=== PATIENT | female | born 1970 | race Caucasian/White ===

== ENCOUNTER 2018-04-24 08:27 | Emergency (ER) | payer SELFPAY ==
--- NOTE | 2018-04-24 09:28 | RAD REPORT ---
EXAM DESCRIPTION: RAD - Ankle Right 3 View - 04/24/2018 9:03 am CLINICAL HISTORY: PAIN COMPARISON: None FINDINGS: Right ankle and right foot, multiple projections are submitted. Soft tissue swelling is seen about the ankle. No acute fracture or dislocation identified. Prominent calcaneal spurs are seen.
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
[2018-04-24 10:28] VITALS: BP 127/64; TEMP 97.6; O2SAT 99
== END 2018-04-24 10:22 | disposition home or self-care (01) ==
LOC: ER 08:27
DX: S90.31XA Contusion of right foot, initial encounter (principal); W22.8XXA Striking against or struck by other objects, initial encounter; Y93.9 Activity, unspecified; Y92.512 Supermarket, store or market as the place of occurrence of the external cause; Z91.048 Other nonmedicinal substance allergy status; E11.9 Type 2 diabetes mellitus without complications
CPT/HCPCS: 99283

== ENCOUNTER 2018-06-24 09:46 | Emergency (ER) | payer SELFPAY ==
--- NOTE | 2018-06-24 11:12 | EDPHYS ---
Physician Documentation [facility] Name: Silvia Kiran Age: 47 yrs Sex: Female : 1970 Arrival Date: 06/24/2018 Time: 09:48 Bed 23 Private MD: Nestor Gill ED Physician Hector Houston HPI: 06/24 11:08 This 47 yrs old Female presents to ER via Ambulatory with complaints of Ear marta Pain, Facial Swelling. 11:08 The patient presents with pain, that is acute. The complaints affect the right ear and marta left ear. Onset: The symptoms/episode began/occurred 2 day(s) ago. 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 - Social history:: Smoking status: Patient/guardian denies using tobacco. - Ebola Screening: : Patient negative for fever greater than or equal to 101.5 degrees Fahrenheit, and additional compatible Ebola Virus Disease symptoms Patient denies exposure to infectious person Patient denies travel to an Ebola-affected area in the 21 days before illness onset No symptoms or risks identified at this time. - Family history:: not pertinent. ROS: 11:09 Constitutional: Negative for fever, chills, and weight loss, Eyes: Negative for injury, marta pain, redness, and discharge, Neck: Negative for injury, pain, and swelling, Cardiovascular: Negative for chest pain, palpitations, and edema, Abdomen/GI: Negative for abdominal pain, nausea, vomiting, diarrhea, and constipation, Back: Negative for injury and pain, : Negative for injury, bleeding, discharge, and swelling, MS/Extremity: Negative for injury and deformity, Skin: Negative for injury, rash, and discoloration, Neuro: Negative for headache, weakness, numbness, tingling, and seizure, Psych: Negative for depression, anxiety, suicide ideation, homicidal ideation, and hallucinations, Allergy/Immunology: Negative for hives, rash, and allergies, Endocrine: Negative for neck swelling, polydipsia, polyuria, polyphagia, and marked weight changes, Hematologic/Lymphatic: Negative for swollen nodes, abnormal bleeding, and unusual bruising. 11:09 ENT: Positive for ear pain. 11:09 Respiratory: Positive for cough, with no reported sputum. Exam: 11:09 Constitutional: This is a well developed, well nourished patient who is awake, alert, marta and in no acute distress. Head/Face: Normocephalic, atraumatic. Eyes: Pupils equal round and reactive to light, extra-ocular motions intact. Lids and lashes normal. Conjunctiva and sclera are non-icteric and not injected. Cornea within normal limits. Periorbital areas with no swelling, redness, or edema. Neck: Trachea midline, no thyromegaly or masses palpated, and no cervical lymphadenopathy. Supple, full range of motion without nuchal rigidity, or vertebral point tenderness. No Meningismus. Chest/axilla: Normal chest wall appearance and motion. Nontender with no deformity. No lesions are appreciated. Cardiovascular: Regular rate and rhythm with a normal S1 and S2. No gallops, murmurs, or rubs. Normal PMI, no JVD. No pulse deficits. Respiratory: Lungs have equal breath sounds bilaterally, clear to auscultation and percussion. No rales, rhonchi or wheezes noted. No increased work of breathing, no retractions or nasal flaring. Abdomen/GI: Soft, non-tender, with normal bowel sounds. No distension or tympany. No guarding or rebound. No evidence of tenderness throughout. Back: No spinal tenderness. No costovertebral tenderness. Full range of motion. Female : Normal external genitalia. Skin: Warm, dry with normal turgor. Normal color with no rashes, no lesions, and no evidence of cellulitis. MS/ Extremity: Pulses equal, no cyanosis. Neurovascular intact. Full, normal range of motion. Neuro: Awake and alert, GCS 15, oriented to person, place, time, and situation. Cranial nerves II-XII grossly intact. Motor strength 5/5 in all extremities. Sensory grossly intact. Cerebellar exam normal. Normal gait. Psych: Awake, alert, with orientation to person, place and time. Behavior, mood, and affect are within normal limits. 11:09 ENT: Ear canal(s): erythema. Vital Signs: 10:17 BP 143 / 99; Pulse 91; Resp 18 S; Temp 97.2; Pulse Ox 100% on R/A; Weight 84.37 kg; iw Height 4 ft. 10 in. (147.32 cm); Pain 7/10; 10:39 BP 139 / 75; Pulse 77; Resp 18; Pulse Ox 98% on R/A; aj1 11:39 BP 132 / 76; Pulse 79; Resp 18; Pulse Ox 99% on R/A; aj1 10:17 Body Mass Index 38.87 (84.37 kg, 147.32 cm) iw MDM: 10:33 Patient medically screened. [facility] 11:10 Data reviewed: vital signs, nurses notes. [facility] Administered Medications: 12:19 Drug: Augmentin 875 mg Route: PO; [facility] 12:20 Follow up: Response: No adverse reaction aj Disposition: 06/24/18 11:11 Discharged to Home. Impression: Otitis externa in other diseases classified elsewhere, bilateral, Bronchitis, not specified as acute or chronic. - Condition is Stable. - Discharge Instructions: Acute Bronchitis, Adult, Otitis Externa, Upper Respiratory Infection, Adult, Otitis Externa, [id number], Upper Respiratory Infection, Adult, [id number]. - Prescriptions for Augmentin 875- 125 mg Oral Tablet - take 1 tablet by ORAL route every 12 hours for 10 days; 20 tablet. Cortisporin- TC 3.3-3-10-0.5 mg/mL Otic Suspension - instill 4 drop by OTIC route every 6 hours; 1 bottle. Kellee- D 12 Hour 60-120 mg Oral Tablet Sustained Release 12 hr - take 1 tablet by ORAL route every 12 hours As needed; 20 tablet. Medrol (Ephraim) 4 mg Oral Tablets, Dose Pack - take 1 tablet by ORAL route as directed - follow package instructions; 1 packet. - Work release form, Medication Reconciliation Form, Thank You Letter, Antibiotic Education, Prescription Opioid Use form. - Follow up: Nestor Gill MD; When: 2 - 3 days; Reason: Recheck today's complaints, Continuance of care, Re-evaluation by your physician. - Problem is new. - Symptoms have improved. Signatures: Naomi Shipman RN RN aj Hector Houston MD MD cha Williams, Irene, RN RN Corrections: (The following items were deleted from the chart) 12:20 11:11 06/24/2018 11:11 Discharged to Home. Impression: Otitis externa in other diseases aj1 classified elsewhere, bilateral; Bronchitis, not specified as acute or chronic. Condition is Stable. Forms are Work release form, Medication Reconciliation Form, Thank You Letter, Antibiotic Education, Prescription Opioid Use. Follow up: Nestor Gill; When: 2 - 3 days; Reason: Recheck today's complaints, Continuance of care, Re-evaluation by your physician. Problem is new. Symptoms have improved. marta
--- NOTE | 2018-06-24 11:12 | ER ---
Nurse's Notes [facility] Name: Silvia Kiran Age: 47 yrs Sex: Female : 1970 Arrival Date: 06/24/2018 Time: 09:48 Bed 23 Private MD: Nestor Gill Diagnosis: Otitis externa in other diseases classified elsewhere, bilateral;Bronchitis, not specified as acute or chronic Presentation: 06/24 10:15 Presenting complaint: Patient states: headache, left ear pain, started and her iw coworkers told her the left side of her neck looks swollen, subjective fever Sunday, also has productive cough. Transition of care: patient was not received from another setting of care. Onset of symptoms was June 24, 2018. Risk Assessment: Do you want to hurt yourself or someone else? Patient reports no desire to harm self or others. Initial Sepsis Screen: Does the patient meet any 2 criteria? No. Patient's initial sepsis screen is negative. Does the patient have a suspected source of infection? No. Patient's initial sepsis screen is negative. Care prior to arrival: None. 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 - Social history:: Smoking status: Patient/guardian denies using tobacco. - Ebola Screening: : Patient negative for fever greater than or equal to 101.5 degrees Fahrenheit, and additional compatible Ebola Virus Disease symptoms Patient denies exposure to infectious person Patient denies travel to an Ebola-affected area in the 21 days before illness onset No symptoms or risks identified at this time. - Family history:: not pertinent. Screenin:39 Abuse screen: Denies threats or abuse. Denies injuries from another. Nutritional aj1 screening: No deficits noted. Tuberculosis screening: No symptoms or risk factors identified. 12:19 Fall Risk None identified. aj1 Assessment: 10:39 General: Appears in no apparent distress. uncomfortable, Behavior is calm, cooperative, aj1 appropriate for age. Pain: Complains of pain in forehead, right ear and left ear Pain currently is 7 out of 10 on a pain scale. Quality of pain is described as throbbing, Pain began 5 days ago. Neuro: Level of Consciousness is awake, alert, obeys commands. Cardiovascular: Patient's skin is warm and dry. Respiratory: Reports cough that is productive, Airway is patent Respiratory effort is even, unlabored, Respiratory pattern is regular, symmetrical. GI: Reports nausea, States that when she coughs a lot of phlegm up sometimes it makes her vomit. : No signs and/or symptoms were reported regarding the genitourinary system. EENT: Reports bilateral ear pain. Derm: No signs and/or symptoms reported regarding the dermatologic system. Skin is pink, warm \T\ dry. normal. Musculoskeletal: No signs and/or symptoms reported regarding the musculoskeletal system. Circulation, motion, and sensation intact. 11:39 Reassessment: Patient appears in no apparent distress at this time. No changes from aj1 previously documented assessment. Patient and/or family updated on plan of care and expected duration. Pain level reassessed. Patient is alert, oriented x 3, equal unlabored respirations, skin warm/dry/pink. Vital Signs: 10:17 BP 143 / 99; Pulse 91; Resp 18 S; Temp 97.2; Pulse Ox 100% on R/A; Weight 84.37 kg; iw Height 4 ft. 10 in. (147.32 cm); Pain 7/10; 10:39 BP 139 / 75; Pulse 77; Resp 18; Pulse Ox 98% on R/A; aj1 11:39 BP 132 / 76; Pulse 79; Resp 18; Pulse Ox 99% on R/A; aj1 10:17 Body Mass Index 38.87 (84.37 kg, 147.32 cm) iw ED Course: 09:48 Patient arrived in ED. as 09:48 Nestor Gill MD is Private Physician. as 10:16 Triage completed. iw 10:17 Arm band placed on. iw 10:33 Hector Houston MD is Attending Physician. marta 10:39 Naomi Shipman, TERRY is Primary Nurse. aj1 10:39 Patient has correct armband on for positive identification. Bed in low position. Call aj1 light in reach. Side rails up X 1. 10:39 No provider procedures requiring assistance completed. aj1 11:10 Nestor Gill MD is Referral Physician. [facility] 12:19 Patient did not have IV access during this emergency room visit. aj1 Administered Medications: 12:19 Drug: Augmentin 875 mg Route: PO; aj1 12:20 Follow up: Response: No adverse reaction aj1 Outcome: 11:11 Discharge ordered by . marta 12:19 Discharged to home ambulatory. aj1 12:19 Condition: good 12:19 Discharge instructions given to patient, Instructed on discharge instructions, follow up and referral plans. medication usage, Demonstrated understanding of instructions, follow-up care, medications, Prescriptions given X 4. 12:20 Patient left the ED. aj1 Signatures: Naomi Shipman RN RN aj1 Hector Houston MD MD cha Martinez, Amelia as Williams, Irene, RN RN iw
[2018-06-24] MEDS ORDERED: AMOX/K CLAV 875 MG TAB ONE (11:54)
== END 2018-06-24 12:20 | disposition home or self-care (01) ==
LOC: ER 09:46
DX: J40 Bronchitis, not specified as acute or chronic (principal); H62.43 Otitis externa in other diseases classified elsewhere, bilateral; E11.9 Type 2 diabetes mellitus without complications; Z79.84 Long term (current) use of oral hypoglycemic drugs
CPT/HCPCS: 99283

== ENCOUNTER 2018-08-22 19:34 | Emergency (ER) | payer SELFPAY ==
[2018-08-22] MEDS ORDERED: HYDROCODONE/CHLORPHEN 5 ML/OSYR ONE (20:17)
--- NOTE | 2018-08-22 20:24 | RAD REPORT ---
EXAM DESCRIPTION: RAD - Chest Pa And Lat (2 Views) - 08/22/2018 8:16 pm CLINICAL HISTORY: COUGH Chest pain. COMPARISON: CHEST SINGLE VIEW dated 03/08/2013 FINDINGS: The lungs are clear. The heart is normal in size. No displaced fractures. Evidence of prev ious removal of the right rib noted. IMPRESSION: No acute or concerning finding suspected.
--- NOTE | 2018-08-22 21:01 | EDPHYS ---
Physician Documentation [facility] Name: Silvia Kiran Age: 48 yrs Sex: Female : 1970 Arrival Date: 08/22/2018 Time: 19:35 Bed 30 Private MD: ED Physician Hector Houston HPI: 08/22 20:05 This 48 yrs old Female presents to ER via Ambulatory with complaints of pm1 Cough, Breathing Difficulty. 20:05 The patient or guardian reports cough, with productive sputum. Onset: The pm1 symptoms/episode began/occurred 2 week(s) ago. Severity of symptoms: in the emergency department the symptoms are actually worse. Modifying factors: The symptoms are alleviated by nothing, the symptoms are aggravated by nothing. Associated signs and symptoms: Pertinent positives: earache, rhinorrhea, sore throat, Pertinent negatives: chest pain, fever. The patient has not recently seen a physician. 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 - Social history:: Smoking status: Patient/guardian denies using tobacco, Patient/guardian denies using alcohol, street drugs. - Ebola Screening: : No symptoms or risks identified at this time. ROS: 20:05 Constitutional: Negative for fever, chills, and weight loss, Eyes: Negative for injury, pm1 pain, redness, and discharge. 20:05 Neck: Negative for injury, pain, and swelling, Cardiovascular: Negative for chest pain, palpitations, and edema. 20:05 Abdomen/GI: Negative for abdominal pain, nausea, vomiting, diarrhea, and constipation, Back: Negative for injury and pain, : Negative for injury, bleeding, discharge, and swelling, MS/Extremity: Negative for injury and deformity, Skin: Negative for injury, rash, and discoloration, Neuro: Negative for headache, weakness, numbness, tingling, and seizure. 20:05 ENT: Positive for ear pain, rhinorrhea, sore throat. 20:05 Respiratory: Positive for cough, shortness of breath. Exam: 20:05 Constitutional: This is a well developed, well nourished patient who is awake, alert, pm1 and in no acute distress. Head/Face: Normocephalic, atraumatic. Eyes: Pupils equal round and reactive to light, extra-ocular motions intact. Lids and lashes normal. Conjunctiva and sclera are non-icteric and not injected. Cornea within normal limits. Periorbital areas with no swelling, redness, or edema. ENT: Nares patent. No nasal discharge, no septal abnormalities noted. Tympanic membranes are normal and external auditory canals are clear. Oropharynx with no redness, swelling, or masses, exudates, or evidence of obstruction, uvula midline. Mucous membranes moist. Neck: Trachea midline, no thyromegaly or masses palpated, and no cervical lymphadenopathy. Supple, full range of motion without nuchal rigidity, or vertebral point tenderness. No Meningismus. Chest/axilla: Normal chest wall appearance and motion. Nontender with no deformity. No lesions are appreciated. Cardiovascular: Regular rate and rhythm with a normal S1 and S2. No gallops, murmurs, or rubs. Normal PMI, no JVD. No pulse deficits. Respiratory: Lungs have equal breath sounds bilaterally, clear to auscultation and percussion. No rales, rhonchi or wheezes noted. No increased work of breathing, no retractions or nasal flaring. Abdomen/GI: Soft, non-tender, with normal bowel sounds. No distension or tympany. No guarding or rebound. No evidence of tenderness throughout. Back: No spinal tenderness. No costovertebral tenderness. Full range of motion. Skin: Warm, dry with normal turgor. Normal color with no rashes, no lesions, and no evidence of cellulitis. MS/ Extremity: Pulses equal, no cyanosis. Neurovascular intact. Full, normal range of motion. 20:05 Neuro: Orientation: is normal, Motor: is normal, moves all fours. Vital Signs: 19:51 BP 130 / 87; Pulse 93; Resp 18 S; Temp 99.5(O); Pulse Ox 97% on R/A; Weight 84.82 kg bb (R); Height 4 ft. 10 in. (147.32 cm) (R); Pain 7/10; 21:25 BP 108 / 70; Pulse 89; Resp 18; Temp 98(O); Pulse Ox 96% on R/A; Pain 2/10; mg2 19:51 Body Mass Index 39.08 (84.82 kg, 147.32 cm) bb MDM: 19:44 Patient medically screened. marta 20:42 Data reviewed: vital signs. Data interpreted: Pulse oximetry: on room air is 97 %. pm1 Interpretation: normal. Counseling: I had a detailed discussion with the patient and/or guardian regarding: the historical points, exam findings, and any diagnostic results supporting the discharge/admit diagnosis, lab results, radiology results, the need for outpatient follow up, to return to the emergency department if symptoms worsen or persist or if there are any questions or concerns that arise at home. 08/22 20:00 Order name: Flu [facility] 08/22 20:00 Order name: Strep [facility] 08/22 20:04 Order name: Influenza Screen (A ; Complete Time: 20:41 [facility] 08/22 20:04 Order name: Group A Streptococcus Rapid Sc; Complete Time: 20:41 [facility] 08/22 20:20 Order name: Urine Dipstick--Ancillary (enter results) [facility] 08/22 20:20 Order name: Urine --Ancillary (enter results) [facility] 08/22 20:00 Order name: Chest Pa And Lat (2 Views) XRAY; Complete Time: 20:27 pm 08/22 20:00 Order name: Glucose Level; Complete Time: 20:22 pm 08/22 20:01 Order name: Urine Dipstick-Ancillary (obtain specimen); Complete Time: 20:14 pm 08/22 20:40 Order name: Throat Culture [facility] 08/22 20:01 Order name: Urine Test (obtain specimen); Complete Time: 20:14 pm1 Administered Medications: 20:14 Drug: Tussionex Pennkinetic ER 5 ml Route: PO; mg2 20:44 Follow up: Response: No adverse reaction; Marked relief of symptoms mg2 20:58 Drug: SOLU-Medrol 125 mg Route: IM; Site: right gluteus; mg2 21:32 Follow up: Response: No adverse reaction; Marked relief of symptoms mg2 20:58 Drug: Albuterol 5 mg Route: Inhalation; mg2 21:32 Follow up: Response: No adverse reaction; Marked relief of symptoms mg2 Point of Care Testing: Blood Glucose: 20:22 Blood Glucose: 141 mg/dL; mg2 Ranges: Critical Glucose Levels:Adult <50 mg/dl or >400 mg/dl <40 mg/dl or >180 mg/dl Disposition: 08/22/18 21:01 Discharged to Home. Impression: Bronchitis, not specified as acute or chronic. - Condition is Stable. - Discharge Instructions: Acute Bronchitis, Adult, How to Use an Inhaler, Cough, Adult. - Prescriptions for Medrol (Ephraim) 4 mg Oral Tablets, Dose Pack - take 1 tablet by ORAL route as directed - follow package instructions; 1 packet. Albuterol Sulfate 90 mcg/actuation - inhale 1-2 puff by INHALATION route every 4-6 hours; 1 Inhaler. Guaifenesin AC 10- 100 mg/5 mL Oral Liquid - take 10 milliliter by ORAL route every 4 hours As needed; 240 milliliter. - Medication Reconciliation Form, Thank You Letter, Antibiotic Education, Prescription Opioid Use form. - Follow up: Emergency Department; When: As needed; Reason: Worsening of condition. Follow up: Private Physician; When: 2 - 3 days; Reason: Recheck today's complaints, Continuance of care, Re-evaluation by your physician. - Problem is new. - Symptoms have improved. Addendum: 08/26/2018 07:01 Co-signature as Attending Physician, Hector Houston MD I agree with the assessment and c claros plan of care. Signatures: Dispatcher [employer] [facility] Hector Houston MD MD cha Ballard, Brenda, RN RN bb Richard Daniel NP TECHNICAL DESIGNER pm1 Dinesh Amador RN RN mg2 Corrections: (The following items were deleted from the chart) 08/22 20:05 20:04 Chest Pa And Lat (2 Views) ordered. [facility] 21:34 21:01 08/22/2018 21:01 Discharged to Home. Impression: Bronchitis, not specified as mg2 acute or chronic. Condition is Stable. Forms are Medication Reconciliation Form, Thank You Letter, Antibiotic Education, Prescription Opioid Use. Follow up: Emergency Department; When: As needed; Reason: Worsening of condition. Follow up: Private Physician; When: 2 - 3 days; Reason: Recheck today's complaints, Continuance of care, Re-evaluation by your physician. Problem is new. Symptoms have improved. pm1
--- NOTE | 2018-08-22 21:01 | ER ---
Nurse's Notes [facility] Name: Silvia Kiran Age: 48 yrs Sex: Female : 1970 Arrival Date: 08/22/2018 Time: 19:35 Bed 30 Private MD: Diagnosis: Bronchitis, not specified as acute or chronic Presentation: 08/22 19:48 Presenting complaint: Patient states: she has been feeling sick for a couple of weeks bb with a cough, congestion, fever, sore throat, ear pain, shortness of breath, pain in her ribs from coughing. Transition of care: patient was not received from another setting of care. Onset of symptoms was August 08, 2018. Risk Assessment: Do you want to hurt yourself or someone else? Patient reports no desire to harm self or others. Initial Sepsis Screen: Does the patient meet any 2 criteria? No. Patient's initial sepsis screen is negative. Does the patient have a suspected source of infection? No. Patient's initial sepsis screen is negative. Care prior to arrival: None. 19:48 Method Of Arrival: Ambulatory bb 19:48 Acuity: SUNG 3 bb Triage Assessment: 20:18 General: Appears in no apparent distress. comfortable, Behavior is calm, cooperative. mg2 Respiratory: the patient has mild shortness of breath. Respiratory: Airway is patent Respiratory effort is even, unlabored, Respiratory pattern is regular, symmetrical. 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 - Social history:: Smoking status: Patient/guardian denies using tobacco, Patient/guardian denies using alcohol, street drugs. - Ebola Screening: : No symptoms or risks identified at this time. Screenin:15 Abuse screen: Denies threats or abuse. Denies injuries from another. Nutritional mg2 screening: No deficits noted. Tuberculosis screening: No symptoms or risk factors identified. Fall Risk None identified. Assessment: 20:15 General: Appears in no apparent distress. comfortable, Behavior is calm, cooperative. mg2 Pain: Complains of pain in throat Pain does not radiate. Pain currently is 2 out of 10 on a pain scale. Quality of pain is described as aching, Pain began gradually, Is intermittent. Neuro: Level of Consciousness is awake, alert, obeys commands, Oriented to person, place, time, situation. Cardiovascular: Capillary refill < 3 seconds Patient's skin is warm and dry. Rhythm is. Respiratory: Airway is patent Respiratory effort is even, unlabored, Respiratory pattern is regular, symmetrical. Respiratory: Reports cough that is productive. Respiratory: GI: No signs and/or symptoms were reported involving the gastrointestinal system. : No signs and/or symptoms were reported regarding the genitourinary system. EENT: Reports pain in throat. Derm: Skin is intact, is healthy with good turgor, Skin is pink, warm \T\ dry. normal. Musculoskeletal: No signs and/or symptoms reported regarding the musculoskeletal system. 21:04 Reassessment: patient is for discharged once breathing treatment is done. mg2 21:33 Reassessment: patient improved. mg2 Vital Signs: 19:51 BP 130 / 87; Pulse 93; Resp 18 S; Temp 99.5(O); Pulse Ox 97% on R/A; Weight 84.82 kg bb (R); Height 4 ft. 10 in. (147.32 cm) (R); Pain 7/10; 21:25 BP 108 / 70; Pulse 89; Resp 18; Temp 98(O); Pulse Ox 96% on R/A; Pain 2/10; mg2 19:51 Body Mass Index 39.08 (84.82 kg, 147.32 cm) bb ED Course: 19:35 Patient arrived in ED. am2 19:41 Dinesh Amador, TERRY is Primary Nurse. mg2 19:42 Richard Daniel NP is PHCP. pm1 19:42 Hector Houston MD is Attending Physician. pm1 19:50 Triage completed. bb 19:51 Arm band placed on Patient placed in an exam room, on a stretcher, on pulse oximetry. bb 20:15 Chest Pa And Lat (2 Views) XRAY In Process Unspecified. EDMS 20:15 No provider procedures requiring assistance completed. Patient did not have IV access mg2 during this emergency room visit. 20:19 Patient has correct armband on for positive identification. Door closed. mg2 Administered Medications: 20:14 Drug: Tussionex Pennkinetic ER 5 ml Route: PO; mg2 20:44 Follow up: Response: No adverse reaction; Marked relief of symptoms mg2 20:58 Drug: SOLU-Medrol 125 mg Route: IM; Site: right gluteus; mg2 21:32 Follow up: Response: No adverse reaction; Marked relief of symptoms mg2 20:58 Drug: Albuterol 5 mg Route: Inhalation; mg2 21:32 Follow up: Response: No adverse reaction; Marked relief of symptoms mg2 Point of Care Testing: Blood Glucose: 20:22 Blood Glucose: 141 mg/dL; mg2 Ranges: Outcome: 21:01 Discharge ordered by . pm1 21:33 Discharged to home ambulatory, with family. mg2 21:33 Condition: stable 21:33 Discharge instructions given to patient, family, Instructed on discharge instructions, follow up and referral plans. medication usage, Demonstrated understanding of instructions, follow-up care, medications, Prescriptions given X 3. 21:34 Patient left the ED. mg2 Signatures: Dispatcher [employer] EDMS Sherry Verdugo, RN RN Richard Armando NP BREAKER OILER pm1 Ignacia Clay am2 Dinseh Amador RN RN mg2
[2018-08-22] MEDS ORDERED: ALBUTEROL 2.5 MG/3 ML NEB SOL ONE (21:03)
[2018-08-22] MEDS ORDERED: METHYLPREDNISOLONE 125 MG INJ ONE (21:03)
[2018-08-22 21:49] LABS: Urine Blood NEGATIVE (NEG); Urine Glucose NEGATIVE (NEG); Urine Protein NEGATIVE (NEG); Urine Specific Gravity 1.015 (1.005-1.030); Urine pH 6.5 (5.0-7.0)
[2018-08-22 22:00] VITALS: BP 108/70; TEMP 98; O2SAT 96
== END 2018-08-22 21:34 | disposition home or self-care (01) ==
LOC: ER 19:34
DX: J40 Bronchitis, not specified as acute or chronic (principal); E11.9 Type 2 diabetes mellitus without complications
CPT/HCPCS: 71046; 81003; 81025; 82962; 87070; 87081; 87804; 96372; 99284; J2930

== ENCOUNTER 2019-01-04 15:35 | Emergency (ER) | payer SELFPAY ==
[2019-01-04 18:36] LABS: Urine Blood TRACE (NEG); Urine Glucose NEGATIVE (NEG); Urine Protein NEGATIVE (NEG)
[2019-01-04] MEDS ORDERED: NA CHLORIDE 0.9% 1,000 ML ONE (18:44)
[2019-01-04] MEDS ORDERED: ONDANSETRON 4 MG/2 ML VIAL ONE (18:44)
[2019-01-04] MEDS ORDERED: FENTANYL CITR 100 MCG/2 ML ONE (18:44)
[2019-01-04 18:58] LABS: Absolute Lymphocytes (CBC) 2.1 K/uL (0.7-4.9); Absolute Monocytes 0.7 K/uL (0.1-1.3); Absolute Neutrophil 8.2 K/uL (1.8-8.0); Basophils % 0.9 % (0-1.3); Eosinophils % 1.4 % (0-4.4); Hematocrit 40.7 % (36.0-45.0); Lymphocytes % 18.5 % (15.3-44.8); MPV 9.2 fL (7.6-11.3); Monocytes % 5.9 % (3.3-12.3)
--- NOTE | 2019-01-04 19:11 | RAD REPORT ---
EXAM DESCRIPTION: [facility]/04/2019 7:00 pm CLINICAL HISTORY: left leg pain and swelling. COMPARISON: None. FINDINGS: Left common femoral, superficial femoral, popliteal and posterior tibial veins are compre ssible and demonstrate augmentation. Doppler demonstrates good flow. IMPRESSION: No evidence of deep venous thrombosis involving the left lower extremity.
[2019-01-04 19:14] LABS: ALT/SGPT 52 U/L (12-78); AST/SGOT 36 U/L (15-37); Albumin 3.2 g/dL (3.4-5.0); Alkaline Phosphatase 106 U/L (45-117); BUN Blood Urea Nitrogen 19 mg/dL (7-18); Bicarbonate 28 mmol/L (21-32); Bilirubin Direct < 0.1 mg/dL (0-0.2); Bilirubin Total 0.4 mg/dL (0.2-1.0); Glucose Level 123 mg/dL (74-106); Lipase 97 U/L (73-393); Potassium 3.7 mmol/L (3.5-5.1); Protein, Total 7.6 g/dL (6.4-8.2); Sodium Level 137 mmol/L (136-145)
[2019-01-04 19:25] LABS: Urine Bacteria 20-50 /HPF (<20); Urine Culture Reflex Order REFLEXED; Urine Mucus 1+ /HPF (NONE SEEN); Urine RBC <5 /HPF (NONE SEEN)
--- NOTE | 2019-01-04 20:00 | RAD REPORT ---
EXAM DESCRIPTION: CT - Stone Protocol - 01/04/2019 7:42 pm CLINICAL HISTORY: Abdominal pain. Left flank pain COMPARISON: None. TECHNIQUE: Computed axial tomography of the abdomen pelvis was obtained without oral or IV contrast. Lack of IV and oral contrast limits evaluation of solid organs, bowel, and vessels. Coronal reformat naveed images were obtained and reviewed. All CT scans are performed using dose optimization technique as appropriate and may include automated exposure control or mA/KV adjustment according to patient size. FINDINGS: A renal calculus is not seen. An ureteral calculus is not noted. A bladder calculus is not present. Fatty liver Spleen, pancreas and adrenals appear grossly normal Diverticulosis. Minimal stranding adjacent to the sigmoid colon. The appendix appears normal Tiny umbilical hernia IMPRESSION: Negative for a genitourinary calculus Minimal sigmoid diverticulitis
[2019-01-04] MEDS ORDERED: KETOROLAC 30 MG/ML INJ ONE (20:14)
[2019-01-04] MEDS ORDERED: CIPROFLOXACIN HCL 500 MG TAB ONE (20:28)
[2019-01-04] MEDS ORDERED: METRONIDAZOLE 500mg IVPB 500 MG/100 ML BAG IV ONE (20:28)
--- NOTE | 2019-01-04 21:00 | EDPHYS ---
Physician Documentation [facility] Name: Silvia Kiran Age: 48 yrs Sex: Female : 1970 Arrival Date: 01/04/2019 Time: 15:38 Bed 17 Private MD: Rene Morales R ED Physician Kendall Ch HPI: 01/04 18:10 This 48 yrs old Female presents to ER via Ambulatory with complaints of Back cp Pain, Leg Pain. 18:10 The patient presents with pain that is acute, with no known mechanism of injury. The cp symptoms are located in the low back. 18:10 Onset: The symptoms/episode began/occurred 4 day(s) ago. The pain radiates to the left cp leg and left knee. Associated signs and symptoms: Pertinent positives: abdominal pain, Pertinent negatives: chest pain, constipation, dysuria, fever, headache, incontinence, numbness, tingling, urinary retention, weakness. The problem was sustained from unknown cause. Modifying factors: the patient symptoms are aggravated by bending. Severity of symptoms: in the emergency department the symptoms are unchanged, despite home interventions. 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 - Social history:: Smoking status: . - Ebola Screening: : Patient denies travel to an Ebola-affected area in the 21 days before illness onset. ROS: 18:20 Constitutional: Negative for body aches, chills, fever, poor PO intake. cp 18:20 Eyes: Negative for injury, pain, redness, and discharge. cp 18:20 ENT: Negative for drainage from ear(s), ear pain, sore throat, difficulty swallowing, difficulty handling secretions. 18:20 Cardiovascular: Negative for chest pain, edema, palpitations. 18:20 Respiratory: Negative for cough, orthopnea, wheezing. 18:20 Abdomen/GI: Positive for abdominal pain, Negative for vomiting, diarrhea, constipation, anorexia, black/tarry stool, rectal bleeding, bowel incontinence. 18:20 Back: Positive for pain at rest, pain with movement, Negative for injury or acute deformity. 18:20 : Negative for urinary symptoms, difficulty urinating, bladder incontinence, vaginal bleeding, vaginal discharge. 18:20 MS/extremity: Positive for pain, swelling, tenderness, of the left leg. 18:20 Skin: Negative for cellulitis, rash. 18:20 Neuro: Negative for altered mental status, dizziness, headache, numbness, syncope, weakness. 18:20 All other systems are negative. Exam: 18:30 Constitutional: The patient appears in no acute distress, alert, awake, non-toxic, well cp developed, well nourished, uncomfortable. 18:30 Head/Face: Normocephalic, atraumatic. cp 18:30 Eyes: Periorbital structures: appear normal, Conjunctiva: normal, no exudate, no injection, Sclera: no appreciated abnormality, Lids and lashes: appear normal, bilaterally. 18:30 ENT: External ear(s): are unremarkable, Nose: is normal, Mouth: is normal, Posterior pharynx: is normal, airway is patent, no erythema, no exudate. 18:30 Neck: ROM/movement: is normal, is supple, without pain, no range of motions limitations, no nuchal rigidity. 18:30 Chest/axilla: Inspection: normal, Palpation: is normal, no crepitus, no tenderness. 18:30 Cardiovascular: Rate: normal, Rhythm: regular, Edema: is not appreciated, JVD: is not appreciated. 18:30 Respiratory: the patient does not display signs of respiratory distress, Respirations: cp normal, no use of accessory muscles, no retractions, no splinting, no tachypnea, Breath sounds: are clear throughout, no decreased breath sounds, no stridor, no wheezing. 18:30 Abdomen/GI: Inspection: abdomen appears normal, Bowel sounds: active, all quadrants, Palpation: soft, in all quadrants, mild abdominal tenderness, in the anterior aspect of left lateral abdomen and left lower quadrant, rebound tenderness, is not appreciated, involuntary guarding, is not appreciated. 18:30 Back: pain, that is moderate, of the low back area, ROM is painful. 18:30 Musculoskeletal/extremity: DVT Exam: pain, that is moderate, of the left leg, swelling, that is mild, of the left leg, tenderness, positive Homans' sign noted on exam. 18:30 Skin: no rash present. 18:30 Neuro: Orientation: to person, place \T\ time. Mentation: is normal, Motor: moves all fours, strength is normal, Sensation: is normal, Deep tendon reflexes are 2+ (normal) in the right patellar, right Achilles, left patellar and left Achilles. Vital Signs: 15:47 BP 153 / 80; Pulse 95; Resp 19; Temp 97.8(TE); Pulse Ox 95% on R/A; Weight 88.45 kg; tw2 Height 4 ft. 10 in. (147.32 cm); Pain 10/10; 17:00 BP 144 / 74; Pulse 93; Resp 18; Pulse Ox 100% on R/A; em 18:00 BP 132 / 62; Pulse 85; Resp 18; Pulse Ox 99% on R/A; Pain 7/10; em 19:05 BP 131 / 65; Pulse 80; Resp 17; Temp 98; Pulse Ox 99% on R/A; rr5 19:05 Pain 7/10; rr5 20:00 BP 120 / 64; Pulse 75; Resp 17; Pulse Ox 99% ; Pain 10/10; rr5 21:10 BP 124 / 71; Pulse 82; Resp 17; Temp 98.1; Pulse Ox 99% on R/A; Pain 7/10; rr5 15:47 Body Mass Index 40.75 (88.45 kg, 147.32 cm) tw2 MDM: 16:56 Patient medically screened. cp 20:55 Data reviewed: vital signs, nurses notes, lab test result(s), radiologic studies, CT cp scan, ultrasound, and as a result, I will discharge patient. 20:55 Differential diagnosis: Pyelonephritis Ureterolithiasis sciatica, diverticulitis, cp spinal stenosis, cauda equina. Counseling: I had a detailed discussion with the patient and/or guardian regarding: the historical points, exam findings, and any diagnostic results supporting the discharge/admit diagnosis, lab results, radiology results, the need for outpatient follow up, a family practitioner, to return to the emergency department if symptoms worsen or persist or if there are any questions or concerns that arise at home. ED course: VSS. Pain improved with meds. Will discharge to home for continued monitoring. 01/04 18:04 Order name: Basic Metabolic Panel cp 01/04 18:04 Order name: CBC with Diff 01/04 18:04 Order name: Creatinine for Radiology; Complete Time: 19:57 cp / 18:04 Order name: Hepatic Function; Complete Time: 19:57 cp /08 18:04 Order name: Lipase; Complete Time: 19:57 cp 01/04 18:04 Order name: Urine Microscopic Only; Complete Time: 19:57 cp /08 19:57 Interpretation: Normal except: UBACT 20-50; SQEPI 10-20. cp 06/08 18:04 Order name: US Extremity Venous Unilateral Ltd; Complete Time: 19:13 cp 01/04 18:06 Order name: Basic Metabolic Panel; Complete Time: 19:57 EDCA 01/04 18:06 Order name: CBC with Automated Diff; Complete Time: 19:13 EDCA 01/04 18:10 Order name: Urine Dipstick--Ancillary (enter results); Complete Time: 18:56 eb 08 18:56 Interpretation: Normal except: UBLD TRACE. cp /08 18:10 Order name: Urine --Ancillary (enter results); Complete Time: 18:56 eb 08 19:13 Order name: CT Stone Protocol; Complete Time: 20:03 cp /08 19:30 Order name: Urine Culture [facility] 08 16:56 Order name: Urine Dipstick-Ancillary (obtain specimen); Complete Time: 18:23 cp 08 16:56 Order name: Urine Test (obtain specimen); Complete Time: 18:23 cp 08 18:04 Order name: IV Saline Lock; Complete Time: 18:48 cp 01/04 18:04 Order name: Labs collected and sent; Complete Time: 18:48 cp Administered Medications: 18:46 Drug: Zofran 4 mg Route: IVP; Site: right antecubital; ss 20:00 Follow up: Response: No adverse reaction rr5 18:46 Drug: fentaNYL (PF) 25 mcg Route: IVP; Site: right antecubital; ss 20:00 Follow up: Response: No adverse reaction rr5 18:47 Drug: NS 0.9% 1000 ml Route: IV; Rate: 1 bolus; Site: right antecubital; ss 20:05 Drug: TORadol 30 mg Route: IVP; Site: right antecubital; rr5 21:05 Follow up: Response: No adverse reaction rr5 20:23 Drug: metroNIDAZOLE 500 mg Volume: 100 ml; Route: IVPB; Infused Over: 30 mins; Site: la1 right antecubital; 21:20 Follow up: Response: No adverse reaction; IV Status: Completed infusion; IV Intake: rr5 100ml 20:23 Drug: Cipro 500 mg Route: PO; la1 21:30 Follow up: Response: No adverse reaction rr5 Disposition: 01/04/19 21:00 Discharged to Home. Impression: Sciatica, left side, Diverticulitis of large intestine without perforation or abscess without bleeding - sigmoid. - Condition is Stable. - Discharge Instructions: Diverticulitis, Sciatica, Back Exercises. - Prescriptions for Tylenol- Codeine #3 300-30 mg Oral Tablet - take 2 tablets by ORAL route every 6 hours As needed; 20 tablet. Cipro 500 mg Oral Tablet - take 1 tablet by ORAL route every 12 hours for 10 days; 20 tablet. Cyclobenzaprine 10 mg Oral Tablet - take 1 tablet by ORAL route every 8 hours As needed; 20 tablet. Metronidazole 500 mg Oral Tablet - take 1 tablet by ORAL route every 8 hours; 30 tablet. - Medication Reconciliation Form, Thank You Letter, Antibiotic Education, Prescription Opioid Use form. - Follow up: Rene Morales MD; When: 2 - 3 days; Reason: Recheck today's complaints. - Problem is new. - Symptoms have improved. Addendum: 01/07/2019 19:02 Co-signature as Attending Physician, Kendall Ch MD. r n Signatures: Dispatcher [employer] EDMS Kendall Ch MD MD rn Smirch, Shelby, RN RN ss Thierry Reeder RN RN la1 Hector Smith PA PA cp Wise, Tara, RN RN tw2 Mil Plascencia RN RN rr5 Corrections: (The following items were deleted from the chart) 01/04 21:32 21:00 01/04/2019 21:00 Discharged to Home. Impression: Sciatica, left side; rr5 Diverticulitis of large intestine without perforation or abscess without bleeding - sigmoid. Condition is Stable. Forms are Medication Reconciliation Form, Thank You Letter, Antibiotic Education, Prescription Opioid Use. Follow up: Rene Morales; When: 2 - 3 days; Reason: Recheck today's complaints. Problem is new. Symptoms have improved. cp
--- NOTE | 2019-01-04 21:00 | ER ---
Nurse's Notes [facility] Name: Silvia Kiran Age: 48 yrs Sex: Female : 1970 Arrival Date: 01/04/2019 Time: 15:38 Bed 17 Private MD: Rene Morales R Diagnosis: Sciatica, left side;Diverticulitis of large intestine without perforation or abscess without bleeding-sigmoid Presentation: 01/04 15:45 Presenting complaint: Patient states: its been going on about 4 days, everyone thinks i tw2 have pinched a nerve, from my LEFT knee down is my main pain, my back pain comes and goes and i have a lump on the left side of my stomach and i have had some stomach pain and i am feeling shortness of breath. Transition of care: patient was not received from another setting of care. Onset of symptoms was January 04, 2019. Risk Assessment: Do you want to hurt yourself or someone else? Patient reports no desire to harm self or others. Initial Sepsis Screen: Does the patient meet any 2 criteria? No. Patient's initial sepsis screen is negative. Does the patient have a suspected source of infection? No. Patient's initial sepsis screen is negative. Care prior to arrival: None. 15:45 Method Of Arrival: Ambulatory tw2 15:45 Acuity: SUNG 3 tw2 Triage Assessment: 15:47 General: Appears in no apparent distress. obese, Behavior is calm, cooperative, tw2 appropriate for age. Pain: Complains of pain in left knee. Musculoskeletal: Range of motion: intact in all extremities. 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 - Social history:: Smoking status: . - Ebola Screening: : Patient denies travel to an Ebola-affected area in the 21 days before illness onset. Screenin:15 Abuse screen: Denies threats or abuse. Nutritional screening: No deficits noted. em Tuberculosis screening: No symptoms or risk factors identified. Fall Risk None identified. Assessment: 17:00 General: Appears in no apparent distress. comfortable, Behavior is calm, cooperative, em Denies fever. Pain: Complains of pain in back Pain radiates to left leg Pain currently is 8 out of 10 on a pain scale. Pain began x 4 days. Neuro: Level of Consciousness is awake, alert, obeys commands, Oriented to person, place, time, situation. Cardiovascular: Capillary refill < 3 seconds Patient's skin is warm and dry. Respiratory: Airway is patent Respiratory effort is even, unlabored, Respiratory pattern is regular, symmetrical. GI: Abdomen is flat, Abd is soft X 4 quads Abdomen is tender to palpation in left upper quadrant Reports nausea. : Denies burning with urination, discharge. Derm: Skin is intact, is healthy with good turgor, Skin is pink, warm \T\ dry. Musculoskeletal: Range of motion: intact in all extremities. 17:05 General: The previous assessment is accurate, call light remains within reach. . ss 18:50 Reassessment: Patient appears in no apparent distress at this time. Patient and/or em family updated on plan of care and expected duration. Pain level reassessed. Patient is alert, oriented x 3, equal unlabored respirations, skin warm/dry/pink. 19:05 General: Appears in no apparent distress. comfortable, Behavior is calm, cooperative, rr5 appropriate for age. Pain: Complains of pain in abdomen and back Pain radiates to left leg Pain currently is 7 out of 10 on a pain scale. Quality of pain is described as aching, Pain began gradually, Is intermittent. Neuro: Level of Consciousness is awake, alert, obeys commands, Oriented to person, place, time, situation, Appropriate for age. Cardiovascular: Capillary refill < 3 seconds Patient's skin is warm and dry. Respiratory: Airway is patent Respiratory effort is even, unlabored, Respiratory pattern is regular, symmetrical. GI: Abdomen is round Reports diarrhea, nausea, vomiting. : No signs and/or symptoms were reported regarding the genitourinary system. EENT: No signs and/or symptoms were reported regarding the EENT system. Derm: Skin is intact, Skin is pink, warm \T\ dry. Musculoskeletal: Capillary refill < 3 seconds, Range of motion: intact in all extremities, Reports pain in back and left leg. 19:45 Reassessment: Patient appears in no apparent distress at this time. Patient is alert, rr5 oriented x 3, equal unlabored respirations, skin warm/dry/pink. back from CT scan. assisted on bed. 20:05 Reassessment: Patient appears in no apparent distress at this time. complaining of back rr5 and leg pain. ED provider aware with order made and carried out. 21:00 Reassessment: Patient appears in no apparent distress at this time. Patient and/or rr5 family updated on plan of care and expected duration. Pain level reassessed. no complaints made. for discharge awaiting for the IV infusion to consume. 21:30 Reassessment: Patient appears in no apparent distress at this time. Patient and/or rr5 family updated on plan of care and expected duration. Pain level reassessed. Patient is alert, oriented x 3, equal unlabored respirations, skin warm/dry/pink. discharge instruction given and explained without complaints made. Patient states feeling better. Patient states symptoms have improved. Vital Signs: 15:47 BP 153 / 80; Pulse 95; Resp 19; Temp 97.8(TE); Pulse Ox 95% on R/A; Weight 88.45 kg; tw2 Height 4 ft. 10 in. (147.32 cm); Pain 10/10; 17:00 BP 144 / 74; Pulse 93; Resp 18; Pulse Ox 100% on R/A; em 18:00 BP 132 / 62; Pulse 85; Resp 18; Pulse Ox 99% on R/A; Pain 7/10; em 19:05 BP 131 / 65; Pulse 80; Resp 17; Temp 98; Pulse Ox 99% on R/A; rr5 19:05 Pain 7/10; rr5 20:00 BP 120 / 64; Pulse 75; Resp 17; Pulse Ox 99% ; Pain 10/10; rr5 21:10 BP 124 / 71; Pulse 82; Resp 17; Temp 98.1; Pulse Ox 99% on R/A; Pain 7/10; rr5 15:47 Body Mass Index 40.75 (88.45 kg, 147.32 cm) tw2 ED Course: 15:38 Patient arrived in ED. rg4 15:38 Rene Morales MD is Private Physician. rg4 15:46 Triage completed. tw2 15:47 Arm band placed on. tw2 16:22 Colt Eubanks LVN is Primary Nurse. em 16:45 Hector Smith PA is PHCP. cp 16:45 Kendall Ch MD is Attending Physician. cp 17:15 Patient has correct armband on for positive identification. Allergy band placed. Call em light in reach. Adult w/ patient. Pulse ox on. NIBP on. 18:46 Inserted saline lock: 22 gauge in right antecubital area, using aseptic technique. ss Blood collected. 18:59 US Extremity Venous Unilateral Ltd In Process Unspecified. EDMS 19:44 CT Stone Protocol In Process Unspecified. EDMS 20:58 Rene Morales MD is Referral Physician. cp 21:30 No provider procedures requiring assistance completed. IV discontinued, intact, rr5 bleeding controlled, No redness/swelling at site. Pressure dressing applied. Administered Medications: 18:46 Drug: Zofran 4 mg Route: IVP; Site: right antecubital; ss 20:00 Follow up: Response: No adverse reaction rr5 18:46 Drug: fentaNYL (PF) 25 mcg Route: IVP; Site: right antecubital; ss 20:00 Follow up: Response: No adverse reaction rr5 18:47 Drug: NS 0.9% 1000 ml Route: IV; Rate: 1 bolus; Site: right antecubital; ss 20:05 Drug: TORadol 30 mg Route: IVP; Site: right antecubital; rr5 21:05 Follow up: Response: No adverse reaction rr5 20:23 Drug: metroNIDAZOLE 500 mg Volume: 100 ml; Route: IVPB; Infused Over: 30 mins; Site: la1 right antecubital; 21:20 Follow up: Response: No adverse reaction; IV Status: Completed infusion; IV Intake: rr5 100ml 20:23 Drug: Cipro 500 mg Route: PO; la1 21:30 Follow up: Response: No adverse reaction rr5 Intake: 21:20 IV: 100ml; Total: 100ml. rr5 Outcome: 21:00 Discharge ordered by . cp 21:30 Discharged to home ambulatory. rr5 21:30 Condition: stable 21:30 Discharge instructions given to patient, Instructed on discharge instructions, follow up and referral plans. medication usage, Demonstrated understanding of instructions, follow-up care, medications, Prescriptions given X 4. 21:32 Patient left the ED. rr5 Signatures: Dispatcher [employer] EDMS Eubanks, Colt, [employer] SALES ENGINEER [employer] SALES ENGINEER Nohelia Lr RN RN ss Thierry Reeder RN RN la1 Hector Smith PA PA cp Wise, Tara, RN RN tw2 Leighann Garza rg4 Mil Plascencia RN RN rr5 Corrections: (The following items were deleted from the chart) 20:33 19:05 General: Appears in no apparent distress. comfortable, Behavior is calm, rr5 cooperative, appropriate for age, la1 20:33 19:05 Pain: Complains of pain in abdomen and back Pain radiates to left leg Pain rr5 currently is 7 out of 10 on a pain scale. Quality of pain is described as aching, Pain began gradually, Is intermittent, la1 20:33 19:05 Neuro: Level of Consciousness is awake, alert, obeys commands, Oriented to rr5 person, place, time, situation, Appropriate for age la1 20:33 19:05 Cardiovascular: Capillary refill < 3 seconds Patient's skin is warm and dry. la1 rr5 20:33 19:05 Respiratory: Airway is patent Respiratory effort is even, unlabored, Respiratory rr5 pattern is regular, symmetrical, la1 20:33 19:05 GI: Abdomen is round Reports diarrhea, nausea, vomiting, la1 rr5 20:33 19:05 : No signs and/or symptoms were reported regarding the genitourinary system. la1rr5 20:33 19:05 EENT: No signs and/or symptoms were reported regarding the EENT system. la1 rr5 20:33 19:05 Derm: Skin is intact, Skin is pink, warm \T\ dry. la1 rr5 20:33 19:05 Musculoskeletal: Capillary refill < 3 seconds, Range of motion: intact in all rr5 extremities, Reports pain in back and left leg la1
[2019-01-04 23:19] VITALS: O2SAT 99
[2019-01-04 23:20] VITALS: TEMP 98
[2019-01-04 23:22] VITALS: BP 120/64
== END 2019-01-04 21:32 | disposition home or self-care (01) ==
LOC: ER 15:35
DX: M54.32 Sciatica, left side (principal); K57.32 Diverticulitis of large intestine without perforation or abscess without bleeding; E11.9 Type 2 diabetes mellitus without complications; Z91.09 Other allergy status, other than to drugs and biological substances
CPT/HCPCS: 36415; 74176; 76377; 80048; 80076; 81003; 81015; 81025; 83690; 85025; 87086; 87088; 93971; 96365; 96375; 99284; J2405; J3010; J7030

== ENCOUNTER 2019-03-19 15:40 | Emergency (ER) | payer SELFPAY ==
[2019-03-19] MEDS ORDERED: Ringers Lactate 1,000 ML IV ONE (16:06)
[2019-03-19] MEDS ORDERED: IPRATROPIUM BROM 0.5MG/2.5ML ONE (16:11)
[2019-03-19] MEDS ORDERED: ALBUTEROL 2.5 MG/3 ML NEB SOL ONE (16:11)
[2019-03-19] MEDS ORDERED: HYDROCODONE/CHLORPHEN 5 ML/OSYR ONE (16:12)
--- NOTE | 2019-03-19 16:30 | RAD REPORT ---
EXAM DESCRIPTION: Zunilda Preston (2 Views)03/19/2019 4:17 pm CLINICAL HISTORY: Cough COMPARISON: July 2018 FINDINGS: The lungs appear clear of acute infiltrate. The heart is normal size IMPRESSION: No acute abnormalities displayed
--- NOTE | 2019-03-19 16:59 | ER ---
Nurse's Notes [facility] Name: Silvia Kiran Age: 48 yrs Sex: Female : 1970 Arrival Date: 03/19/2019 Time: 15:42 Bed 7 Private MD: Rene Morales R Diagnosis: Acute bronchitis, unspecified Presentation: 03/19 15:45 Presenting complaint: Patient states: I have been having a really painful persistent la1 cough for the past few days. Transition of care: patient was not received from another setting of care. Onset of symptoms was March 19, 2019. Risk Assessment: Do you want to hurt yourself or someone else? Patient reports no desire to harm self or others. Initial Sepsis Screen: Does the patient meet any 2 criteria? No. Patient's initial sepsis screen is negative. Does the patient have a suspected source of infection? No. Patient's initial sepsis screen is negative. Care prior to arrival: None. 15:45 Method Of Arrival: Ambulatory la1 15:45 Acuity: SUNG 3 la1 Historical: - Allergies: 15:43 Iodine; la1 15:43 iv dye iodine; la1 - PMHx: 15:43 Diabetes - NIDDM; la1 - Immunization history:: Adult Immunizations up to date. - Social history:: Smoking status: unknown. - Ebola Screening: : No symptoms or risks identified at this time. Screenin:56 Abuse screen: Denies threats or abuse. Denies injuries from another. Nutritional ph screening: No deficits noted. Tuberculosis screening: No symptoms or risk factors identified. Fall Risk None identified. Vital Signs: 15:44 Pulse 98; Resp 20; Temp 98.4; Pulse Ox 95% on R/A; Weight 86.18 kg; Height 4 ft. 10 in. la1 (147.32 cm); 15:45 BP 147 / 78; la1 15:44 Body Mass Index 39.71 (86.18 kg, 147.32 cm) la1 ED Course: 15:42 Patient arrived in ED. mr 15:43 Rene Morales MD is Private Physician. mr 15:43 Arm band placed on left wrist. la1 15:44 Hector Smith PA is PHCP. cp 15:44 Kendall Ch MD is Attending Physician. cp 15:45 Triage completed. la1 15:50 Shara Kee, RN is Primary Nurse. ph 15:57 Patient has correct armband on for positive identification. Bed in low position. Call ph light in reach. Side rails up X 1. Pulse ox on. NIBP on. Door closed. Noise minimized. Warm blanket given. Head of bed elevated. 16:23 XRAY Chest Pa And Lat (2 Views) In Process Unspecified. EDMS 16:23 Strep swab sent to lab. sg 16:57 Rene Morales MD is Referral Physician. cp Administered Medications: 16:19 Drug: Tussionex Pennkinetic ER 5 ml Route: PO; sg 16:19 Drug: DuoNeb (3:1) (2.5 mg - 0.5 mg) 3 ml Route: Nebulizer; Outcome: 16:59 Discharge ordered by . cp 17:26 Patient left the ED. mb4 Signatures: Dispatcher [employer] EDMS Moise Mcfarland RN RN Ning Garcias mr Lilli, Thierry RN RN la1 Shara Kee, RN RN Hector Aguero PA PA Sydni Galicia mb4
--- NOTE | 2019-03-19 17:00 | EDPHYS ---
Physician Documentation [facility] Name: Silvia Kiran Age: 48 yrs Sex: Female : 1970 Arrival Date: 03/19/2019 Time: 15:42 Bed 7 Private MD: Rene Morales R ED Physician Kendall Ch HPI: 03/19 16:05 This 48 yrs old Female presents to ER via Ambulatory with complaints of cp Cough, Wheezing. 16:05 The patient or guardian reports cough, with productive sputum, that is yellow. Onset: cp The symptoms/episode began/occurred 4 day(s) ago. Severity of symptoms: in the emergency department the symptoms are unchanged, despite home interventions. Associated signs and symptoms: Pertinent positives: fever, sore throat, wheezing, Pertinent negatives: chest pain, diarrhea, vomiting. Historical: - Allergies: 15:43 Iodine; la1 15:43 iv dye iodine; la1 - PMHx: 15:43 Diabetes - NIDDM; la1 - Immunization history:: Adult Immunizations up to date. - Social history:: Smoking status: unknown. - Ebola Screening: : No symptoms or risks identified at this time. ROS: 16:15 Constitutional: Negative for body aches, chills, fever, poor PO intake. cp 16:15 Eyes: Negative for injury, pain, redness, and discharge. cp 16:15 ENT: Positive for sore throat, Negative for drainage from ear(s), ear pain, difficulty swallowing, difficulty handling secretions. 16:15 Cardiovascular: Negative for chest pain, edema. 16:15 Respiratory: Positive for cough, with yellow sputum, wheezing, Negative for shortness of breath. 16:15 Abdomen/GI: Negative for abdominal pain, vomiting, diarrhea, constipation. 16:15 Back: Negative for radiated pain. 16:15 Skin: Negative for rash. 16:15 Neuro: Negative for altered mental status, headache, weakness. 16:15 All other systems are negative. Exam: 16:20 Constitutional: The patient appears in no acute distress, alert, awake, cp non-diaphoretic, non-toxic, well developed, well nourished. 16:20 Head/Face: Normocephalic, atraumatic. cp 16:20 Eyes: Periorbital structures: appear normal, Conjunctiva: normal, no exudate, no injection, Lids and lashes: appear normal, bilaterally. 16:20 ENT: External ear(s): are unremarkable, Ear canal(s): are normal, clear, TM's: bulging, is not appreciated, bilaterally, dullness, bilaterally, erythema, is not appreciated, bilaterally, Nose: is normal, Mouth: Lips: moist, Oral mucosa: moist, Posterior pharynx: Airway: no evidence of obstruction, patent, Tonsils: no enlargement, no exudate, swelling, is not appreciated, erythema, that is mild, exudate, is not appreciated. 16:20 Neck: ROM/movement: is normal, is supple, without pain, no range of motions limitations, no nuchal rigidity, Lymph nodes: no appreciated lymphadenopathy. 16:20 Chest/axilla: Inspection: normal, Palpation: is normal, no crepitus, no tenderness. 16:20 Cardiovascular: Rate: normal, Rhythm: regular, Edema: is not appreciated, JVD: is not appreciated. 16:20 Respiratory: the patient does not display signs of respiratory distress, Respirations: normal, no use of accessory muscles, no retractions, no splinting, no tachypnea, labored breathing, is not present, Breath sounds: bronchial sounds, that are mild, are heard diffusely, stridor, is not appreciated, + upper airway congestion. wheezing: is not appreciated. 16:20 Abdomen/GI: Exam negative for discomfort, distension, guarding, Inspection: abdomen appears normal. 16:20 Back: pain, is absent, ROM is normal. 16:20 Skin: no rash present. Vital Signs: 15:44 Pulse 98; Resp 20; Temp 98.4; Pulse Ox 95% on R/A; Weight 86.18 kg; Height 4 ft. 10 in. la1 (147.32 cm); 15:45 BP 147 / 78; la1 15:44 Body Mass Index 39.71 (86.18 kg, 147.32 cm) la1 MDM: 15:56 Patient medically screened. cp 16:00 Differential Diagnosis: Bronchitis Influenza Sinusitis Otitis Media Viral Syndrome cp Pneumonia. 16:58 Data reviewed: vital signs, nurses notes, lab test result(s), radiologic studies, plain cp films. 16:58 Test interpretation: by ED physician or midlevel provider: plain radiologic studies. cp Counseling: I had a detailed discussion with the patient and/or guardian regarding: the historical points, exam findings, and any diagnostic results supporting the discharge/admit diagnosis, radiology results, to return to the emergency department if symptoms worsen or persist or if there are any questions or concerns that arise at home. Response to treatment: the patient's symptoms have markedly improved after treatment, and as a result, I will discharge patient. 03/19 16:06 Order name: Strep 03/19 17:14 Order name: Throat Culture EDMA 03/19 16:02 Order name: XRAY Chest Pa And Lat (2 Views); Complete Time: 16:43 cp 03/19 16:43 Interpretation: Report reviewed. cp Administered Medications: 16:19 Drug: Tussionex Pennkinetic ER 5 ml Route: PO; sg 16:19 Drug: DuoNeb (3:1) (2.5 mg - 0.5 mg) 3 ml Route: Nebulizer; sg Disposition: 03/19/19 16:59 Discharged to Home. Impression: Acute bronchitis, unspecified. - Condition is Stable. - Discharge Instructions: Acute Bronchitis, Adult. - Prescriptions for Albuterol Sulfate 2.5 mg /3 mL (0.083 %) Inhalation Solution for Nebulization - inhale 1 unit by NEBULIZATION route every 8 hours As needed; 1 box. Albuterol Sulfate 90 mcg/actuation - inhale 1-2 puff by INHALATION route every 4-6 hours; 1 Inhaler. Guaifenesin AC 10- 100 mg/5 mL Oral Liquid - take 10 milliliters by ORAL route every 4 hours As needed; 180 milliliter. Medrol (Ephraim) 4 mg Oral Tablets, Dose Pack - take 1 tablet by ORAL route as directed - follow package instructions; 1 packet. - Medication Reconciliation Form, Thank You Letter, Antibiotic Education, Prescription Opioid Use form. - Follow up: Rene Morales MD; When: 2 - 3 days; Reason: Worsening of condition. - Problem is new. - Symptoms have improved. Signatures: Dispatcher [employer] EDMS Moise Mcfarland RN RN sg Thierry Reeder RN RN la1 Hector Smith PA PA Sydni Galicia4 Corrections: (The following items were deleted from the chart) 17:26 16:59 03/19/2019 16:59 Discharged to Home. Impression: Acute bronchitis, unspecified. mb4 Condition is Stable. Forms are Medication Reconciliation Form, Thank You Letter, Antibiotic Education, Prescription Opioid Use. Follow up: Rene Morales; When: 2 - 3 days; Reason: Worsening of condition. Problem is new. Symptoms have improved. cp
[2019-03-19 17:37] VITALS: TEMP 98.4; O2SAT 95
[2019-03-19 17:38] VITALS: BP 147/78
== END 2019-03-19 17:26 | disposition home or self-care (01) ==
LOC: ER 15:40
DX: J20.9 Acute bronchitis, unspecified (principal); Z91.09 Other allergy status, other than to drugs and biological substances
CPT/HCPCS: 71046; 87070; 87081; 94640; 99284

== ENCOUNTER 2019-06-03 18:35 | Emergency (ER) | payer SELFPAY ==
--- NOTE | 2019-06-03 19:30 | ER ---
Nurse's Notes [facility] Name: Silvia Kiran Age: 48 yrs Sex: Female : 1970 Arrival Date: 06/03/2019 Time: 18:37 Bed 18 Private MD: Rene Morales R Diagnosis: Fracture of navicular [scaphoid] bone of wrist;Fall on same level from slipping, tripping and stumbling with subsequent striking against unspecified object Presentation: 06/03 18:38 Presenting complaint: Slipped while bending down and reaching into car, hit arm on door hb frame last night. Today c/o left elbow, wrist, and hand pain 9/10. Transition of care: patient was not received from another setting of care. Onset of symptoms was June 02, 2019. Risk Assessment: Do you want to hurt yourself or someone else? Patient reports no desire to harm self or others. Initial Sepsis Screen: Does the patient meet any 2 criteria? No. Patient's initial sepsis screen is negative. Does the patient have a suspected source of infection? No. Patient's initial sepsis screen is negative. Care prior to arrival: Medication(s) given: T3 at 0600 toay. 18:38 Method Of Arrival: Ambulatory hb 18:38 Acuity: SUNG 4 hb Triage Assessment: 19:18 Injury Description: Fall. 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 - Social history:: Smoking status: Patient/guardian denies using tobacco. - Ebola Screening: : No symptoms or risks identified at this time. Screenin:17 Abuse screen: Denies threats or abuse. Denies injuries from another. Nutritional screening: No deficits noted. Tuberculosis screening: No symptoms or risk factors identified. Fall Risk Fall in past 12 months (25 points). Assessment: 19:16 General: Appears in no apparent distress. Behavior is calm, cooperative, appropriate wh for age. Pain: Complains of pain in Left Wrist Pain radiates to Left Elbow Pain currently is 9 out of 10 on a pain scale. Quality of pain is described as sharp, Pain began 1 day ago. Neuro: Level of Consciousness is awake, alert, obeys commands, Oriented to person, place, time, situation, Appropriate for age. Cardiovascular: Capillary refill < 3 seconds. Respiratory: Airway is patent Respiratory effort is even, unlabored, Respiratory pattern is regular, symmetrical. GI: Abdomen is flat, non-distended. : No signs and/or symptoms were reported regarding the genitourinary system. EENT: No signs and/or symptoms were reported regarding the EENT system. Derm: Skin is intact, is healthy with good turgor, Skin is pink, warm \T\ dry. normal. Musculoskeletal: Circulation, motion, and sensation intact. Vital Signs: 18:42 BP 161 / 77; Pulse 89; Resp 18; Temp 98.2; Pulse Ox 100% on R/A; Weight 92.08 kg; hb Height 4 ft. 10 in. (147.32 cm); Pain 9/10; 19:18 BP 136 / 66; Pulse 87; Resp 18; Pulse Ox 100% on R/A; wh 18:42 Body Mass Index 42.43 (92.08 kg, 147.32 cm) hb ED Course: 18:37 Patient arrived in ED. mr 18:38 Rene Morales MD is Private Physician. mr 18:40 Triage completed. hb 18:42 Arm band placed on. hb 18:59 Ethel Cifuentes F[facility]-C is [facility]. snw 18:59 Jose Welsh MD is Attending Physician. snw 19:04 Jessica Ponce is Primary Nurse. wh 19:17 Forearm Left XRAY In Process Unspecified. EDMS 19:17 Hand Left 3 View XRAY In Process Unspecified. EDMS 19:18 Patient has correct armband on for positive identification. Bed in low position. Call light in reach. Side rails up X 1. Pulse ox on. NIBP on. 19:27 Rene Morales MD is Referral Physician. snw 19:47 Orthoglass splint: Thumb spica splint applied on left forearm. Sling applied to left mt arm. 19:50 No provider procedures requiring assistance completed. Patient did not have IV access during this emergency room visit. Administered Medications: 19:41 Drug: Phenergan 25 mg Route: PO; 19:51 Follow up: Response: No adverse reaction; Nausea is decreased 19:43 Drug: [place] (7.5 mg-325 mg) 1 tabs Route: PO; 19:51 Follow up: Response: No adverse reaction; Pain is decreased; RASS: Alert and Calm (0) 19:45 Drug: TORadol 30 mg Route: IM; Site: right gluteus; 19:51 Follow up: Response: No adverse reaction Outcome: 19:29 Discharge ordered by . sndarlene 19:50 Discharged to home ambulatory. 19:50 Condition: stable 19:50 Discharge instructions given to patient, Instructed on discharge instructions, follow up and referral plans. no drinking with medication, no driving heavy equipment, medication usage, POC Cast and Splint Care and Scaphoid Fracture Demonstrated understanding of instructions, follow-up care, medications, splint care, POC Prescriptions given X 2. 19:52 Patient left the ED. Signatures: Dispatcher [employer] EDMS Ethel Cifuentes, BLASTING GANG MINER-C BLASTING GANG MINER-Csnw Ning Garcias Heather, RN RN hb Thompson, Moriah mt [place], Winsy
--- NOTE | 2019-06-03 19:30 | EDPHYS ---
Physician Documentation [facility] Name: Silvia Kiran Age: 48 yrs Sex: Female : 1970 Arrival Date: 06/03/2019 Time: 18:37 Bed 18 Private MD: Rene Morales R ED Physician Jose Welsh HPI: 06/03 19:38 This 48 yrs old Female presents to ER via Ambulatory with complaints of Hand snw Injury, Arm Injury. 19:38 The patient or guardian reports decreased range of motion, pain. The complaints affect snw the left hand, wrist, and forearm. Context: The problem was sustained outdoors, resulted from a fall. Onset: The symptoms/episode began/occurred suddenly, yesterday. Associated signs and symptoms: Pertinent positives:. Severity of symptoms: At their worst the symptoms were moderate, severe. The patient has not experienced similar symptoms in the past. The patient has not recently seen a physician. pt slipped and fell yesterday while reaching into car, struck forearm/hand on running board, pain since that time at thumb/wrist and up medial left forearm. 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 - Social history:: Smoking status: Patient/guardian denies using tobacco. - Ebola Screening: : No symptoms or risks identified at this time. ROS: 19:37 Constitutional: Negative for fever, chills, and weight loss, Eyes: Negative for injury, snw pain, redness, and discharge, ENT: Negative for injury, pain, and discharge, Neck: Negative for injury, pain, and swelling, Cardiovascular: Negative for chest pain, palpitations, and edema, Respiratory: Negative for shortness of breath, cough, wheezing, and pleuritic chest pain, Abdomen/GI: Negative for abdominal pain, nausea, vomiting, diarrhea, and constipation, Back: Negative for injury and pain, : Negative for injury, bleeding, discharge, and swelling, Skin: Negative for injury, rash, and discoloration, Neuro: Negative for headache, weakness, numbness, tingling, and seizure, Psych: Negative for depression, anxiety, suicide ideation, homicidal ideation, and hallucinations. 19:37 MS/extremity: Positive for injury or acute deformity, contusion, decreased range of motion, pain, swelling, tenderness, of the palmar aspect of left forearm and left wrist. Exam: 19:36 Constitutional: This is a well developed, well nourished patient who is awake, alert, snw and in no acute distress. Head/Face: Normocephalic, atraumatic. Eyes: Pupils equal round and reactive to light, extra-ocular motions intact. Lids and lashes normal. Conjunctiva and sclera are non-icteric and not injected. Cornea within normal limits. Periorbital areas with no swelling, redness, or edema. ENT: Nares patent. No nasal discharge, no septal abnormalities noted. Tympanic membranes are normal and external auditory canals are clear. Oropharynx with no redness, swelling, or masses, exudates, or evidence of obstruction, uvula midline. Mucous membranes moist. Neck: Trachea midline, no thyromegaly or masses palpated, and no cervical lymphadenopathy. Supple, full range of motion without nuchal rigidity, or vertebral point tenderness. No Meningismus. Chest/axilla: Normal chest wall appearance and motion. Nontender with no deformity. No lesions are appreciated. Cardiovascular: Regular rate and rhythm with a normal S1 and S2. No gallops, murmurs, or rubs. Normal PMI, no JVD. No pulse deficits. Respiratory: Lungs have equal breath sounds bilaterally, clear to auscultation and percussion. No rales, rhonchi or wheezes noted. No increased work of breathing, no retractions or nasal flaring. Abdomen/GI: Soft, non-tender, with normal bowel sounds. No distension or tympany. No guarding or rebound. No evidence of tenderness throughout. Back: No spinal tenderness. No costovertebral tenderness. Full range of motion. Skin: Warm, dry with normal turgor. Normal color with no rashes, no lesions, and no evidence of cellulitis. Neuro: Awake and alert, GCS 15, oriented to person, place, time, and situation. Cranial nerves II-XII grossly intact. Motor strength 5/5 in all extremities. Sensory grossly intact. Cerebellar exam normal. Normal gait. Psych: Awake, alert, with orientation to person, place and time. Behavior, mood, and affect are within normal limits. 19:36 Musculoskeletal/extremity: Extremities: grossly normal except: noted in the left wrist and palmar aspect of left forearm: decreased ROM, swelling, tenderness, ROM: limited active range of motion due to pain, in the left arm, Circulation is intact in all extremities. Sensation intact. Vital Signs: 18:42 BP 161 / 77; Pulse 89; Resp 18; Temp 98.2; Pulse Ox 100% on R/A; Weight 92.08 kg; hb Height 4 ft. 10 in. (147.32 cm); Pain 9/10; 19:18 BP 136 / 66; Pulse 87; Resp 18; Pulse Ox 100% on R/A; wh 18:42 Body Mass Index 42.43 (92.08 kg, 147.32 cm) hb MDM: 19:18 Patient medically screened. snw 19:33 Data reviewed: vital signs, nurses notes. Data interpreted: Pulse oximetry: on room air snw is 100 %. Interpretation: normal. Counseling: I had a detailed discussion with the patient and/or guardian regarding: the historical points, exam findings, and any diagnostic results supporting the discharge/admit diagnosis, the presence of at least one elevated blood pressure reading (>120/80) during this emergency department visit, radiology results, the need for outpatient follow up, to return to the emergency department if symptoms worsen or persist or if there are any questions or concerns that arise at home. Response to treatment: There is no appreciated change of the patient's symptoms at this time. Special discussion: I have referred the patient to see his PCP for further evaluation of high blood pressure. Based on the history and exam findings, there is no indication for further emergent testing or inpatient evaluation. I discussed with the patient/guardian the need to see the hand specialist for further evaluation of the symptoms. I discussed with the patient/guardian the need to see the primary care provider for further evaluation of the symptoms. 06/03 18:45 Order name: Forearm Left XRAY 06/03 18:45 Order name: Hand Left 3 View XRAY 06/03 19:25 Order name: Thumb Spica Splint; Complete Time: 19:45 snw 06/03 19:25 Order name: Sling; Complete Time: 19:45 snw Administered Medications: 19:41 Drug: Phenergan 25 mg Route: PO; 19:51 Follow up: Response: No adverse reaction; Nausea is decreased 19:43 Drug: [place] (7.5 mg-325 mg) 1 tabs Route: PO; 19:51 Follow up: Response: No adverse reaction; Pain is decreased; RASS: Alert and Calm (0) 19:45 Drug: TORadol 30 mg Route: IM; Site: right gluteus; 19:51 Follow up: Response: No adverse reaction Disposition: 21:52 Co-signature as Attending Physician, Jose Welsh MD I agree with the assessment and wa plan of care. Disposition: 06/03/19 19:29 Discharged to Home. Impression: Fracture of navicular [scaphoid] bone of wrist, Fall on same level from slipping, tripping and stumbling with subsequent striking against unspecified object. - Condition is Stable. - Discharge Instructions: Cast or Splint Care, Adult, Scaphoid Fracture, RICE for Routine Care of Injuries, Fall Prevention in the Home, [id number]. - Prescriptions for Mobic 7.5 mg Oral Tablet - take 1 tablet by ORAL route once daily take with food; 20 tablet. Tylenol- Codeine #3 300-30 mg Oral Tablet - take 2 tablets by ORAL route every 6 hours As needed; 16 tablet. - Work release form, Medication Reconciliation Form, Thank You Letter, Antibiotic Education, Prescription Opioid Use form. - Follow up: Emergency Department; When: As needed; Reason: Worsening of condition. Follow up: Rene Morales MD; When: 1 week; Reason: Recheck today's complaints, Continuance of care, Re-evaluation by your physician. Signatures: Dispatcher [employer] EDEthel Pringle FNP-C NIGHT SUPERVISOR-Csnw Ami Osborne, RN RN Jessica Dockery Jose Welsh MD MD wa Corrections: (The following items were deleted from the chart) 19:52 19:29 06/03/2019 19:29 Discharged to Home. Impression: Fracture of navicular [scaphoid] wh bone of wrist; Fall on same level from slipping, tripping and stumbling with subsequent striking against unspecified object. Condition is Stable. Forms are Medication Reconciliation Form, Thank You Letter, Antibiotic Education, Prescription Opioid Use. Follow up: Emergency Department; When: As needed; Reason: Worsening of condition. Follow up: Rene Morales; When: 1 week; Reason: Recheck today's complaints, Continuance of care, Re-evaluation by your physician. snw
[2019-06-03] MEDS ORDERED: HYDROCODONE/APAP 7.5/325 MG TAB ONE (19:38)
[2019-06-03] MEDS ORDERED: PROMETHAZINE 25 MG TABLET ONE (19:38)
[2019-06-03] MEDS ORDERED: KETOROLAC 30 MG/ML INJ ONE (19:38)
--- NOTE | 2019-06-03 19:55 | RAD REPORT ---
EXAM DESCRIPTION: RAD -Hand Left 3 View - 06/03/2019 7:16 pm CLINICAL HISTORY: Left hand pain status post injury FINDINGS: No fracture or dislocation is seen.
--- NOTE | 2019-06-03 19:57 | RAD REPORT ---
EXAM DESCRIPTION: RAD - Forearm Left - 06/03/2019 7:16 pm CLINICAL HISTORY: Left forearm pain status post injury FINDINGS: No fracture is seen
[2019-06-03 23:02] VITALS: TEMP 98.2; O2SAT 100
[2019-06-03 23:03] VITALS: BP 136/66
--- OUTSIDE RECORDS SUMMARY | 2019-06-09 00:11 | XMS REPORT ---
:1970 [facility] Address [address] [place] [address] [address] [place] [address] Care Team Providers Name Role Phone Unavailable Unavailable Unavailable Problems This patient has no known problems. Allergies, Adverse Reactions, Alerts This patient has no known allergies or adverse reactions. Medications This patient has no known medications.
== END 2019-06-03 19:52 | disposition home or self-care (01) ==
LOC: ER 18:35
PROC: 2W3DX1Z Immobilization of Left Lower Arm using Splint (ICD-10-PCS; principal; 2019-06-03)
DX: S62.002A Unspecified fracture of navicular [scaphoid] bone of left wrist, initial encounter for closed fracture (principal); W01.198A Fall on same level from slipping, tripping and stumbling with subsequent striking against other object, initial encounter; Y93.89 Activity, other specified; Y92.89 Other specified places as the place of occurrence of the external cause; E11.9 Type 2 diabetes mellitus without complications; Z91.048 Other nonmedicinal substance allergy status
CPT/HCPCS: 96372; 99284; Q0169

== ENCOUNTER 2019-07-31 23:03 | Emergency (ER) | payer SELFPAY ==
--- OUTSIDE RECORDS SUMMARY | 2019-07-31 23:05 | XMS REPORT ---
:1970 [facility] Address [address] [place] [address] [address]. [address] [place] [address] Care Team Providers Name Role Phone Unavailable Unavailable Unavailable Problems This patient has no known problems. Allergies, Adverse Reactions, Alerts This patient has no known allergies or adverse reactions. Medications This patient has no known medications.
--- NOTE | 2019-07-31 23:54 | ER ---
Nurse's Notes [facility] Name: Silvia Kiran Age: 48 yrs Sex: Female : 1970 Arrival Date: 07/31/2019 Time: 23:05 Bed 15 Private MD: Diagnosis: Lipomatosis, not elsewhere classified Presentation: 07/31 23:15 Presenting complaint: Patient states: I feel something under my right breast like a rr5 mass or tumor now it's hurting. I notice it 2 months ago. I had a previous removal of cyst between my lung and heart they said it was benign. 23:15 Transition of care: patient was not received from another setting of care. Onset of rr5 symptoms was April 2019. Risk Assessment: Do you want to hurt yourself or someone else? Patient reports no desire to harm self or others. Initial Sepsis Screen: Does the patient meet any 2 criteria? No. Patient's initial sepsis screen is negative. Does the patient have a suspected source of infection? Yes: Other: swollen lymph nodes. Care prior to arrival: None. 23:15 Method Of Arrival: Ambulatory rr5 23:15 Acuity: SUNG 3 rr5 23:15 Note patient stated her left neck lymph node and left inguinal area swollen. loss rr5 weight 25lbs for the past 3 months. Triage Assessment: 23:15 General: Appears in no apparent distress. Behavior is calm, cooperative, appropriate rr5 for age. 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 - Social history:: Smoking status: Patient/guardian denies using tobacco, Patient/guardian denies using alcohol, street drugs. - Ebola Screening: : Patient negative for fever greater than or equal to 101.5 degrees Fahrenheit, and additional compatible Ebola Virus Disease symptoms Patient denies exposure to infectious person Patient denies travel to an Ebola-affected area in the 21 days before illness onset. - Family history:: not pertinent. Screenin:15 Abuse screen: Denies threats or abuse. Denies injuries from another. Nutritional rr5 screening: No deficits noted. Tuberculosis screening: No symptoms or risk factors identified. Fall Risk None identified. Total Rodriguez Fall Scale indicates No Risk (0-24 pts). Assessment: 23:15 General: Appears in no apparent distress. comfortable, Behavior is calm, cooperative, rr5 appropriate for age. 23:15 Pain: Complains of pain in right lateral posterior chest Pain does not radiate. Pain rr5 currently is 8 out of 10 on a pain scale. Quality of pain is described as aching, Pain began gradually, Is intermittent. Neuro: Level of Consciousness is awake, alert, obeys commands, Oriented to person, place, time, situation, Appropriate for age. Cardiovascular: Reports Capillary refill < 3 seconds Patient's skin is warm and dry. Respiratory: Airway is patent Respiratory effort is even, unlabored, Respiratory pattern is regular, symmetrical. GI: No signs and/or symptoms were reported involving the gastrointestinal system. : No signs and/or symptoms were reported regarding the genitourinary system. EENT: No signs and/or symptoms were reported regarding the EENT system. Derm: Skin is intact, is healthy with good turgor, Skin temperature is warm Reports swollen left neck area and left inguinal area. Musculoskeletal: Capillary refill < 3 seconds, Reports mass or tumor under my right breast. 08/01 00:00 Reassessment: Patient appears in no apparent distress at this time. Patient is alert, rr5 oriented x 3, equal unlabored respirations, skin warm/dry/pink. CBG 193mg/dl ED provider informed with order for discharge. instructions given and explained without complaints made. Vital Signs: 07/31 23:15 BP 150 / 98; Pulse 92; Resp 19; Temp 98.9; Pulse Ox 99% ; Weight 72.57 kg; Height 4 ft. rr5 10 in. (147.32 cm); 08/01 00:00 BP 146 / 82; Pulse 85; Resp 16; Pulse Ox 99% on R/A; rr5 07/31 23:15 Body Mass Index 33.44 (72.57 kg, 147.32 cm) rr5 ED Course: 07/31 23:05 Patient arrived in ED. cl3 23:07 Mil Plascencia, RN is Primary Nurse. rr5 23:15 Arm band placed on right wrist. rr5 23:15 Patient has correct armband on for positive identification. Placed in gown. Bed in low rr5 position. Call light in reach. 23:23 Triage completed. rr5 23:30 breast exam done by ED provider assisted by [facility] tech. rr5 23:30 Patient did not have IV access during this emergency room visit. rr5 23:33 Hector Houston MD is Attending Physician. marta 23:52 Ralf Briseno MD is Referral Physician. marta Administered Medications: 08/01 00:01 Drug: Motrin 600 mg Route: PO; rr5 00:02 Follow up: Response: Medication administered at discharge. rr5 00:02 Drug: [place] 10 mg-325 mg 1 tabs {Note: rass 0.} Route: PO; rr5 00:02 Follow up: Response: Medication administered at discharge. rr5 Outcome: 07/31 23:53 Discharge ordered by . marta 08/01 00:05 Discharged to home ambulatory. rr5 Condition: stable Discharge instructions given to patient, Instructed on discharge instructions, follow up and referral plans. medication usage, Demonstrated understanding of instructions, follow-up care, medications, Prescriptions given X 2. 00:06 Patient left the ED. rr5 Signatures: Hector Houston MD MD cha Roque, Raymond, RN RN rr5 Bala Jessica cl3
--- NOTE | 2019-07-31 23:55 | EDPHYS ---
Physician Documentation [facility] Name: Silvia Kiran Age: 48 yrs Sex: Female : 1970 Arrival Date: 07/31/2019 Time: 23:05 Bed 15 Private MD: NURY Physician Hector Houston HPI: 07/31 23:48 This 48 yrs old Female presents to ER via Ambulatory with complaints of Cyst. marta 23:48 lipoma right lower chest wall. Onset: The symptoms/episode began/occurred 2 day(s) ago. marta Severity of symptoms: At their worst the symptoms were mild in the emergency department the symptoms are unchanged. The patient has not experienced similar symptoms in the past. 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 - Social history:: Smoking status: Patient/guardian denies using tobacco, Patient/guardian denies using alcohol, street drugs. - Ebola Screening: : Patient negative for fever greater than or equal to 101.5 degrees Fahrenheit, and additional compatible Ebola Virus Disease symptoms Patient denies exposure to infectious person Patient denies travel to an Ebola-affected area in the 21 days before illness onset. - Family history:: not pertinent. ROS: 23:48 Constitutional: Negative for fever, chills, and weight loss, Eyes: Negative for injury, marta pain, redness, and discharge, ENT: Negative for injury, pain, and discharge, Neck: Negative for injury, pain, and swelling, Cardiovascular: Negative for chest pain, palpitations, and edema, Respiratory: Negative for shortness of breath, cough, wheezing, and pleuritic chest pain, Abdomen/GI: Negative for abdominal pain, nausea, vomiting, diarrhea, and constipation, Back: Negative for injury and pain, : Negative for injury, bleeding, discharge, and swelling, MS/Extremity: Negative for injury and deformity, Neuro: Negative for headache, weakness, numbness, tingling, and seizure, Psych: Negative for depression, anxiety, suicide ideation, homicidal ideation, and hallucinations, Allergy/Immunology: Negative for hives, rash, and allergies, Endocrine: Negative for neck swelling, polydipsia, polyuria, polyphagia, and marked weight changes, Hematologic/Lymphatic: Negative for swollen nodes, abnormal bleeding, and unusual bruising. 23:48 Skin: Positive for swelling, of the chest and abdomen. Exam: 23:48 Constitutional: This is a well developed, well nourished patient who is awake, alert, marta and in no acute distress. Head/Face: Normocephalic, atraumatic. Eyes: Pupils equal round and reactive to light, extra-ocular motions intact. Lids and lashes normal. Conjunctiva and sclera are non-icteric and not injected. Cornea within normal limits. Periorbital areas with no swelling, redness, or edema. ENT: Nares patent. No nasal discharge, no septal abnormalities noted. Tympanic membranes are normal and external auditory canals are clear. Oropharynx with no redness, swelling, or masses, exudates, or evidence of obstruction, uvula midline. Mucous membranes moist. Neck: Trachea midline, no thyromegaly or masses palpated, and no cervical lymphadenopathy. Supple, full range of motion without nuchal rigidity, or vertebral point tenderness. No Meningismus. Chest/axilla: Normal chest wall appearance and motion. Nontender with no deformity. No lesions are appreciated. Cardiovascular: Regular rate and rhythm with a normal S1 and S2. No gallops, murmurs, or rubs. Normal PMI, no JVD. No pulse deficits. Abdomen/GI: Soft, non-tender, with normal bowel sounds. No distension or tympany. No guarding or rebound. No evidence of tenderness throughout. Back: No spinal tenderness. No costovertebral tenderness. Full range of motion. Skin: Warm, dry with normal turgor. Normal color with no rashes, no lesions, and no evidence of cellulitis. MS/ Extremity: Pulses equal, no cyanosis. Neurovascular intact. Full, normal range of motion. Neuro: Awake and alert, GCS 15, oriented to person, place, time, and situation. Cranial nerves II-XII grossly intact. Motor strength 5/5 in all extremities. Sensory grossly intact. Cerebellar exam normal. Normal gait. Psych: Awake, alert, with orientation to person, place and time. Behavior, mood, and affect are within normal limits. 23:48 Respiratory: Respirations: normal, Breath sounds: are clear throughout. 23:48 Musculoskeletal/extremity: DVT Exam: No signs of deep vein thrombosis. no pain, no swelling, no tenderness, negative Homans' sign noted on exam, no appreciated bluish discoloration, no erythema, no increased warmth. Vital Signs: 23:15 BP 150 / 98; Pulse 92; Resp 19; Temp 98.9; Pulse Ox 99% ; Weight 72.57 kg; Height 4 ft. rr5 10 in. (147.32 cm); 08/01 00:00 BP 146 / 82; Pulse 85; Resp 16; Pulse Ox 99% on R/A; rr5 07/31 23:15 Body Mass Index 33.44 (72.57 kg, 147.32 cm) rr5 MDM: 07/31 23:33 Patient medically screened. [facility] 23:51 Data reviewed: vital signs, nurses notes. [facility] 07/31 23:54 Order name: Blood Glucose Level; Complete Time: 00:01 [facility] Administered Medications: 08/01 00:01 Drug: Motrin 600 mg Route: PO; rr5 00:02 Follow up: Response: Medication administered at discharge. rr5 00:02 Drug: [place] 10 mg-325 mg 1 tabs {Note: rass 0.} Route: PO; rr5 00:02 Follow up: Response: Medication administered at discharge. rr5 Disposition: 07/31/19 23:53 Discharged to Home. Impression: Lipomatosis, not elsewhere classified. - Condition is Stable. - Discharge Instructions: Lipoma. - Prescriptions for Ibuprofen 600 mg Oral Tablet - take 1 tablet by ORAL route every 6 hours As needed take with food; 20 tablet. Tylenol- Codeine #3 300-30 mg Oral Tablet - take 2 tablets by ORAL route every 6 hours As needed; 26 tablet. - Medication Reconciliation Form, Thank You Letter, Antibiotic Education, Prescription Opioid Use form. - Follow up: Private Physician; When: 2 - 3 days; Reason: Recheck today's complaints, Continuance of care, Re-evaluation by your physician. Follow up: Ralf Briseno MD; When: 2 - 3 days; Reason: Recheck today's complaints, Re-evaluation by your physician. - Problem is new. - Symptoms have improved. Signatures: Hector Houston MD MD cha Roque, Raymond, RN RN rr5 Corrections: (The following items were deleted from the chart) 00:06 07/31 23:53 07/31/2019 23:53 Discharged to Home. Impression: Lipomatosis, not elsewhere rr5 classified. Condition is Stable. Forms are Medication Reconciliation Form, Thank You Letter, Antibiotic Education, Prescription Opioid Use. Follow up: Private Physician; When: 2 - 3 days; Reason: Recheck today's complaints, Continuance of care, Re-evaluation by your physician. Follow up: Ralf Briseno; When: 2 - 3 days; Reason: Recheck today's complaints, Re-evaluation by your physician. Problem is new. Symptoms have improved. marta
[2019-07-31] MEDS ORDERED: HYDROCODONE/APAP 10/325 TAB ONE (23:56)
[2019-07-31] MEDS ORDERED: IBUPROFEN 200 MG TAB PO ONE (23:57)
[2019-07-31] MEDS ORDERED: IBUPROFEN 400 MG TAB ONE (23:57)
[2019-08-01 00:42] VITALS: BP 150/98; TEMP 98.9; O2SAT 99
== END 2019-08-01 00:06 | disposition home or self-care (01) ==
LOC: ER 23:03
DX: E88.2 Lipomatosis, not elsewhere classified (principal); I10 Essential (primary) hypertension; E11.9 Type 2 diabetes mellitus without complications; F32.9 Major depressive disorder, single episode, unspecified; Z91.041 Radiographic dye allergy status; Z91.048 Other nonmedicinal substance allergy status
CPT/HCPCS: 82947; 99283

== ENCOUNTER 2019-08-07 19:56 | Emergency (ER) | payer SELFPAY ==
--- OUTSIDE RECORDS SUMMARY | 2019-08-07 19:58 | XMS REPORT ---
:1970 [facility] Address [address] [place] [address] [address]. [address] [place] [address] Care Team Providers Name Role Phone Unavailable Unavailable Unavailable Problems This patient has no known problems. Allergies, Adverse Reactions, Alerts This patient has no known allergies or adverse reactions. Medications This patient has no known medications.
[2019-08-07] MEDS ORDERED: IBUPROFEN 100 MG/5 ML UCUP ONE (20:33)
[2019-08-07] MEDS ORDERED: ONDANSETRON 4 MG/2 ML VIAL ONE (21:17)
[2019-08-07] MEDS ORDERED: NA CHLORIDE 0.9% 1,000 ML ONE (21:17)
[2019-08-07] MEDS ORDERED: MORPHINE 2 MG/ML SYR ONE (21:17)
[2019-08-07] MEDS ORDERED: KETOROLAC 30 MG/ML INJ ONE (21:17)
--- NOTE | 2019-08-07 22:11 | EDPHYS ---
Physician Documentation [facility] Name: Silvia Kiran Age: 48 yrs Sex: Female : 1970 Arrival Date: 08/07/2019 Time: 19:57 Bed 25 Private MD: ED Physician Hector Houston HPI: 08/07 20:41 This 48 yrs old Female presents to ER via Wheelchair with complaints of Fall marta Injury, Knee Injury, Hand Pain. 20:41 Details of fall: The patient fell from an upright position, while walking. Onset: The marta symptoms/episode began/occurred just prior to arrival. Associated injuries: The patient sustained right knee, decreased range of motion, hematoma, painful injury, swelling, left hand, decreased range of motion, painful injury, swelling. Severity of symptoms: At their worst the symptoms were mild, in the emergency department the symptoms have improved. The patient has not experienced similar symptoms in the past. 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 - Social history:: Smoking status: Patient/guardian denies using tobacco. - Ebola Screening: : Patient negative for fever greater than or equal to 101.5 degrees Fahrenheit, and additional compatible Ebola Virus Disease symptoms Patient denies exposure to infectious person. - Family history:: not pertinent. ROS: 20:41 Constitutional: Negative for fever, chills, and weight loss, Eyes: Negative for injury, marta pain, redness, and discharge, ENT: Negative for injury, pain, and discharge, Neck: Negative for injury, pain, and swelling, Cardiovascular: Negative for chest pain, palpitations, and edema, Respiratory: Negative for shortness of breath, cough, wheezing, and pleuritic chest pain, Abdomen/GI: Negative for abdominal pain, nausea, vomiting, diarrhea, and constipation, Back: Negative for injury and pain, : Negative for injury, bleeding, discharge, and swelling, Skin: Negative for injury, rash, and discoloration, Neuro: Negative for headache, weakness, numbness, tingling, and seizure, Psych: Negative for depression, anxiety, suicide ideation, homicidal ideation, and hallucinations, Allergy/Immunology: Negative for hives, rash, and allergies, Endocrine: Negative for neck swelling, polydipsia, polyuria, polyphagia, and marked weight changes, Hematologic/Lymphatic: Negative for swollen nodes, abnormal bleeding, and unusual bruising. 20:41 MS/extremity: Positive for decreased range of motion, pain, swelling, tenderness, of the right knee. Exam: 20:41 Constitutional: This is a well developed, well nourished patient who is awake, alert, marta and in no acute distress. Head/Face: Normocephalic, atraumatic. Eyes: Pupils equal round and reactive to light, extra-ocular motions intact. Lids and lashes normal. Conjunctiva and sclera are non-icteric and not injected. Cornea within normal limits. Periorbital areas with no swelling, redness, or edema. ENT: Nares patent. No nasal discharge, no septal abnormalities noted. Tympanic membranes are normal and external auditory canals are clear. Oropharynx with no redness, swelling, or masses, exudates, or evidence of obstruction, uvula midline. Mucous membranes moist. Neck: Trachea midline, no thyromegaly or masses palpated, and no cervical lymphadenopathy. Supple, full range of motion without nuchal rigidity, or vertebral point tenderness. No Meningismus. Chest/axilla: Normal chest wall appearance and motion. Nontender with no deformity. No lesions are appreciated. Cardiovascular: Regular rate and rhythm with a normal S1 and S2. No gallops, murmurs, or rubs. Normal PMI, no JVD. No pulse deficits. Respiratory: Lungs have equal breath sounds bilaterally, clear to auscultation and percussion. No rales, rhonchi or wheezes noted. No increased work of breathing, no retractions or nasal flaring. Abdomen/GI: Soft, non-tender, with normal bowel sounds. No distension or tympany. No guarding or rebound. No evidence of tenderness throughout. Back: No spinal tenderness. No costovertebral tenderness. Full range of motion. Skin: Warm, dry with normal turgor. Normal color with no rashes, no lesions, and no evidence of cellulitis. Neuro: Awake and alert, GCS 15, oriented to person, place, time, and situation. Cranial nerves II-XII grossly intact. Motor strength 5/5 in all extremities. Sensory grossly intact. Cerebellar exam normal. Normal gait. 20:41 Musculoskeletal/extremity: ROM: limited active range of motion due to pain, limited passive range of motion due to pain, in the left hand and right leg, Circulation is intact in all extremities. Sensation intact. Compartment Syndrome exam of affected extremity: is normal. Weight bearing: is unable to bear weight, DVT Exam: negative Homans' sign noted on exam, no appreciated bluish discoloration, no erythema, no increased warmth, pain, swelling, tenderness. Vital Signs: 20:18 BP 121 / 62; Pulse 87; Resp 18; Temp 97.6; Pulse Ox 100% ; Weight 72.57 kg; Height 4 wh ft. 10 in. (147.32 cm); Pain 9/10; 23:03 BP 173 / 89; Pulse 85; Resp 18; Pulse Ox 100% ; ea 20:18 Body Mass Index 33.44 (72.57 kg, 147.32 cm) wh MDM: 20:08 Patient medically screened. [facility] 20:44 Data reviewed: vital signs, nurses notes, lab test result(s), radiologic studies, plain marta films. 08/07 20:41 Order name: Hand Left 3 View XRAY [facility] 08/07 20:41 Order name: Femur Right XRAY [facility] 08/07 20:41 Order name: Tib Fib Right XRAY [facility] 08/07 20:51 Order name: Pelvis XRAY [facility] 08/07 20:41 Order name: Ice pack; Complete Time: 04:33 [facility] 08/07 21:13 Order name: Knee Immobilizer; Complete Time: 04:34 [facility] 08/07 21:13 Order name: Crutches; Complete Time: 04:34 [facility] 08/07 21:25 Order name: Chest Single View XRAY [facility] Administered Medications: 21:55 Drug: TORadol 30 mg Route: IVP; Site: right forearm; ea 23:00 Follow up: Response: No adverse reaction; Pain is decreased ea 21:55 Drug: Zofran 4 mg Route: IVP; Site: right forearm; ea 23:00 Follow up: Response: No adverse reaction ea 21:58 Drug: morphine 4 mg Route: IVP; Site: right forearm; ea 23:00 Follow up: Response: No adverse reaction; RASS: Alert and Calm (0) ea 21:59 Drug: NS 0.9% 1000 ml Route: IV; Rate: 1 bolus; Site: right forearm; ea 23:00 Follow up: Response: No adverse reaction; IV Status: Completed infusion; IV Intake: ea 1000ml Disposition: 08/07/19 21:55 Discharged to Home. Impression: Fall (on)(from) incline, Contusion of right knee, Abrasion, right knee, Contusion of left hand, Type 2 diabetes mellitus, Contusion of right lower leg. - Condition is Stable. - Discharge Instructions: Hand Contusion, Type 2 Diabetes Mellitus, Diagnosis, Adult, Knee Immobilizer, Hand Contusion, [id number], Knee Immobilizer, [id number], Type 2 Diabetes Mellitus, Diagnosis, Adult, [id number]. - Prescriptions for Ibuprofen 600 mg Oral Tablet - take 1 tablet by ORAL route every 8 hours As needed take with food; 21 tablet. Tylenol- Codeine #3 300-30 mg Oral Tablet - take 2 tablets by ORAL route every 6 hours As needed; 24 tablet. - Medication Reconciliation Form, Thank You Letter, Antibiotic Education, Prescription Opioid Use, Work release form, Family Work Release form. - Follow up: Private Physician; When: 2 - 3 days; Reason: Recheck today's complaints, Continuance of care, Re-evaluation by your physician. Follow up: Moise Mcintyre; When: 2 - 3 days; Reason: Recheck today's complaints, Re-evaluation by your physician. - Problem is new. - Symptoms have improved. Signatures: Dispatcher [employer] EDMS Hector Houston MD MD cha Antunez, Elena, Jessica Pham RN, ea Corrections: (The following items were deleted from the chart) 21:21 20:38 Wrist Left 3 View+RAD.RAD.BRZ ordered. EDMS EDMS 21:22 20:38 Knee Right 3 View+RAD.RAD.BRZ ordered. EDID EDMS 23:17 21:55 08/07/2019 21:55 Discharged to Home. Impression: Fall (on)(from) incline; ea Contusion of right knee; Abrasion, right knee; Contusion of left hand; Type 2 diabetes mellitus; Contusion of right lower leg. Condition is Stable. Discharge Instructions: Hand Contusion, Type 2 Diabetes Mellitus, Diagnosis, Adult, Knee Immobilizer, Hand Contusion, Stxm-up-Hiel, Knee Immobilizer, [id number], Type 2 Diabetes Mellitus, Diagnosis, Adult, Xdso-so-[id number]. Prescriptions for Ibuprofen 600 mg Oral Tablet - take 1 tablet by ORAL route every 8 hours As needed take with food; 21 tablet, Tylenol-Codeine #3 300-30 mg Oral Tablet - take 2 tablets by ORAL route every 6 hours As needed; 24 tablet. and Forms are Medication Reconciliation Form, Thank You Letter, Antibiotic Education, Prescription Opioid Use. Follow up: Private Physician; When: 2 - 3 days; Reason: Recheck today's complaints, Continuance of care, Re-evaluation by your physician. Follow up: Moise Mcintyre; When: 2 - 3 days; Reason: Recheck today's complaints, Re-evaluation by your physician. Problem is new. Symptoms have improved. marta
--- NOTE | 2019-08-07 22:11 | ER ---
Nurse's Notes [facility] Name: Silvia Kiran Age: 48 yrs Sex: Female : 1970 Arrival Date: 08/07/2019 Time: 19:57 Bed 25 Private MD: Diagnosis: Fall (on)(from) incline;Contusion of right knee;Abrasion, right knee;Contusion of left hand;Type 2 diabetes mellitus;Contusion of right lower leg Presentation: 08/07 20:15 Presenting complaint: Patient states: Walking on an uneven pathway caused her to fell wh and hit her right knee and left arm which was previously broken. Pt denies LOC and is not on any blood thinners. Transition of care: patient was not received from another setting of care. Onset of symptoms was August 07, 2019. Risk Assessment: Do you want to hurt yourself or someone else? Patient reports no desire to harm self or others. Initial Sepsis Screen: Does the patient meet any 2 criteria? No. Patient's initial sepsis screen is negative. Does the patient have a suspected source of infection? No. Patient's initial sepsis screen is negative. Care prior to arrival: None. 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 - Social history:: Smoking status: Patient/guardian denies using tobacco. - Ebola Screening: : Patient negative for fever greater than or equal to 101.5 degrees Fahrenheit, and additional compatible Ebola Virus Disease symptoms Patient denies exposure to infectious person. - Family history:: not pertinent. Screenin:16 Abuse screen: Denies threats or abuse. Denies injuries from another. Nutritional screening: No deficits noted. Tuberculosis screening: No symptoms or risk factors identified. Fall Risk Fall in past 12 months (25 points). Assessment: 20:19 General: Appears in no apparent distress. Behavior is calm, cooperative, appropriate for age. Pain: Complains of pain in left arm and right knee Pain does not radiate. Pain currently is 9 out of 10 on a pain scale. Quality of pain is described as aching, Pain began 1 hour ago. Neuro: Level of Consciousness is awake, alert, obeys commands, Oriented to person, place, time, situation, Appropriate for age. Cardiovascular: Capillary refill < 3 seconds. Respiratory: Airway is patent Respiratory effort is even, unlabored, Respiratory pattern is regular, symmetrical. GI: Abdomen is flat, non-distended. : No signs and/or symptoms were reported regarding the genitourinary system. EENT: No signs and/or symptoms were reported regarding the EENT system. Derm: Skin is intact, is healthy with good turgor, Skin is pink, warm \T\ dry. normal. Musculoskeletal: Circulation, motion, and sensation intact. 21:55 Reassessment: Patient and/or family updated on plan of care and expected duration. Pain ea level reassessed. Patient is alert, oriented x 3, equal unlabored respirations, skin warm/dry/pink. Returned from x ray. 22:50 Reassessment: Patient and/or family updated on plan of care and expected duration. Pain ea level reassessed. Patient is alert, oriented x 3, equal unlabored respirations, skin warm/dry/pink. Discharge instruction given to patient, verbalized the understanding of instruction. Pt left via wheelchair per family, pt tolerating well. Vital Signs: 20:18 BP 121 / 62; Pulse 87; Resp 18; Temp 97.6; Pulse Ox 100% ; Weight 72.57 kg; Height 4 wh ft. 10 in. (147.32 cm); Pain 9/10; 23:03 BP 173 / 89; Pulse 85; Resp 18; Pulse Ox 100% ; ea 20:18 Body Mass Index 33.44 (72.57 kg, 147.32 cm) ED Course: 19:57 Patient arrived in ED. cf2 20:08 Hector Houston MD is Attending Physician. marta 20:16 Triage completed. 20:19 Arm band placed on right wrist. 20:19 Patient has correct armband on for positive identification. Bed in low position. Call wh light in reach. Side rails up X 1. Pulse ox on. NIBP on. 20:26 Mackenzie Gonzales, RN is Primary Nurse. ea 21:50 Inserted saline lock: 24 gauge in right forearm, using aseptic technique. ea 21:53 Hand Left 3 View XRAY In Process Unspecified. EDMS 21:53 Femur Right XRAY In Process Unspecified. EDMS 21:53 Tib Fib Right XRAY In Process Unspecified. EDMS 21:53 Pelvis XRAY In Process Unspecified. EDMS 21:53 Chest Single View XRAY In Process Unspecified. EDMS 21:54 Moise Mcintyre MD is Referral Physician. [facility] 23:10 No provider procedures requiring assistance completed. IV discontinued, intact, ea bleeding controlled, No redness/swelling at site. Pressure dressing applied. Administered Medications: 21:55 Drug: TORadol 30 mg Route: IVP; Site: right forearm; ea 23:00 Follow up: Response: No adverse reaction; Pain is decreased ea 21:55 Drug: Zofran 4 mg Route: IVP; Site: right forearm; ea 23:00 Follow up: Response: No adverse reaction ea 21:58 Drug: morphine 4 mg Route: IVP; Site: right forearm; ea 23:00 Follow up: Response: No adverse reaction; RASS: Alert and Calm (0) ea 21:59 Drug: NS 0.9% 1000 ml Route: IV; Rate: 1 bolus; Site: right forearm; ea 23:00 Follow up: Response: No adverse reaction; IV Status: Completed infusion; IV Intake: ea 1000ml Intake: 23:00 IV: 1000ml; Total: 1000ml. ea Outcome: 21:55 Discharge ordered by . marta 23:10 Discharged to home via wheelchair, with family. ea 23:10 Condition: stable 23:10 Discharge instructions given to patient, Instructed on discharge instructions, follow up and referral plans. medication usage, Demonstrated understanding of instructions, follow-up care, medications, Prescriptions given X 1. 23:17 Patient left the ED. ea Signatures: Dispatcher [employer] Hector Machuca MD MD cha Antunez, Elena, RN RN Jessica Carter Celesta cf2 Corrections: (The following items were deleted from the chart) 20:16 20:16 Fall Risk None identified. [facility] 22:05 21:55 Reassessment: Patient and/or family updated on plan of care and expected ea duration. Pain level reassessed. Patient is alert, oriented x 3, equal unlabored respirations, skin warm/dry/pink. Returned from CT ea
[2019-08-07 23:37] VITALS: TEMP 97.6; O2SAT 100
[2019-08-07 23:38] VITALS: BP 173/89
--- NOTE | 2019-08-08 08:33 | RAD REPORT ---
EXAM DESCRIPTION: RAD - Femur Right - 08/07/2019 9:53 pm CLINICAL HISTORY: Trip and fall, right femur and leg pain COMPARISON: None. FINDINGS: No fracture, dislocation or periosteal reaction noted. No acute or suspicious bony finding . No air or foreign body in the soft tissues. IMPRESSION: Negative right femur examination.
--- NOTE | 2019-08-08 08:34 | RAD REPORT ---
EXAM DESCRIPTION: RAD - Tib Fib Right - 08/07/2019 9:53 pm CLINICAL HISTORY: Trip and fall, right lower leg pain COMPARISON: None. FINDINGS: No fracture is identified. There is no dislocation or periosteal reaction noted. No acute or suspicious bony finding. No foreign body or other soft tissue abnormality. IMPRESSION: Negative right tibia & fibula examination.
--- NOTE | 2019-08-08 08:35 | RAD REPORT ---
EXAM DESCRIPTION: RAD - Pelvis - 08/07/2019 9:53 pm CLINICAL HISTORY: Trip and fall, pelvic pain COMPARISON: None. TECHNIQUE: AP imaging of the pelvis was obtained. FINDINGS: No fracture of the bony pelvis. No fracture, dislocation or other acute hip joint finding. No significant SI joint acute finding. Patient has lower lumbar degenerative change not fully assess ed on this study. No soft tissue abnormality. IMPRESSION: Negative pelvis for acute or significant findings.
--- NOTE | 2019-08-08 08:36 | RAD REPORT ---
EXAM DESCRIPTION: RAD - Chest Single View - 08/07/2019 9:54 pm CLINICAL HISTORY: Trip and fall, chest pain COMPARISON: February 2019 TECHNIQUE: AP portable chest image was obtained 2129 hours . FINDINGS: No acute lung parenchymal process. Heart and vasculature are normal. No measurable pleural effusion and no pneumothorax. No acute bone findings seen. 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 No history is available. This was present on the prior examination. No acute aortic fin dings suspected. IMPRESSION: No acute cardiopulmonary process. No identifiable change from February 2019.
--- NOTE | 2019-08-08 08:38 | RAD REPORT ---
EXAM DESCRIPTION: RAD - Hand Left 3 View - 08/07/2019 9:53 pm CLINICAL HISTORY: Trip and fall, left hand pain COMPARISON: May 2019 FINDINGS: No fracture, dislocation or periosteal reaction noted. Mild degenerative joint changes are evident at the first MCP joint and the trapezial first metacarpal articulation. No foreign body or o ther soft tissue abnormality. IMPRESSION: Negative left hand examination for acute finding.
== END 2019-08-07 23:17 | disposition home or self-care (01) ==
LOC: ER 19:56
DX: S80.211A Abrasion, right knee, initial encounter (principal); S80.01XA Contusion of right knee, initial encounter; S60.222A Contusion of left hand, initial encounter; S80.11XA Contusion of right lower leg, initial encounter; E11.9 Type 2 diabetes mellitus without complications; W10.2XXA Fall (on)(from) incline, initial encounter; Y93.01 Activity, walking, marching and hiking; Y92.9 Unspecified place or not applicable; Z91.041 Radiographic dye allergy status; Z91.048 Other nonmedicinal substance allergy status; I10 Essential (primary) hypertension; F32.9 Major depressive disorder, single episode, unspecified
CPT/HCPCS: 71045; 72170; 96361; 96374; 96375; 99284; J2270; J2405; J7030

== ENCOUNTER 2020-11-05 14:29 | Observation (INO) | payer SELFPAY ==
--- OUTSIDE RECORDS SUMMARY | 2020-11-05 14:33 | XMS REPORT | Continuity of Care Document ---
:[address] [facility] t Address [address] [place] [address] Care Team Providers Name Role Phone Felicia OSMAN Attending Clinician Unavailable Kathleen GHOSH, Rachel Attending Clinician Neida Frias, H Attending Clinician Megan GHOSH, H Attending Clinician Payers Payer Name Policy Type Policy Number Effective Date Expiration Date S mahesh [facility] [id number] 2020 [facility] SELF-PAYSELF- 00:00:00 PAY SCREENEDxxxxx - [id number] [place] [address] Problems Condition Condition Condition Status Onset Resolution Last Treating Co mments Source Name Details Category Date Date Treatment Clinician Date Diabetes Diabetes Disease Active Harri s mellitus mellitus 08-02 Health 00:00: 00 COVID-19 COVID-19 Disease Active Harri s 08-01 Health 00:00: 00 Pneumonia Pneumonia Disease Active Quinten ris due to due to 07-31 Health COVID19 COVID-19 00:00: virus virus 00 Dyspnea Dyspnea Disease Active [place]wnan 07-30 [facility] 00:00: 00 Chest pain Chest pain Disease Active [facility] Hyperglyce Hyperglyce Disease Active [facility] Cough Cough Disease Active [facility] Sore Sore Disease Active [place] throat throat [facility] Suspected Suspected Disease Active Quinten ris COVID COVID [facility] virus virus infection infection Allergies, Adverse Reactions, Alerts Allergy Allergy Status Severity Reaction(s) Onset Inactive Treating Comm ents Source Name Type Date Date Clinician Iodinate Propensi Active 2019-07 [place]an d ty to 2-10 Health Contrast adverse 00:00: Media reaction 00 s to drug Family History Family Member Diagnosis Comments Start Date Stop Date Source Natural father Diabetes [facility] Paternal grandfather Lung cancer [facility] Paternal grandmother Cancer [facility] Natural sister Diabetes [facility] Social History Social Habit Start Date Stop Date Quantity Comments Source History of tobacco Current smoker Zazueta rris Health use History [facility] Alcohol Std Drinks History [facility] Alcohol Binge Sex Assigned At [facility] Alcohol intake 2020-07-31 2020-07-31 Current drinker Adrienne melendez [facility] 00:00:00 00:00:00 of alcohol (finding) History [facility] 2020-07-31 2020-07-31 2 [facility] Alcohol Frequency 00:00:00 00:00:00 Smoking Status Start Date Stop Date Source Former smoker 2020-07-31 00:00:00 2020-07-31 00:00:00 [facility] Medications Ordered Filled Start Stop Current Ordering Indication Dosage Frequency Signature Comments Components Source Medication Medication Date Date Medication? Clinician (SIG) Name Name metFORMIN 2020- 850mg Take 850 Zazueta rris (GLUCOPHAGE 1-04 01-04 mg by [employer] ) 850 mg 13:38: 00:00 mouth 2 tablet 09 :00 times daily (with meals). glipiZIDE Yes Type 2 5mg Q.5D Take 1 Tony is (GLUCOTROL) 1-04 diabetes tablet by [facility] 5 mg tablet 00:00: mellitus mouth 2 00 without times complicatio daily n, without (before long-term meals). current use of insulin metFORMIN Yes Type 2 1000mg Take 1 Zazueta rris (GLUCOPHAGE 1-04 diabetes tablet by [employer] ) 1,000 mg 00:00: mellitus mouth 2 tablet 00 without times complicatio daily n, without (with long-term meals). current use of insulin blood Yes Type 2 Use as [facility] glucose 1-04 diabetes directed.. He alth meter 00:00: mellitus (PRECISION 00 without XTRA complicatio GLUCOMETER) n, without long-term current use of insulin blood Yes Type 2 Use 2 [facility] glucose 1-04 diabetes times [facility] (PRECISION 00:00: mellitus weekly XTRA TEST 00 without (once per STRIPS) complicatio day on test strips n, without Mon,Thurs) long-term to test current use blood of insulin sugar. lancets 28 Yes Type 2 Use 2 Toyn is gauge 08-02 diabetes [facility] 00:00: mellitus weekly as 00 without directed. complicatio n, without long-term current use of insulin amoxicillin No 1{tbl} Q.5D Take 1 H arris -clavulanat 08-02 tablet by alth e 00:00: 23:59 mouth 2 (AUGMENTIN) 00 :00 times 875-125 mg daily for per tablet 11 doses. albuterol 2019-07 Yes SOB 2.5mg Inhale 3 Quinten ris (PROVENTIL) 2-10 (shortness mL by [facility] 2.5 mg /3 00:00: of breath) mouth mL (0.083 00 every 6 %) hours as nebulizer needed for solution Wheezing. amoxicillin 2019-07 SOB 500mg Take 1 Zazueta rris (AMOXIL) 2-10 -17 (shortness capsule by [facility] 500 mg 00:00: 23:59 of breath) mouth 3 capsule 00 :00 times daily for 7 days. azithromyci 2019-07 SOB 500mg QD Take 1 Zazueta rris n 2-10 - (shortness tablet by [facility] (ZITHROMAX) 00:00: 23:59 of breath) mouth 500 mg 00 :00 daily for tablet 3 days. Vital Signs Vital Name Observation Time Observation Value Comments Source Systolic blood pressure 2020-08-02 15:45:00 135 mm[Hg] [facility] Diastolic blood pressure 2020-08-02 15:45:00 98 mm[Hg] [facility] Heart rate 2020-08-02 15:45:00 77 /min [facility] itz Body temperature 2020-08-02 15:45:00 36.56 Naima [facility] Respiratory rate 2020-08-02 15:45:00 18 /min [facility] Oxygen saturation in 2020-08-02 15:45:00 91 /min [facility] Arterial blood by Pulse oximetry Body height 2020-07-30 23:43:00 149.9 cm [facility] Body weight 2020-07-30 23:43:00 92.035 kg [facility] BMI 2020-07-30 23:43:00 40.98 kg/m2 [facility] Procedures Procedure Date / Time Performed Performing Clinician [facility] e GLUCOSE POC 2020-08-02 12:05:00 [facility] GLUCOSE POC 2020-08-02 08:16:00 Ketna Osman [facility] CONSULT CLINICAL CASE 2020-08-02 08:01:05 [facility] MANAGEMENT (RN/SW) CONSULT CLINICAL CASE 2020-08-02 07:55:52 [facility] MANAGEMENT (RN/SW) CBC/DIFF 2020-08-02 06:07:00 Neida, Steph Silva [facility]th MAGNESIUM 2020-08-02 06:07:00 Neida, Steph hoskins COMPREHENSIVE METABOLIC 2020-08-02 06:07:00 Neida, Steph [facility]a [facility] PANEL CBC 2020-08-02 06:07:00 Neida, Steph [facility] GLUCOSE POC 2020-08-01 20:35:00 Ketan Os[facility] GLUCOSE POC 2020-08-01 17:30:00 Ketan Os[facility] GLUCOSE POC 2020-08-01 12:29:00 Ketan Osman [facility] GLUCOSE POC 2020-08-01 08:47:00 Ket[facility] CBC/DIFF 2020-08-01 03:58:00 Neida, Steph Silva [facility] MAGNESIUM 2020-08-01 03:58:00 Neida, Steph hoskins COMPREHENSIVE METABOLIC 2020-08-01 03:58:00 Neida, Steph Maura [facility] PANEL CBC 2020-08-01 03:58:00 Neida, Steph Silva [facility] GLUCOSE POC 2020-07-31 20:34:00 Ketan [facility] URINALYSIS 2020-07-31 17:59:00 Missy Dahl [facility] URINALYSIS 2020-07-31 17:59:00 Missy Dahl [facility] GLUCOSE POC 2020-07-31 17:22:00 Ketan Osman [facility] GLUCOSE POC 2020-07-31 12:18:00 Ketan Osman [facility] COMMODE AT BEDSIDE 2020-07-31 10:44:24 Ketan Osman [facility] GLUCOSE POC 2020-07-31 10:30:00 Ketan Osman [facility] GLUCOSE POC 2020-07-31 08:33:00 Ketan Osman [facility] BASIC METABOLIC PANEL 2020-07-31 04:30:00 Missy Dahl [facility] LACTIC ACID 2020-07-31 04:30:00 Missy Dahl [facility] GLUCOSE POC 2020-07-31 04:24:00 Ketan Osman [facility] GLUCOSE POC 2020-07-30 23:41:00 Ketan Osman [facility] TROPONIN I POC 2020-07-30 22:22:00 Ketan Osman [facility] D-DIMER 2020-07-30 21:27:00 Missy Dahl [facility] HEMOGLOBIN A1C 2020-07-30 21:27:00 Missy Dahl [facility] SARS-COV-2, FLU A/B, RSV 2020-07-30 21:24:00 [facility] SARS-COV-2, FLU A/B, & RSV 2020-07-30 21:24:00 [facility] TROPONIN I POC 2020-07-30 19:40:00 Dark, Wayne Ayala [facility] EKG PROC 12 LEAD EKG; 2020-07-30 19:25:22 Dark, Wayne Mendez [facility] TRACING ONLY XRAY CHEST 2 VIEWS 2020-07-30 16:54:37 Dark, Wayne [facility] TROPONIN I POC 2020-07-30 16:27:00 Dark, Wayne mendez CBC/DIFF 2020-07-30 16:23:00 Dark, Wayne Ayala COMPREHENSIVE METABOLIC 2020-07-30 16:23:00 [facility] PANEL CBC 2020-07-30 16:23:00 Wayne [facility] BETA-HYDROXYBUTYRATE 2020-07-30 16:23:00 Missy Dahl [facility] ECHG EKG PROC 12 LEAD EKG; 2020-07-30 15:21:09 Santos Chavez [facility] TRACING ONLY GLUCOSE POC 2020-07-08 14:11:00 Guzman Chayoen [facility] ECHG EKG PROC 12 LEAD EKG; 2020-07-08 13:02:37 [facility] TRACING ONLY TROPONIN I POC 2020-07-08 12:47:00 Guzman Daniellili [facility] GLUCOSE POC 2020-07-08 12:39:00 Guzman [facility] VBG POC 2020-07-08 11:04:00 Guzman [facility] LACTIC ACID 2020-07-08 10:59:00 Guzman [facility] OSMOLALITY,SERUM 2020-07-08 10:59:00 Guzman [facility] lt BETA-HYDROXYBUTYRATE 2020-07-08 10:59:[address] [facility] URINALYSIS 2020-07-08 10:59:00 Guzman uyen [facility] URINALYSIS 2020-07-08 10:59:00 Guzman Chayoen [facility] MAGNESIUM 2020-07-08 10:43:00 [facility] th PHOSPHORUS 2020-07-08 10:43:00 Guzman, uyen [facility] th LIPASE 2020-07-08 10:43:00 [facility] B-TYPE NATRIURETIC PEPTIDE 2020-07-08 10:43:[address] [facility] (BNP) XRAY CHEST 2 VIEWS 2020-07-08 10:40:15 Sourav Guadarrama POCT URINE DIPSTICK - 2020-07-08 09:53:00 Elisa Bocanegra [facility] CREATININE POC 2020-07-08 09:40:00 Unknown, Provider Devin [facility] TROPONIN I POC 2020-07-08 09:38:00 Unknown, Provider Devin [facility] CBC/DIFF 2020-07-08 09:34:00 Raghavendra [facility] BASIC METABOLIC PANEL 2020-07-08 09:34:00 Raghavendra Sunshine [facility] HIV AG/AB COMBO ROUTINE 2020-07-08 09:34:00 Raghavendra Sunshine [facility] SCREENING CBC 2020-07-08 09:34:00 Raghavendra [facility] ECHG EKG PROC 12 LEAD EKG; 2020-07-08 09:16:41 Elisa Bocanegra [facility] TRACING ONLY Plan of Care Planned Activity Planned Date Details Comments Source Future Scheduled Test 2021-07-30 00:00:00 Hemoglobin A1c [facility] measurement (procedure) [code = 70727854] Future Scheduled Test 2021-04-29 00:00:00 IMM Influenza Seasonal [facility] Apr to September (>/= 19 yrs) [code = IMM Influenza Seasonal Apr to September (>/= 19 yrs)] Future Scheduled Test 2020 00:00:00 Screening for [facility] malignant neoplasm of colon (procedure) [code = 660387881] Future Scheduled Test 2010 00:00:00 Breast Cancer Scrn [facility] (Yearly) [code = Breast Cancer Scrn (Yearly)] Future Scheduled Test 2000 00:00:00 Screening for [facility] malignant neoplasm of cervix (procedure) [code = 995268222] Future Scheduled Test 2000 00:00:00 Screening for [facility] malignant neoplasm of cervix (procedure) [code = 205251037] Future Scheduled Test 1988 00:00:00 DM Foot Exam (Yearly) [facility] [code = DM Foot Exam (Yearly)] Future Scheduled Test 1988 00:00:00 Urine screening for [facility] protein (procedure) [code = 086176734] Future Scheduled Test 1988 00:00:00 DM Retinal Exam [facility] (Yearly) [code = DM Retinal Exam (Yearly)] Future Scheduled Test 1986 00:00:00 COVID-19 Vaccine (1) [facility] [code = COVID-19 Vaccine (1)] Encounters Start End Encounter Admission Attending Care Care Encounter Source Date/Time Date/Time Type Type Clinicians Facility Department ID 2020-07-30 2020-08-02 Inpatient [facility], [facility] [id number] [place] 15:20:00 16:57:00 [facility] 2020-07-30 2020-07-30 Emergency [facility] [id number] [place] 16:49:10 16:54:47 Health Results Test Description Test Time Test Comments Results Result Comments Source POCT GLUCOSE POC docked device 2020-08-02 17:33:00 Test Item Value Reference Range Interpretation Comme nts Glucose POC (test code = 97648192) 310 mg/dL 74-106 H Lab Interpretation (test code = 78973-9) Abnormal [id number] 07:59:00 Test Item Value Reference Range Interpretation Comments Magnesium (test code = 41236036) 1.8 mg/dL 1.9-2.7 L Lab Interpretation (test code = Abnormal 99211-5) [facility] [id number] 07:59:00 Test Item Value Reference Range Interpretation Comments Sodium (test code = 135 mmol/L 136-145 L 2951-2) Potassium (test code = 4.0 mmol/L 3.5-5.1 2823-3) Chloride (test code = 99 mmol/L 98-107 2075-0) CO2 (test code = 26 mmol/L 21-31 82397009) Glucose (test code = 300 mg/dL 70-110 H 43432323) Calcium (test code = 8.8 mg/dL 8.6-10.3 48931042) Urea Nitrogen (test 21.0 mg/dL 7-25 code = 65253514) Creatinine (test code = 0.6 mg/dL 0.6-1.2 19574769) Alkaline Phosphatase 84 U/L 34-104 (test code = 59282623) ALT (test code = 41 U/L 7-52 90910076) AST (test code = 24 U/L 13-39 08398028) Total Protein (test 6.2 g/dL 6-8.3 code = 2885-2) GFR, Estimated (test >90 See_Comment [Autom ated message] code = 16452320) The system which generated this result transmit naveed reference range : >=90 mL/min/1.7 3 m2. The reference r jori was not used to interpret this result as normal/abnormal . Albumin (test code = 3.3 g/dL 3.7-5.3 L 46027-1) Anion Gap (test code = 10 mmol/L 12-12 18855181) Lab Interpretation Abnormal (test code = 17746-3) [facility]/[id number] 07:19:00 Test Item Value Reference Range Interpretation Comments WBC (test code = 6690-2) 4.7 K/uL 4.5-11 RBC (test code = 789-8) 4.80 See_Comment [Au tomated message] The system [employer] generated this result transmit naveed reference range : 4.20 - 5.40 M/u L. The reference r jori was not used to interpret this result as normal/abnormal . Hemoglobin (test code = 15.3 g/dL 16 718-7) Hematocrit (test code = 44.7 % 37-47 4544-3) MCV (test code = 787-2) 93.1 fL 82-92 H MCH (test code = 785-6) 31.9 pg 27-32 MCHC (test code = 786-4) 34.2 g/dL 32-36 RDW (test code = 43.9 fL 36.4-46.3 40780-2) Platelet (test code = 236 K/uL 150-400 777-3) Mean Platelet Volume 11.9 fL 9.4-12.4 (test code = 14555-7) Percent NRBC (test code 0.0 % = 58753184) Neutrophil (test code = 54.5 % 34-70 770-8) Lymphs (test code = 35.7 % 20-50 736-9) Monocytes (test code = 9.2 % 5-12 5905-5) Eos (test code = 713-8) 0.0 % 0.7-5 L Basos (test code = 0.4 % 0.1-1.2 706-2) Immature Granulocytes 0.2 % 0-0.5 (test code = 58107909) Neutrophils (Absolute) 2.53 K/uL 1.56-6.13 (test code = 65755777) Lymphs (Absolute) (test 1.66 K/uL 1.18-3.74 code = 47268401) Monocytes(Absolute) 0.43 K/uL 0.24-0.36 H (test code = 82426627) Eos (Absolute) (test 0.00 K/uL 0.04-0.36 L code = 93640013) Baso (Absolute) (test 0.02 K/uL 0.01-0.08 code = 88265458) Immature Grans (Abs) 0.01 K/uL 0-0.03 (test code = 15381659) Absolute NRBC (test code 0.00 K/uL = 62181585) Lab Interpretation (test Abnormal code = 37517-8) [facility] [id number] 19:28:00 Test Item Value Reference Range Interpretation Comments Color (test code = Straw Colorless, Straw, 14515714) Yellow Clarity (test code = Clear Clear 58186633) Spec Rossiter, Ur (test 1.017 1.001-1.035 code = 49882046) pH, Ur (test code = 7.0 5.0-8.0 21180807) Protein, Ur (test code Negative Negative mg/dL = 86477646) Glucose, Ur (test code 3+ Negative mg/dL A = 92669815) Ketone, Ur (test code = 1+ Negative mg/dL A 90052664) Bilirubin, Ur (test Negative Negative mg/dL code = 47939114) Nitrite, Ur (test code Negative Negative = 77249717) Leukocyte (test code = Negative Negative mg/dL 16590386) Blood, Ur (test code = Negative Negative mg/dL 43161621) Urobilinogen, Ur (test <1.0 See_Comment [Aut omated message] code = 64488387) The system which generated this result transmit naveed reference range : <1.0 EU/dL. The reference range was not used to interpret this result as normal/abnormal . Lab Interpretation Abnormal (test code = 69270-5) [facility] Hill[facility] [id number] 09:27:00 Test Item Value Reference Range Interpretation Comments Hemoglobin A1c (test code = 4548-4) 13.1 % 4.3-6.1 H Estimated Average Glucose (test 329 mg/dL 70-110 H code = 89531891) Lab Interpretation (test code = Abnormal 36336-4) [facility] Hill[facility] [id number] 06:04:00 Test Item Value Reference Range Interpretation Comments Lactic Acid (test code = 90231809) 0.8 mmol/L 0.5-2.2 Lab Interpretation (test code = Normal 20372-9) [facility] Hill[facility] Metabolic [id number] 05:22:00 Test Item Value Reference Range Interpretation Comments Sodium (test code = 135 mmol/L 136-145 L 2951-2) Potassium (test code = 3.9 mmol/L 3.5-5.1 2823-3) Chloride (test code = 99 mmol/L 98-107 2075-0) CO2 (test code = 26 mmol/L 21-31 03046808) Urea Nitrogen (test 9.0 mg/dL 7-25 code = 13538713) Creatinine (test code = 0.5 mg/dL 0.6-1.2 L 68594422) Glucose (test code = 252 mg/dL 70-110 H 72980468) Calcium (test code = 8.1 mg/dL 8.6-10.3 L 46644028) GFR, Estimated (test >90 See_Comment [Autom ated message] code = 98936139) The system which generated this result transmit naveed reference range : >=90 mL/min/1.7 3 m2. The reference r jori was not used to interpret this result as normal/abnormal . Anion Gap (test code = 10 mmol/L 5-16 19663171) Lab Interpretation Abnormal (test code = 76489-8) [facility]onavirus (CoVID-19), Influenza A/B viral [id number] 23:09:00 Test Item Value Reference Range Interpretation Comments COVID-19 (SARS-COV-2) Detected Not Detected A (test code = 97854-8) Influenza A (test code Not Detected Not Detected = 45559-2) Influenza B (test code Not Detected Not Detected = 36853-9) JESUS (test code = JESUS) INTERPRETATION: The obi SARS-CoV-2 & Influenza A/B assay uses real-time reverse transcriptase polymerase chain reaction (RT-PCR) technology to rapidly detect and differentiate between SARS-CoV-2, influenza A, and influenza B viruses from nasopharyngeal and nasal swab specimens. Positive results for any one of the three viruses are indicative of active infection. Influenza A negative and Influenza B negative results should be considered presumptive in samples that have a positive SARS-CoV-2 result. Negative results for SARS-CoV-2 virus do not preclude SARS-CoV-2 infection and should not be used as the sole basis for patient management decisions. Clinical correlation with patient history and other diagnostic information is recommended. For invalid results, a second sample should be submitted for repeat testing. COMMENT: In accordance with the FDA's guidance document "Policy for Diagnostic Tests for Coronavirus Disease-2019 during the Public Health Emergency", this test was developed, and its performance characteristics were verified by the [facility] molecular diagnostics laboratory and is authorized for clinical diagnostic use. This laboratory is certified under the Clinical Laboratory Improvement Amendments (CLIA) as qualified to perform high complexity clinical laboratory testing. Lab Interpretation Abnormal (test code = 36345-4) [facility] HillHxmwgwL-[id number] 22:41:00 Test Item Value Reference Range Interpretation Comments D-Dimer (test code = 0.35 See_Comment Values of quantitative 23506277) D-Dimer less th an 0.40 ug/mL FEU have been reported to be associated with a low probability of deep vein thrombosis/pulm onary embolism. This test alone should no t be used to rule ou t DVT/PE. [Automa naveed message] The sy stem which generated this result transmit naveed reference range : 0.27 - 0.48 ug/mL FE U. The reference range was not used to int erpret this result as normal/abnormal . Lab Interpretation (test Normal code = 10405-8) [facility] HillAgliijLblk-[id number] 22:40:00 Test Item Value Reference Range Interpretation Comments Beta Hydroxy Butyrate (test code 0.97 mmol/L 0.02-0.27 H = 08097715) Lab Interpretation (test code = Abnormal 76548-0) [facility] HillPOCT TROPONIN I POC docked [id number] 22:34:00 Test Item Value Reference Range Interpretation Comments Troponin POC (test code 0.01 ng/mL 0-0.08 Phys ician Notified = 70434454) Lab Interpretation (test Normal code = 60816-4) [facility] CHEST 2 [id number] 19:40:07IMPRESSION:Nonspecific bibasilar opacities may represent atelectasis or infectionin the appropriate s etting. If the report is "FINALIZED" it indicates that the attending/staffradiologist has reviewed the images and agrees with the resident'sinterpretation. Dictated By: Aashish De Los Santos MD, 15:38 PM I have reviewed the study and agree with the findings in this report. Signed By: Sara Dean MD, 07/30/2020 7:40 PM Interface, Rad/Mammog In - 07/30/2020 7:45 PM CST EXAMINATION: XRAY CHEST 2 VIEWS INDICATION: sob COMPARISON: Chest x-ray 07/08/2020 FINDINGS:TUBES AND LINES: None.LUNGS AND PLEURA: Bibasilar opacities. No pleural effusion orpneumothorax.HEART AND MEDIASTINUM: Normal for technique.BONES AND SOFT TISSUES: Absent right posterior sixth rib, possiblypostsurgical.UPPER ABDOMEN: No acute findings.IMPRESSIONIMPRESSION:Nonspecific bibasilar opacities may represent atelectasis or infectionin the appropriate setting.If the report is "FINALIZED" it indicates that the attending/staffradiologist has reviewed the images and agrees with the resident'sinterpretation. Dictated By: Aashish De Los Santos MD, 07/30/2020 5:38 PMI have reviewed the study and agree with the findings in this report.Signed By: Sara Dean MD, 07/30/2020 7:40 [place] [address] LE[address] [id number] 19:25:2212 LEAD EKG FOR [facility] Test Date: 3821-36-39Zzy Name: JOCELIN PIZANO Department: 5520Patient ID: [id number] Room: Gender: F Student Worker: : 1970 Requested By: WAYNE Lyons Number: [id number] Reading MD: Sarai Ortiz MD MeasurementsIntervals [place] Rate: 76 P: 47PR: 152 QRS: 31QRSD: 84 T: 113QT: 409 QTc: 462 Interpretive StatementsSINUS RHYTHMPOSSIBLELEFT ATRIAL ENLARGEMENTNONSPECIFIC T-WAVE ABNORMALITYElectronically Signed On 1-1-2021 22:38:54 JOCKEY ROOM CUSTODIAN by Sarai Ortiz [place] [address] LEAD [id number] 15:21:0912 LEAD EKG FOR [facility] Test Date: 6822-50-33Ogx Name: JOCELIN PIZANO Department: 5520Patient ID: [id number] Room: Gender: F Student Worker: [id number]: 1970 Requested By: SANTOS Lemus Number: [id number] Reading MD: Sarai Ortiz MD MeasurementsIntervals [place] Rate: 96 P: 16PR: 132 QRS: 133QRSD: 109 T: 49QT: 349 QTc:442 Interpretive StatementsSINUS RHYTHMPOSSIBLE RIGHT VENTRICULAR HYPERTROPHY [SOME/ALL OF: PROMINENT R IN V1, LATE TRANSITION, RAD, DEMETRIA, SSS]NONSPECIFIC T-WAVE ABNORMALITYElectronically Signed On 07-30-2020 22:38:43 JOCKEY ROOM CUSTODIAN by ALEJANDRO [facility] HealthOsmolality, [id number] 13:18:00 Test Item Value Reference Range Interpretation Comments Osmolality, Serum (test 302 See_Comment H [Au tomated message] code = 02166581) The system which generated this result transmitted ref erence range: 266 - 30 0 mOsm/kg. The reference range was not used to int erpret this result as normal/abnormal . Lab Interpretation (test Abnormal code = 60206-4) [place] [address] LEAD [id number] 13:02:3712 LEAD EKG FOR [facility] Test Date: 9005-01-09Hit Name: JOCELIN PIZANO Department: 5520Patient ID: [id number] Room: Gender: F Student Worker: [id number]: 1970 Requested By: SOURAV Mckeon Number: [id number] Reading MD: Sarai Ortiz MD MeasurementsIntervals [place] Rate: 78 P: 12PR: 155 QRS: -7QRSD: 93 T: 146QT: 409 QTc: 468 Interpretive StatementsSINUS RHYTHMST DEV IATION AND MODERATE T-WAVE ABNORMALITY, CONSIDER ANTEROLATERAL ISCHEMIAElectronically Signed On 07-08-2020 13:45:59 JOCKEY ROOM CUSTODIAN by Sarai Ortiz [facility] (BNP)2020-07-08 11:54:00 Test Item Value Reference Range Interpretation Comments B Natriuretic Peptide 47 pg/mL See_Comment [Auto mated message] (BNP) (test code = The syste m which 76663095) generated this result transmitted ref erence range: <=100. T he reference range was not used to int erpret this result as normal/abnormal . Lab Interpretation (test Normal code = 93739-6) [id number] 11:48:00 Test Item Value Reference Range Interpretation Comments Lipase (test code = 71433935) 33 U/L 11-82 Lab Interpretation (test code = Normal 92432-7) [facility] [id number] 11:48:00 Test Item Value Reference Range Interpretation Comments Phosphorus (test code = 2777-1) 3.5 mg/dL 2.5-5 Lab Interpretation (test code = Normal 95737-9) formerly [facility] VBG POC docked [id number] 11:07:00 Test Item Value Reference Range Interpretation Comments pH, Enzo POC (test code 7.41 7.33-7.43 = 59376803) pCO2,Enzo POC (test code 45.0 See_Comment [Au tomated = 45399657) message] The sy stem which generated this result transmitted reference range : 38 - 50 mmHg. The reference range was not used to interpret this result as normal/abnormal . PO2, Venous POC (BKR) 36 See_Comment L [Auto mated (test code = 42890924) messa ge] The system which generated this result transmitted reference range : 50 - 75 mm Hg. The reference range was not used to interpret this result as normal/abnormal . Ionized Calcium POC 1.16 mmol/L 1.15-1.29 (test code = 18999995) HCO3, Enzo POC (test 29 mmol/L 22-26 H code = 46389708) TCO2 POC (test code = 30 mmol/L 21-32 65471315) Base Excess Enzo POC 3 mmol/L (test code = 27055512) Sample Type (test code IVEN Physi kuldeep Notified = 76850685) % Sat, Enzo POC (test 70 % code = 54465045) Lab Interpretation Abnormal (test code = 00319-6) [facility]: unless the patient is HIV [id number] 10:45:00 Test Item Value Reference Range Interpretation Comments HIV Ag/Ab Combo (test code = Negative Negative 15560-1) Lab Interpretation (test code = Normal 51656-6) formerly [facility] UPT for females 09:53:00 Test Item Value Reference Range Interpretation Comments Control (test code = 7172) Present (test code = 7173) Negative Lab Interpretation (test code = Normal 45920-7) formerly [facility] CREATININE POC docked [id number] 09:43:00 Test Item Value Reference Range Interpretation Comments Creatinine POC (test 0.8 mg/dL 0.6-1.3 Physici an Notified code = 66377696) GFR, Estimated (test 87 See_Comment L [Autom ated message] code = 33037049) The system which generated this result transmit naveed reference range : >=90 mL/min/1.7 3 m2. The reference r jori was not used to interpret this result as normal/abnormal . Lab Interpretation (test Abnormal code = 28710-6) [place] [address] LEAD [id number] 09:16:4112 LEAD EKG FOR [facility] Test Date: 8616-35-66Mto Name: JOCELIN PIZANO Department: 5520Patient ID: [id number] Room: Gender: F Student Worker: [id number]: 1970 Requested By: ELISA BOCANEGRA Order Number: [id number] Reading MD: Jake Stack M.D. MeasurementsIntervals [place] Rate: 92 P: 59PR: 136 QRS: 32QRSD: 92 T: 161QT: 377 QTc: 468 Interpretive StatementsSINUS R HYTHMMODERATE T-WAVE ABNORMALITY, CONSIDER LATERAL ISCHEMIAElectronically Signed On 07-08-2020 9:31:17 JOCKEY ROOM CUSTODIAN by Jake Stack M.D.[facility]
[2020-11-05] MEDS ORDERED: KETOROLAC 30 MG/ML INJ ONE (15:03)
[2020-11-05] MEDS ORDERED: ONDANSETRON 4 MG/2 ML VIAL ONE (15:03)
[2020-11-05 15:06] LABS: Absolute Lymphocytes (CBC) 4.2 K/uL (0.7-4.9); Basophils % 0.7 % (0-1.3); Lymphocytes % 40.4 % (15.3-44.8); MPV 9.6 fL (7.6-11.3); RBC Red Blood Cell Count 4.44 M/uL (3.86-4.86)
[2020-11-05 15:13] LABS: Protime INR 0.97
[2020-11-05 15:23] LABS: ALT/SGPT 42 U/L (12-78); AST/SGOT 25 U/L (15-37); Albumin 3.3 g/dL (3.4-5.0); Alkaline Phosphatase 92 U/L (45-117); BUN Blood Urea Nitrogen 15 mg/dL (7-18); Bicarbonate 27 mmol/L (21-32); Bilirubin Direct 0.1 mg/dL (0-0.2); Bilirubin Total 0.6 mg/dL (0.2-1.0); Glucose Level 258 mg/dL (74-106); NT PRO-BNP 55 pg/mL (<125); Potassium 3.8 mmol/L (3.5-5.1); Protein, Total 7.3 g/dL (6.4-8.2); Sodium Level 135 mmol/L (136-145); Troponin (Emerg Dept Use Only) < 0.02 ng/mL (0.0-0.045)
--- NOTE | 2020-11-05 15:36 | RAD REPORT ---
EXAM DESCRIPTION: RAD - Chest Single View - 11/05/2020 3:02 pm CLINICAL HISTORY: CHEST PAIN Chest pain. COMPARISON: Chest Single View dated 08/07/2019; Chest Pa And Lat (2 Views) dated 03/19/2019; Chest Pa A nd Lat (2 Views) dated 08/22/2018; CHEST SINGLE VIEW dated 03/08/2013 FINDINGS: Portable technique limits examination quality. The lungs are grossly clear. The heart is normal in size. No displaced fractures. IMPRESSION: No acute intrathoracic process suspected.
[2020-11-05] MEDS ORDERED: ALBUTEROL 2.5 MG/3 ML NEB SOL ONE (16:35)
[2020-11-05] MEDS ORDERED: METHYLPREDNISOLONE 125 MG INJ ONE (16:35)
[2020-11-05] MEDS ORDERED: IPRATROPIUM BROM 0.5MG/2.5ML ONE (16:35)
[2020-11-05] MEDS ORDERED: MORPHINE 4 MG/ML SYR IV PRN (16:42)
[2020-11-05] MEDS ORDERED: ACETAMINOPHEN 500 MG TAB PO PRN (16:42)
--- NOTE | 2020-11-05 16:46 | ER ---
Nurse's Notes [facility] Name: Silvia Kiran Age: 50 yrs Sex: Female : 1970 Arrival Date: 11/05/2020 Time: 14:31 Bed 4 Private MD: Diagnosis: Chest pain, unspecified;Hypoxemia Presentation: 11/05 14:34 Chief complaint: EMS states: Left sided chest pain that radiates to left arm and SOB x hb 1 hr. Nitro SL x 3, ASA 324 mg and NS 250ml adminstered THREAD SEPARATOR. SpO2 dropped to mid 80s during transport, improved to 96% on 2LNC. 20g RAC. [employer] officer escorting patient. Coronavirus screen: At this time, the client does not indicate any symptoms associated with coronavirus-19. Ebola Screen: No symptoms or risks identified at this time. Initial Sepsis Screen: Does the patient meet any 2 criteria? No. Patient's initial sepsis screen is negative. Does the patient have a suspected source of infection? No. Patient's initial sepsis screen is negative. Risk Assessment: Do you want to hurt yourself or someone else? Patient reports no desire to harm self or others. Onset of symptoms was November 05, 2020. 14:34 Method Of Arrival: EMS: [facility] hb 14:34 Acuity: SUNG 3 hb 14:38 Care prior to arrival: Medication(s) given: ASA, 81 mg, x 4, Nitroglycerin, x 2, IV ss initiated. 20 GA, in the right forearm. Triage Assessment: 14:37 General: Appears uncomfortable, Behavior is cooperative, crying. Pain: Pain currently hb is 9 out of 10 on a pain scale. EENT: No signs and/or symptoms were reported regarding the EENT system. Neuro: Level of Consciousness is awake, alert, obeys commands, Oriented to person, place, time, situation. Cardiovascular: Patient's skin is warm and dry. Rhythm is regular. Respiratory: Reports shortness of breath Airway is patent Respiratory effort is even, unlabored, Respiratory pattern is regular, symmetrical. GI: No signs and/or symptoms were reported involving the gastrointestinal system. : No signs and/or symptoms were reported regarding the genitourinary system. Derm: Skin is pink, warm \\T\\ dry. Musculoskeletal: No signs and/or symptoms reported regarding the musculoskeletal system. Historical: - Allergies: 14:37 Iodine; hb 14:37 iv dye iodine; hb - Home Meds: 14:37 lisinopril Oral [Active]; metformin 500 mg Oral tab 1 tab 2 times per day [Active]; hb Trazodone Oral [Active]; Wellbutrin Oral [Active]; - PMHx: 14:37 Depression; Diabetes - NIDDM; Hypertension; hb - PSHx: 14:37 Hysterectomy; Tumor removal; hb - Immunization history:: Adult Immunizations up to date. - Social history:: Smoking status: Patient reports the use of cigarette tobacco products, denies chronic smoking, but will smoke occasionally. Screenin:38 Abuse screen: Denies threats or abuse. Denies injuries from another. Nutritional hb screening: No deficits noted. Tuberculosis screening: No symptoms or risk factors identified. Fall Risk None identified. Assessment: 14:39 General: see triage assessment. hb 15:30 Reassessment: Patient appears in no apparent distress at this time. Patient and/or hb family updated on plan of care and expected duration. Pain level reassessed. Patient is alert, oriented x 3, equal unlabored respirations, skin warm/dry/pink. 16:30 Reassessment: Patient appears in no apparent distress at this time. Patient and/or hb family updated on plan of care and expected duration. Pain level reassessed. Patient is alert, oriented x 3, equal unlabored respirations, skin warm/dry/pink. 17:13 Reassessment: OK to give food/drink per PA Page. Snack provided as requested, dinner hb tray ordered. Admission ordered, awaiting hospitalist at this time. [facility] officer remains at bedside. 18:17 Reassessment: Patient appears in no apparent distress at this time. Patient and/or hb family updated on plan of care and expected duration. Pain level reassessed. Patient is alert, oriented x 3, equal unlabored respirations, skin warm/dry/pink. Vital Signs: 14:34 BP 120 / 80; Pulse 89; Resp 20; Temp 97.9; Pulse Ox 97% on R/A; Weight 86.18 kg; Height hb 4 ft. 10 in. (147.32 cm); Pain 9/10; 15:08 Pulse Ox 73% on R/A; sv 16:33 BP 126 / 66; Pulse 80; Resp 17; Pulse Ox 100% on Nebulizer Mask; Pain 6/10; hb 16:52 Pulse Ox 90% on R/A; hb 17:00 BP 123 / 72; Pulse 78; Resp 16; Pulse Ox 97% on 2 lpm NC; hb 18:00 BP 112 / 62; Pulse 96; Resp 18; Pulse Ox 98% on 2 lpm NC; hb 19:22 BP 105 / 61; Pulse 88; Resp 16; Pulse Ox 97% on 2 lpm NC; mg2 14:34 Body Mass Index 39.71 (86.18 kg, 147.32 cm) hb 15:08 Pt placed on O2 \\T\\ 3L per NC. O2 sat up to 95% sv ED Course: 14:31 Patient arrived in ED. ss 14:31 Hector Smith PA is PHCP. cp 14:32 Hector Houston MD is Attending Physician. cp 14:34 Ami Osborne, TERRY is Primary Nurse. hb 14:36 Triage completed. hb 14:37 Arm band placed on. hb 14:38 Patient has correct armband on for positive identification. Bed in low position. Call hb light in reach. Side rails up X 1. 14:53 Warm blanket given. lunchroom monitor on. Pulse ox on. NIBP on. 5 14:53 EKG done, by ED staff, reviewed by Hector Houston MD. 5 14:59 Inserted saline lock: 22 gauge in right forearm, using aseptic technique. Blood hb collected. 15:02 XRAY Chest (1 view) In Process Unspecified. EDMS 16:45 Sourav Rose MD is Hospitalizing Provider. cp 18:31 No provider procedures requiring assistance completed. Patient admitted, IV remains in hb place. 18:35 COVID-19 : Document "Date of Symptom Onset" if Symptomatic. Sent. sv 18:35 Basic Metabolic Panel Sent. sv 18:35 CBC with Diff Sent. sv 18:35 LFT's Sent. sv Administered Medications: 14:55 Drug: Zofran (Ondansetron) 4 mg Route: IVP; Site: right antecubital; hb 15:35 Follow up: Response: No adverse reaction hb 14:58 Drug: TORadol - Ketorolac 15 mg Route: IVP; Site: right antecubital; hb 15:35 Follow up: Response: No adverse reaction hb 16:21 Drug: Albuterol - atroVENT (ipratropium) (3:1) (2.5 mg - 0.5 mg) 3 ml Route: Nebulizer; hb 17:16 Follow up: Response: No adverse reaction hb 16:22 Drug: SOLU-Medrol 125 mg Route: IVP; Site: right forearm; hb 17:17 Follow up: Response: No adverse reaction hb 16:45 Drug: Lovenox (enoxaparin) 1 mg/kg Route: Sub-Q; Site: abdomen; hb 17:30 Follow up: Response: No adverse reaction hb Outcome: 16:46 Decision to Hospitalize by Provider. cp 18:31 Admitted to Tele room 410. hb 18:31 Condition: stable 18:31 Instructed on the need for admit, Demonstrated understanding of instructions. 04 09:55 Patient left the ED. sv Signatures: Dispatcher [employer] EDElli Sanchez RN RN sv Nohelia Tate RN RN ss Hector Smith PA PA cp Ami Osborne RN RN Cristal Sunshine [facility] Dinesh Amador RN RN mg2 Corrections: (The following items were deleted from the chart) 11/05 17:16 14:34 Chief complaint: EMS states: Left sided chest pain that radiates to left arm and hb SOB x 1 hr. Nitro SL x 3, ASA 324 mg and NS 250ml adminstered THREAD SEPARATOR. SpO2 dropped to mid 80s during transport, improved to 96% on 2LNC. 20g RAC. hb
--- NOTE | 2020-11-05 16:46 | EDPHYS ---
Physician Documentation [facility] Name: Silvia Kiran Age: 50 yrs Sex: Female : 1970 Arrival Date: 11/05/2020 Time: 14:31 Bed 4 Private MD: ED Physician Hector Houston HPI: 11/05 14:45 This 50 yrs old Female presents to ER via EMS with complaints of Chest Pain cp and Shortness Of Breath. 14:45 The patient or guardian reports chest pain that is located primarily in the anterior cp chest wall, left. Onset: today. The pain radiates to the left arm. Associated signs and symptoms: Pertinent positives: shortness of breath. Historical: - Allergies: 14:37 Iodine; hb 14:37 iv dye iodine; hb - Home Meds: 14:37 lisinopril Oral [Active]; metformin 500 mg Oral tab 1 tab 2 times per day [Active]; hb Trazodone Oral [Active]; Wellbutrin Oral [Active]; - PMHx: 14:37 Depression; Diabetes - NIDDM; Hypertension; hb - PSHx: 14:37 Hysterectomy; Tumor removal; hb - Immunization history:: Adult Immunizations up to date. - Social history:: Smoking status: Patient reports the use of cigarette tobacco products, denies chronic smoking, but will smoke occasionally. ROS: 14:50 Constitutional: Negative for body aches, chills, fever, poor PO intake. cp 14:50 Eyes: Negative for injury, pain, redness, and discharge. cp 14:50 ENT: Negative for ear pain, sore throat, difficulty swallowing, difficulty handling secretions. 14:50 Cardiovascular: Positive for chest pain, of the left side of chest, Negative for edema, palpitations. 14:50 Respiratory: Positive for shortness of breath, at rest. Negative for cough, wheezing. 14:50 Abdomen/GI: Negative for abdominal pain, nausea, vomiting, and diarrhea. 14:50 Skin: Negative for cellulitis, rash. 14:50 Neuro: Negative for altered mental status, dizziness, headache, syncope, weakness. 14:50 All other systems are negative. Exam: 14:55 ECG was reviewed by the Attending Physician. cp 14:57 Constitutional: The patient appears in no acute distress, alert, awake, cp non-diaphoretic, non-toxic, well developed, well nourished, uncomfortable. 14:57 Head/Face: Normocephalic, atraumatic. cp 14:57 Eyes: Periorbital structures: appear normal, Conjunctiva: normal, no exudate, no injection, Sclera: no appreciated abnormality, Lids and lashes: appear normal, bilaterally. 14:57 ENT: External ear(s): are unremarkable, Nose: is normal, Mouth: Lips: moist, Oral mucosa: moist, Posterior pharynx: Airway: no evidence of obstruction, patent. 14:57 Neck: ROM/movement: is normal, is supple, without pain, no range of motions limitations, no nuchal rigidity. 14:57 Chest/axilla: Inspection: normal, Palpation: crepitus, is not appreciated, tenderness, that is moderate, of the anterior aspect of left upper chest. 14:57 Cardiovascular: Rate: normal, Rhythm: regular, Pulses: Pulses are 2+ in right radial artery and left radial artery. Edema: is not appreciated, JVD: is not appreciated. 14:57 Respiratory: the patient does not display signs of respiratory distress, Respirations: labored breathing, that is mild, intercostal retractions, are absent, shallow respirations, that is mild, Breath sounds: bronchial sounds, that are mild, are heard diffusely. 14:57 Abdomen/GI: Inspection: abdomen appears normal, Palpation: abdomen is soft and non-tender, in all quadrants. 14:57 Back: pain, is absent, ROM is normal. 14:57 Neuro: Orientation: to person, place \\T\\ time. Mentation: is normal, Motor: moves all fours, strength is normal. Vital Signs: 14:34 BP 120 / 80; Pulse 89; Resp 20; Temp 97.9; Pulse Ox 97% on R/A; Weight 86.18 kg; Height hb 4 ft. 10 in. (147.32 cm); Pain 9/10; 15:08 Pulse Ox 73% on R/A; sv 16:33 BP 126 / 66; Pulse 80; Resp 17; Pulse Ox 100% on Nebulizer Mask; Pain 6/10; hb 16:52 Pulse Ox 90% on R/A; hb 17:00 BP 123 / 72; Pulse 78; Resp 16; Pulse Ox 97% on 2 lpm NC; hb 18:00 BP 112 / 62; Pulse 96; Resp 18; Pulse Ox 98% on 2 lpm NC; hb 19:22 BP 105 / 61; Pulse 88; Resp 16; Pulse Ox 97% on 2 lpm NC; mg2 14:34 Body Mass Index 39.71 (86.18 kg, 147.32 cm) hb 15:08 Pt placed on O2 \\T\\ 3L per NC. O2 sat up to 95% sv MDM: 14:35 Patient medically screened. cp 16:30 Data reviewed: vital signs, nurses notes, lab test result(s), EKG, radiologic studies, cp plain films. 16:30 The patient was not given aspirin in the Emergency Department. Administered by EMS. cp Test interpretation: by ED physician or midlevel provider: ECG, plain radiologic studies. Counseling: I had a detailed discussion with the patient and/or guardian regarding: the historical points, exam findings, and any diagnostic results supporting the discharge/admit diagnosis, lab results, radiology results. Response to treatment: the patient's symptoms have mildly improved after treatment. Physician consultation: Sourav Rose MD was called at 16:30, was contacted at 16:30, regarding admission, to the telemetry unit. patient's condition. 11/05 14:37 Order name: Basic Metabolic Panel cp 11/05 14:37 Order name: CBC with Diff cp 11/05 14:37 Order name: LFT's cp 11/05 14:37 Order name: Magnesium; Complete Time: 15:29 cp 11/05 14:37 Order name: NT PRO-BNP; Complete Time: 15:29 cp 11/05 14:37 Order name: PT-INR; Complete Time: 15:16 cp 11/05 14:37 Order name: Troponin (emerg Dept Use Only); Complete Time: 15:29 cp 11/05 14:37 Order name: UDS; Complete Time: 19:10 cp 11/05 14:38 Order name: Basic Metabolic Panel; Complete Time: 15:29 EDMS 11/05 15:29 Interpretation: Normal except: NA 135; GLUC 258; GFR 71. cp 11/05 14:38 Order name: CBC with Automated Diff; Complete Time: 15:16 EDMS 11/05 15:17 Interpretation: Within normal limits. cp 11/05 14:38 Order name: Liver (Hepatic) Function; Complete Time: 15:29 EDMS 11/05 15:40 Interpretation: Normal except: ALB 3.3; GLOB 4.0; A/G 0.8. 11/05 14:39 Order name: COVID-19 : Document "Date of Symptom Onset" if Symptomatic. 11/05 15:56 Order name: D-Dimer; Complete Time: 16:25 11/05 16:25 Interpretation: Abnormal: D-DIMER 579. 11/05 16:02 Order name: SARS-COV-2 RT PCR; Complete Time: 16:25 [facility] 11/05 16:25 Interpretation: Results reviewed. 11/05 16:54 Order name: Basic Metabolic Panel [facility] 11/05 16:54 Order name: Basic Metabolic Panel [facility] 11/05 16:54 Order name: CBC with Automated Diff [facility] 11/05 16:54 Order name: CBC with Automated Diff [facility] 11/05 16:54 Order name: Lipid Profile [facility] 11/05 16:54 Order name: Lipid Profile [facility] 11/05 16:54 Order name: Troponin I [facility] 11/05 16:54 Order name: Troponin I [facility] 11/05 18:41 Order name: Urine Dipstick-Ancillary; Complete Time: 19:10 [facility] 11/05 18:43 Order name: Urine --Ancillary (enter results) 11/05 19:11 Order name: ABG 11/05 19:37 Order name: ABG Arterial Blood Gas [facility] 11/05 19:53 Order name: Urine --Ancillary [facility] 11/06 03:20 Order name: Troponin (Emerg Dept Use Only) [facility] 11/06 04:27 Order name: Lipid Profile [facility] 11/05 14:37 Order name: XRAY Chest (1 view); Complete Time: 15:40 11/05 15:40 Interpretation: Report review. 11/05 14:37 Order name: EKG; Complete Time: 14:38 11/05 14:37 Order name: Cardiac monitoring; Complete Time: 14:42 11/05 14:37 Order name: EKG - Nurse/Tech; Complete Time: 14:53 11/05 14:37 Order name: IV Saline Lock; Complete Time: 14:42 11/05 14:37 Order name: Labs collected and sent; Complete Time: 14:59 11/05 14:37 Order name: O2 Per Protocol; Complete Time: 14:59 cp 11/05 14:37 Order name: O2 Sat Monitoring; Complete Time: 14:42 cp 11/05 14:37 Order name: Urine Dipstick-Ancillary (obtain specimen); Complete Time: 18:45 cp 11/05 16:54 Order name: CONS Physician Consult EDMS 11/05 16:54 Order name: Echo with Doppler EDMS 11/05 16:54 Order name: EKG Electrocardiogram EDMS 11/05 16:54 Order name: EKG Electrocardiogram EDMS 11/05 17:11 Order name: Diet Regular; Complete Time: 17:11 eb 11/06 09:06 Order name: Glucose, Ancillary Testing EDMS EC:55 Rate is 73 beats/min. QRS [place] is Normal. ID interval is normal. QRS interval is cp normal. QT interval is prolonged. T waves are Inverted in leads aVR, V2. Interpreted by me. Reviewed by me. Administered Medications: 14:55 Drug: Zofran (Ondansetron) 4 mg Route: IVP; Site: right antecubital; hb 15:35 Follow up: Response: No adverse reaction hb 14:58 Drug: TORadol - Ketorolac 15 mg Route: IVP; Site: right antecubital; hb 15:35 Follow up: Response: No adverse reaction hb 16:21 Drug: Albuterol - atroVENT (ipratropium) (3:1) (2.5 mg - 0.5 mg) 3 ml Route: Nebulizer; hb 17:16 Follow up: Response: No adverse reaction hb 16:22 Drug: SOLU-Medrol 125 mg Route: IVP; Site: right forearm; hb 17:17 Follow up: Response: No adverse reaction hb 16:45 Drug: Lovenox (enoxaparin) 1 mg/kg Route: Sub-Q; Site: abdomen; hb 17:30 Follow up: Response: No adverse reaction hb Disposition: 11/05/20 16:46 Hospitalization ordered by Sourav Rose for Inpatient Admission. Preliminary diagnosis are Chest pain, unspecified, Hypoxemia. - Bed requested for [facility] ER HOLD. - Status is Inpatient Admission. sv - Condition is Stable. - Problem is new. - Symptoms have improved. Addendum: 11/10/2020 06:38 Co-signature as Attending Physician, Hector Houston MD I agree with the assessment and c claros plan of care. Signatures: Dispatcher [employer] EDNV Elli Johnson RN RN sv Woody, Diana, RN RN dw Anderson, Corey, MD MD cha Page, Corey, PA PA cp Ami Osborne, TERRY STEWART Corrections: (The following items were deleted from the chart) 11/05 14:46 14:45 This 50 yrs old Female presents to ER via EMS with complaints of cp Shortness Of Breath. cp 15:16 14:39 CORONAVIRUS ordered. EDMS EDMS 17:47 16:46 Hospitalization Ordered by Sourav Rose MD for Inpatient Admission. Preliminary dw diagnosis is Chest pain, unspecified; Hypoxemia. Bed requested for Telemetry/MedSurg (Inpatient). Status is Inpatient Admission. Condition is Stable. Problem is new. Symptoms have improved. cp 19:10 17:47 11/05/2020 16:46 Hospitalization Ordered by Sourav Rose MD for Inpatient dw Admission. Preliminary diagnosis is Chest pain, unspecified; Hypoxemia. Bed requested for Telemetry/MedSurg (Inpatient). Status is Inpatient Admission. Condition is Stable. Problem is new. Symptoms have improved. dw 19:45 19:10 11/05/2020 16:46 Hospitalization Ordered by Sourav Rose MD for Inpatient dw Admission. Preliminary diagnosis is Chest pain, unspecified; Hypoxemia. Bed requested for Telemetry/MedSurg (observation). Status is Inpatient Admission. Condition is Stable. Problem is new. Symptoms have improved. dw 11/06 09:55 11/05 19:45 11/05/2020 16:46 Hospitalization Ordered by Sourav Rose MD for Inpatient sv Admission. Preliminary diagnosis is Chest pain, unspecified; Hypoxemia. Bed requested for [facility] ER HOLD. Status is Inpatient Admission. Condition is Stable. Problem is new. Symptoms have improved. dw
[2020-11-05] MEDS ORDERED: ENOXAPARIN 100 MG/ML SYR SQ ONE (16:59)
[2020-11-05] MEDS ORDERED: METOPROLOL TAR 50 MG TAB PO SCH (18:00)
[2020-11-05 18:40] LABS: Urine Blood Negative (Negative); Urine Glucose 2+ (Negative); Urine Protein Trace (Negative); Urine Specific Gravity >=1.030 (1.005-1.030)
[2020-11-05 19:03] LABS: Barbiturates NEGATIVE (NEGATIVE); Benzodiazepines NEGATIVE (NEGATIVE); Cocaine NEGATIVE (NEGATIVE); METHAMPHETAM POSITIVE (NEGATIVE); Methadone NEGATIVE (NEGATIVE); Opiates NEGATIVE (NEGATIVE); Phencyclidine NEGATIVE (NEGATIVE); THC Cannibis NEGATIVE (NEGATIVE)
[2020-11-05 19:29] LABS: Arterial Blood Carboxyhemoglob 1.3 % (0-1.5); Blood Gas Oxyhemoglobin 89.5 % (94-97); Blood O2 Saturation 91.7 % (92-98.5)
[2020-11-05 19:57] VITALS: O2SAT 97; BMI 39.6
[2020-11-05] MEDS ORDERED: METOPROLOL TAR 25 MG TAB ONE (20:34)
[2020-11-05] MEDS ORDERED: ENOXAPARIN 100 MG/ML SYR SQ SCH (21:00)
[2020-11-06 04:15] LABS: Absolute Lymphocytes (CBC) 1.9 K/uL (0.7-4.9); Basophils % 0.6 % (0-1.3); Lymphocytes % 17.3 % (15.3-44.8); MPV 9.7 fL (7.6-11.3); RBC Red Blood Cell Count 4.55 M/uL (3.86-4.86)
[2020-11-06 04:27] LABS: Potassium 4.6 mmol/L (3.5-5.1)
[2020-11-06 07:56] VITALS: TEMP 98.2
[2020-11-06 08:55] VITALS: BP 115/72
[2020-11-06] MEDS ORDERED: ASPIRIN EC 81 MG TAB PO SCH (09:00)
[2020-11-06] MEDS ORDERED: ENOXAPARIN 100 MG/ML SYR SQ SCH (09:00)
--- NOTE | 2020-11-06 10:17 | EKG ---
Test Date: 2020-11-05 Test Time: 14:49:28 Geothermal Operations Manager: MAYDA MEASUREMENT RESULTS: Intervals: Rate: 73 MN: 142 QRSD: 80 QT: 426 QTc: 469 [place]: P: 23 MN: 142 QRS: 19 T: 55 INTERPRETIVE STATEMENTS: Normal sinus rhythm Nonspecific T wave abnormality Prolonged QT Abnormal ECG Compared to ECG 03/08/2013 00:10:05 T-wave abnormality now present Prolonged QT interval now present Electronically Signed On 11-06-20 10:15:27 CDT by Jerry Prather
--- NOTE | 2020-11-08 07:19 | EKG ---
Test Date: 2020-11-06 Test Time: 09:18:53 Hospitality Manager: JAMARI MEASUREMENT RESULTS: Intervals: Rate: 72 LA: 150 QRSD: 88 QT: 420 QTc: 459 [place]: P: 27 LA: 150 QRS: 39 T: 61 INTERPRETIVE STATEMENTS: Normal sinus rhythm Normal ECG Compared to ECG 11/05/2020 14:49:28 T-wave abnormality no longer present Prolonged QT interval no longer present Electronically Signed On 11-08-20 07:14:41 CDT by Jerry Prather
--- NOTE | 2020-11-10 09:59 | P.HP ---
Certification for Inpatient Patient admitted to: Observation With expected LOS: <2 Midnights Patient will require the following post-hospital care: None Practitioner: I am a practitioner with admitting privileges, knowledge of patient current condition, hospital course, and medical plan of care. Services: Services provided to patient in accordance with Admission requirements found in Title 42 Section 412.3 of the Code of Federal Regulations Patient History Date of Service: 11/05/20 Reason for admission: Shortness of breath / chest pain History of Present Illness: Patient is a 50-year-old female who came into the hospital with chest discomfort. Patient had actually been pulled over by the police. After being pulled over she had felony warrant and was arrested. She started having some chest pain. She was recently in the hospital about a month ago with COVID-19 Pneumonia. She also stated that she was given medication for blood thinner. She thinks she had a blood clot in her lungs. She does not want to iodine because she is allergic to it. At this time, she will be admitted and we will start her on Eliquis. We will also ruled her out for acute coronary syndrome. Allergies iodine Allergy (Intermediate, Verified 02/15/12 01:45) swelling, hives No Known Allergies Allergy (Uncoded 08/23/17 20:20) Unknown Home Medications: Apixaban [Eliquis] 5 mg PO BID #60 tablet 11/06/20 Atorvastatin Calcium [Lipitor] 40 mg PO BEDTIME #30 tab 11/06/20 Metoprolol Tartrate [Lopressor] 25 mg PO BID #60 tab 11/06/20 - Past Medical/Surgical History Diabetic: Yes -: COVID-19 Pneumonia -: Pulmonary embolism Past Surgical History: Patient denies surgical history - Family History Father Family History: Reviewed- Non-Contributory - Social History Smoking Status: Unknown if ever smoked Place of Residence: Home Review of Systems 10-point ROS is otherwise unremarkable Physical Examination - Vital Signs Temperature: 98.2 F Blood Pressure: 115/72 Pulse: 67 Respirations: 16 Pulse Ox (%): 98 - Physical Exam General: Alert, In no apparent distress, Oriented x3 HEENT: Atraumatic, PERRLA, Mucous membr. moist/pink, EOMI, Sclerae nonicteric Neck: Supple, 2+ carotid pulse no bruit, No LAD, Without JVD or thyroid abnormality Respiratory: Clear to auscultation bilaterally, Normal air movement Cardiovascular: Regular rate/rhythm, Normal S1 S2, No murmurs Gastrointestinal: Normal bowel sounds, Soft and benign, Non-distended, No tenderness Musculoskeletal: No clubbing, No swelling, No tenderness Integumentary: No rashes Neurological: Normal gait, Normal speech, Normal strength at 5/5 x4 extr, Normal tone, Normal affect Lymphatics: No axilla or inguinal lymphadenopathy Assessment & Plan - Problems (Diagnosis) (1) Pneumonia due to COVID-19 virus Status: Acute (2) Pulmonary embolism Status: Acute - Plan Plan: - Serial troponins and EKG - Appreciate Cardiology consultation - Echocardiogram and stress test if cardiology is agreeable - Anti-platelet therapy, anti coagulation, beta-bill, statin, and O2 as needed - IV morphine for pain - Nitro p.r.n. - Resume Eliquis Discharge Plan: Home Plan to discharge in: 24 Hours - Advance Directives Does patient have a Living Will: No Does patient have a Durable POA for Healthcare: No - Code Status/Comfort Care Code Status Assessed: Yes Code Status: Full Code Critical Care: No Time Spent Managing PTS Care (In Minutes): 45
--- NOTE | 2020-11-10 10:02 | P.DS ---
Discharge Date: 11/06/20 Disposition: DISCHARGE TO USP/INTERMEDIATE Discharge Condition: GOOD Reason for Admission: Shortness of breath / chest pain - Problems (1) Pneumonia due to COVID-19 virus Status: Acute (2) Pulmonary embolism Status: Acute Brief History of Present Illness: Patient is a 50-year-old female who came into the hospital with chest discomfort. Patient had actually been pulled over by the police. After being pulled over she had felony warrant and was arrested. She started having some chest pain. She was recently in the hospital about a month ago with COVID-19 Pneumonia. She also stated that she was given medication for blood thinner. She thinks she had a blood clot in her lungs. She does not want to iodine because she is allergic to it. At this time, she will be admitted and we will start her on Eliquis. We will also ruled her out for acute coronary syndrome. Hospital Course: Patient ruled out for acute coronary syndrome. She has been told she has a pulmonary embolism a month ago when she was diagnosed with COVID-19 . She will continue the Eliquis for additional 4 months. She states she had been taking them for 2 months but stopped this last month. Hopefully, she will be compliant and finish her course. Vital Signs/Physical Exam: Temp Pulse Resp BP Pulse Ox 98.2 F 67 16 115/72 98 11/10/20 09:59 11/10/20 09:59 11/10/20 09:59 11/10/20 09:59 11/10/20 09:59 General: Alert, In no apparent distress, Oriented x3 Laboratory Data at Discharge: WBC 10.90 K/uL (4.3-10.9) 11/06/20 04:00 Hgb 14.4 g/dL (12.0-15.0) 11/06/20 04:00 Hct 43.0 % (36.0-45.0) 11/06/20 04:00 Plt Count 286 K/uL (152-406) 11/06/20 04:00 PT 11.2 SECONDS (9.5-12.5) 11/05/20 14:55 INR 0.97 11/05/20 14:55 Sodium 134 mmol/L (136-145) L 11/06/20 04:00 Potassium 4.6 mmol/L (3.5-5.1) 11/06/20 04:00 BUN 18 mg/dL (7-18) 11/06/20 04:00 Creatinine 0.76 mg/dL (0.55-1.3) 11/06/20 04:00 Glucose 313 mg/dL (74-106) H 11/06/20 04:00 Magnesium 2.0 mg/dL (1.8-2.4) 11/05/20 14:55 Total Bilirubin 0.6 mg/dL (0.2-1.0) 11/05/20 14:55 AST 25 U/L (15-37) 11/05/20 14:55 ALT 42 U/L (12-78) 11/05/20 14:55 Alkaline Phosphatase 92 U/L (45-117) 11/05/20 14:55 Troponin I < 0.02 ng/mL (0.0-0.045) 11/05/20 20:50 Triglycerides Cancelled 11/06/20 05:00 Cholesterol Cancelled 11/06/20 05:00 HDL Cholesterol Cancelled 11/06/20 05:00 Cholesterol/HDL Ratio Cancelled 11/06/20 05:00 Home Medications: Apixaban [Eliquis] 5 mg PO BID #60 tablet 11/06/20 Atorvastatin Calcium [Lipitor] 40 mg PO BEDTIME #30 tab 11/06/20 Metoprolol Tartrate [Lopressor] 25 mg PO BID #60 tab 11/06/20 New Medications: Apixaban [Eliquis] 5 mg PO BID #60 tablet Atorvastatin Calcium [Lipitor] 40 mg PO BEDTIME #30 tab Metoprolol Tartrate [Lopressor] 25 mg PO BID #60 tab Physician Discharge Instructions: OK TO DC IV AND DC HOME FOLLOW-UP WITH PRIMARY CARE PROVIDER IN 1-2 WEEKS FOLLOW-UP WITH CARDIOLOGY IN 1-2 WEEKS FOLLOW-UP WITH PULMONARY IN 1-2 WEEKS TO DISCUSS THE NEED TO CONTINUE ANTICOAGULATION (PATIENT STATES THAT SHE WAS ON ELIQUIS FOR PE) RETURN TO THE ER IF symptoms worsens CALL or TEXT DR. MIN AT [phone] IF ANY QUESTIONS REGARDING HOSPITAL STAY. PLEASE CALL THE FLOOR AT [phone] IF ANY MEDICATION OR NURSING QUESTIONS. Diet: AHA Activity: Fall precautions Followup: Jerry Prather MD [ACTIVE - CAN ADMIT] - NONE,NONE [Primary Care Provider] - Time spent managing pt's care (in minutes): 35
== END 2020-11-06 09:55 ==
LOC: ER 14:29 → ERHOLD 16:43
PROVIDERS: ADMIT Hospitalist; ATTEND Hospitalist
DX: R07.9 Chest pain, unspecified (principal); R09.02 Hypoxemia; Z20.822 Contact with and (suspected) exposure to COVID-19; F17.210 Nicotine dependence, cigarettes, uncomplicated; F32.9 Major depressive disorder, single episode, unspecified; E11.9 Type 2 diabetes mellitus without complications; Z79.84 Long term (current) use of oral hypoglycemic drugs; I10 Essential (primary) hypertension; R06.02 Shortness of breath
CPT/HCPCS: 36415; 71045; 80048; 80061; 80076; 80307; 81003; 81025; 82805; 82947; 83735; 83880; 84484; 85025; 85379; 85610; 93005; 96372; 99285; G0378; J1650; J2405; J2930; U0003

== ENCOUNTER 2021-06-26 02:07 | Emergency (ER) | payer SELFPAY ==
--- OUTSIDE RECORDS SUMMARY | 2021-06-26 02:10 | XMS REPORT | Continuity of Care Document ---
:1970 Author Organization [facility] t Address [facility] [place] [address] Care Team Providers Name Role Phone Felicia RAWLS Attending Clinician Unavailable CATARINO ZAYAS Attending Clinician Unavailable CATARINO ZAYAS Admitting Clinician Unavailable Payers Payer Name Policy Type Policy Number Effective Date Expiration Date S ource Problems This patient has no known problems. Allergies, Adverse Reactions, Alerts Allergy Allergy Status Severity Reaction(s) Onset Inactive Treating Comm ents Source Name Type Date Date Clinician IODINE DRUG Active Swelling [facility] 11-18 ity of 00:00: [address] Medications This patient has no known medications. Procedures This patient has no known procedures. Encounters Start End Encounter Admission Attending Care Care Encounter Source Date/Time Date/Time Type Type Clinicians Facility Department ID 2020-07-30 2020-08-02 Inpatient [facility] [id number] [place] 15:20:00 16:57:00 [facility] 2020-07-30 2020-07-30 Emergency [facility] [id number] [place] 16:49:10 16:54:47 [facility] 2019-05-30 2019-05-30 Emergency [facility] E[facility] [id number] [facility] 09:14:59 11:46:00 [facility] Results This patient has no known results.
[2021-06-26] MEDS ORDERED: KETOROLAC 30 MG/ML INJ ONE (03:23)
--- NOTE | 2021-06-26 04:19 | ER ---
Nurse's Notes [facility] Name: Silvia Kiran Age: 50 yrs Sex: Female : 1970 Arrival Date: 06/26/2021 Time: 02:11 Bed 13 Private MD: Diagnosis: Pain in right shoulder-Strain Presentation: 06/26 03:05 Chief complaint: Patient states: right shoulder pain x 1 day after lifting heavy df1 furniture. Coronavirus screen: Vaccine status: Patient reports being unvaccinated. Client denies travel out of the [place] in the last 14 days. At this time, the client does not indicate any symptoms associated with coronavirus-19. Ebola Screen: Patient negative for fever greater than or equal to 101.5 degrees Fahrenheit, and additional compatible Ebola Virus Disease symptoms Patient denies exposure to infectious person. Patient denies travel to an Ebola-affected area in the 21 days before illness onset. Initial Sepsis Screen: Does the patient meet any 2 criteria? No. Patient's initial sepsis screen is negative. Does the patient have a suspected source of infection? No. Patient's initial sepsis screen is negative. Risk Assessment: Do you want to hurt yourself or someone else? Patient reports no desire to harm self or others. Onset of symptoms was June 25, 2021. 03:05 Method Of Arrival: Ambulatory df1 03:05 Acuity: SUNG 4 df1 Triage Assessment: 03:07 General: Appears in no apparent distress. Behavior is calm, cooperative. Pain: df1 Complains of pain in right clavicle and anterior aspect of right upper chest Pain radiates to right arm. Musculoskeletal: No deficits noted. Injury Description: pain to right shoulder. 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 - Social history:: Smoking status: Patient/guardian denies using tobacco. Screenin:10 Abuse screen: Denies threats or abuse. Nutritional screening: No deficits noted. df1 Tuberculosis screening: No symptoms or risk factors identified. Fall Risk None identified. Assessment: 03:44 General: Appears in no apparent distress. Behavior is calm, cooperative. Pain: df1 Complains of pain in right scapular area Pain radiates to posterior aspect of right shoulder and right tricep Pain currently is 5 out of 10 on a pain scale. Neuro: No deficits noted. Cardiovascular: No deficits noted. Respiratory: No deficits noted. GI: No deficits noted. : No deficits noted. EENT: No deficits noted. Derm: No deficits noted. Musculoskeletal: Range of motion: limited in right shoulder. Vital Signs: 03:05 BP 139 / 76; Pulse 82; Resp 18; Temp 98.4; Pulse Ox 98% on R/A; Weight 79.38 kg; Height df1 4 ft. 10 in. (147.32 cm); Pain 10/10; 03:05 Body Mass Index 36.57 (79.38 kg, 147.32 cm) df1 ED Course: 02:11 Patient arrived in ED. bp1 02:46 Karen Suarez is Primary Nurse. df1 02:48 Luís Zelaya MD is Attending Physician. mh7 03:07 Triage completed. df1 03:10 Patient has correct armband on for positive identification. Placed in gown. Bed in low df1 position. Call light in reach. Side rails up X 1. Adult w/ patient. Pulse ox on. NIBP on. 03:10 No provider procedures requiring assistance completed. Patient did not have IV access df1 during this emergency room visit. 03:11 Arm band placed on right wrist. df1 03:21 Shoulder Right (2 View) XRAY Sent. df1 03:36 Shoulder Right (2 View) XRAY In Process Unspecified. EDMS 04:17 Baljeet Sanon MD is Referral Physician. mh7 04:33 Sling applied to right arm. df1 Administered Medications: 03:39 Drug: Ketorolac 60 mg Route: IM; Site: left deltoid; df1 04:32 Follow up: Response: Pain is decreased df1 Outcome: 04:18 Discharge ordered by . maritza 04:32 Discharged to home ambulatory. df1 04:32 Condition: good 04:32 Discharge instructions given to patient, Instructed on discharge instructions, follow up and referral plans. medication usage, Demonstrated understanding of instructions, follow-up care, medications, Prescriptions given X 1. 04:33 Patient left the ED. df1 Signatures: Dispatcher [employer] EDMS April Lim Maurice, MD MD mh7 Furlich, Dawn df1
--- NOTE | 2021-06-26 04:19 | EDPHYS ---
Physician Documentation [facility] Name: Silvia Kiran Age: 50 yrs Sex: Female : 1970 Arrival Date: 06/26/2021 Time: 02:11 Bed 13 Private MD: ED Physician Luís Zelaya HPI: 06/26 03:22 This 50 yrs old Female presents to ER via Ambulatory with complaints of Shoulder mh7 Injury, Shoulder Pain. 03:22 The patient or guardian complains of pain, that is acute. right shoulder. Context: The mh7 problem was sustained at home, resulted from lifting or carrying, a heavy object, The patient experiences decreased range of motion, when rotates arm, The patient reports no obvious deformity. Onset: The symptoms/episode began/occurred yesterday. Modifying factors: the symptoms are alleviated by nothing. The symptoms are aggravated by lifting weight, movement, rotation of arm. Associated signs and symptoms: Pertinent negatives: abdominal pain, chest pain, diaphoresis, dyspnea, neck pain, shortness of breath, tingling. Severity of symptoms: At their worst the symptoms were moderate, last night, in the emergency department the symptoms are unchanged. Treatment prior to arrival includes: prescription medications, hydrocodone. 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 - Social history:: Smoking status: Patient/guardian denies using tobacco. ROS: 03:22 Constitutional: Negative for fever, chills, and weight loss, Eyes: Negative for injury, mh7 pain, redness, and discharge, ENT: Negative for injury, pain, and discharge, Neck: Negative for injury, pain, and swelling, Cardiovascular: Negative for chest pain, palpitations, and edema, Respiratory: Negative for shortness of breath, cough, wheezing, and pleuritic chest pain, Abdomen/GI: Negative for abdominal pain, nausea, vomiting, diarrhea, and constipation, Back: Negative for injury and pain, : Negative for injury, bleeding, discharge, and swelling, Skin: Negative for injury, rash, and discoloration, Neuro: Negative for headache, weakness, numbness, tingling, and seizure, Psych: Negative for depression, anxiety, suicide ideation, homicidal ideation, and hallucinations, Allergy/Immunology: Negative for hives, rash, and allergies, Endocrine: Negative for neck swelling, polydipsia, polyuria, polyphagia, and marked weight changes, Hematologic/Lymphatic: Negative for swollen nodes, abnormal bleeding, and unusual bruising. Exam: 03:22 Constitutional: This is a well developed, well nourished patient who is awake, alert, mh7 and in no acute distress. Head/Face: Normocephalic, atraumatic. Eyes: Pupils equal round and reactive to light, extra-ocular motions intact. Lids and lashes normal. Conjunctiva and sclera are non-icteric and not injected. Cornea within normal limits. Periorbital areas with no swelling, redness, or edema. Neck: Trachea midline, no thyromegaly or masses palpated, and no cervical lymphadenopathy. Supple, full range of motion without nuchal rigidity, or vertebral point tenderness. No Meningismus. Chest/axilla: Normal chest wall appearance and motion. Nontender with no deformity. No lesions are appreciated. Cardiovascular: Regular rate and rhythm with a normal S1 and S2. No gallops, murmurs, or rubs. Normal PMI, no JVD. No pulse deficits. Respiratory: Lungs have equal breath sounds bilaterally, clear to auscultation and percussion. No rales, rhonchi or wheezes noted. No increased work of breathing, no retractions or nasal flaring. Abdomen/GI: Soft, non-tender, with normal bowel sounds. No distension or tympany. No guarding or rebound. No evidence of tenderness throughout. Back: No spinal tenderness. No costovertebral tenderness. Full range of motion. Skin: Warm, dry with normal turgor. Normal color with no rashes, no lesions, and no evidence of cellulitis. 03:22 Neuro: Awake and alert, GCS 15, oriented to person, place, time, and situation. Cranial nerves II-XII grossly intact. Motor strength 5/5 in all extremities. Sensory grossly intact. Cerebellar exam normal. Normal gait. Psych: Awake, alert, with orientation to person, place and time. Behavior, mood, and affect are within normal limits. 03:22 Musculoskeletal/extremity: Extremities: noted in the right shoulder: pain, tenderness, ROM: limited active range of motion due to pain, in the right shoulder, limited passive range of motion due to pain, in the right shoulder, Circulation is intact in all extremities. Sensation intact. Compartment Syndrome exam of affected extremity: is normal. no numbness, no tingling, no sensation deficit, no palor, no weak pulses, Joints: the right shoulder displays painful range of motion, tenderness, Weight bearing: able to fully bear weight, without difficulty, Tendon exam: specific tendon testing normal through active and passive range of motion Vital Signs: 03:05 BP 139 / 76; Pulse 82; Resp 18; Temp 98.4; Pulse Ox 98% on R/A; Weight 79.38 kg; Height df1 4 ft. 10 in. (147.32 cm); Pain 10/10; 03:05 Body Mass Index 36.57 (79.38 kg, 147.32 cm) df1 MDM: 04:16 Differential diagnosis: Anterior dislocation without fracture, Posterior dislocation mh7 without fracture, DJD, tendonitis, sprain, strain. Data reviewed: vital signs, nurses notes, old medical records, radiologic studies, plain films. Data interpreted: Pulse oximetry: on room air is 98 %. Interpretation: normal. Counseling: I had a detailed discussion with the patient and/or guardian regarding: the historical points, exam findings, and any diagnostic results supporting the discharge/admit diagnosis, the presence of at least one elevated blood pressure reading (>120/80) during this emergency department visit, radiology results, the need for outpatient follow up, a orthopedic surgeon, to return to the emergency department if symptoms worsen or persist or if there are any questions or concerns that arise at home. Response to treatment: the patient's symptoms have markedly improved after treatment. 04:18 Patient medically screened. [facility] 06/26 03:03 Order name: Shoulder Right (2 View) XRAY [facility] 06/26 04:20 Order name: Sling; Complete Time: 04:32 [facility] Administered Medications: 03:39 Drug: Ketorolac 60 mg Route: IM; Site: left deltoid; df1 04:32 Follow up: Response: Pain is decreased df1 Disposition Summary: 06/26/21 04:18 Discharge Ordered Location: Home [facility] Problem: new [facility] Symptoms: have improved [facility] Condition: Stable [facility] Diagnosis - Pain in right shoulder - Strain [facility] Followup: [facility] - With: Private Physician - When: 1 - 2 days - Reason: If symptoms return, Worsening of condition, Recheck today's complaints, Continuance of care, Re-evaluation by your physician Followup: [facility] - With: Baljeet Sanon MD - When: 5 - 6 days - Reason: Worsening of condition, Recheck today's complaints Discharge Instructions: - Discharge Summary Sheet [facility] - Musculoskeletal Pain [facility] - Shoulder Pain, [id number] [facility] Forms: - Medication Reconciliation Form [facility] - Thank You Letter [facility] - Antibiotic Education [facility] - Prescription Opioid Use [facility] Prescriptions: - ketorolac 10 mg Oral tablet - take 1 tablet by ORAL route every 8 hours As needed not to exceed 40 mg in [facility] 24hrs; 12 tablet; Refills: 0, Product Selection Permitted Signatures: Dispatcher [employer] Luís Soares MD MD [facility] Karen Suarez df1
[2021-06-26 04:46] VITALS: BP 139/76; TEMP 98.4; O2SAT 98
--- NOTE | 2021-06-26 13:53 | RAD REPORT ---
EXAM DESCRIPTION: RAD - Shoulder Right 2 View - 06/26/2021 3:36 am CLINICAL HISTORY: PAIN COMPARISON: No comparisons FINDINGS: Rela-ew-knwdegan AC joint degenerative change. Small calcifications distal supraspinatus t endon likely represents mild calcific tendinitis. A right mid thoracic rib appears largely absent.
== END 2021-06-26 04:33 | disposition home or self-care (01) ==
LOC: ER 02:07
DX: S46.911A Strain of unspecified muscle, fascia and tendon at shoulder and upper arm level, right arm, initial encounter (principal); X50.0XXA Overexertion from strenuous movement or load, initial encounter; X50.9XXA Other and unspecified overexertion or strenuous movements or postures, initial encounter; Y93.89 Activity, other specified; Y92.9 Unspecified place or not applicable; Z91.09 Other allergy status, other than to drugs and biological substances; E11.9 Type 2 diabetes mellitus without complications; I10 Essential (primary) hypertension
CPT/HCPCS: 96372; 99284

== ENCOUNTER 2021-07-20 10:55 | Emergency (ER) | payer SELFPAY ==
--- OUTSIDE RECORDS SUMMARY | 2021-07-20 10:58 | XMS REPORT | Continuity of Care Document ---
:1970 Author Organization [facility] t Address [address] [place] [address] Care Team Providers Name Role Phone Felicia [...] Swelling [facility] 11-18 ity of 00:00: [address] Medications This patient has no known medications. Procedures This patient has no known procedures. Encounters Start End Encounter Admission Attending Care Care Encounter Source Date/Time Date/Time Type Type Clinicians Facility Department ID 2020-07-30 2020-08-02 Inpatient CHRISTOPHER RAWLS [facility] [id number] [place] 15:20:00 16:57:00 [facility] 2020-07-30 2020-07-30 Emergency [facility] [id number] [place] 16:49:10 16:54:47 [facility] 2019-05-30 2019-05-30 Emergency [facility] [id number] [facility] 09:14:59 11:46:00 , MARCOS [facility] of [facility] Results This patient has no known results.
[2021-07-20 12:16] LABS: Absolute Lymphocytes (CBC) 2.3 K/uL (0.7-4.9); Basophils % 0.9 % (0-1.3); Hematocrit 43.4 % (36.0-45.0); Lymphocytes % 29.4 % (15.3-44.8); MPV 10.4 fL (7.6-11.3); RBC Red Blood Cell Count 4.58 M/uL (3.86-4.86)
[2021-07-20 12:28] LABS: Potassium 3.8 mmol/L (3.5-5.1)
[2021-07-20] MEDS ORDERED: INSULIN -REGULAR HUMAN 50 UNIT/0.5 ML ML ONE (12:48)
[2021-07-20] MEDS ORDERED: NA CHLORIDE 0.9% 500 ML ONE (12:48)
--- NOTE | 2021-07-20 12:59 | RAD REPORT ---
EXAM DESCRIPTION: CT - Thorax Wo Con - 07/20/2021 12:52 pm CLINICAL HISTORY: CHEST PAIN COMPARISON: Abdomen Wo Contrast dated 07/20/2021 FINDINGS: Chest Wall: No suspicious thyroid nodules or pathologic lymphadenopathy. Lungs: No acute abnormality. Pleura: No significant effusions or pneumothorax. Mediastinum/marielle: No pathologic lymphadenopathy. Pulmonary arteries/Aorta: Limited evaluation without contrast. No aortic aneurysm. Heart: No significant pericardial effusion. Normal heart size. Upper abdomen: See dedicated CT of the abdomen report. Bones: No acute abnormality. All CT scans are performed using dose optimization technique as appropriate and may include automated exposure control or mA/KV adjustment according to patient size. IMPRESSION: No acute findings within the chest. Reference CT abdomen for additional findings.
--- NOTE | 2021-07-20 13:02 | RAD REPORT ---
EXAM DESCRIPTION: CTAbdomen Wo Contrast - 07/20/2021 12:52 pm CLINICAL HISTORY: pain COMPARISON: Thorax Wo Con dated 07/20/2021 TECHNIQUE: CT of the abdomen and pelvis was performed. All CT scans are performed using dose optimization technique as appropriate and may include automated exposure control or mA/KV adjustment according to patient size. FINDINGS: Liver: Hepatic steatosis. Biliary: No biliary ductal dilatation. Stomach: No significant focal abnormality. Duodenum: No significant focal abnormality. Pancreas: No significant abnormality. Spleen: No significant abnormality. Adrenal: No suspicious lesions. Kidney/ureter: No hydronephrosis. No renal calculi. Retroperitoneum: No retroperitoneal adenopathy. Vascular: No aneurysm. Bowel: No significant focal abnormality. Peritoneum: No ascites or free air. Bones: No acute fracture. Mild degenerative disc disease in the lower spine. Other: n/a IMPRESSION: No acute intra-abdominal finding.
[2021-07-20] MEDS ORDERED: CYCLOBENZAPRINE 10 MG TAB ONE (14:07)
[2021-07-20] MEDS ORDERED: KETOROLAC 30 MG/ML INJ ONE (14:08)
--- NOTE | 2021-07-20 14:11 | EDPHYS ---
Physician Documentation [facility] Name: Silvia Kiran Age: 50 yrs Sex: Female : 1970 Arrival Date: 07/20/2021 Time: 10:57 Bed 14 Private MD: ED Physician Jet Pérez HPI: 07/21 07:15 This 50 yrs old Female presents to ER via Ambulatory with complaints of Breast Problem, kdr Abdominal Pain, High Blood Sugar. 07:18 The patient or guardian reports chest pain that is located primarily in the anterior kdr chest wall, right. Onset: gradually. The pain radiates to Right breast and chest wall. Associated signs and symptoms: Pertinent positives: Pertinent negatives: abdominal pain, cough, diaphoresis, dizziness, headache, lower extremity pain, lower extremity swelling, lightheadedness, nausea, near syncope, palpitations, recent travel, shortness of breath, syncope, vomiting. The chest pain is described as sharp. Duration: The patient or guardian reports multiple episodes, that are intermittent, that wax and wane, with no pattern. Modifying factors: The symptoms are alleviated by nothing. the symptoms are aggravated by nothing. Severity of pain: At its worst the pain was mild moderate just prior to arrival, in the emergency department the pain is unchanged. The patient has not experienced similar symptoms in the past. The patient presents to the ED complaining of right lateral chest wall pain that radiates into her breast. There are no precipitating or aggravating factors. She states that the pain comes and goes without provocation. This has been going on for approximately 2 months. Last few days has gotten particularly worse. She has also had difficulty controlling her blood sugar over the last few weeks. At home it has been running over 500. She denies any other associated signs or symptoms.. 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 - Social history:: Smoking status: Patient/guardian denies using tobacco. ROS: 07/21 07:18 Constitutional: Negative for fever, chills, and weight loss, Eyes: Negative for injury, kdr pain, redness, and discharge, Neck: Negative for injury, pain, and swelling, Cardiovascular: Negative for chest pain, palpitations, and edema, Respiratory: Negative for shortness of breath, cough, wheezing, and pleuritic chest pain, Abdomen/GI: Negative for abdominal pain, nausea, vomiting, diarrhea, and constipation, Back: Negative for injury and pain, MS/Extremity: Negative for injury and deformity, Skin: Negative for injury, rash, and discoloration, Neuro: Negative for headache, weakness, numbness, tingling, and seizure activity. Psych: Negative for depression, anxiety, suicide ideation, homicidal ideation, and hallucinations, Allergy/Immunology: Negative for hives, rash, and allergies, Endocrine: Negative for neck swelling, polydipsia, polyuria, polyphagia, and marked weight changes, Hematologic/Lymphatic: Negative for swollen nodes, abnormal bleeding, and unusual bruising. Exam: 07:18 Constitutional: This is a well developed, well nourished patient who is awake, alert, kdr and in no acute distress. Head/Face: Normocephalic, atraumatic. Eyes: Pupils equal round and reactive to light, extra-ocular motions intact. Lids and lashes normal. Conjunctiva and sclera are non-icteric and not injected. Cornea within normal limits. Periorbital areas with no swelling, redness, or edema. Neck: Trachea midline, no thyromegaly or masses palpated, and no cervical lymphadenopathy. Supple, full range of motion without nuchal rigidity, or vertebral point tenderness. No Meningismus. Chest/axilla: Normal chest wall appearance and motion. Nontender with no deformity. No lesions are appreciated. Cardiovascular: Regular rate and rhythm with a normal S1 and S2. No gallops, murmurs, or rubs. Normal PMI, no JVD. No pulse deficits. Respiratory: Lungs have equal breath sounds bilaterally, clear to auscultation and percussion. No rales, rhonchi or wheezes noted. No increased work of breathing, no retractions or nasal flaring. Abdomen/GI: Soft, non-tender, with normal bowel sounds. No distension or tympany. No guarding or rebound. No evidence of tenderness throughout. Back: No spinal tenderness. No costovertebral tenderness. Full range of motion. Skin: Warm, dry with normal turgor. Normal color with no rashes, no lesions, and no evidence of cellulitis. MS/ Extremity: Pulses equal, no cyanosis. Neurovascular intact. Full, normal range of motion. Neuro: Awake and alert, GCS 15, oriented to person, place, time, and situation. Cranial nerves II-XII grossly intact. Motor strength 5/5 in all extremities. Sensory grossly intact. Cerebellar exam normal. Normal gait. Psych: Awake, alert, with orientation to person, place and time. Behavior, mood, and affect are within normal limits. Vital Signs: 07/20 11:09 BP 144 / 86; Pulse 90; Resp 16; Temp 97.6; Pulse Ox 100% on R/A; Weight 79.38 kg; iw Height 4 ft. 10 in. (147.32 cm); Pain 10/10; 12:13 BP 130 / 82; Pulse 89; Resp 17; Pulse Ox 100% on R/A; tw2 13:51 BP 122 / 62; Pulse 82; Resp 17; Pulse Ox 100% on R/A; tw2 11:09 Body Mass Index 36.57 (79.38 kg, 147.32 cm) iw MDM: 14:10 Patient medically screened. kdr 07/21 07:18 Data reviewed: vital signs, nurses notes, lab test result(s), radiologic studies. kdr Counseling: I had a detailed discussion with the patient and/or guardian regarding: the historical points, exam findings, and any diagnostic results supporting the discharge/admit diagnosis, lab results, radiology results, the need for outpatient follow up. Response to treatment: the patient's symptoms have mildly improved after treatment. ED course: Patient was stable in the emergency department. She responded well to the interventions given. She was happy with the care provided and the plan for discharge and follow-up. Given her electrolytes, she was not in DKA. The scan revealed no actual pathology. I discussed all laboratory and radiology findings with the patient.. 07/20 11:57 Order name: CBC with Diff kdr 07/20 11:57 Order name: Chem 7 kdr 07/20 11:58 Order name: CBC with Automated Diff; Complete Time: 12:36 EDMS 07/20 11:58 Order name: Basic Metabolic Panel; Complete Time: 12:36 EDMS 07/20 14:01 Order name: Glucose, Ancillary Testing EDMS 07/20 12:42 Order name: Thorax Wo Con; Complete Time: 13:55 EDMS 07/20 12:42 Order name: Abdomen Wo Contrast; Complete Time: 13:55 EDMS 07/20 13:42 Order name: Glucose Level; Complete Time: 13:49 tw2 07/20 13:56 Order name: FSBS; Complete Time: 14:06 kdr Administered Medications: 07/20 12:55 Drug: Insulin Regular Human 10 units {Co-Signature: tw2 (Tyra Durand RN).} Route: IVP; jh5 Site: left antecubital; 13:49 Follow up: Response: No adverse reaction; Blood sugar is lowered tw2 12:55 Drug: NS 0.9% 500 ml Route: IV; Rate: bolus; Site: left antecubital; tw2 13:42 Follow up: Response: No adverse reaction; IV Status: Completed infusion; IV Intake: tw2 500ml 14:11 Drug: Ketorolac 15 mg Route: IVP; Site: left antecubital; ld1 14:11 Drug: Flexeril (cyclobenzaprine) 10 mg Route: PO; ld1 Point of Care Testing: Blood Glucose: 13:49 Blood Glucose: 253 mg/dL; tw2 Ranges: Critical Glucose Levels:Adult <50 mg/dl or >400 mg/dl <40 mg/dl or >180 mg/dl Disposition Summary: 07/20/21 14:10 Discharge Ordered Location: Home kdr Problem: an ongoing problem kdr Symptoms: have improved kdr Condition: Stable kdr Diagnosis - Right lateral thorax pain kdr Followup: kdr - With: Private Physician - When: 2 - 3 days - Reason: If symptoms return, Further diagnostic work-up, Recheck today's complaints, Continuance of care, Re-evaluation by your physician Discharge Instructions: - Chest Wall Pain, [id number] kdr - Discharge Summary Sheet tw2 Forms: - Work release form tw2 - Family Work Release tw2 - Medication Reconciliation Form kdr - Thank You Letter kdr Prescriptions: - Ibuprofen 600 mg Oral Tablet - take 1 tablet by ORAL route every 6 hours As needed take with food; 16 tablet; kdr Refills: 0, Product Selection Permitted - Cyclobenzaprine 10 mg Oral Tablet - take 1 tablet by ORAL route every 8 hours As needed; 15 tablet; Refills: 0, kdr Product Selection Permitted - Medrol (Ephraim) 4 mg Oral Tablets, Dose Pack - take 1 tablet by ORAL route as directed - follow package instructions; 1 kdr packet; Refills: 0, Product Selection Permitted - Glipizide 5 mg Oral Tablet - take 1 tablet by ORAL route every 12 hours before a meal; 30 tablet; Refills: kdr 0, Product Selection Permitted Signatures: Dispatcher [employer] EDMS Jet Pérez MD MD kdr Laura Morel RN RN iw Tyra Durand RN RN tw2 Micaela Ang RN RN ld1 Keena Ryder RN RN jh5 Tyra Durand RN tw2 Corrections: (The following items were deleted from the chart) 12:42 11:58 Chest Abdomen W/ Con+CT.RAD.BRZ ordered. EDMS EDMS
--- NOTE | 2021-07-20 14:11 | ER ---
Nurse's Notes [facility] Name: Silvia Kiran Age: 50 yrs Sex: Female : 1970 Arrival Date: 07/20/2021 Time: 10:57 Bed 14 Private MD: Diagnosis: Right lateral thorax pain Presentation: 07/20 11:09 Chief complaint: Patient states: pain under right breast , moved up into the breast iw over past couple days, has had a lump on side of ribs/breast area for past month , also her blood sugars have been running high, over 500. Coronavirus screen: At this time, the client does not indicate any symptoms associated with coronavirus-19. Ebola Screen: Patient negative for fever greater than or equal to 101.5 degrees Fahrenheit, and additional compatible Ebola Virus Disease symptoms Patient denies exposure to infectious person. Patient denies travel to an Ebola-affected area in the 21 days before illness onset. No symptoms or risks identified at this time. Initial Sepsis Screen: Does the patient meet any 2 criteria? No. Patient's initial sepsis screen is negative. Does the patient have a suspected source of infection? No. Patient's initial sepsis screen is negative. Risk Assessment: Do you want to hurt yourself or someone else? Patient reports no desire to harm self or others. Onset of symptoms was July 18, 2021. 11:09 Method Of Arrival: Ambulatory iw 11:09 Acuity: SUNG 3 iw Triage Assessment: 14:16 General: Appears in no apparent distress. comfortable, Behavior is calm, cooperative, ld1 appropriate for age. Pain: Denies pain. GI: Abdomen is round non-distended. 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 - Social history:: Smoking status: Patient/guardian denies using tobacco. Screenin:19 Abuse screen: Denies threats or abuse. Nutritional screening: No deficits noted. tw2 Tuberculosis screening: No symptoms or risk factors identified. Fall Risk None identified. Assessment: 12:14 Reassessment: Patient appears in no apparent distress at this time. No changes from tw2 previously documented assessment. Patient and/or family updated on plan of care and expected duration. Pain level reassessed. Patient is alert, oriented x 3, equal unlabored respirations, skin warm/dry/pink. 14:16 GI: Bowel sounds present X 4 quads. Abd is soft Abdomen is tender to palpation X 4 ld1 quads. Vital Signs: 11:09 BP 144 / 86; Pulse 90; Resp 16; Temp 97.6; Pulse Ox 100% on R/A; Weight 79.38 kg; iw Height 4 ft. 10 in. (147.32 cm); Pain 10/10; 12:13 BP 130 / 82; Pulse 89; Resp 17; Pulse Ox 100% on R/A; tw2 13:51 BP 122 / 62; Pulse 82; Resp 17; Pulse Ox 100% on R/A; tw2 11:09 Body Mass Index 36.57 (79.38 kg, 147.32 cm) iw ED Course: 10:57 Patient arrived in ED. mr 11:10 Jet Pérez MD is Attending Physician. kdr 11:13 Triage completed. iw 11:15 Arm band placed on. iw 11:19 Tyra Duarnd, RN is Primary Nurse. tw2 11:19 Placed in gown. Bed in low position. Pulse ox on. NIBP on. tw2 11:40 served as ict help desk technician during examination of breast. tw2 11:44 Inserted saline lock: 20 gauge in left antecubital area, using aseptic technique. Blood tw2 collected. 12:52 Thorax Wo Con In Process Unspecified. EDMS 12:52 Abdomen Wo Contrast In Process Unspecified. EDMS 14:17 IV discontinued, intact, bleeding controlled, No redness/swelling at site. ld1 Administered Medications: 12:55 Drug: Insulin Regular Human 10 units {Co-Signature: tw2 (Tyra Durand RN).} Route: IVP; jh5 Site: left antecubital; 13:49 Follow up: Response: No adverse reaction; Blood sugar is lowered tw2 12:55 Drug: NS 0.9% 500 ml Route: IV; Rate: bolus; Site: left antecubital; tw2 13:42 Follow up: Response: No adverse reaction; IV Status: Completed infusion; IV Intake: tw2 500ml 14:11 Drug: Ketorolac 15 mg Route: IVP; Site: left antecubital; ld1 14:11 Drug: Flexeril (cyclobenzaprine) 10 mg Route: PO; ld1 Point of Care Testing: Blood Glucose: 13:49 Blood Glucose: 253 mg/dL; tw2 Ranges: Intake: 13:42 IV: 500ml; Total: 500ml. tw2 Outcome: 14:10 Discharge ordered by . kdr 14:17 Discharged to home ambulatory, with family. ld1 14:17 Condition: stable 14:17 Discharge instructions given to patient, family, Instructed on discharge instructions, follow up and referral plans. medication usage, Demonstrated understanding of instructions, follow-up care, medications, Prescriptions given X 4. 14:17 Patient left the ED. ld1 Signatures: Dispatcher [employer] EDMS Jet Pérez MD MD kdr Rivera, Ning mr Laura Morel, RN TERRY iw Tyra Durand RN RN tw2 Micaela Ang RN RN ld1 Keena Ryder RN RN jh5 Tyra Durand RN tw2
[2021-07-20 14:39] VITALS: TEMP 97.6; O2SAT 100
[2021-07-20 14:41] VITALS: BP 122/62
== END 2021-07-20 14:17 | disposition home or self-care (01) ==
LOC: ER 10:55
DX: R07.89 Other chest pain (principal); I10 Essential (primary) hypertension; E11.9 Type 2 diabetes mellitus without complications; Z91.041 Radiographic dye allergy status
CPT/HCPCS: 36415; 71250; 74150; 80048; 82947; 85025; 96361; 96374; 96375; 99284; J7040

== ENCOUNTER 2021-09-17 04:03 | Emergency (ER) | payer SELFPAY ==
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
[2021-09-17 04:49] LABS: Absolute Lymphocytes (CBC) 2.6 K/uL (0.7-4.9); Hematocrit 46.2 % (36.0-45.0); Lymphocytes % 32.6 % (15.3-44.8); MPV 9.9 fL (7.6-11.3); RBC Red Blood Cell Count 4.97 M/uL (3.86-4.86)
[2021-09-17] MEDS ORDERED: ONDANSETRON 4 MG/2 ML VIAL ONE (05:03)
[2021-09-17] MEDS ORDERED: MORPHINE 4 MG/ML SYR ONE (05:03)
[2021-09-17 05:23] LABS: ALT/SGPT 46 U/L (12-78); Alkaline Phosphatase 123 U/L (45-117); BUN Blood Urea Nitrogen 26 mg/dL (7-18); Bicarbonate 30 mmol/L (21-32); Glucose Level 363 mg/dL (74-106); Sodium Level 134 mmol/L (136-145)
[2021-09-17 05:24] LABS: Albumin 3.1 g/dL (3.4-5.0); Bilirubin Direct < 0.1 mg/dL (0-0.2); Bilirubin Total 0.4 mg/dL (0.2-1.0); Lipase 110 U/L (73-393); Protein, Total 7.3 g/dL (6.4-8.2)
[2021-09-17 05:25] LABS: AST/SGOT 27 U/L (15-37)
--- NOTE | 2021-09-17 07:54 | RAD REPORT ---
EXAM DESCRIPTION: US - Abdomen Exam Limited - 09/17/2021 5:33 am CLINICAL HISTORY: ABD PAIN Preliminary findings provided the time of the study. COMPARISON: Abdomen Pelvis Wo Contrast dated 09/17/2021 FINDINGS: Gallbladder is tightly contracted. Provided history indicates the patient was not fasting at the time of the study and had recently eaten. Gallbladder wall thickness is accentuated within the gallbladder is contracted. True gallbladder wall thickening or edema is not suspected. No pericholec ystic fluid identified. No gallstones could be identified. There was an echogenic 5 mm focus fixed to the gallbladder wall. There was no posterior acoustic shadowing in imaging characteristics favor inc idental gallbladder polyp etiology. Common bile duct is well within normal limits in size with no com mon duct stone identified. Partially imaged liver shows fatty infiltration pattern. The pancreas is only partially imaged on thi s gallbladder study. No pancreatic abnormality was seen on the contemporaneous CT study. IMPRESSION: Small polyp seen in a contracted gallbladder. Gallbladder contraction is believed to be secondary to nonfasting state. The exam is limited; however, acute gallbladder or biliary tree finding is not suspected. Repeat imag ing after adequate fasting could be performed if the patient has continued symptoms concerning for ch olecystitis.
--- NOTE | 2021-09-17 07:56 | RAD REPORT ---
EXAM DESCRIPTION: US - Extremity Nonvascular Limited - 09/17/2021 6:01 am CLINICAL HISTORY: PAIN, patient indicates 3 areas of focal pain in the axilla Preliminary findings provided at time of the study. COMPARISON: No comparisons FINDINGS: Sonographic evaluation of the right axilla was performed with focused attention on the trixie nful areas localized by the patient. Normal axillary fatty tissues are visualized on this examination. No vascular abnormality seen. No ab normal lymph node, mass or other suspicious finding. No edema of the scanner deeper fatty tissues harmony ntifiable. IMPRESSION: Negative right axillary ultrasound study.
[2021-09-17] MEDS ORDERED: NA CHLORIDE 0.9% 1,000 ML ONE (08:18)
[2021-09-17] MEDS ORDERED: CYCLOBENZAPRINE 10 MG TAB ONE (08:18)
[2021-09-17] MEDS ORDERED: LIDOCAINE 4% PATCH ONE (08:18)
--- NOTE | 2021-09-17 08:36 | RAD REPORT ---
EXAM DESCRIPTION: RAD - Hand Left 3 View - 09/17/2021 7:49 am CLINICAL HISTORY: PAIN, blunt force trauma to the hand, patient indicates pain primarily 3rd- 5th di gits COMPARISON: Left hand 08/07/2019 FINDINGS: No fracture, dislocation or periosteal reaction noted. No air or foreign body in the soft tissues. No acute bone or joint finding identifiable. IMPRESSION: Negative left hand examination.
--- NOTE | 2021-09-17 08:59 | EDPHYS ---
Physician Documentation [facility] Name: Silvia Kiran Age: 51 yrs Sex: Female : 1970 Arrival Date: 09/17/2021 Time: 04:07 Bed 5 Private MD: ED Physician Jet Pérez HPI: 09/17 05:18 This 51 yrs old Female presents to ER via Ambulatory with complaints of Flank Pain, kdr Abdominal Swelling, SHOOTING PAIN. 05:18 Patient presents with multiple complaints including right lateral thorax pain and kdr axillary pain, right upper quadrant pain, low back pain radiating down her right leg, and left hand pain. She states that the thorax pain and back pain may be related to helping her son move recently. The left hand is due to shutting her hand in a door.. Onset: The symptoms/episode began/occurred Most of her discomfort has been occurring for about a week and a half. Severity of symptoms: At their worst the symptoms were mild moderate just prior to arrival, in the emergency department the symptoms are unchanged. The patient has not recently seen a physician. . 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 - Social history:: Smoking status: Patient denies any tobacco usage or history of. ROS: 05:33 Constitutional: Negative for fever, chills, and weight loss, Eyes: Negative for injury, kdr pain, redness, and discharge, Neck: Negative for injury, pain, and swelling, Respiratory: Negative for shortness of breath, cough, wheezing, and pleuritic chest pain, Back: Negative for injury and pain, : Negative for injury, bleeding, discharge, and swelling, MS/Extremity: Negative for injury and deformity, Skin: Negative for injury, rash, and discoloration, Neuro: Negative for headache, weakness, numbness, tingling, and seizure activity. Psych: Negative for depression, anxiety, suicide ideation, homicidal ideation, and hallucinations, Allergy/Immunology: Negative for hives, rash, and allergies, Endocrine: Negative for neck swelling, polydipsia, polyuria, polyphagia, and marked weight changes, Hematologic/Lymphatic: Negative for swollen nodes, abnormal bleeding, and unusual bruising. 05:33 Cardiovascular: Positive for chest pain, Right lateral chest wall in axillary region, Negative for edema, orthopnea, palpitations. Exam: 05:33 Constitutional: This is a well developed, well nourished patient who is awake, alert, kdr and in no acute distress. Head/Face: Normocephalic, atraumatic. Eyes: Pupils equal round and reactive to light, extra-ocular motions intact. Lids and lashes normal. Conjunctiva and sclera are non-icteric and not injected. Cornea within normal limits. Periorbital areas with no swelling, redness, or edema. Neck: Trachea midline, no thyromegaly or masses palpated, and no cervical lymphadenopathy. Supple, full range of motion without nuchal rigidity, or vertebral point tenderness. No Meningismus. Cardiovascular: Regular rate and rhythm with a normal S1 and S2. No gallops, murmurs, or rubs. Normal PMI, no JVD. No pulse deficits. Respiratory: Lungs have equal breath sounds bilaterally, clear to auscultation and percussion. No rales, rhonchi or wheezes noted. No increased work of breathing, no retractions or nasal flaring. Back: No spinal tenderness. No costovertebral tenderness. Full range of motion. Skin: Warm, dry with normal turgor. Normal color with no rashes, no lesions, and no evidence of cellulitis. MS/ Extremity: Pulses equal, no cyanosis. Neurovascular intact. Full, normal range of motion. Neuro: Awake and alert, GCS 15, oriented to person, place, time, and situation. Cranial nerves II-XII grossly intact. Motor strength 5/5 in all extremities. Sensory grossly intact. Cerebellar exam normal. Normal gait. Psych: Awake, alert, with orientation to person, place and time. Behavior, mood, and affect are within normal limits. 05:33 Chest/axilla: Inspection: normal, Palpation: tenderness, that is mild, of the right lateral posterior chest. 05:33 Abdomen/GI: Inspection: obese Bowel sounds: Vital Signs: 04:28 BP 157 / 87; Pulse 85; Resp 15; Temp 97.8(TE); Pulse Ox 98% on R/A; Weight 77.11 kg ll3 (R); Height 4 ft. 10 in. (147.32 cm) (R); Pain 9/10; 06:06 BP 151 / 98; Pulse 82; Resp 16; Pulse Ox 98% on R/A; st1 07:00 BP 125 / 68 RA; Pulse 82; Resp 16 S; Pulse Ox 97% on R/A; jg9 08:15 BP 158 / 78; Pulse 116; Resp 20 S; Pulse Ox 99% on R/A; jg9 09:23 BP 123 / 72; Pulse 74; Pulse Ox 96% on R/A; ke1 04:28 Body Mass Index 35.53 (77.11 kg, 147.32 cm) ll3 Nadya Coma Score: 04:41 Eye Response: spontaneous(4). Verbal Response: oriented(5). Motor Response: obeys st1 commands(6). Total: 15. MDM: 07:57 Patient medically screened. pm1 08:14 ED course: Patient reports poorly controlled DM, glucose usually in the 300s. pm1 08:34 Data reviewed: vital signs. Data interpreted: Pulse oximetry: on room air is 99 %. pm1 Interpretation: normal. 08:54 Counseling: I had a detailed discussion with the patient and/or guardian regarding: the pm1 historical points, exam findings, and any diagnostic results supporting the discharge/admit diagnosis, lab results, radiology results, the need for outpatient follow up, to return to the emergency department if symptoms worsen or persist or if there are any questions or concerns that arise at home. 09:16 ED course: Patient reports improved pain with medication given in the ER. Recommended pm1 follow up with life skills coordinator or PCP for further evaluation and imaging of her breasts since she was concerned over history of breast cysts. Offered breast examination in the ER, patient deferred to outpatient examination . 09/17 04:29 Order name: Basic Metabolic Panel kdr 09/17 04:29 Order name: CBC with Diff; Complete Time: 05:32 kdr 09/17 04:29 Order name: Hepatic Function; Complete Time: 05:32 kdr 09/17 04:29 Order name: Lipase; Complete Time: 05:32 kdr 09/17 04:30 Order name: Basic Metabolic Panel; Complete Time: 05:32 EDMS 09/17 04:45 Order name: CT Abd/Pelvis - Without Cont (PO Contrast Only) kdr 09/17 04:45 Order name: US Abdomen Limited; Complete Time: 07:57 kdr 09/17 04:45 Order name: CT Lumbar Spine Wo Con kdr 09/17 05:31 Order name: US Extrmty Nonvasular Limited; Complete Time: 07:57 kdr 09/17 06:44 Order name: Hand Left 3 View XRAY; Complete Time: 08:39 kdr 09/17 04:29 Order name: IV Saline Lock; Complete Time: 04:41 kdr 09/17 04:29 Order name: Labs collected and sent; Complete Time: 04:41 kdr Administered Medications: 06:06 Drug: morphine 4 mg Route: IVP; Site: left antecubital; st1 07:16 Follow up: Response: Pain is decreased; RASS: Alert and Calm (0) jg9 06:06 Drug: Zofran (Ondansetron) 4 mg Route: IVP; Site: left antecubital; st1 07:16 Follow up: Response: Nausea unchanged jg9 08:15 Drug: Flexeril (cyclobenzaprine) 10 mg Route: PO; jg9 08:52 Follow up: Response: No adverse reaction; Pain is decreased jg9 08:17 Drug: NS 0.9% 1000 ml Route: IV; Rate: 1000 ml; Site: left antecubital; jg9 09:25 Follow up: IV Status: Completed infusion ke1 08:19 Drug: Lidoderm Patch 5 % (700 mg/patch) 1 patches {Note: r rib/RUQ region just under jg9 the right breast.} Route: Topical; Site: affected area; 08:53 Follow up: Response: No adverse reaction; Pain is decreased jg9 Disposition Summary: 09/17/21 08:58 Discharge Ordered Location: Home pm1 Problem: new pm1 Symptoms: have improved pm1 Condition: Stable pm1 Diagnosis - Contusion of left hand pm1 - Low back pain pm1 - Strain of muscle and tendon of unspecified wall of thorax pm1 - Abdominal pain, unspecified pm1 Followup: pm1 - With: Emergency Department - When: As needed - Reason: Worsening of condition Followup: pm1 - With: Private Physician - When: 2 - 3 days - Reason: Recheck today's complaints, Continuance of care, Re-evaluation by your physician Discharge Instructions: - Discharge Summary Sheet pm1 - Abdominal Pain, Adult pm1 - Hand Contusion pm1 - Acute Back Pain, Adult pm1 - Muscle Strain pm1 Forms: - Medication Reconciliation Form pm1 - Thank You Letter pm1 - Antibiotic Education pm1 - Prescription Opioid Use pm1 Prescriptions: - Lidoderm 5 % Topical adhesive patch,medicated - apply 1 patch by TRANSDERMAL route once daily As needed 12 hours on and 12 pm1 hours off in a 24 hour period; 10 patch; Refills: 0, Product Selection Permitted - Cyclobenzaprine 10 mg Oral Tablet - take 1 tablet by ORAL route every 8 hours As needed; 30 tablet; Refills: 0, pm1 Product Selection Permitted Addendum: 09/18/2021 19:09 Co-signature as Attending Physician, Jet Pérez MD I agree with the assessment and k dr plan of care. Signatures: Dispatcher [employer] EDAK Jet Pérez MD MD kdr Richard Daniel, MANAGER HEALTH MANAGER HEALTH pm1 Arslan Osborn RN RN ll3 Rosi Jefferson RN RN jg9 Erica Downs RN RN st1 Marivel Kline RN ke1
--- NOTE | 2021-09-17 08:59 | ER ---
Nurse's Notes [facility] Name: Silvia Kiran Age: 51 yrs Sex: Female : 1970 Arrival Date: 09/17/2021 Time: 04:07 Bed 5 Private MD: Diagnosis: Contusion of left hand;Low back pain;Strain of muscle and tendon of unspecified wall of thorax;Abdominal pain, unspecified Presentation: 09/17 04:28 Chief complaint: Patient states: States was helping son move last week and slammed left ll3 hand in drawer, c/o of knots in right side with pain running down right leg since last week, states "after sitting for a while I cant hardly stand on it". Coronavirus screen: Vaccine status: Patient reports being unvaccinated. At this time, the client does not indicate any symptoms associated with coronavirus-19. Ebola Screen: No symptoms or risks identified at this time. Initial Sepsis Screen: Does the patient meet any 2 criteria? No. Patient's initial sepsis screen is negative. Does the patient have a suspected source of infection? No. Patient's initial sepsis screen is negative. Risk Assessment: Do you want to hurt yourself or someone else? Patient reports no desire to harm self or others. Onset of symptoms is unknown. 04:28 Method Of Arrival: Ambulatory ll3 04:28 Acuity: SUNG 3 ll3 Triage Assessment: 04:32 General: Appears uncomfortable, Behavior is calm, cooperative. Pain: Complains of pain ll3 in anterior aspect of right lateral abdomen and right leg, left hand Pain does not radiate. Pain currently is 9 out of 10 on a pain scale. Pain began Last week Is continuous. Neuro: Level of Consciousness is awake, alert, obeys commands, Oriented to person, place, time, situation. Cardiovascular: Patient's skin is warm and dry. Respiratory: Respiratory effort is even, unlabored, Respiratory pattern is regular, symmetrical. GI: Abdomen is round non-distended. Derm: Skin is pink, warm \\T\\ dry. Upon palpation small knots noted to right side of rib cage. 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 - Social history:: Smoking status: Patient denies any tobacco usage or history of. Screenin:43 Abuse screen: Denies threats or abuse. Nutritional screening: No deficits noted. st1 Tuberculosis screening: No symptoms or risk factors identified. Fall Risk None identified. No fall in past 12 months (0 pts). No secondary diagnosis (0 pts). IV access (20 points). Ambulatory Aid- None/Bed Rest/Nurse Assist (0 pts). Gait- Normal/Bed Rest/Wheelchair (0 pts) Mental Status- Oriented to own ability (0 pts). Total Rodriguez Fall Scale indicates No Risk (0-24 pts). Assessment: 04:41 General: Appears in no apparent distress. uncomfortable, obese, well groomed, Behavior st1 is calm, cooperative. Cardiovascular: No deficits noted. GI: Reports diarrhea. Musculoskeletal: No deficits noted. 04:44 GI: Abd is soft X 4 quads Abdomen is tender to palpation in right lower quadrant and st1 left lower quadrant. 04:44 Neuro: No deficits noted. st1 07:13 General: Appears uncomfortable, Behavior is calm. Pain: Complains of pain in jg9 abdomen-right sided aabd pain. GI: Reports nausea, Patient reports some improvement in symptoms. Vital Signs: 04:28 BP 157 / 87; Pulse 85; Resp 15; Temp 97.8(TE); Pulse Ox 98% on R/A; Weight 77.11 kg ll3 (R); Height 4 ft. 10 in. (147.32 cm) (R); Pain 9/10; 06:06 BP 151 / 98; Pulse 82; Resp 16; Pulse Ox 98% on R/A; st1 07:00 BP 125 / 68 RA; Pulse 82; Resp 16 S; Pulse Ox 97% on R/A; jg9 08:15 BP 158 / 78; Pulse 116; Resp 20 S; Pulse Ox 99% on R/A; jg9 09:23 BP 123 / 72; Pulse 74; Pulse Ox 96% on R/A; ke1 04:28 Body Mass Index 35.53 (77.11 kg, 147.32 cm) ll3 Vitals: 04:41 Cardiac Rhythm Assessment Regular Sinus rhythm. st1 Ragan Coma Score: 04:41 Eye Response: spontaneous(4). Verbal Response: oriented(5). Motor Response: obeys st1 commands(6). Total: 15. ED Course: 04:07 Patient arrived in ED. ja2 04:25 Jet Pérez MD is Attending Physician. kdr 04:32 Triage completed. ll3 04:32 Arm band placed on. ll3 04:41 Erica Downs, RN is Primary Nurse. st1 04:41 Basic Metabolic Panel Sent. st1 04:41 Hepatic Function Sent. st1 04:41 Lipase Sent. st1 04:41 CBC with Diff Sent. st1 04:41 Basic Metabolic Panel Sent. st1 04:43 Patient has correct armband on for positive identification. Bed in low position. Call st1 light in reach. Side rails up X 1. Pulse ox on. NIBP on. Warm blanket given. 04:43 Inserted saline lock: 20 gauge in right antecubital area, using aseptic technique. st1 04:44 No apparent distress. Resting quietly. st1 05:27 CT Abd/Pelvis - Without Cont (PO Contrast Only) In Process Unspecified. EDMS 05:28 CT Lumbar Spine Wo Con In Process Unspecified. EDMS 05:33 US Abdomen Limited In Process Unspecified. EDMS 06:01 US Extrmty Nonvasular Limited In Process Unspecified. EDMS 07:12 No apparent distress. Resting quietly. jg9 07:17 Richard Daniel NP is PHCP. pm1 07:40 Primary Nurse role handed off by Erica Downs, RN jg9 07:40 Rosi Jefferson, TERRY is Primary Nurse. jg9 07:49 Hand Left 3 View XRAY In Process Unspecified. EDMS 09:21 No provider procedures requiring assistance completed. IV discontinued. ke1 Administered Medications: 06:06 Drug: morphine 4 mg Route: IVP; Site: left antecubital; st1 07:16 Follow up: Response: Pain is decreased; RASS: Alert and Calm (0) jg9 06:06 Drug: Zofran (Ondansetron) 4 mg Route: IVP; Site: left antecubital; st1 07:16 Follow up: Response: Nausea unchanged jg9 08:15 Drug: Flexeril (cyclobenzaprine) 10 mg Route: PO; jg9 08:52 Follow up: Response: No adverse reaction; Pain is decreased jg9 08:17 Drug: NS 0.9% 1000 ml Route: IV; Rate: 1000 ml; Site: left antecubital; jg9 09:25 Follow up: IV Status: Completed infusion ke1 08:19 Drug: Lidoderm Patch 5 % (700 mg/patch) 1 patches {Note: r rib/RUQ region just under jg9 the right breast.} Route: Topical; Site: affected area; 08:53 Follow up: Response: No adverse reaction; Pain is decreased jg9 Outcome: 08:58 Discharge ordered by MD. pm1 09:22 Discharged to home ambulatory. ke1 09:22 Condition: good 09:22 Discharge instructions given to patient. 09:25 Patient left the ED. ke1 Signatures: Dispatcher [employer] EDMS Jet Pérez MD MD kdr Marinas, Patrick, NP SUPERVISOR [employer] pm1 Keena Mcleod Lynsea, RN RN ll3 Rosi Jefferson RN RN jg9 Erica Downs RN RN st1 Marivel Kline RN RN ke1 Corrections: (The following items were deleted from the chart) 04:32 04:28 Chief complaint: st1 ll3
[2021-09-17 09:35] VITALS: TEMP 97.8
[2021-09-17 09:42] VITALS: BP 123/72; O2SAT 96
--- NOTE | 2021-09-17 17:19 | RAD REPORT ---
EXAM DESCRIPTION: CT - Spine Lumbar Wo Con - 09/17/2021 6:44 am CLINICAL HISTORY: Lower back pain;Numbness/tingling COMPARISON: None. TECHNIQUE: CT LUMBAR SPINE WITHOUT IV CONTRAST on 09/17/2021 4:45 AM JIGSAWYER This exam was performed according to our departmental dose-optimization program, which includes autom ated exposure control, adjustment of the mA and/or kV according to patient size and/or use of iterati ve reconstruction technique. FINDINGS: There is no acute fracture. Vertebral body heights are preserved. Alignment is anatomic. T here is mild to moderate lower lumbar facet arthritis. Ventral osteophytes are present at L4 and L5 a nd S1. There is moderate narrowing of the L4-5 and L5-S1 discs. Soft tissues are unremarkable. IMPRESSION: No acute fracture or subluxation. Electronically signed by: Hector Carnes MD 09/17/2021 6:35 AM JIGSAWYER Due to temporary technical issues with the PACS/Fluency reporting system, reports are being signed by the in house radiologists without review as a courtesy to insure prompt reporting. The interpreting radiologist is fully responsible for the content of the report.
--- NOTE | 2021-09-19 11:40 | RAD REPORT ---
EXAM DESCRIPTION: CT - Abdomen Pelvis Wo Contrast - 09/17/2021 6:44 am CLINICAL HISTORY: Abdominal pain COMPARISON: 01/04/2019. TECHNIQUE: CT ABDOMEN PELVIS WITHOUT IV CONTRAST on 09/17/2021 4:45 AM SHOE CLERK This exam was performed according to our departmental dose-optimization program, which includes autom ated exposure control, adjustment of the mA and/or kV according to patient size and/or use of iterati ve reconstruction technique. FINDINGS: Lower lungs are clear. Abdomen: Liver is diffusely fatty in attenuation. There is no biliary dilatation. Gallbladder is deco mpressed. The pancreas and spleen are normal in appearance. The adrenal glands and kidneys are unrema rkable. Abdominal aorta is normal in course and caliber without aneurysm. There is no free air. There is no r etroperitoneal adenopathy. Pelvis: There is moderate left colonic diverticulosis. Urinary bladder is unremarkable. There is no f ree fluid. Uterus is absent. Appendix is normal. Skeleton: There are no acute osseous findings. No suspicious bony lesions. IMPRESSION: No acute process. Electronically signed by: Hector Carnes MD 09/17/2021 6:25 AM SHOE CLERK Due to temporary technical issues with the PACS/Fluency reporting system, reports are being signed by the in house radiologists without review as a courtesy to insure prompt reporting. The interpreting radiologist is fully responsible for the content of the report.
== END 2021-09-17 09:25 | disposition home or self-care (01) ==
LOC: ER 04:03
DX: S29.019A Strain of muscle and tendon of unspecified wall of thorax, initial encounter (principal); S60.222A Contusion of left hand, initial encounter; M54.50 Low back pain, unspecified; E11.9 Type 2 diabetes mellitus without complications; F32.A Depression, unspecified; I10 Essential (primary) hypertension; Z91.041 Radiographic dye allergy status
CPT/HCPCS: 36415; 72131; 74176; 76705; 76882; 80048; 80076; 83690; 85025; 96361; 96374; 96375; 99284; J2405; J7030

== ENCOUNTER 2022-01-14 11:59 | Emergency (ER) | payer SELFPAY ==
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
--- NOTE | 2022-01-14 13:27 | RAD REPORT ---
EXAM DESCRIPTION: RAD - Hip Right 2 View - 01/14/2022 1:13 pm CLINICAL HISTORY: PAIN COMPARISON: No comparisons FINDINGS: Mild to moderate arthritic changes right hip. No fracture, dislocation or AVN pattern.
--- NOTE | 2022-01-14 13:27 | RAD REPORT ---
EXAM DESCRIPTION: RAD - Knee Right 3 View - 01/14/2022 1:13 pm CLINICAL HISTORY: PAIN COMPARISON: No comparisons FINDINGS: No fracture, dislocation or joint effusion.
[2022-01-14] MEDS ORDERED: HYDROCODONE/APAP 7.5/325 MG TAB ONE (13:41)
--- NOTE | 2022-01-14 13:42 | EDPHYS ---
Physician Documentation [facility] Name: Silvia Kiran Age: 51 yrs Sex: Female : 1970 Arrival Date: 01/14/2022 Time: 12:01 Bed 11 Private MD: ED Physician Sourav Metzger HPI: 01/14 14:42 This 51 yrs old Female presents to ER via Ambulatory with complaints of Knee Pain - kb swelling, Fall Injury. 14:42 Details of fall: The patient fell from an upright position, while walking. Onset: The kb symptoms/episode began/occurred 3 day(s) ago. Associated injuries: The patient sustained right hip, painful injury, right knee, painful injury, swelling. Severity of symptoms: At their worst the symptoms were moderate, in the emergency department the symptoms are unchanged. The patient has experienced a previous episode. The patient has not recently seen a physician. Pt reports she fell a couple of weeks ago onto right knee, then fell onto it again 3 days ago. c/o pain and swelling to right knee. Also reports pain to right hip. Historical: - Allergies: 12:09 iv dye iodine; aa5 - PMHx: 12:09 Depression; Diabetes - NIDDM; Hypertension; repiratory problems; aa5 - PSHx: 12:09 Total abdominal hysterectomy; tumors removed; aa5 - Immunization history:: Adult Immunizations unknown. - Social history:: Smoking status: Patient denies any tobacco usage or history of. ROS: 14:40 Constitutional: Negative for fever, chills, and weight loss. kb 14:40 MS/extremity: Positive for pain, of the right hip and right knee. 14:40 All other systems are negative. Exam: 14:40 Constitutional: This is a well developed, well nourished patient who is awake, alert, kb and in no acute distress. Head/Face: Normocephalic, atraumatic. ENT: Moist Mucous membranes Cardiovascular: Regular rate and rhythm with a normal S1 and S2. No gallops, murmurs, or rubs. No pulse deficits. Respiratory: Respirations even and unlabored. No increased work of breathing. Talking in full sentences Neuro: Awake and alert, GCS 15, oriented to person, place, time, and situation. Moves all extremities. Normal gait. Psych: Awake, alert, with orientation to person, place and time. Behavior, mood, and affect are within normal limits. 14:40 Musculoskeletal/extremity: Extremities: grossly normal except: noted in the right knee: abrasion, pain, swelling, tenderness, ROM: intact in all extremities, Circulation is intact in all extremities. Sensation intact. Weight bearing: can bear weight with assistance only. 14:40 Skin: injury, abrasion(s), of the right knee. Vital Signs: 12:09 BP 144 / 82; Pulse 96; Resp 18 S; Temp 98.0(TE); Pulse Ox 98% on R/A; Weight 83.91 kg aa5 (R); Height 4 ft. 10 in. (147.32 cm) (R); 12:09 Body Mass Index 38.66 (83.91 kg, 147.32 cm) aa5 MDM: 12:09 Patient medically screened. kb 13:32 Data reviewed: vital signs, nurses notes. Data interpreted: Pulse oximetry: on room air kb is 98 %. Interpretation: normal. Counseling: I had a detailed discussion with the patient and/or guardian regarding: the historical points, exam findings, and any diagnostic results supporting the discharge/admit diagnosis, radiology results, the need for outpatient follow up, a orthopedic surgeon, to return to the emergency department if symptoms worsen or persist or if there are any questions or concerns that arise at home. 01/14 12:09 Order name: Knee Right 3 View XRAY; Complete Time: 13:30 kb 01/14 12:16 Order name: Hip Right 2 View XRAY; Complete Time: 13:30 aa5 Administered Medications: 13:37 Drug: [place] (HYDROcodone-acetaminophen) (7.5 mg-325 mg) 1 tabs Route: PO; aa5 14:03 Follow up: Response: No adverse reaction; Pain is decreased ss Disposition Summary: 01/14/22 13:42 Discharge Ordered Location: Home kb Condition: Stable kb Diagnosis - Pain in right knee kb Followup: kb - With: Emergency Department - When: As needed - Reason: Worsening of condition Followup: kb - With: Private Physician - When: 2 - 3 days - Reason: Recheck today's complaints, Continuance of care, Re-evaluation by your physician Discharge Instructions: - Discharge Summary Sheet kb - Acute Knee Pain, Adult, [id number] kb Forms: - Medication Reconciliation Form kb - Thank You Letter kb - Antibiotic Education kb - Prescription Opioid Use kb Prescriptions: - Diclofenac Sodium 75 mg Oral tablet,delayed release (DR/EC) - take 1 tablet by ORAL route 2 times per day As needed; 30 tablet; Refills: 0, kb Product Selection Permitted Signatures: Dispatcher [employer] Aisha Billings, MEIC Rajwinder Malhotra RN RN aa5 Nohelia Tate RN ss
--- NOTE | 2022-01-14 13:42 | ER ---
Nurse's Notes [facility] Name: Silvia Kiran Age: 51 yrs Sex: Female : 1970 Arrival Date: 01/14/2022 Time: 12:01 Bed 11 Private MD: Diagnosis: Pain in right knee Presentation: 01/14 12:09 Chief complaint: Patient states: "I fell twice and hurt my right knee". Scabs noted to aa5 right knee. Coronavirus screen: At this time, the client does not indicate any symptoms associated with coronavirus-19. Ebola Screen: No symptoms or risks identified at this time. Initial Sepsis Screen: Does the patient meet any 2 criteria? No. Patient's initial sepsis screen is negative. Does the patient have a suspected source of infection? No. Patient's initial sepsis screen is negative. Risk Assessment: Do you want to hurt yourself or someone else? Patient reports no desire to harm self or others. Onset of symptoms was December 2021. 12:09 Method Of Arrival: Ambulatory aa5 12:09 Acuity: USNG 4 aa5 Historical: - Allergies: 12:09 iv dye iodine; aa5 - PMHx: 12:09 Depression; Diabetes - NIDDM; Hypertension; repiratory problems; aa5 - PSHx: 12:09 Total abdominal hysterectomy; tumors removed; aa5 - Immunization history:: Adult Immunizations unknown. - Social history:: Smoking status: Patient denies any tobacco usage or history of. Screenin:16 Abuse screen: Denies threats or abuse. Denies injuries from another. Nutritional ss screening: No deficits noted. Tuberculosis screening: Never had TB. Fall Risk None identified. Assessment: 12:16 General: Appears in no apparent distress. Behavior is calm, cooperative. Pain: ss Complains of pain in right knee, R hip Quality of pain is described as aching, tender. Neuro: Level of Consciousness is awake, alert. Respiratory: Airway is patent Respiratory effort is even, unlabored, Respiratory pattern is regular, symmetrical. Derm: Skin is intact, is healthy with good turgor, Skin is pink, warm \\T\\ dry. normal. Musculoskeletal: Circulation, motion, and sensation intact. Range of motion: intact in all extremities. Vital Signs: 12:09 BP 144 / 82; Pulse 96; Resp 18 S; Temp 98.0(TE); Pulse Ox 98% on R/A; Weight 83.91 kg aa5 (R); Height 4 ft. 10 in. (147.32 cm) (R); 12:09 Body Mass Index 38.66 (83.91 kg, 147.32 cm) aa5 ED Course: 12:01 Patient arrived in ED. as 12:05 Aisha Lomax FNP-C [facility]. kb 12:05 Sourav Metzger MD is Attending Physician. kb 12:09 Arm band placed on. aa5 12:11 Triage completed. aa5 12:16 Nohelia Tate, TERRY is Primary Nurse. ss 12:16 Patient has correct armband on for positive identification. Bed in low position. ss 13:11 X-ray completed. Portable x-ray completed in exam room. Patient tolerated procedure mh1 well. 13:15 Knee Right 3 View XRAY In Process Unspecified. EDMS 13:15 Hip Right 2 View XRAY In Process Unspecified. EDMS 14:02 No provider procedures requiring assistance completed. Patient did not have IV access ss during this emergency room visit. Administered Medications: 13:37 Drug: [place] (HYDROcodone-acetaminophen) (7.5 mg-325 mg) 1 tabs Route: PO; aa5 14:03 Follow up: Response: No adverse reaction; Pain is decreased ss Medication: 12:16 VIS not applicable for this client. ss Outcome: 13:42 Discharge ordered by . kb 14:02 Discharged to home ambulatory, with family. ss 14:02 Condition: good 14:02 Discharge instructions given to patient, family, Instructed on discharge instructions, follow up and referral plans. medication usage, Demonstrated understanding of instructions, follow-up care, medications, Prescriptions given X 1. 14:02 Patient left the ED. ss Signatures: Dispatcher [employer] EDMD Aisha Lomax FNP-C FNP-Cnadace Parks 1 Patti Sunshine Audri, RN RN aa5 Nohelia Tate, TERRY RN ss
[2022-01-14 14:08] VITALS: BP 144/82; TEMP 98; O2SAT 98
== END 2022-01-14 14:02 | disposition home or self-care (01) ==
LOC: ER 11:59
DX: M25.561 Pain in right knee (principal); W18.30XA Fall on same level, unspecified, initial encounter; Y93.9 Activity, unspecified; Y92.9 Unspecified place or not applicable; Z91.09 Other allergy status, other than to drugs and biological substances; E11.9 Type 2 diabetes mellitus without complications; I10 Essential (primary) hypertension; F32.A Depression, unspecified
CPT/HCPCS: 99283

== ENCOUNTER 2022-02-04 22:43 | Emergency (ER) | payer SELFPAY ==
[2022-02-04 23:24] LABS: Absolute Lymphocytes (CBC) 1.3 K/uL (0.7-4.9); Hematocrit 45.7 % (36.0-45.0); MCV 92.5 fL (80-100); MPV 9.4 fL (7.6-11.3); RBC Red Blood Cell Count 4.94 M/uL (3.86-4.86)
[2022-02-04 23:58] LABS: C-Reactive Protein 54.5 mg/L (<3.00); Potassium 4.3 mmol/L (3.5-5.1); Troponin High Sensitivity 24.1 pg/mL (<58.9)
[2022-02-05 00:13] LABS: Ferritin 235.4 ng/mL (8-388)
[2022-02-05] MEDS ORDERED: ONDANSETRON 4 MG/2 ML VIAL ONE (00:36)
[2022-02-05] MEDS ORDERED: MORPHINE 4 MG/ML SYR ONE (00:36)
[2022-02-05] MEDS ORDERED: NA CHLORIDE 0.9% 1,000 ML ONE (00:36)
--- NOTE | 2022-02-05 00:38 | ER ---
Nurse's Notes [facility] Name: Silvia Kiran Age: 51 yrs Sex: Female : 1970 Arrival Date: 02/04/2022 Time: 22:44 Bed 6 Private MD: Diagnosis: Hyperglycemia, unspecified;Coronavirus infection, unspecified Presentation: 02/04 22:47 Chief complaint: Patient states: "I took a covid test at home and I am positive. It tw5 hurts to breath.". Coronavirus screen: Vaccine status: Patient reports being unvaccinated. Ebola Screen: Patient negative for fever greater than or equal to 101.5 degrees Fahrenheit, and additional compatible Ebola Virus Disease symptoms Patient denies exposure to infectious person. Patient denies travel to an Ebola-affected area in the 21 days before illness onset. Initial Sepsis Screen: Does the patient meet any 2 criteria? HR > 90 bpm. Does the patient have a suspected source of infection? No. Patient's initial sepsis screen is negative. Risk Assessment: Do you want to hurt yourself or someone else? Patient reports no desire to harm self or others. Onset of symptoms was February 03, 2022. 22:47 Method Of Arrival: Wheelchair tw5 22:47 Acuity: SUNG 3 tw5 Triage Assessment: 22:48 General: Appears uncomfortable, Behavior is cooperative, appropriate for age. Pain: tw5 Complains of pain in chest Pain currently is 10 out of 10 on a pain scale. Respiratory: Reports shortness of breath at rest cough that is Onset: The symptoms/episode began/occurred yesterday, the patient has mild shortness of breath. 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 - Social history:: Smoking status: Patient denies any tobacco usage or history of. Screenin/10 01:04 Abuse screen: Denies threats or abuse. Nutritional screening: No deficits noted. kl Tuberculosis screening: No symptoms or risk factors identified. Fall Risk None identified. Assessment: 02/04 23:30 General: Appears in no apparent distress. Behavior is calm, cooperative. Pain: kl Complains of pain in low back area and chest Pain currently is 8 out of 10 on a pain scale. Neuro: No deficits noted. Cardiovascular: No deficits noted. Rhythm is sinus rhythm. Respiratory: Airway is patent Respiratory effort is even, unlabored, Breath sounds are clear. Vital Signs: 22:47 BP 139 / 103; Pulse 107; Resp 20; Temp 99; Pulse Ox 100% ; Weight 90.72 kg; Height 4 tw5 ft. 10 in. (147.32 cm); Pain 10/10; 02/05 01:23 BP 151 / 77; Pulse 91; Resp 16; Temp 98; Pulse Ox 100% on R/A; Pain 0/10; kl 02/04 22:47 Body Mass Index 41.80 (90.72 kg, 147.32 cm) tw5 ED Course: 02/04 22:44 Patient arrived in ED. bp1 22:46 Antonio Jeffery, TERRY is Primary Nurse. as6 22:48 Triage completed. tw5 22:48 Arm band placed on Patient placed in an exam room. tw5 22:56 Aisha Lomax FNP-C is [facility]. kb 22:56 Hector Houston MD is Attending Physician. kb 23:14 Inserted saline lock: 18 gauge in right antecubital area, using aseptic technique. as6 Blood collected. 23:21 Initial lab(s) drawn, by ED staff, sent to lab. EKG done, by ED staff, reviewed by [facility] Aisha BRICE. 23:22 Patient has correct armband on for positive identification. Placed in gown. Bed in low mh5 position. Call light in reach. Side rails up X 1. Adult w/ patient. Warm blanket given. secured entrance monitor on. Pulse ox on. NIBP on. 23:47 CXR XRAY In Process Unspecified. EDMS 02/05 01:24 No provider procedures requiring assistance completed. IV discontinued, intact, kl bleeding controlled, No redness/swelling at site. Pressure dressing applied. Administered Medications: 00:33 Drug: morphine 4 mg Route: IVP; Infused Over: 4 mins; Site: left antecubital; as6 00:33 Drug: Zofran (Ondansetron) 4 mg Route: IVP; Site: left antecubital; as6 00:33 Drug: NS 0.9% 1000 ml Route: IV; Rate: 1000 ml; Site: left antecubital; as6 Medication: 01:25 VIS not applicable for this client. kl Outcome: 00:38 Discharge ordered by . enrique 01:24 Discharged to home via wheelchair. kl 01:24 Condition: improved 01:24 Discharge instructions given to patient, Instructed on discharge instructions, follow up and referral plans. medication usage, Demonstrated understanding of instructions, follow-up care, medications, Prescriptions given X 3. 01:25 Patient left the ED. kl Signatures: Dispatcher [employer] EDNM Aisha Lomax, ASSEMBLY LOADER-C ASSEMBLY LOADER-Sirena Trinh, RN Cristal Caballero [facility] April Lim Tiffany 5 Antonio Jeffery, TERRY RN as6
--- NOTE | 2022-02-05 00:39 | EDPHYS ---
Physician Documentation [facility] Name: Silvia Kiran Age: 51 yrs Sex: Female : 1970 Arrival Date: 02/04/2022 Time: 22:44 Bed 6 Private MD: ED Physician Hector Houston HPI: 02/05 00:20 This 51 yrs old Female presents to ER via Wheelchair with complaints of Breathing kb Difficulty. 00:20 The patient has shortness of breath at rest. Onset: The symptoms/episode began/occurred kb yesterday. Duration: The symptoms are continuous. The patient's shortness of breath is aggravated by light activity. Associated signs and symptoms: The patient has no apparent associated signs or symptoms. Severity of symptoms: At their worst the symptoms were moderate in the emergency department the symptoms are unchanged. The patient has not experienced similar symptoms in the past. The patient has not recently seen a physician. Pt reports low back pain, shortness of breath, pain upon breathing, malaise that started yesterday. Took a home covid test today and was positive. . 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 - Social history:: Smoking status: Patient denies any tobacco usage or history of. ROS: 02/05 00:21 Cardiovascular: Negative for chest pain, palpitations, and edema. kb Constitutional: Positive for body aches, malaise. Respiratory: Positive for cough, shortness of breath. Back: Positive for pain at rest, pain with movement, of the low back area. All other systems are negative. Exam: 00:19 Constitutional: This is a well developed, well nourished patient who is awake, alert, kb and in no acute distress. Head/Face: Normocephalic, atraumatic. ENT: Moist Mucous membranes Cardiovascular: Regular rate and rhythm with a normal S1 and S2. No gallops, murmurs, or rubs. No pulse deficits. Respiratory: Respirations even and unlabored. No increased work of breathing. Talking in full sentences Abdomen/GI: Soft, non-tender. No distention Skin: Warm, dry with normal turgor. Normal color. MS/ Extremity: Pulses equal, no cyanosis. Neurovascular intact. Full, normal range of motion. Neuro: Awake and alert, GCS 15, oriented to person, place, time, and situation. Moves all extremities. Normal gait. Psych: Awake, alert, with orientation to person, place and time. Behavior, mood, and affect are within normal limits. Vital Signs: 02/04 22:47 BP 139 / 103; Pulse 107; Resp 20; Temp 99; Pulse Ox 100% ; Weight 90.72 kg; Height 4 tw5 ft. 10 in. (147.32 cm); Pain 10/10; 02/05 01:23 BP 151 / 77; Pulse 91; Resp 16; Temp 98; Pulse Ox 100% on R/A; Pain 0/10; kl 02/04 22:47 Body Mass Index 41.80 (90.72 kg, 147.32 cm) tw5 MDM: 02/04 22:57 Patient medically screened. kb 02/05 00:19 Data reviewed: vital signs, nurses notes. Data interpreted: Pulse oximetry: on room air kb is 100 %. Interpretation: normal. Counseling: I had a detailed discussion with the patient and/or guardian regarding: the historical points, exam findings, and any diagnostic results supporting the discharge/admit diagnosis, lab results, radiology results, the need for outpatient follow up, a family practitioner, to return to the emergency department if symptoms worsen or persist or if there are any questions or concerns that arise at home. 02/04 22:58 Order name: BMP; Complete Time: 00:19 kb 02/04 22:58 Order name: C-Reactive Protein; Complete Time: 00:19 kb 02/04 22:58 Order name: CBC with Diff; Complete Time: 23:28 kb 02/04 22:58 Order name: D-Dimer; Complete Time: 23:28 kb 02/04 22:58 Order name: Ferritin; Complete Time: 00:19 kb 02/04 22:58 Order name: Troponin HS; Complete Time: 00:19 kb 02/04 22:58 Order name: CXR XRAY kb 02/04 22:58 Order name: EKG; Complete Time: 22:59 kb 02/04 23:09 Order name: Glucose, Ancillary Testing; Complete Time: 23:18 EDMS 02/04 23:39 Order name: COVID-19 SARS RT PCR (Document "Date of Onset" if Symptomatic) kb 02/04 22:58 Order name: Cardiac monitoring; Complete Time: 23:18 kb 02/04 22:58 Order name: Droplet/Contact Precautions; Complete Time: 23:02 kb 02/04 22:58 Order name: EKG - Nurse/Tech; Complete Time: 23:18 kb 02/04 22:58 Order name: IV Start; Complete Time: 23:14 kb 02/04 22:58 Order name: Labs collected and sent; Complete Time: 23:14 kb 02/04 22:58 Order name: O2 Per Protocol; Complete Time: 23:02 kb 02/04 22:58 Order name: O2 Sat Monitoring; Complete Time: 23:03 kb Administered Medications: 00:33 Drug: morphine 4 mg Route: IVP; Infused Over: 4 mins; Site: left antecubital; as6 00:33 Drug: Zofran (Ondansetron) 4 mg Route: IVP; Site: left antecubital; as6 00:33 Drug: NS 0.9% 1000 ml Route: IV; Rate: 1000 ml; Site: left antecubital; as6 Disposition Summary: 02/05/22 00:38 Discharge Ordered Location: Home kb Condition: Stable kb Diagnosis - Hyperglycemia, unspecified kb - Coronavirus infection, unspecified kb Followup: kb - With: Emergency Department - When: As needed - Reason: Worsening of condition Followup: kb - With: Private Physician - When: 2 - 3 days - Reason: Recheck today's complaints, Continuance of care, Re-evaluation by your physician Discharge Instructions: - Discharge Summary Sheet kb - Viral Respiratory Infection, [id number] kb - COVID-19 kb Forms: - Medication Reconciliation Form kb - Thank You Letter kb - Antibiotic Education kb - Prescription Opioid Use kb Prescriptions: - Prednisone 20 mg Oral Tablet - take 1 tablet by ORAL route once daily for 5 days; 5 tablet; Refills: 0, kb Product Selection Permitted - Glipizide 5 mg Oral Tablet - take 1 tablet by ORAL route 2 times per day before a meal; 60 tablet; Refills: kb 0, Product Selection Permitted - Zithromax 500 mg Oral Tablet - take 1 tablet by ORAL route once daily for 5 days; 5 tablet; Refills: 0, kb Product Selection Permitted Signatures: Dispatcher [employer] Aisha Billings, SOILS TECHNICIAN-C ADALBERTO-Ckb Sirena Mckenna, RN RN Thierry Shafer SOILS TECHNICIAN-C SOILS TECHNICIAN-Cla1 Liat Lal tw5 Antonio Jeffery RN RN as6
[2022-02-05] MEDS ORDERED: INSULIN -REGULAR HUMAN 50 UNIT/0.5 ML ML ONE (00:50)
[2022-02-05 01:40] VITALS: O2SAT 100
[2022-02-05 01:51] VITALS: BP 151/77; TEMP 98
--- NOTE | 2022-02-06 12:14 | RAD REPORT ---
EXAM DESCRIPTION: Chest Radiography COMPARISON: None. CLINICAL HISTORY: [facility] DYSPNEA FINDINGS: A single AP view of the chest demonstrates a normal cardiomediastinal silhouette. No pneumothorax or pleural effusion. No consolidation or pulmonary edema. Osseous structures are intact. IMPRESSION: No acute chest process. Electronically signed by: Dustin Crawford MD 02/05/2022 12:05 AM CDT Due to temporary technical issues with the PACS/Fluency reporting system, reports are being signed by the in house radiologists without review as a courtesy to insure prompt reporting. The interpreting radiologist is fully responsible for the content of the report.
--- NOTE | 2022-02-06 13:49 | EKG ---
Test Date: 2022-02-04 Test Time: 23:17:35 Rn Admissions: MAYDA MEASUREMENT RESULTS: Intervals: Rate: 99 TX: 144 QRSD: 80 QT: 366 QTc: 469 [place]: P: 28 TX: 144 QRS: 34 T: 89 INTERPRETIVE STATEMENTS: Normal sinus rhythm Anterior infarct, age undetermined Abnormal ECG Compared to ECG 11/06/2020 09:18:53 Myocardial infarct finding now present Electronically Signed On 02-06-22 13:46:41 CDT by Manuelito Zhong
== END 2022-02-05 01:25 | disposition home or self-care (01) ==
LOC: ER 22:43
DX: U07.1 COVID-19 (principal); E11.65 Type 2 diabetes mellitus with hyperglycemia; I10 Essential (primary) hypertension; Z91.041 Radiographic dye allergy status
CPT/HCPCS: 36415; 71045; 80048; 82728; 82947; 84484; 85025; 85379; 86140; 93005; 96374; 96375; 99284; J1815; J2405; J7030; U0003

== ENCOUNTER 2022-12-03 21:32 | Emergency (ER) | payer OTHER, SELFPAY ==
--- OUTSIDE RECORDS SUMMARY | 2022-12-03 21:37 | XMS REPORT | Continuity of Care Document ---
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 Mohsen Leo [facility] TESTING) Medical [place] CT ABDOMEN PELVIS WO 2021-10-26 06:47:00 Mohsen Leo [facility] CONTRAST Medical Branch XR CHEST 2 VW 2021-10-26 06:41:00 Mohsen Leo o f [place] [facility] CONSENT/REFUSAL FOR 2021-10-26 06:08:00 Doctor Unassigned, No Un [facility] DIAGNOSIS AND TREATMENT Name Medical Branch Plan of Care Planned Activity Planned Date Details Comments Source Future Scheduled Test 2023-04-29 IMM Influenza Seasonal [facility] 00:00:00 (>/= 19 yrs) [code = IMM Influenza Seasonal (>/= 19 yrs)] Future Scheduled Test 2021-07-30 Hemoglobin A1c [facility] 00:00:00 measurement (procedure) [code = 06991561] Future Scheduled Test 2021-07-30 Hemoglobin A1c [facility] 00:00:00 measurement (procedure) [code = 34609100] Future Scheduled Test 2021-04-29 IMM Influenza Seasonal [facility] 00:00:00 Apr to September (>/= 19 yrs) [code = IMM Influenza Seasonal Apr to September (>/= 19 yrs)] Future Scheduled Test 2020 Screening for malignant [facility] 00:00:00 neoplasm of colon (procedure) [code = 922260851] Future Scheduled Test 2020 Screening for malignant [facility] 00:00:00 neoplasm of colon (procedure) [code = 507363571] Future Scheduled Test 2010 Breast Cancer Scrn [facility] 00:00:00 (Yearly) [code = Breast Cancer Scrn (Yearly)] Future Scheduled Test 2010 Breast Cancer Scrn [facility] 00:00:00 (Yearly) [code = Breast Cancer Scrn (Yearly)] Future Scheduled Test 2000 Screening for malignant [facility] 00:00:00 neoplasm of cervix (procedure) [code = 057786276] Future Scheduled Test 2000 Screening for malignant [facility] 00:00:00 neoplasm of cervix (procedure) [code = 565181570] Future Scheduled Test 2000 Screening for malignant [facility] 00:00:00 neoplasm of cervix (procedure) [code = 074810610] Future Scheduled Test 2000 Screening for malignant [facility] 00:00:00 neoplasm of cervix (procedure) [code = 911306855] Future Scheduled Test 1988 Diabetic foot [facility] 00:00:00 examination (regime/therapy) [code = 528593485] Future Scheduled Test 1988 Urine screening for [facility] 00:00:00 protein (procedure) [code = 726072678] Future Scheduled Test 1988 DM Retinal Exam [facility] 00:00:00 (Yearly) [code = DM Retinal Exam (Yearly)] Future Scheduled Test 1988 DM Foot Exam (Yearly) [facility] 00:00:00 [code = DM Foot Exam (Yearly)] Future Scheduled Test 1988 Urine screening for [facility] 00:00:00 protein (procedure) [code = 394014673] Future Scheduled Test 1988 DM Retinal Exam [facility] 00:00:00 (Yearly) [code = DM Retinal Exam (Yearly)] Future Scheduled Test 1976 Imm Pneumococcal 0-64 [facility] 00:00:00 (1 - PCV) [code = Imm Pneumococcal 0-64 (1 - PCV)] Future Scheduled Test 1976 Imm Pneumococcal 0-64 [facility] 00:00:00 (1 of 2 - PPSV23) [code = Imm Pneumococcal 0-64 (1 of 2 - PPSV23)] Future Scheduled Test 1975 COVID-19 Vaccine (1) [facility] 00:00:00 [code = COVID-19 Vaccine (1)] Future Scheduled Test 1971-02-17 COVID-19 Vaccine (#1) [facility] 00:00:00 [code = COVID-19 Vaccine (#1)] Encounters Start End Encounter Admission Attending Care Care Encounter Source Date/Time Date/Time Type Type Clinicians Facility Department ID 2022-09-20 2022-09-20 Orders Doctor GUSTAVO [id number] [id number] [facility] 00:00:00 00:00:00 Only Unassigned, MART 350.1.13.10 ity of [facility] 4.2.7.2.686 [place] [phone] Medi hung 009 Branch 2022-07-25 2022-07-25 Orders Doctor GUSTAVO Swan2.840.114 [id number] [facility] 00:00:00 00:00:00 Only Unassigned, MART 350.1.13.10 ity of [facility] 4.2.7.2.686 [place] [phone] Medi hung 009 Branch 2022-07-04 2022-07-05 Emergency X SIA [facility] ERT [id number] Univers 23:33:00 04:01:00 CHARLIE ity of [place] [facility] 2022-07-04 2022-07-05 Emergency Dellis, TRAUMA [id number] Univers 23:33:00 04:01:00 Charlie [place] 350.1.13.10 [id number] [address] 2022-05-29 2022-05-29 Outpatient DUNG SHARP, [facility] [id number] [facility] 08:00:00 08:00:00 FLORENCE 73 [facility] 2022-04-22 2022-04-22 Emergency X LEVI HERNANDEZ [facility] ERT [id number] Univers 03:29:00 06:52:00 ity of [place] [facility] 2022-04-22 2022-04-22 Emergency Levi Hernandez TRAU[place] [id number] Univers 03:29:00 06:52:00 W CENTER 350.1.13.10 [place] [id number] [facility] 014 [place] 2022-02-02 2022-02-02 Orders Doctor GUSTAVO [id number] [id number] Univers 00:00:00 00:00:00 Only Unassigned, MART 350.1.13.10 ity of [facility] 4.2.7.2.686 [place] [id number] [facility] 009 [place] 2021-12-15 2021-12-15 Orders Doctor GUSTAVO [id number] [id number] Univers 00:00:00 00:00:00 Only Unassigned, MART 350.1.13.10 ity of [facility] 4.2.7.2.686 [place] [id number] [address] 2021-12-06 2021-12-07 Emergency X SUSAN, [facility] ERT [id number] Univers 23:37:00 02:48:[address] [facility] 2021-12-06 2021-12-07 Emergency Balbuena, TRAU[place] [id number] Univers 23:37:00 02:48:00 Armen Whitney CENTER 350.1.13.10 [place] [id number] [address] 2021-10-26 2021-10-26 Emergency Ahmet, TRAU[place] 1.2.019.930 [id number] Univers 01:15:00 04:12:00 Mohsen Klein [place] 350.1.13.10 [place] [id number] [address] 2021-10-26 2021-10-26 Emergency X AHMET, [facility] ERT [id number] Univers 01:15:00 04:12:00 MOHSEN [facility] 2021-09-14 2021-09-14 Emergency [facility] [id number] [place] 23:04:00 23:27:00 [facility] 2021-09-14 2021-09-14 Emergency [facility] [id number] [place] 00:00:00 00:00:00 [facility] 2020-07-30 2020-08-02 In[facility] [id number] [place] 15:20:00 16:57:00 PIEDAD [facility] 2020-07-30 2020-07-30 Emergency [facility] [id number] [place] 16:49:10 16:54:47 [facility] 2019-05-30 2019-05-30 Emergency X AUFDERHEIDE [facility] ERT [id number] Univers 09:14:59 11:46:00 , MARCOS [facility] Results Test Description Test Time Test Comments Results Result Comments Source TROPONIN I 2022-07-05 09:10:00 Test Item Value Reference Range Interpretation Comme nts TROPONIN I (test code = 0.002 ng/mL See_Comment [Au tomated message] The 3690623990) system which ge nerated this result tra [...] biotin. Lab Interpretation Normal (test code = 92828-4) [facility] [id number] 09:10:00 Test Item Value Reference Range Interpretation Comments NT-proBNP (test code 25 pg/mL See_Comment [Autom ated = 2737728481) message] The system which generated this result transmitted reference range : <=125. The reference range was not used to interpret this result as normal/abnormal . JESUS (test code = JESUS) Biotin has been reported to cause a negative bias, interpret results relative to patient's use of biotin. Lab Interpretation Normal (test code = 35171-7) [facility] ([id number])2022-07-05 07:25:13 Test Item Value Reference Range Interpretation Comments NA (test code = 133 mmol/L 135-145 L 0630174308) K (test code = 4.5 mmol/L 3.5-5.0 6707618566) CL (test code = 98 mmol/L 98-108 6804086691) CO2 TOTAL (test code = 28 mmol/L 23-31 7715200346) AGAP (test code = 2-16 6205344200) BUN (test code = 18 mg/dL 7-23 9471511813) GLUCOSE (test code = 350 mg/dL 70-110 H 4696295419) CREATININE (test code = 0.71 mg/dL 0.50-1.04 6100375804) TOTAL BILI (test code = 0.7 mg/dL 0.1-1.7 1765350310) CALCIUM (test code = 9.4 mg/dL 8.6-10.6 5647117604) T PROTEIN (test code = 7.0 g/dL 6.3-8.2 2112679518) ALBUMIN (test code = 4.1 g/dL 3.5-5.0 5583397185) ALK PHOS (test code = 114 U/L 34-122 0058481238) ALTv (test code = 60 U/L 5-35 H 1742-6) AST(SGOT) (test code = 42 U/L 13-40 H 9630865474) eGFR (test code = mL/min/1.73m2 7773417257) JESUS (test code = JESUS) Association of [...] tests). Lab Interpretation Abnormal (test code = 28572-5) [facility] [id number] 07:25:13 Test Item Value Reference Range Interpretation Comments LIPASE (test code = 1210623921) 104 U/L 0-220 Lab Interpretation (test code = Normal 66520-7) [facility] with [id number] 07:13:32 Test Item Value Reference Range Interpretation Comments WBC (test code = See_Comment [Automated 4090-2) message] The sy stem which generated this [...] as normal/abnormal . HGB (test code = 16.2 g/dL 11.6-15.0 H 718-7) HCT (test code = 45.9 % 35.7-45.2 H 4544-3) MCV (test code = 89.6 fL 80.6-95.5 787-2) MCH (test code = 31.6 pg 25.9-32.8 785-6) MCHC (test code = 35.3 g/dL 31.6-35.1 H 786-4) RDW-SD (test code = 40.9 fL 39.0-49.9 84682-1) RDW-CV (test code = 12.5 % 12.0-15.5 788-0) PLT (test code = See_Comment [Automated 777-3) message] The sy stem which generated this result transmitted reference range : 166 - 358 10*3/ ?L. The reference r jori was not used to interpret this result as normal/abnormal . MPV (test code = 11.3 fL 9.5-12.9 44005-2) NRBC/100 WBC (test See_Comment [Automat ed code = 2207243124) message] The system which generated this result transmitted reference range : 0.0 - 10.0 /100 WBCs. The refer ence range was not u sed to interpret th is result as normal/abnormal . NRBC x10^3 (test code See_Comment [Auto mated = 2046806860) message] The s ystem which generated this result transmitted reference range : 10*3/?L. The reference range was not used to interpret this result as normal/abnormal . GRAN MAT (NEUT) % 59.4 % (test code = 770-8) IMM GRAN % (test code 0.30 % = 1592234103) LYMPH % (test code = 29.6 % 736-9) MONO % (test code = 8.4 % 5905-5) EOS % (test code = 1.3 % 713-8) BASO % (test code = 1.0 % 706-2) GRAN MAT x10^3(ANC) 5.38 10*3/uL 1.88-7.09 (test code = 3935536483) IMM GRAN x10^3 (test 0.03 10*3/uL 0.00-0.06 code = 8825125962) LYMPH x10^3 (test code 2.68 10*3/uL 1.32-3.29 = 731-0) MONO x10^3 (test code 0.76 10*3/uL 0.33-0.92 = 742-7) EOS x10^3 (test code = 0.12 10*3/uL 0.03-0.39 711-2) BASO x10^3 (test code 0.09 10*3/uL 0.01-0.07 H = 704-7) Lab Interpretation Abnormal (test code = 48732-0) [facility] (AUTOMATED)2022-04-22 09:06:42 Test Item Value Reference Range Interpretation Comments POCT GLU (test code = 4012473248) 286 mg/dL 70-110 H Lab Interpretation (test code = Abnormal 13451-9) [facility] [id number] 07:57:54 Test Item Value Reference Interpretation Comments Range TROPONIN I (test 0.000 ng/mL See_Comment [Automated code = 0083921708) message] The system which generated this result transmitted reference range : <=0.034. The reference range was not used to interpret this result as normal/abnormal . JESUS (test code = Reference (Normal) JESUS) Range (defined by the 99th percentile reference [...] biotin. Lab Interpretation Normal (test code = 14278-4) [facility] [id number] 07:57:54 Test Item Value Reference Range Interpretation Comments NT-proBNP (test code 77 pg/mL See_Comment [Autom ated = 2857339027) message] The system which generated this result transmitted reference range : <=125. The reference range was not used to interpret this result as normal/abnormal . JESUS (test code = JESUS) Biotin has been reported to cause a negative bias, interpret results relative to patient's use of biotin. Lab Interpretation Normal (test code = 72643-7) [facility] METABOLIC PANEL ([id number])2021-10-26 07:44:14 Test Item Value Reference Range Interpretation Comments NA (test code = 131 mmol/L 135-145 L 3063031501) K (test code = 4.3 mmol/L 3.5-5.0 4409129183) CL (test code = 99 mmol/L 98-108 4280479990) CO2 TOTAL (test code = 29 mmol/L 23-31 9031615855) AGAP (test code = 2-16 3464111811) BUN (test code = 20 mg/dL 7-23 3725614219) GLUCOSE (test code = 216 mg/dL 70-110 H 9337377477) CREATININE (test code = 0.70 mg/dL 0.50-1.04 0582066150) TOTAL BILI (test code = 0.5 mg/dL 0.1-1.8 3394775559) CALCIUM (test code = 9.1 mg/dL 8.6-10.6 8303232650) T PROTEIN (test code = 7.1 g/dL 6.3-8.2 4295787440) ALBUMIN (test code = 3.8 g/dL 3.5-5.0 0545490189) ALK PHOS (test code = 107 U/L 34-122 9966989690) ALTv (test code = 32 U/L 5-35 1742-6) AST(SGOT) (test code = 27 U/L 13-40 9601511356) eGFR (test code = mL/min/1.73m2 6549708785) JESUS (test code = JESUS) Association of [...] Stage three ? + --+ --+ ------+| ?1529 ?| ?Stage four ? | ? Stage [...] tests). Lab Interpretation Abnormal (test code = 78698-1) [facility]2022-03-30 07:44:14 Test Item Value Reference Range Interpretation Comments PHOSPHORUS (test code = 9935894124) 4.3 mg/dL 2.5-5.0 Lab Interpretation (test code = Normal 41935-4) [facility]2022-03-30 07:44:14 Test Item Value Reference Range Interpretation Comments MAGNESIUM (test code = 8612992522) 1.8 mg/dL 1.7-2.4 Lab Interpretation (test code = Normal 58122-8) [facility] WITH [id number] 07:14:47 Test Item Value Reference Range Interpretation Comments WBC (test code = See_Comment [Automated 6490-2) message] The sy stem which generated this [...] RDW-SD (test code = 44.4 fL 39.0-49.9 44181-0) RDW-CV (test code = 13.1 % 12.0-15.5 788-0) PLT (test code = See_Comment [Automated 777-3) message] The sy stem which generated this result transmitted reference range : 166 - 358 10*3/ ?L. The reference r jori was not used to interpret this result as normal/abnormal . MPV (test code = 11.0 fL 9.5-12.9 70711-5) NRBC/100 WBC (test See_Comment [Automat ed code = 1719546357) message] The system which generated this result transmitted reference range : 0.0 - 10.0 /100 WBCs. The refer ence range was not u sed to interpret th is result as normal/abnormal . NRBC x10^3 (test code <0.01 See_Comment [Auto mated = 3474583039) message] The s ystem which generated this result transmitted reference range : 10*3/?L. The reference range was not used to interpret this result as normal/abnormal . GRAN MAT (NEUT) % 63.3 % (test code = 770-8) IMM GRAN % (test code 0.70 % = 7193366773) LYMPH % (test code = 25.8 % 736-9) MONO % (test code = 7.5 % 5905-5) EOS % (test code = 1.8 % 713-8) BASO % (test code = 0.9 % 706-2) GRAN MAT x10^3(ANC) 6.58 10*3/uL 1.88-7.09 (test code = 4438657264) IMM GRAN x10^3 (test 0.07 10*3/uL 0.00-0.06 H code = 1723809093) LYMPH x10^3 (test code 2.68 10*3/uL 1.32-3.29 = 731-0) MONO x10^3 (test code 0.78 10*3/uL 0.33-0.92 = 742-7) EOS x10^3 (test code = 0.19 10*3/uL 0.03-0.39 711-2) BASO x10^3 (test code 0.09 10*3/uL 0.01-0.07 H = 704-7) Lab Interpretation Abnormal (test code = 82619-3) [facility]"
[2022-12-03 23:09] LABS: SARS-CoV-2 Antigen Rapid Res Negative (Negative)
[2022-12-03 23:26] LABS: Specific Gravity > 1.030 (1.005-1.030); Urine Bacteria <20 /HPF (<20); Urine Bilirubin NEGATIVE (Negative); Urine Blood Negative (Negative); Urine Clarity Clear (Clear); Urine Color Light-Yellow (Yellow); Urine Glucose 4+ (Over) (Negative); Urine Mucus Slight /HPF (None Seen); Urine Protein NEGATIVE (Negative); Urine RBC <5 /HPF (None Seen); Urine Urobilinogen Normal (Normal); Urine pH 5.5 (5.0-7.0)
[2022-12-03] MEDS ORDERED: NA CHLORIDE 0.9% 1,000 ML ONE (23:45)
[2022-12-03 23:56] LABS: Lymphocytes % 31.1 % (15.3-44.8); MCV 92.3 fL (80-100); MPV 8.9 fL (7.6-11.3); RBC Red Blood Cell Count 4.65 M/uL (3.86-4.86)
[2022-12-04 00:17] LABS: Albumin 3.1 g/dL (3.4-5.0); Bilirubin Total 0.3 mg/dL (0.2-1.0); Potassium 3.5 mEq/L (3.5-5.1); Protein, Total 7.6 g/dL (6.4-8.2)
[2022-12-04] MEDS ORDERED: HYDROCODONE/CHLORPHEN 5 ML/OSYR ONE (00:27)
--- NOTE | 2022-12-04 01:18 | ER ---
Nurse's Notes [facility] Name: Silvia Kiran Age: 52 yrs Sex: Female : 1970 Arrival Date: 12/03/2022 Time: 21:32 Bed 4 Private MD: Diagnosis: Unspecified asthma with (acute) exacerbation Presentation: 12/03 21:44 Chief complaint: Patient states: I started having symptoms about a week ago. I have had kd3 a cough and i feel dehydrated and i have had a fever at home of about 100.7. I have been taking Tylenol and ibuprofen. Coronavirus screen: Vaccine status: Patient reports being unvaccinated. Ebola Screen: No symptoms or risks identified at this time. Initial Sepsis Screen: Does the patient meet any 2 criteria? No. Patient's initial sepsis screen is negative. Does the patient have a suspected source of infection? No. Patient's initial sepsis screen is negative. Risk Assessment: Do you want to hurt yourself or someone else? Patient reports no desire to harm self or others. Onset of symptoms was December 03, 2022. 21:44 Method Of Arrival: Ambulatory kd3 21:44 Acuity: SUNG 4 kd3 Triage Assessment: 21:43 General: Appears uncomfortable, Behavior is calm, cooperative. Pain: Complains of pain kd3 in left low back. Neuro: Level of Consciousness is awake, alert, obeys commands, Oriented to person, place, time, situation. 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 - Social history:: Smoking status: Patient/guardian denies using tobacco, the patient reports quitting approximately 6 years ago. Screenin/08 00:40 [facility] ED Fall Risk Assessment (Adult) History of falling in the last 3 months, vc1 including since admission No falls in past 3 months (0 pts) Confusion or Disorientation No (0 pts) Intoxicated or Sedated Yes (3 pts) Impaired Gait No (0 pts) Mobility Assist Device Used No (0 pt) Altered Elimination No (0 pt) Score/Fall Risk Level 0 - 2 = Low Risk Oriented to surroundings, Maintained a safe environment, Educated pt \T\ family on fall prevention, incl call for assistance when getting out of bed. Abuse screen: Denies threats or abuse. Nutritional screening: No deficits noted. Tuberculosis screening: No symptoms or risk factors identified. Assessment: 02:07 Reassessment: Patient and/or family updated on plan of care and expected duration. Pain vc1 level reassessed. Patient is alert, oriented x 3, equal unlabored respirations, skin warm/dry/pink. Patient states feeling better. Patient states symptoms have improved. 02:09 Reassessment: Patient appears in no apparent distress at this time. Patient denies pain kl at this time. Patient states feeling better. Patient states symptoms have improved. Vital Signs: 12/03 21:40 Pulse 91; Resp 19; Temp 98.1(O); Pulse Ox 98% on R/A; Weight 86.18 kg; Height 4 ft. 10 kd3 in. ; 21:43 BP 138 / 66; kd3 23:30 BP 147 / 83; Pulse 80; Pulse Ox 99% ; vc1 05 00:30 BP 145 / 58; Pulse 79; Pulse Ox 99% ; vc1 01:30 BP 154 / 82; Pulse 70; Resp 18; Pulse Ox 99% ; vc1 02:09 BP 148 / 78; Pulse 82; Resp 18; Temp 97.2; Pulse Ox 100% ; kl 12/03 21:40 Body Mass Index 39.71 (86.18 kg, 147.32 cm) kd3 ED Course: 12/03 21:37 Patient arrived in ED. ja2 21:45 Triage completed. kd3 21:45 Arm band placed on right wrist. kd3 21:50 Ethel Mcfarlane FNP-C is PHCP. snw 21:50 Zander Jenkins MD is Attending Physician. snw 22:00 Patient has correct armband on for positive identification. Bed in low position. Call vc1 light in reach. Pulse ox on. NIBP on. 22:49 Strep Sent. kd3 22:49 Flu Sent. kd3 22:49 SARS RAPID Sent. kd3 23:07 Urine W/Microscopic (UAM) Sent. kd3 23:07 SARS RAPID Sent. kd3 23:07 Flu Sent. kd3 23:07 Strep Sent. kd3 23:42 CBC with Diff Sent. kl 23:42 CMP Sent. kl 23:42 Inserted saline lock: 20 gauge in right forearm, using aseptic technique. Blood kl collected. 23:52 Chest Single View XRAY In Process Unspecified. EDPA 12/04 00:40 Gladys De Anda, RN is Primary Nurse. vc1 02:10 No provider procedures requiring assistance completed. IV discontinued, intact, kl bleeding controlled, No redness/swelling at site. Pressure dressing applied. Administered Medications: 12/03 23:42 Drug: NS 0.9% IV 1000 ml Route: IV; Rate: 1 bolus; Site: right forearm; kl 12/04 00:40 Follow up: IV Status: Completed infusion; IV Intake: 1000ml vc1 01:00 Follow up: IV Status: Completed infusion; IV Intake: 1000ml kl 00:23 Drug: Tussionex Pennkinetic ER PO Suspension 5 ml Route: PO; kl 02:02 Follow up: Response: No adverse reaction; Marked relief of symptoms kl 01:20 Drug: NS 0.9% IV 1000 ml Route: IV; Rate: 1 bolus; Site: right antecubital; vc1 02:09 Follow up: IV Status: Completed infusion; IV Intake: 800ml kl Medication: 02:07 VIS not applicable for this client. vc1 Intake: 00:40 IV: 1000ml; Total: 1000ml. vc1 01:00 IV: 1000ml; Total: 2000ml. kl 02:09 IV: 800ml; Total: 2800ml. kl Outcome: 01:18 Discharge ordered by . snw 02:10 Discharged to home ambulatory. kl 02:10 Condition: improved 02:10 Discharge instructions given to patient, Instructed on discharge instructions, follow up and referral plans. medication usage, Demonstrated understanding of instructions, follow-up care, medications, Prescriptions given X 4. 02:10 Patient left the ED. kl Signatures: Dispatcher [employer] EDPA Sirena Mckenna RN RN kl Waters, Shelly, FURNITURE UPHOLSTERY MECHANIC-C FURNITURE UPHOLSTERY MECHANIC-Csnw Keena Mcleod Kyli, TERRY STEWART kd3 Gladys De Anda, TERRY STEWART vc1
--- NOTE | 2022-12-04 01:19 | EDPHYS ---
Physician Documentation [facility] Name: Silvia Kiran Age: 52 yrs Sex: Female : 1970 Arrival Date: 12/03/2022 Time: 21:32 Bed 4 Private MD: ED Physician Zander Jenkins HPI: 12/03 23:59 This 52 yrs old Female presents to ER via Ambulatory with complaints of Cough, Fever, snw Low Back Pain. 23:59 The patient or guardian reports cough, that is constant. Onset: The symptoms/episode snw began/occurred acutely, 1 week(s) ago, and became persistent. Severity of symptoms: At their worst the symptoms were moderate. Associated signs and symptoms: Pertinent positives: earache, fever, cough. It is unknown whether or not the patient has had similar symptoms in the past. It is unknown whether or not the patient has recently seen a physician. 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 - Social history:: Smoking status: Patient/guardian denies using tobacco, the patient reports quitting approximately 6 years ago. ROS: 23:18 Eyes: Negative for injury, pain, redness, and discharge. snw 23:18 Neck: Negative for injury, pain, and swelling, Cardiovascular: Negative for chest pain, palpitations, and edema. 23:18 Abdomen/GI: Negative for abdominal pain, nausea, vomiting, diarrhea, and constipation, Back: Negative for injury and pain, : Negative for injury, bleeding, discharge, and swelling, MS/Extremity: Negative for injury and deformity, Skin: Negative for injury, rash, and discoloration, Neuro: Negative for headache, weakness, numbness, tingling, and seizure, Psych: Negative for depression, anxiety, suicide ideation, homicidal ideation, and hallucinations. 23:18 Constitutional: Positive for body aches, malaise. 23:18 ENT: Positive for sinus congestion. 23:18 Respiratory: Positive for cough, shortness of breath. Exam: 23:17 Constitutional: This is a well developed, well nourished patient who is awake, alert, snw and in no acute distress. Head/Face: Normocephalic, atraumatic. Eyes: Pupils equal round and reactive to light, extra-ocular motions intact. Lids and lashes normal. Conjunctiva and sclera are non-icteric and not injected. Cornea within normal limits. Periorbital areas with no swelling, redness, or edema. ENT: Nares patent. No nasal discharge, no septal abnormalities noted. Tympanic membranes are normal and external auditory canals are clear. Oropharynx with no redness, swelling, or masses, exudates, or evidence of obstruction, uvula midline. Mucous membranes moist. Neck: Trachea midline, no thyromegaly or masses palpated, and no cervical lymphadenopathy. Supple, full range of motion without nuchal rigidity, or vertebral point tenderness. No Meningismus. Chest/axilla: Normal chest wall appearance and motion. Nontender with no deformity. No lesions are appreciated. Cardiovascular: Regular rate and rhythm with a normal S1 and S2. No gallops, murmurs, or rubs. Normal PMI, no JVD. No pulse deficits. 23:17 Abdomen/GI: Soft, non-tender, with normal bowel sounds. No distension or tympany. No guarding or rebound. No evidence of tenderness throughout. Back: No spinal tenderness. No costovertebral tenderness. Full range of motion. Skin: Warm, dry with normal turgor. Normal color with no rashes, no lesions, and no evidence of cellulitis. MS/ Extremity: Pulses equal, no cyanosis. Neurovascular intact. Full, normal range of motion. Neuro: Awake and alert, GCS 15, oriented to person, place, time, and situation. Cranial nerves II-XII grossly intact. Motor strength 5/5 in all extremities. Sensory grossly intact. Cerebellar exam normal. Normal gait. Psych: Awake, alert, with orientation to person, place and time. Behavior, mood, and affect are within normal limits. 23:17 Respiratory: the patient does not display signs of respiratory distress, Respirations: normal, Breath sounds: bronchial sounds, are scattered. Vital Signs: 21:40 Pulse 91; Resp 19; Temp 98.1(O); Pulse Ox 98% on R/A; Weight 86.18 kg; Height 4 ft. 10 kd3 in. ; 21:43 BP 138 / 66; kd3 23:30 BP 147 / 83; Pulse 80; Pulse Ox 99% ; vc1 12/04 00:30 BP 145 / 58; Pulse 79; Pulse Ox 99% ; vc1 01:30 BP 154 / 82; Pulse 70; Resp 18; Pulse Ox 99% ; vc1 02:09 BP 148 / 78; Pulse 82; Resp 18; Temp 97.2; Pulse Ox 100% ; kl 12/03 21:40 Body Mass Index 39.71 (86.18 kg, 147.32 cm) kd3 MDM: 12/03 22:10 Patient medically screened. snw 22:18 ED course: went to call pt to chair for evaluation post triage, pt left lobby post snw triage 2nd to wait time. 22:26 ED course: Pt returned to ED lobby. snw 12/04 01:19 Differential Diagnosis: Bronchitis Influenza Upper Respiratory Infection Sinusitis snw Pharyngitis Pneumonia Other asthma exacerbation. Data reviewed: vital signs, nurses notes, lab test result(s), radiologic studies. I considered the following discharge prescriptions or medication management in the emergency department Medications were administered in the Emergency Department. See MAR. Counseling: I had a detailed discussion with the patient and/or guardian regarding: the historical points, exam findings, and any diagnostic results supporting the discharge/admit diagnosis, the presence of at least one elevated blood pressure reading (>120/80) during this emergency department visit, lab results, radiology results, the need for outpatient follow up, for definitive care, to return to the emergency department if symptoms worsen or persist or if there are any questions or concerns that arise at home. Response to treatment: the patient's symptoms have markedly improved after treatment. Special discussion: Based on the history and exam findings, there is no indication for further emergent testing or inpatient evaluation. I discussed with the patient/guardian the need to see the primary care provider for further evaluation of the symptoms. 12/03 22:10 Order name: Urine W/Microscopic (UAM); Complete Time: 23:30 snw 12/03 22:10 Order name: SARS RAPID; Complete Time: 23:09 snw 12/03 22:10 Order name: Flu; Complete Time: 23:56 snw 12/03 22:10 Order name: Strep snw 12/03 23:12 Order name: Throat Culture EDMS 12/03 23:30 Order name: CBC with Diff; Complete Time: 00:03 snw 12/03 23:30 Order name: CMP; Complete Time: 00:25 snw 12/03 23:31 Order name: Chest Single View XRAY snw Administered Medications: 12/03 23:42 Drug: NS 0.9% IV 1000 ml Route: IV; Rate: 1 bolus; Site: right forearm; kl 12/04 00:40 Follow up: IV Status: Completed infusion; IV Intake: 1000ml vc1 01:00 Follow up: IV Status: Completed infusion; IV Intake: 1000ml kl 00:23 Drug: Tussionex Pennkinetic ER PO Suspension 5 ml Route: PO; kl 02:02 Follow up: Response: No adverse reaction; Marked relief of symptoms kl 01:20 Drug: NS 0.9% IV 1000 ml Route: IV; Rate: 1 bolus; Site: right antecubital; vc1 02:09 Follow up: IV Status: Completed infusion; IV Intake: 800ml kl Disposition Summary: 12/04/22 01:18 Discharge Ordered Location: Home snw Condition: Stable snw Diagnosis - Unspecified asthma with (acute) exacerbation snw Followup: snw - With: Emergency Department - When: As needed - Reason: Worsening of condition Followup: snw - With: Private Physician - When: 2 - 3 days - Reason: Recheck today's complaints, Continuance of care, Re-evaluation by your physician Discharge Instructions: - Discharge Summary Sheet snw - Dehydration, Adult snw - Upper Respiratory Infection, Adult snw - Asthma Attack snw - Rehydration, Adult snw Forms: - Medication Reconciliation Form snw - Thank You Letter snw - Antibiotic Education snw - Prescription Opioid Use snw Prescriptions: - albuterol sulfate 90 mcg/actuation Inhalation HFA Aerosol Inhaler - inhale 2 inhalation by INHALATION route every 4 hours; 1 unit; Refills: 0, snw Product Selection Permitted - acetaminophen-codeine 300-60 mg Oral tablet - take 1 tablet by ORAL route every 12 hours as needed for pain; 14 tablet; snw Refills: 0, Product Selection Permitted - Augmentin 875-125 mg Oral Tablet - take 1 tablet by ORAL route every 12 hours for 10 days; 20 tablet; Refills: 0, snw Product Selection Permitted - Zyrtec 10 mg Oral Tablet - take 1 tablet by ORAL route once daily As needed; 20 tablet; Refills: 0, snw Product Selection Permitted - Pepcid 20 mg Oral Tablet - take 1 tablet by ORAL route once daily; 20 tablet; Refills: 0, Product snw Selection Permitted Addendum: 12/05/2022 07:48 Co-signature as Attending Physician, Zander Jenkins MD I agree with the assessment s p4 and plan of care. I reviewed the patient's care provided by the Advanced Practice Provider and agree with the diagnosis and treatment plan. Signatures: Dispatcher [employer] EDMS Sirena Mckenna RN RN Ethel Monterroso, PLATE GLASS POLISHER-C PLATE GLASS POLISHER-Csnw Lay Hays RN RN kd3 Gladys De Anda RN RN vc1 Zander Jenkins MD MD sp4
[2022-12-04] MEDS ORDERED: NA CHLORIDE 0.9% 1,000 ML ONE (01:20)
[2022-12-04 02:50] VITALS: BP 148/78; TEMP 97.2; O2SAT 100
--- NOTE | 2022-12-04 11:19 | RAD REPORT ---
EXAM DESCRIPTION: XR Chest, 1 View CLINICAL HISTORY: The patient is 52 years old and is Female; Cough;Fever TECHNIQUE: Frontal view of the chest. COMPARISON: No relevant prior studies available. FINDINGS: Lungs: Mildly prominent interstitial markings which may indicate mild interstitial edema . No consolidation. Pleural space: Unremarkable. No pneumothorax. Heart: Unremarkable. Mediastinum: Unremarkable. Bones/joints: Unremarkable. IMPRESSION: Mildly prominent interstitial markings which may indicate mild interstitial edema. No co nsolidation. Electronically signed by: Masoud Marquez MD 12/04/2022 12:04 AM CDT Due to temporary technical issues with the PACS/Fluency reporting system, reports are being signed by the in house radiologist without review as a courtesy to ensure prompt reporting. The interpreting r adiologist is fully responsible for the content of the report.
== END 2022-12-04 02:10 | disposition home or self-care (01) ==
LOC: ER 21:32
DX: J45.901 Unspecified asthma with (acute) exacerbation (principal); Z20.822 Contact with and (suspected) exposure to COVID-19; Z88.8 Allergy status to other drugs, medicaments and biological substances
CPT/HCPCS: 96361; 87070; 85025; 81001; 36415; 87081; 80053; 87804 ×2; 71045; 96360; 99284; 87811; J7030 ×2

== ENCOUNTER 2023-01-16 18:58 | Emergency (ER) | payer OTHER ==
--- OUTSIDE RECORDS SUMMARY | 2023-01-16 19:03 | XMS REPORT | Continuity of Care Document ---
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 [facility] Pulse oximetry Branch Systolic blood 2021-12-07 04:35:00 147 mm[Hg] [facility] Diastolic blood 2021-12-07 04:35:00 90 mm[Hg] [facility] Heart rate 2021-12-07 04:35:00 95 /min [facility] Body temperature 2021-12-07 04:35:00 36.5 Naima [facility] Respiratory rate 2021-12-07 04:35:00 18 /min [facility] Body weight 2021-12-07 04:35:00 81.647 kg [facility] BMI 2021-12-07 04:35:00 37.62 kg/m2 [facility] Oxygen saturation in 2021-12-07 04:35:00 96 /min [facility] Arterial blood by [facility] Pulse oximetry Branch Systolic blood 2021-10-26 08:30:00 160 mm[Hg] [facility] pressure [facility] Diastolic blood 2021-10-26 08:30:00 88 mm[Hg] Unive rsity of pressure [facility] Heart rate 2021-10-26 08:30:00 88 /min [facility] Respiratory rate 2021-10-26 08:30:00 16 /min [facility] Oxygen saturation in 2021-10-26 08:30:00 99 /min [facility] Arterial blood by [facility] Pulse oximetry Branch Body temperature 2021-10-26 06:11:00 36.67 Naima [facility] Body weight 2021-10-26 06:11:00 90.719 kg [facility] BMI 2021-10-26 06:11:00 41.80 kg/m2 [facility] Procedures Procedure Date / Time Performing Clinician Source Performed AUTHORIZATION FOR 2022-09-20 06:01:00 Doctor Unassigned, No [facility] Name [facility] Branch AUTHORIZATION FOR 2022-07-25 06:01:00 Doctor Unassigned, No [facility] PHI Name Medical Branch EKG-12 LEAD 2022-07-05 09:34:00 Charlie Stovall [facility] XR CHEST 2 VW 2022-07-05 08:22:52 Charlie Stovall [facility] CT ABDOMEN PELVIS WO 2022-07-05 07:17:25 [facility] LIPASE 2022-07-05 06:26:00 Charlie Stovall [facility] TROPONIN I 2022-07-05 06:26:00 Charlie Stovall [facility] COMP. METABOLIC PANEL 2022-07-05 06:26:00 Charlie Stovall U [facility] ([id number]) [facility] CBC WITH DIFF 2022-07-05 06:26:00 Charlie Stovall [facility] URINALYSIS 2022-07-05 06:26:00 Charlie Stovall [facility] N-TERMINAL PRO-BNP 2022-07-05 06:26:00 Charlie Stovall [facility] CONSENT/REFUSAL FOR 2022-07-05 05:31:12 Doctor Unassigned, No [facility] [place] [facility] XR KNEE 3 VW RIGHT 2022-04-22 10:59:00 Levi Hernandez [facility] POCT GLUCOSE (AUTOMATED) 2022-04-22 09:05:00 Levi Hernandez [facility] CONSENT/REFUSAL FOR 2022-04-22 08:27:22 [facility]igned, [facility] Medical Branch AUTHORIZATION FOR 2022-02-02 05:01:00 Doctor Unassigned, No [facility] RELEASE OF PHI [facility] Medical Branch AUTHORIZATION FOR 2021-12-15 05:01:00 Doctor Unassigned, No [facility] RELEASE OF PHI [facility] Medical [place] XR HIPS 2 VW RIGHT 2021-12-07 07:15:00 Armen Balbuena [facility] XR KNEE <3 VW RIGHT 2021-12-07 07:15:00 Armen Balbuena [facility] XR ANKLE 3+ VW RIGHT 2021-12-07 06:11:[address] [facility] XR FOOT 3+ VW RIGHT 2021-12-07 06:11:00 Armen Balbuena [facility] XR TIBIA FIBULA 2 VW 2021-12-07 06:11:00 Armen Balbuena [facility] CONSENT/REFUSAL FOR 2021-12-07 04:34:35 Doctor Unassigned, No [facility] [place] [facility] URINALYSIS 2021-10-26 08:36:00 Mohsen Leo [facility] PHOSPHORUS 2021-10-26 06:52:00 Ahmet [facility] MAGNESIUM 2021-10-26 06:52:00 Ahmet [facility] TROPONIN I 2021-10-26 06:52:00 Mohsen Leo [facility] COMP. METABOLIC PANEL 2021-10-26 06:52:00 Mohsen Leo [facility] ([id number]) Medical Branch CBC WITH DIFF 2021-10-26 06:52:00 Mohsen Leo [facility] N-TERMINAL PRO-BNP 2021-10-26 06:52:00 Mohsen Leo [facility] COVID-19 (ID NOW RAPID 2021-10-26 06:52:00 Mohsen Leo [facility] TESTING) Medical Branch CT ABDOMEN PELVIS WO 2021-10-26 06:47:00 Mohsen Leo [facility] CONTRAST [facility] Branch XR CHEST 2 VW 2021-10-26 06:41:00 Mohsen Leo [facility] CONSENT/REFUSAL FOR 2021-10-26 06:08:00 Doctor Unassigned, No Un [facility] DIAGNOSIS AND TREATMENT Name Medical Branch Plan of Care Planned Activity Planned Date Details Comments Source Future Scheduled Test 2023-04-29 IMM Influenza Seasonal [facility] 00:00:00 (>/= 19 yrs) [code = IMM Influenza Seasonal (>/= 19 yrs)] Future Scheduled Test 2023-04-29 IMM Influenza Seasonal [facility] 00:00:00 (>/= 19 yrs) [code = IMM Influenza Seasonal (>/= 19 yrs)] Future Scheduled Test 2021-07-30 Hemoglobin A1c [facility] 00:00:00 measurement (procedure) [code = 94779857] Future Scheduled Test 2021-07-30 Hemoglobin A1c [facility] 00:00:00 measurement (procedure) [code = 87098514] Future Scheduled Test 2021-07-30 Hemoglobin A1c [facility] 00:00:00 measurement (procedure) [code = 40600790] Future Scheduled Test 2021-04-29 IMM Influenza Seasonal [facility] 00:00:00 Apr to September (>/= 19 yrs) [code = IMM Influenza Seasonal Apr to September (>/= 19 yrs)] Future Scheduled Test 2020 Screening for malignant [facility] 00:00:00 neoplasm of colon (procedure) [code = 185777761] Future Scheduled Test 2020 Screening for malignant [facility] 00:00:00 neoplasm of colon (procedure) [code = 233126276] Future Scheduled Test 2020 Screening for malignant [facility] 00:00:00 neoplasm of colon (procedure) [code = 908296019] Future Scheduled Test 2010 Breast Cancer Scrn [...] 00:00:00 neoplasm of cervix (procedure) [code = 002948785] Future Scheduled Test 2000 Screening for malignant [facility] 00:00:00 neoplasm of cervix (procedure) [code = 949875482] Future Scheduled Test 2000 Screening for malignant [facility] 00:00:00 neoplasm of cervix (procedure) [code = 331289305] Future Scheduled Test 2000 Screening for malignant [facility] 00:00:00 neoplasm of cervix (procedure) [code = 192808165] Future Scheduled Test 2000 Screening for malignant [facility] 00:00:00 neoplasm of cervix (procedure) [code = 766960521] Future Scheduled Test 2000 Screening for malignant [facility] 00:00:00 neoplasm of cervix (procedure) [code = 233902306] Future Scheduled Test 1988 DM Retinal Exam [facility] 00:00:00 (Yearly) [code = DM Retinal Exam (Yearly)] Future Scheduled Test [facility] examination (regime/therapy) [code = 936693253] Future Scheduled Test 1988 Urine screening for [facility] 00:00:00 protein (procedure) [code = 512859083] Future Scheduled Test 1988 DM Retinal Exam [facility] 00:00:00 (Yearly) [code = DM Retinal Exam (Yearly)] Future Scheduled Test 1988 Di[facility] foot [facility] 00:00:00 examination (regime/therapy) [code = 563330291] Future Scheduled Test 1988 Urine screening for [facility] 00:00:00 protein (procedure) [code = 342860061] Future Scheduled Test 1988 DM Retinal Exam [facility] 00:00:00 (Yearly) [code = DM Retinal Exam (Yearly)] Future Scheduled Test 1988 DM Foot Exam (Yearly) [facility] 00:00:00 [code = DM Foot Exam (Yearly)] Future Scheduled Test 1988 Urine screening for [facility] 00:00:00 protein (procedure) [code = 589334676] Future Scheduled Test 1976 Imm Pneumococcal 0-64 [facility] 00:00:00 (1 of 2 - PPSV23) [code = Imm Pneumococcal 0-64 (1 of 2 - PPSV23)] Future Scheduled Test 1976 Imm Pneumococcal 0-64 [facility] 00:00:00 (1 - PCV) [code = Imm Pneumococcal 0-64 (1 - PCV)] Future Scheduled Test 1976 Imm Pneumococcal 0-64 [facility] 00:00:00 (1 - PCV) [code = Imm Pneumococcal 0-64 (1 - PCV)] Future Scheduled Test 1975 COVID-19 Vaccine (1) [facility] 00:00:00 [code = COVID-19 Vaccine (1)] Future Scheduled Test 1971-02-17 COVID-19 Vaccine (#1) [facility] 00:00:00 [code = COVID-19 Vaccine (#1)] Future Scheduled Test 1971-02-17 COVID-19 Vaccine (#1) [facility] 00:00:00 [code = COVID-19 Vaccine (#1)] Encounters Start End Encounter Admission Attending Care Care Encounter Source Date/Time Date/Time Type Type Clinicians Facility Department ID 2023-03-01 2023-03-01 Outpatient JOANIE HARRIS [id number] Joanie 11:00:00 11:00:00 JAI herbert 2023-01-26 2023-01-26 Outpatient JOANIE BELTRÁN [id number] Joanie 07:30:00 07:30:00 LAURITA herbert 2023-01-23 2023-01-23 Outpatient JOANIE KOCH [id number] Joanie 13:45:00 13:45:00 LULU Seybol d 2023-01-12 2023-01-12 Outpatient PRETARA JOANIE TAVARES [id number] Joanie 00:00:00 00:00:00 LULU Seybol d 2023-01-11 2023-01-11 Outpatient PRETARA JOANIE TAVARES [id number] Joanie 00:00:00 00:00:00 LULU Seybol d 2023-01-04 2023-01-04 Outpatient JOANIE TAVARES [id number] Joanie 13:25:00 13:25:00 Seybol d 2023-01-04 2023-01-04 Outpatient CANDELARIA JOANIE TAVARES [id number] Joanie 13:00:00 13:00:00 MANNY Seybol d 2023-01-04 2023-01-04 Outpatient JOANIE GAONA [id number] Joanie 00:00:00 00:00:00 MANNY Seybol d 2022-12-28 2022-12-28 Outpatient JOANIE CEJA [id number] Joanie 08:00:00 08:00:00 TIFFANIE Seybol d 2022-12-26 2022-12-26 Outpatient JOANIE BELTRÁN [id number] Joanie 00:00:00 00:00:00 AHMED Seybol d 2022-12-22 2022-12-22 Outpatient JOANIE BRIAN [id number] Joanie 13:30:00 13:30:00 TENZIN Seybol d 2022-12-22 2022-12-22 Outpatient JOANIE BRIAN [id number] Joanie 00:00:00 00:00:00 TENZIN Seybol d 2022-12-22 2022-12-22 Outpatient JOANIE OCONNOR [id number] Joanie 00:00:00 00:00:00 AMBER Seybol d 2022-12-22 2022-12-22 Outpatient JOANIE BRIAN [id number] Joanie 00:00:00 00:00:00 TENZIN Seybol d 2022-12-20 2022-12-20 Outpatient JOANIE KOCH [id number] Joanie 00:00:00 00:00:00 LULU Seybol d 2022-09-20 2022-09-20 Orders Doctor CHEN [id number] Univers 00:00:00 00:00:00 Only Unassigned, MART 350.1.13.10 ity of [facility] 4.2.7.2.686 [place] [id number] [address] 2022-07-25 2022-07-25 Orders Doctor GUSTAVO 1.2.840.114 [id number] Univers 00:00:00 00:00:00 Only Unassigned, MART 350.1.13.10 ity of [facility] 4.2.7.2.686 [place] as [id number] [address] 2022-07-04 2022-07-05 Emergency X SIA [facility] ERT [id number] Univers 23:33:00 04:01:00 CHARLIE ity of [facility] 2022-07-04 2022-07-05 Emergency Randells, TRAUMA [id number] Univers 23:33:00 04:01:00 [facility] 350.1.13.10 [place] [id number] [address] 2022-05-29 2022-05-29 Outpatient DUNG SHARP [facility] [id number] [facility] 08:00:00 08:00:00 FLORENCE 73 Misty an keon [facility] 2022-04-22 2022-04-22 Emergency X LEVI EHRNANDEZ [facility] ERT [id number] Univers 03:29:00 06:52:00 ity of [facility] 2022-04-22 2022-04-22 Emergency Levi Hernandez [place] 1.2.840.114 [id number] Univers 03:29:00 06:52:00 CENTER 350.1.13.10 [id number] [address] 2022-02-02 2022-02-02 Orders Doctor HCEN 1.2.840.114 [id number] Univers 00:00:00 00:00:00 Only Unassigned, MART 350.1.13.10 ity of [facility] 4.2.7.2.686 [place] [id number] [address] 2021-12-15 2021-12-15 Orders Doctor GUSTAVO 1.2.840.114 [id number] Univers 00:00:00 00:00:00 Only Unassigned, MART 350.1.13.10 ity of [facility] 4.2.7.2.686 [place] [id number] [address] 2021-12-06 2021-12-07 Emergency [facility] [id number] Univers 23:37:00 02:48:00 ARMEN solisy [facility] 2021-12-06 2021-12-07 Emergency Balbuena, TRAUMA 1.2.364.652 [id number] Univers 23:37:00 02:48:[address] Armen [address] 350.1.13.10 [place] [id number] [address] 2021-10-26 2021-10-26 Emergency Ahmet, TRAUMA [id number] Univers 01:15:00 04:12:00 Mohsen [facility] 350.1.13.10 [place] [id number] [address] 2021-10-26 2021-10-26 Emergency X AHMET [facility] ERT [id number] Univers 01:15:00 04:12:00 [facility] 2021-09-14 2021-09-14 Emergency [facility] [id number] Devin 23:04:00 23:27:00 [facility] 2021-09-14 2021-09-14 Emergency [facility] [id number] [place] 00:00:00 00:00:00 [facility] 2020-07-30 2020-08-02 [id number] Devin 15:20:00 16:57:00 PIEDAD [facility] 2020-07-30 2020-07-30 Emergency [facility] [id number] Devin 16:49:10 16:54:47 [facility] 2019-05-30 2019-05-30 Emergency X AUFDERHEIDE [facility] ERT [id number] Univers 09:14:59 11:46:00 , MARCOS shankar [facility] Results Test Description Test Time Test Comments Results Result Comments Source TROPONIN I 2022-07-05 09:10:00 Test Item Value Reference Range Interpretation Comme nts TROPONIN I (test code = 0.002 ng/mL See_Comment [Au tomated message] The 8283686909) system which ge nerated this result tra [...] biotin. Lab Interpretation Normal (test code = 08203-4) [id number] 09:10:00 Test Item Value Reference Range Interpretation Comments NT-proBNP (test code 25 pg/mL See_Comment [Autom ated = 4936423977) message] The system which generated this result transmitted reference range : <=125. The reference range was not used to interpret this result as normal/abnormal . JESUS (test code = JESUS) Biotin has been reported to cause a negative bias, interpret results relative to patient's use of biotin. Lab Interpretation Normal (test code = 78114-7) [facility] ([id number])2022-07-05 07:25:13 Test Item Value Reference Range Interpretation Comments NA (test code = 133 mmol/L 135-145 L 8829509280) K (test code = 4.5 mmol/L 3.5-5.0 3136908853) CL (test code = 98 mmol/L 98-108 3151044226) CO2 TOTAL (test code = 28 mmol/L 23-31 1407890715) AGAP (test code = 2-16 7532750915) BUN (test code = 18 mg/dL 7-23 1329696078) GLUCOSE (test code = 350 mg/dL 70-110 H 8470279984) CREATININE (test code = 0.71 mg/dL 0.50-1.04 1035492792) TOTAL BILI (test code = 0.7 mg/dL 0.1-1.4 1302476600) CALCIUM (test code = 9.4 mg/dL 8.6-10.6 5307618303) T PROTEIN (test code = 7.0 g/dL 6.3-8.2 0359994010) ALBUMIN (test code = 4.1 g/dL 3.5-5.0 2478028709) ALK PHOS (test code = 114 U/L 34-122 5868451137) ALTv (test code = 60 U/L 5-35 H 1742-6) AST(SGOT) (test code = 42 U/L 13-40 H 6174828324) eGFR (test code = mL/min/1.73m2 8914378088) JESUS (test code = JESUS) Association of [...] tests). Lab Interpretation Abnormal (test code = 71690-5) [facility] [id number] 07:25:13 Test Item Value Reference Range Interpretation Comments LIPASE (test code = 8820722986) 104 U/L 0-220 Lab Interpretation (test code = Normal 38380-7) [facility] [id number] 07:13:32 Test Item Value Reference Range Interpretation Comments WBC (test code = See_Comment [Automated 7990-2) message] The sy stem which generated this result transmitted reference range : 4.30 - 11.10 10*3/?L. The reference range was not used to interpret this result as normal/abnormal . RBC (test code = See_Comment [Automated 399-8) message] The sy stem which generated this [...] RDW-SD (test code = 40.9 fL 39.0-49.9 83621-9) RDW-CV (test code = 12.5 % 12.0-15.5 788-0) PLT (test code = See_Comment [Automated 777-3) message] The sy stem which generated this result transmitted reference range : 166 - 358 10*3/ ?L. The reference r jori was not used to interpret this result as normal/abnormal . MPV (test code = 11.3 fL 9.5-12.9 05700-6) NRBC/100 WBC (test See_Comment [Automat ed code = 4820485323) message] The system which generated this result transmitted reference range : 0.0 - 10.0 /100 WBCs. The refer ence range was not u sed to interpret th is result as normal/abnormal . NRBC x10^3 (test code See_Comment [Auto mated = 2161769715) message] The s ystem which generated this result transmitted reference range : 10*3/?L. The reference range was not used to interpret this result as normal/abnormal . GRAN MAT (NEUT) % 59.4 % (test code = 770-8) IMM GRAN % (test code 0.30 % = 7621864307) LYMPH % (test code = 29.6 % 736-9) MONO % (test code = 8.4 % 5905-5) EOS % (test code = 1.3 % 713-8) BASO % (test code = 1.0 % 706-2) GRAN MAT x10^3(ANC) 5.38 10*3/uL 1.88-7.09 (test code = 5232723617) IMM GRAN x10^3 (test 0.03 10*3/uL 0.00-0.06 code = 1348313191) LYMPH x10^3 (test code 2.68 10*3/uL 1.32-3.29 = 731-0) MONO x10^3 (test code 0.76 10*3/uL 0.33-0.92 = 742-7) EOS x10^3 (test code = 0.12 10*3/uL 0.03-0.39 711-2) BASO x10^3 (test code 0.09 10*3/uL 0.01-0.07 H = 704-7) Lab Interpretation Abnormal (test code = 30635-4) [facility]2022-04-22 09:06:42 Test Item Value Reference Range Interpretation Comments POCT GLU (test code = 6293467218) 286 mg/dL 70-110 H Lab Interpretation (test code = Abnormal 23206-9) [facility] [id number] 07:57:54 Test Item Value Reference Interpretation Comments Range TROPONIN I (test 0.000 ng/mL See_Comment [Automated code = 6582534021) message] The system which generated this result [...] biotin. Lab Interpretation Normal (test code = 58470-9) [facility] [id number] 07:57:54 Test Item Value Reference Range Interpretation Comments NT-proBNP (test code 77 pg/mL See_Comment [Autom ated = 7999247111) message] The system which generated this result transmitted reference range : <=125. The reference range was not used to interpret this result as normal/abnormal . JESUS (test code = JESUS) Biotin has been reported to cause a negative bias, interpret results relative to patient's use of biotin. Lab Interpretation Normal (test code = 46214-0) [facility]OLIC PANEL ([id number])2021-10-26 07:44:14 Test Item Value Reference Range Interpretation Comments NA (test code = 131 mmol/L 135-145 L 5403776280) K (test code = 4.3 mmol/L 3.5-5.0 4928237960) CL (test code = 99 mmol/L 98-108 6661365763) CO2 TOTAL (test code = 29 mmol/L 23-31 1411132882) AGAP (test code = 2-16 3050860080) BUN (test code = 20 mg/dL 7-23 9393573882) GLUCOSE (test code = 216 mg/dL 70-110 H 9505426214) CREATININE (test code = 0.70 mg/dL 0.50-1.04 6730881582) TOTAL BILI (test code = 0.5 mg/dL 0.1-1.6 6569479593) CALCIUM (test code = 9.1 mg/dL 8.6-10.6 8719615750) T PROTEIN (test code = 7.1 g/dL 6.3-8.2 1443169822) ALBUMIN (test code = 3.8 g/dL 3.5-5.0 4508528968) ALK PHOS (test code = 107 U/L 34-122 3684880098) ALTv (test code = 32 U/L 5-35 1742-6) AST(SGOT) (test code = 27 U/L 13-40 9442976986) eGFR (test code = mL/min/1.73m2 5820802075) JESUS (test code = JESUS) Association of [...] tests). Lab Interpretation Abnormal (test code = 18777-7) [facility]-30 07:44:14 Test Item Value Reference Range Interpretation Comments PHOSPHORUS (test code = 5536152862) 4.3 mg/dL 2.5-5.0 Lab Interpretation (test code = Normal 86945-7) [facility] 07:44:14 Test Item Value Reference Range Interpretation Comments MAGNESIUM (test code = 1566871533) 1.8 mg/dL 1.7-2.4 Lab Interpretation (test code = Normal 42608-7) [facility] [id number] 07:14:47 Test Item Value Reference Range Interpretation Comments WBC (test code = See_Comment [Automated 6690-2) message] The sy stem which generated this [...] RDW-SD (test code = 44.4 fL 39.0-49.9 36929-2) RDW-CV (test code = 13.1 % 12.0-15.5 788-0) PLT (test code = See_Comment [Automated 777-3) message] The sy stem which generated this result transmitted reference range : 166 - 358 10*3/ ?L. The reference r jori was not used to interpret this result as normal/abnormal . MPV (test code = 11.0 fL 9.5-12.9 96367-7) NRBC/100 WBC (test See_Comment [Automat ed code = 2383752237) message] The system which generated this result transmitted reference range : 0.0 - 10.0 /100 WBCs. The refer ence range was not u sed to interpret th is result as normal/abnormal . NRBC x10^3 (test code <0.01 See_Comment [Auto mated = 3108032772) message] The s ystem which generated this result transmitted reference range : 10*3/?L. The reference range was not used to interpret this result as normal/abnormal . GRAN MAT (NEUT) % 63.3 % (test code = 770-8) IMM GRAN % (test code 0.70 % = 4313938169) LYMPH % (test code = 25.8 % 736-9) MONO % (test code = 7.5 % 5905-5) EOS % (test code = 1.8 % 713-8) BASO % (test code = 0.9 % 706-2) GRAN MAT x10^3(ANC) 6.58 10*3/uL 1.88-7.09 (test code = 3834014810) IMM GRAN x10^3 (test 0.07 10*3/uL 0.00-0.06 H code = 3037918395) LYMPH x10^3 (test code 2.68 10*3/uL 1.32-3.29 = 731-0) MONO x10^3 (test code 0.78 10*3/uL 0.33-0.92 = 742-7) EOS x10^3 (test code = 0.19 10*3/uL 0.03-0.39 711-2) BASO x10^3 (test code 0.09 10*3/uL 0.01-0.07 H = 704-7) Lab Interpretation Abnormal (test code = 37341-6) [facility]"
--- NOTE | 2023-01-16 19:53 | RAD REPORT ---
EXAM DESCRIPTION: RAD - Foot Right 3 View - 01/16/2023 7:41 pm CLINICAL HISTORY: Right foot pain status post injury FINDINGS: No fracture or dislocation is seen Moderate plantar calcaneal spur
--- NOTE | 2023-01-16 20:09 | ER ---
Nurse's Notes [facility] Name: Silvia Kiran Age: 52 yrs Sex: Female : 1970 Arrival Date: 01/16/2023 Time: 18:58 Bed 10 Private MD: Diagnosis: Contusion of right foot Presentation: 01/16 19:06 Chief complaint: Patient states: "About 30 minutes ago, a glass jar of peanut butter mb9 and jelly fell on my right foot. It's really swollen and I couldn't walk on it". Coronavirus screen: Vaccine status: Patient reports being unvaccinated. Ebola Screen: No symptoms or risks identified at this time. Initial Sepsis Screen: Does the patient meet any 2 criteria? No. Patient's initial sepsis screen is negative. Does the patient have a suspected source of infection? No. Patient's initial sepsis screen is negative. Risk Assessment: Do you want to hurt yourself or someone else? Patient reports no desire to harm self or others. Onset of symptoms was January 16, 2023. 19:06 Method Of Arrival: Wheelchair mb9 19:06 Acuity: SUNG 4 mb9 Triage Assessment: 19:08 General: Appears in no apparent distress. Behavior is calm, cooperative. Pain: mb9 Complains of pain in right foot. Neuro: Montesinos Agitation-Sedation Scale (RASS): 0 - Alert and Calm Level of Consciousness is awake, alert, obeys commands, Oriented to person, place, time, situation, Appropriate for age. Respiratory: Airway is patent Respiratory effort is even, unlabored, Respiratory pattern is regular, symmetrical. Derm: Skin is pink, warm \\T\\ dry. Musculoskeletal: Range of motion: intact in all extremities, Swelling present in right foot. Historical: - Allergies: 19:07 iv dye iodine; mb9 - Home Meds: 19:07 metformin 500 mg Oral tab 1 tab 2 times per day [Active]; lisinopril Oral 10 mL mb9 [Active]; - PMHx: 19:07 Depression; Diabetes - NIDDM; repiratory problems; Hypertension; mb9 - PSHx: 19:07 Total abdominal hysterectomy; tumors removed; mb9 - Immunization history:: Adult Immunizations up to date. - Social history:: Smoking status: Patient denies any tobacco usage or history of. Screenin:17 [facility] ED Fall Risk Assessment (Adult) History of falling in the last 3 months, mb9 including since admission No falls in past 3 months (0 pts) Confusion or Disorientation No (0 pts) Intoxicated or Sedated No (0 pts) Impaired Gait Yes (1 pt) Mobility Assist Device Used Yes (1 pt) Altered Elimination No (0 pt) Score/Fall Risk Level 0 - 2 = Low Risk Oriented to surroundings, Maintained a safe environment, Educated pt \\T\\ family on fall prevention, incl call for assistance when getting out of bed. Abuse screen: Denies threats or abuse. Nutritional screening: No deficits noted. Tuberculosis screening: No symptoms or risk factors identified. Assessment: 19:09 Reassessment: see triage assessment. mb9 Vital Signs: 19:06 BP 156 / 67; Pulse 90; Resp 18; Temp 98.1; Pulse Ox 97% on R/A; Weight 102.06 kg; mb9 Height 5 ft. 0 in. ; 20:00 BP 146 / 80; Pulse 86; Resp 17; Pulse Ox 98% ; jj7 20:22 BP 134 / 70; Pulse 85; Resp 18; Pulse Ox 96% ; jj7 19:06 Body Mass Index 43.94 (102.06 kg, 152.4 cm) mb9 ED Course: 19:00 Patient arrived in ED. rg4 19:06 Aisha Lomax FNP-C is PHCP. kb 19:06 Hector Houston MD is Attending Physician. kb 19:07 Triage completed. mb9 19:07 Arm band placed on. mb9 19:17 No provider procedures requiring assistance completed. mb9 19:21 Dawit Shipman, TERRY is Primary Nurse. jj7 19:43 Foot Right 3 View XRAY In Process Unspecified. EDMS 20:22 Patient has correct armband on for positive identification. Bed in low position. Call jj7 light in reach. Adult w/ patient. 20:22 Patient did not have IV access during this emergency room visit. jj7 Administered Medications: 20:22 Not Given (Duplicate Order): Hydrocodone-Acetaminophen PO (7.5 mg-325 mg) 1 tabs PO oncejj7 20:22 Drug: Layton PO 10 mg-325 mg 1 tabs Route: PO; jj7 20:27 Follow up: Response: No adverse reaction jj7 Medication: 19:17 VIS not applicable for this client. mb9 Outcome: 20:08 Discharge ordered by MD. nunez 20:22 Discharged to home via wheelchair, with significant other. jj7 20:22 Condition: good 20:22 Discharge instructions given to patient, Instructed on discharge instructions, medication usage, Demonstrated understanding of instructions, medications, Prescriptions given X 1. 20:26 Patient left the ED. jj7 Signatures: Dispatcher [employer] EDAK Aisha Lomax, MEDIA SERVICES COORDINATOR-C MEDIA SERVICES COORDINATOR-Leighann Dubon rg4 Dawit Shipman, RN RN jj7 Ning Heard RN RN mb9
--- NOTE | 2023-01-16 20:09 | EDPHYS ---
Physician Documentation [facility] Name: Siliva Kiran Age: 52 yrs Sex: Female : 1970 Arrival Date: 01/16/2023 Time: 18:58 Bed 10 Private MD: NURY Physician Hector Houston HPI: 01/16 20:51 This 52 yrs old Female presents to ER via Wheelchair with complaints of Foot Pain. kb 20:51 The patient presents with a contusion, pain, swelling, tenderness. The complaints kb affect the dorsum of right foot. Context: The problem was sustained at home, resulted from a direct blow, the patient can fully bear weight, the patient is able to ambulate. Onset: The symptoms/episode began/occurred just prior to arrival. Modifying factors: The symptoms are alleviated by nothing. the symptoms are aggravated by weight bearing. Associated signs and symptoms: The patient has no apparent associated signs or symptoms. Treatment prior to arrival includes: no previous treatment. Severity of symptoms: At their worst the symptoms were moderate, in the emergency department the symptoms are unchanged. The patient has not experienced similar symptoms in the past. The patient has not recently seen a physician. 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 Historical: - Allergies: 19:07 iv dye iodine; mb9 - Home Meds: 19:07 metformin 500 mg Oral tab 1 tab 2 times per day [Active]; lisinopril Oral 10 mL mb9 [Active]; - PMHx: 19:07 Depression; Diabetes - NIDDM; repiratory problems; Hypertension; mb9 - PSHx: 19:07 Total abdominal hysterectomy; tumors removed; mb9 - Immunization history:: Adult Immunizations up to date. - Social history:: Smoking status: Patient denies any tobacco usage or history of. ROS: 20:06 Constitutional: Negative for fever, chills, and weight loss. kb 20:06 MS/extremity: Positive for pain, swelling, tenderness, of the dorsum of right foot. 20:06 All other systems are negative. Exam: 20:50 Constitutional: This is a well developed, well nourished patient who is awake, alert, kb and in no acute distress. Head/Face: Normocephalic, atraumatic. ENT: Moist Mucous membranes Cardiovascular: Regular rate and rhythm with a normal S1 and S2. No gallops, murmurs, or rubs. No pulse deficits. Respiratory: Respirations even and unlabored. No increased work of breathing. Talking in full sentences Skin: Warm, dry with normal turgor. Normal color. Neuro: Awake and alert, GCS 15, oriented to person, place, time, and situation. Moves all extremities. Normal gait. 20:50 Musculoskeletal/extremity: Extremities: grossly normal except: noted in the dorsum of right foot: pain, swelling, tenderness, ROM: intact in all extremities, Circulation is intact in all extremities. Sensation intact. Weight bearing: able to fully bear weight. Vital Signs: 19:06 BP 156 / 67; Pulse 90; Resp 18; Temp 98.1; Pulse Ox 97% on R/A; Weight 102.06 kg; mb9 Height 5 ft. 0 in. ; 20:00 BP 146 / 80; Pulse 86; Resp 17; Pulse Ox 98% ; jj7 20:22 BP 134 / 70; Pulse 85; Resp 18; Pulse Ox 96% ; jj7 19:06 Body Mass Index 43.94 (102.06 kg, 152.4 cm) 9 MDM: 19:06 Patient medically screened. kb 20:50 Differential diagnosis: dislocation, closed fracture, contusion. Data reviewed: vital kb signs, nurses notes. Counseling: I had a detailed discussion with the patient and/or guardian regarding: the historical points, exam findings, and any diagnostic results supporting the discharge/admit diagnosis, radiology results, the need for outpatient follow up, a family practitioner, to return to the emergency department if symptoms worsen or persist or if there are any questions or concerns that arise at home. 01/16 19:08 Order name: Foot Right 3 View XRAY; Complete Time: 19:56 kb Administered Medications: 20:22 Not Given (Duplicate Order): Hydrocodone-Acetaminophen PO (7.5 mg-325 mg) 1 tabs PO oncejj7 20:22 Drug: [place] PO 10 mg-325 mg 1 tabs Route: PO; jj7 20:27 Follow up: Response: No adverse reaction jj7 Disposition Summary: 01/16/23 20:08 Discharge Ordered Location: Home kb Condition: Stable kb Diagnosis - Contusion of right foot kb Followup: kb - With: Emergency Department - When: As needed - Reason: Worsening of condition Followup: kb - With: Private Physician - When: 2 - 3 days - Reason: Recheck today's complaints, Continuance of care, Re-evaluation by your physician Discharge Instructions: - Discharge Summary Sheet kb - Foot Contusion, [id number] kb Forms: - Medication Reconciliation Form kb - Thank You Letter kb - Antibiotic Education kb - Prescription Opioid Use kb Prescriptions: - Ibuprofen 800 mg Oral Tablet - take 1 tablet by ORAL route every 8 hours As needed take with food; 30 tablet; kb Refills: 0, Product Selection Permitted Signatures: Dispatcher [employer] EDMT Aisha Lomax, PARTS FACILITATOR-C PARTS FACILITATOR-Dawit Mota RN RN jj7 Ning Heard RN RN mb9
[2023-01-16] MEDS ORDERED: HYDROCODONE/APAP 10/325 TAB ONE (20:26)
[2023-01-16 20:47] VITALS: TEMP 98.1
[2023-01-16 20:51] VITALS: BP 134/70; O2SAT 96
== END 2023-01-16 20:26 | disposition home or self-care (01) ==
LOC: ER 18:58
DX: S90.31XA Contusion of right foot, initial encounter (principal); Z91.048 Other nonmedicinal substance allergy status; Z91.041 Radiographic dye allergy status
CPT/HCPCS: 99284

== ENCOUNTER 2023-03-09 17:29 | Emergency (ER) | payer OTHER ==
--- OUTSIDE RECORDS SUMMARY | 2023-03-09 17:34 | XMS REPORT | Continuity of Care Document ---
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 Cough. benzonatate 2018-07 Yes [id number] 100mg Take 1 Univers 100 mg 1-01 capsule by ity of capsule 00:00: mouth 3 [place] 00 (three) Medical times Branch daily as needed for Cough. benzonatate 2018-07 Yes [id number] 100mg Take 1 Univers 100 mg 1-01 capsule by ity of capsule 00:00: mouth 3 [place] 00 (three) Medical times Branch daily as needed for Cough. benzonatate 2018-07 Yes [id number] 100mg Take 1 Univers 100 mg 1-01 capsule by ity of capsule 00:00: mouth 3 00 (three) Medical times Branch daily as needed for Cough. benzonatate 2018-07 Yes [id number] 100mg Take 1 Univers 100 mg 1-01 capsule by ity of capsule 00:00: mouth 3 [place] 00 (three) Medical times Branch daily as needed for Cough. benzonatate 2018-07 Yes [id number] 100mg Take 1 Univers 100 mg 1-01 capsule by ity of capsule 00:00: mouth 3 00 (three) Medical times Branch daily as needed for Cough. benzonatate 2018-07 Yes [id number] 100mg Take 1 Univers 100 mg 1-01 capsule by ity of capsule 00:00: mouth 3 [place] 00 (three) Medical times Branch daily as needed for Cough. benzonatate 2018-07 Yes [id number] 100mg Take 1 Univers 100 mg 1-01 [...] Breath, Bronchospa sm or Chest tightness. azithromyci 2017 Yes 250mg Take 1 Uni vers n [...] Breath, Bronchospa sm or Chest tightness. azithromyci 2017-0 Yes 250mg Take 1 Uni [...] Tylenol or Temp > 38.5 C. codeine-gua 2017 Yes 10mL Take 10 mL Univers ifenesin 4-23 by mouth ity of 10-100 mg/5 00:00: every 6 [place] as mL solution 00 (six) Medical hours as Branch needed for Cough. albuterol 20170 Yes 2{puff} Inhale 2 U nivers 90 4-23 Puffs ity of mcg/actuati 00:00: every 4 [place] as on inhaler 00 (four) Medical hours as Branch needed for Wheezing, Shortness of Breath, Bronchospa sm or Chest tightness. ibuprofen 2017-0 Yes 800mg Take 1 Unive [...] Breath, Bronchospa sm or Chest tightness. azithromyci 2017 Yes 250mg Take 1 Uni vers n [...] Time Observation Value Comments Source Systolic blood 2023-03-07 20:06:00 163 mm[Hg] Joanie Xiong - pressure External Diastolic blood 2023-03-07 20:06:00 81 mm[Hg] Diane Xiong - pressure External Heart rate 2023-03-07 20:06:00 90 /min Joanie cavanaugh - External Body temperature 2023-03-07 20:06:00 36.83 Naima Roya pelayo Seybold - External Respiratory rate 2023-03-07 20:06:00 15 /min Roya pelayo Seybold - External Body height 2023-03-07 20:06:00 147.3 cm Joanie Riddle eybold - External Body weight 2023-03-07 20:06:00 95.255 kg Joanie Riddle eybold - External BMI 2023-03-07 20:06:00 43.89 kg/m2 Joanie Riddle eybold - External Oxygen saturation in 2023-03-07 20:06:00 99 /min Joanie Xiong - Arterial blood by External Pulse oximetry Systolic blood 2023-01-26 12:29:00 161 mm[Hg] Joanie Seybold - pressure External Diastolic blood 2023-01-26 12:29:00 68 mm[Hg] Diane y Seybold - pressure External Heart rate 2023-01-26 12:29:00 76 /min Joanie Riddle eybold - External Body temperature 2023-01-26 12:29:00 36.56 Naima Roya ey Seybold - External Respiratory rate 2023-01-26 12:29:00 18 /min Roya pelayo Seybold - External Body height 2023-01-26 12:29:00 148.6 cm Joanie Riddle eybold - External Body weight 2023-01-26 12:29:00 95.255 kg Joanie Riddle eybold - External BMI 2023-01-26 12:29:00 43.14 kg/m2 Joanie Riddle eybold - External Systolic blood 2022-12-22 18:20:00 138 mm[Hg] Joanie Seybold - pressure External Diastolic blood 2022-12-22 18:20:00 72 mm[Hg] Khalifse y Seybold - pressure External Heart rate 2022-12-22 18:20:00 82 /min Joanie Riddle eybold - External Body temperature 2022-12-22 18:20:00 36.56 Naima Roya ey Seybold - External Respiratory rate 2022-12-22 18:20:00 19 /min Roya pelayo Seybold - External Body height 2022-12-22 18:20:00 147.3 cm Joanie Riddle eybold - External Body weight 2022-12-22 18:20:00 93.895 kg Joanie pelayobocarlos - External BMI 2022-12-22 18:20:00 43.26 kg/m2 Joanie cavanaugh - External Systolic blood 2022-07-05 09:30:00 137 mm[Hg] Univer sity of [facility] [place] [facility] Diastolic blood 2022-07-05 09:30:00 76 mm[Hg] Unive rsity of pressure [place] [facility] Heart rate 2022-07-05 09:30:00 82 /min [facility]i [facility] [place] [facility] Respiratory rate 2022-07-05 09:30:00 17 /min Univ ers[facility] [place] [facility] Oxygen saturation in 2022-07-05 09:30:00 97 /min University of Arterial blood by [facility] Pulse oximetry Branch Body temperature 2022-07-05 05:30:00 36.56 Naima Univ [facility] [place] [facility] Body weight 2022-07-05 05:30:00 90.719 kg Universi ty [facility] [place] [facility] BMI 2022-07-05 05:30:00 41.80 kg/m2 [facility] [place] [facility] Systolic blood 2022-04-22 08:28:00 170 mm[Hg] Univer sity of [facility] [place] [facility] Diastolic blood 2022-04-22 08:28:00 87 mm[Hg] Unive rsity of pressure [place] [facility] Heart rate 2022-04-22 08:28:00 95 /min [facility] [place] [facility] Body temperature 2022-04-22 08:28:00 36.67 Naima Univ [facility] [place] [facility] Respiratory rate 2022-04-22 08:28:00 22 /min Univ [facility] [place] [facility] Body weight 2022-04-22 08:28:00 90.719 kg [facility] [place] [facility] BMI 2022-04-22 08:28:00 41.80 kg/m2 [facility] [place] [facility] Oxygen saturation in 2022-04-22 08:28:00 99 /min University of Arterial blood by [facility] Pulse oximetry Branch Systolic blood 2021-12-07 04:35:00 147 mm[Hg] Univer sity of pressure [place] [facility] Diastolic blood 2021-12-07 04:35:00 90 mm[Hg] Unive rsity of [facility] [place] [facility] Heart rate 2021-12-07 04:35:00 95 /min [facility]i [facility] [place] [facility] Body temperature 2021-12-07 04:35:00 36.5 Naima [facility] [place] [facility] Respiratory rate 2021-12-07 04:35:00 18 /min Univ ers[facility] [place] [facility] D Body weight 2021-12-07 04:35:00 81.647 kg Universi ty of [facility] BMI 2021-12-07 04:35:00 37.62 kg/m2 Universi ty of [facility] Oxygen saturation in 2021-12-07 04:35:00 96 /min University of Arterial blood by [facility] Pulse oximetry Branch Systolic blood 2021-10-26 08:30:00 160 mm[Hg] Univer sity of pressure [place] [facility] D Diastolic blood 2021-10-26 08:30:00 88 mm[Hg] Unive rsity of [facility] Heart rate 2021-10-26 08:30:00 88 /min [facility]i ty [facility] [place] [facility] D Respiratory rate 2021-10-26 08:30:00 16 /min Univ ersity of [facility] Oxygen saturation in 2021-10-26 08:30:00 99 /min University of Arterial blood by [facility] Pulse oximetry Branch Body temperature 2021-10-26 06:11:00 36.67 Naima Univ ersity of [facility] Body weight 2021-10-26 06:11:00 90.719 kg Universi ty of [facility] BMI 2021-10-26 06:11:00 41.80 kg/m2 Universi [facility] Procedures Procedure Date / Time Performing Clinician Source Performed AUTHORIZATION FOR 2022-09-20 06:01:00 Doctor Unassigned, No Univ ersity [facility] RELEASE OF PHI Name Medical Branch AUTHORIZATION FOR 2022-07-25 06:01:00 Doctor Unassigned, No Univ ersity [facility] RELEASE OF PHI Name Medical Branch EKG-12 LEAD 2022-07-05 09:34:00 Charlie Stovall [facility] XR CHEST 2 VW 2022-07-05 08:22:52 Charlie Stovall [facility] CT ABDOMEN PELVIS WO 2022-07-05 07:17:25 Charlie Stovall [facility] [place] CONTRAST [facility] Branch LIPASE 2022-07-05 06:26:00 Charlie Stovall [facility] TROPONIN I 2022-07-05 06:26:00 Charlie Stovall [facility] COMP. METABOLIC PANEL 2022-07-05 06:26:00 Charlie Stovall U [facility] ([id number]) [facility] CBC WITH DIFF 2022-07-05 06:26:00 Charlie Stovall [facility] URINALYSIS 2022-07-05 06:26:00 Charlie Stovall [facility] N-TERMINAL PRO-BNP 2022-07-05 06:26:00 Charlie Stovall [facility] CONSENT/REFUSAL FOR 2022-07-05 05:31:12 Doctor Unassigned, No [facility] Name Medical Branch XR KNEE 3 VW RIGHT 2022-04-22 10:59:00 Levi Hernandez [facility] POCT GLUCOSE (AUTOMATED) 2022-04-22 09:05:00 Levi Hernandez [facility]US[facility] FOR 2022-04-22 08:27:22 [facility] Name [facility] Branch AUTHORIZATION FOR 2022-02-02 05:01:00 Doctor Unassigned, No [facility] RELEASE OF [facility] Name Medical Branch AUTHORIZATION FOR 2021-12-15 05:01:00 Doctor Unassigned, No [facility] RELEASE OF [facility] Name Medical Branch XR HIPS 2 VW RIGHT 2021-12-07 07:15:00 Armen Balbuena [facility] XR KNEE <3 VW RIGHT 2021-12-07 07:15:00 Armen Balbuena [facility] XR ANKLE 3+ VW RIGHT 2021-12-07 06:11:00 Armen Balbuena [facility] XR FOOT 3+ VW RIGHT 2021-12-07 06:11:00 Armen Balbuena [facility] XR TIBIA FIBULA 2 VW 2021-12-07 06:11:[address] [facility] RIGHT Medical Branch CONSENT/REFUSAL FOR 2021-12-07 04:34:35 Doctor Unassigned, No [facility] Name Medical Branch URINALYSIS 2021-10-26 08:36:00 Ahmet, Mohsen [facility] PHOSPHORUS 2021-10-26 06:52:00 Ahmet, Mohsen [facility] MAGNESIUM 2021-10-26 06:52:00 Ahmet, [facility] TROPONIN I 2021-10-26 06:52:00 Ahmet, [facility] COMP. METABOLIC PANEL 2021-10-26 06:52:00 Ahmet, Mohsen Klein [facility] ([id number]) Medical Mary D CBC WITH DIFF 2021-10-26 06:52:00 Ahmet, [facility] N-TERMINAL PRO-BNP 2021-10-26 06:52:00 AhmetMohsen espitia [facility] COVID-19 (ID NOW RAPID 2021-10-26 06:52:00 Ahmet, Mohsen Klein [facility] TESTING) Medical Branch CT ABDOMEN PELVIS WO 2021-10-26 06:47:00 Ahmet, Mohsen Klein [facility] CONTRAST [facility] Branch XR CHEST 2 VW 2021-10-26 06:41:00 Ahmet, Mohsen [facility] CONSENT/REFUSAL FOR 2021-10-26 06:08:00 Doctor Unassigned, No Un [facility] DIAGNOSIS AND TREATMENT Name Medical Mary D Plan of Care Planned Activity Planned Date Details Comments Source Future Scheduled Test 2023-04-29 IMM Influenza Seasonal [facility] 00:00:00 (>/= 19 yrs) [code = IMM Influenza Seasonal (>/= 19 yrs)] Future Scheduled Test 2023-04-29 IMM Influenza Seasonal [facility] 00:00:00 (>/= 19 yrs) [code = IMM Influenza Seasonal (>/= 19 yrs)] Future Scheduled Test 2023-04-29 IMM Influenza Seasonal [facility] 00:00:00 (>/= 19 yrs) [code = IMM Influenza Seasonal (>/= 19 yrs)] Future Scheduled Test 2021-07-30 Hemoglobin A1c [facility] 00:00:00 measurement (procedure) [code = 39661518] Future Scheduled Test 2021-07-30 Hemoglobin A1c [facility] 00:00:00 measurement (procedure) [code = 79139713] Future Scheduled Test 2021-07-30 Hemoglobin A1c [facility] 00:00:00 measurement (procedure) [code = 25040961] Future Scheduled Test 2021-07-30 Hemoglobin A1c [facility] 00:00:00 measurement (procedure) [code = 43196443] Future Scheduled Test 2021-04-29 IMM Influenza Seasonal [facility] 00:00:00 Apr to September (>/= 19 yrs) [code = IMM Influenza Seasonal Apr to September (>/= 19 yrs)] Future Scheduled Test 2020 Screening for malignant [facility] 00:00:00 neoplasm of colon (procedure) [code = 894291450] Future Scheduled Test 2020 Screening for malignant [facility] 00:00:00 neoplasm of colon (procedure) [code = 392830389] Future Scheduled Test 2020 Screening for malignant [facility] 00:00:00 neoplasm of colon (procedure) [code = 898694938] Future Scheduled Test 2020 Screening for malignant [facility] 00:00:00 neoplasm of colon (procedure) [code = 936540379] Future Scheduled Test 2010 [facility] Sc[facility] [...] 00:00:00 neoplasm of cervix (procedure) [code = 785489742] Future Scheduled Test 2000 Screening for malignant [facility] 00:00:00 neoplasm of cervix (procedure) [code = 689190693] Future Scheduled Test 2000 Screening for malignant [facility] 00:00:00 neoplasm of cervix (procedure) [code = 142286425] Future Scheduled Test 2000 Screening for malignant [facility] 00:00:00 neoplasm of cervix (procedure) [code = 331033223] Future Scheduled Test 2000 Screening for malignant [facility] 00:00:00 neoplasm of cervix (procedure) [code = 448944831] Future Scheduled Test 2000 Screening for malignant [facility] 00:00:00 neoplasm of cervix (procedure) [code = 145306231] Future Scheduled Test 2000 Screening for malignant [facility] 00:00:00 neoplasm of cervix (procedure) [code = 040720796] Future Scheduled Test 2000 Screening for malignant [facility] 00:00:00 neoplasm of cervix (procedure) [code = 570035535] Future Scheduled Test 1988 [facility]:00 examination (regime/therapy) [code = 957464087] Future Scheduled Test 1988 Urine screening for [facility] 00:00:00 protein (procedure) [code = 090031467] Future Scheduled Test 1988 DM Retinal Exam [facility] 00:00:00 (Yearly) [code = DM Retinal Exam (Yearly)] Future Scheduled Test 1988 DM Foot Exam (Yearly) [facility] 00:00:00 [code = DM Foot Exam (Yearly)] Future Scheduled Test 1988 Urine screening for [facility] 00:00:00 protein (procedure) [code = 925923950] Future Scheduled Test 1988 DM Retinal Exam [facility] 00:00:00 (Yearly) [code = DM Retinal Exam (Yearly)] Future Scheduled Test 1988 [facility]:00 examination (regime/therapy) [code = 727564746] Future Scheduled Test 1988 Urine screening for [facility] 00:00:00 protein (procedure) [code = 338641692] Future Scheduled Test 1988 DM Retinal Exam [facility] 00:00:00 (Yearly) [code = DM Retinal Exam (Yearly)] Future Scheduled Test 1988 [facility]:00 examination (regime/therapy) [code = 889169063] Future Scheduled Test 1988 Urine screening for [facility] 00:00:00 protein (procedure) [code = 301161733] Future Scheduled Test 1988 DM Retinal Exam [facility] 00:00:00 (Yearly) [code = DM Retinal Exam (Yearly)] Future Scheduled Test 1976 Imm Pneumococcal 0-64 [facility] 00:00:00 (1 - PCV) [code = Imm Pneumococcal 0-64 (1 - PCV)] Future Scheduled Test 1976 Imm Pneumococcal 0-64 [facility] 00:00:00 (1 of 2 - PPSV23) [code = Imm Pneumococcal 0-64 (1 of 2 - PPSV23)] Future Scheduled Test 1976 Imm Pneumococcal 0-64 [facility] 00:00:00 (1 - PCV) [code = Imm Pneumococcal 0-64 (1 - PCV)] Future Scheduled Test 1976 Imm Pneumococcal 0-64 [facility] 00:00:00 (1 - PCV) [code = Imm Pneumococcal 0-64 (1 - PCV)] Future Scheduled Test 1975 COVID-19 Vaccine (1) [facility] 00:00:00 [code = COVID-19 Vaccine (1)] Future Scheduled Test 1971-02-17 COVID-19 Vaccine (#1) [facility] 00:00:00 [code = COVID-19 Vaccine (#1)] Future Scheduled Test 1971-02-17 COVID-19 Vaccine (#1) [facility] 00:00:00 [code = COVID-19 Vaccine (#1)] Future Scheduled Test 1971-02-17 COVID-19 Vaccine (#1) [facility] 00:00:00 [code = COVID-19 Vaccine (#1)] Encounters Start End Encounter Admission Attending Care Care Encounter Source Date/Time Date/Time Type Type Clinicians Facility Department ID 2023-04-05 2023-04-05 Outpatient JOANIE KOCH [id number] Joanie 14:00:00 14:00:00 LULU herbert 2023-03-13 2023-03-13 Outpatient JOANIE TAVARES [id number] Joanie 09:00:00 09:00:00 Amadou herbert 2023-03-07 2023-03-07 Outpatient JOANIE KOCH [id number] Joanie 15:00:00 15:00:00 LULU herbert 2023-03-02 2023-03-02 Outpatient PREZAS JOANIE TAVARES [id number] Joanie 00:00:00 00:00:00 LULU Seybol d 2023-03-02 2023-03-02 Outpatient PREZAS JOANIE TAVARES [id number] Joanie 00:00:00 00:00:00 LULU Seybol d 2023-03-01 2023-03-01 Outpatient SASSARD, JOANIE TAVARES [id number] Joanie 11:00:00 11:00:00 JAI Seybol d 2023-02-28 2023-02-28 Outpatient PREZAS, JOANIE TAVARES [id number] Joanie 00:00:00 00:00:00 LULU Seybol d 2023-02-08 2023-02-08 Outpatient PREZAS JOANIE TAVARES [id number] Joanie 09:30:00 09:30:00 LULU Seybol d 2023-01-26 2023-01-26 Outpatient JOANIE TAVARES [id number] Joanie 16:00:00 16:00:00 Seybol d 2023-01-26 2023-01-26 Outpatient JOANIE TAVARES [id number] Joanie 15:55:00 15:55:00 Seybol d 2023-01-26 2023-01-26 Outpatient JOANIE TAVARES [id number] Joanie 15:50:00 15:50:00 Seybol d 2023-01-26 2023-01-26 Outpatient SIDDHARTHJOANIE RAZO [id number] Joanie 07:30:00 07:30:00 AHMED Seybol d 2023-01-26 2023-01-26 Outpatient PREZAS JOANIE TAVARES [id number] Joanie 00:00:00 00:00:00 LULU Seybol d 2023-01-26 2023-01-26 Outpatient PREZASJOANIE [id number] Joanie 00:00:00 00:00:00 LULU Seybol d 2023-01-26 2023-01-26 Outpatient SEWIELAMJOANIE [id number] Joanie 00:00:00 00:00:00 AHMED Seybol d 2023-01-26 2023-01-26 Outpatient JOANIE WARREN [id number] Joanie 00:00:00 00:00:00 DOMINIQUE Alessandrao ld 2023-01-26 2023-01-26 Outpatient JOANIE KOCH [id number] Joanie 00:00:00 00:00:00 LULU Seybol d 2023-01-23 2023-01-23 Outpatient JOANIE KOCH [id number] Joanie 13:45:00 13:45:00 LULU Seybol d 2023-01-20 2023-01-20 Outpatient JOANIE BRIAN [id number] Joanie 00:00:00 00:00:00 TENZIN Seybol d 2023-01-12 2023-01-12 Outpatient JOANIE KOCH [id number] Joanie 00:00:00 00:00:00 LULU Seybol d 2023-01-11 2023-01-11 Outpatient JOANIE KOCH [id number] Joanie 00:00:00 00:00:00 LULU Seybol d 2023-01-04 2023-01-04 Outpatient JOANIE TAVARES [id number] Joanie 13:25:00 13:25:00 Seybol d 2023-01-04 2023-01-04 Outpatient JOANIE GAONA [id number] Joanie 13:00:00 13:00:00 MANNY Seybol d 2023-01-04 2023-01-04 Outpatient JOANIE GAONA [id number] Joanie 00:00:00 00:00:00 MANNY Seybol d 2022-12-28 2022-12-28 Outpatient JOANIE CEJA [id number] Joanie 08:00:00 08:00:00 TIFFANIE Seybol d 2022-12-26 2022-12-26 Outpatient JOANIE BELTRÁN [id number] Joanie 00:00:00 00:00:00 AHMED Seybol d 2022-12-22 2022-12-22 Outpatient JOANIE BRIAN [id number] Joanie 13:30:00 13:30:00 TENZIN Seybol d 2022-12-22 2022-12-22 Outpatient SNEHAL JOANIE TAVARES [id number] Joanie 00:00:00 00:00:00 TENZIN Seybol keon 2022-12-22 2022-12-22 Outpatient ELVIN JOANIE TAVARES [id number] Joanie 00:00:00 00:00:00 AMBER Seybol keon 2022-12-22 2022-12-22 Outpatient SNEHAL JOANIE TAVARES [id number] Joanie 00:00:00 00:00:00 TENZIN Seybol keon 2022-12-20 2022-12-20 Outpatient ZEE JOANIE TAVARES [id number] Joanie 00:00:00 00:00:00 LULU Christensenybol keon 2022-09-20 2022-09-20 Orders Doctor GUSTAVO [id number] Univers 00:00:00 00:00:00 Only Unassigned, MART 350.1.13.10 ity of [place] [facility] 4.2.7.2.686 [place] as [id number] [address] 2022-07-25 2022-07-25 Orders Doctor GUSTAVO [id number] Univers 00:00:00 00:00:00 Only Unassigned, MART 350.1.13.10 ity of [place] [facility] 4.2.7.2.686 [place] as [id number] [address] 2022-07-04 2022-07-05 Emergency X DELLIS, [facility] ERT [id number] Univers 23:33:00 04:01:00 CHARLIE ity of [facility] 2022-07-04 2022-07-05 Emergency Dellis, TRAUMA [id number] Univers 23:33:00 04:01:00 [facility] 350.1.13.10 it y [place] [id number] [place] [address] Branch 2022-05-29 2022-05-29 Outpatient DUNG SHARP, [facility] [id number] [facility] 08:00:00 08:00:00 FLORENCE paez [facility] 2022-04-222022-04-22 Emergency X LEVI HERNANDEZ [facility] ERT [id number] Univers 03:29:00 06:52:00 ity of [facility] 2022-04-22 2022-04-22 Emergency Levi Hernandez TRAU[place] 1.2.840.114 [id number] Univers 03:29:00 06:52:00 W CENTER 350.1.13.10 [place] [id number] [address] 2022-02-02 2022-02-02 Orders Doctor GUSTAVO [id number] Univers 00:00:00 00:00:00 Only Unassigned, MART 350.1.13.10 ity of [place] [facility] 4.2.7.2.686 [place] [id number] [address] 2021-12-15 2021-12-15 Orders Doctor CHEN 1.2.840.114 [id number] Univers 00:00:00 00:00:00 Only Unassigned, MART 350.1.13.10 ity of [place] [facility] 4.2.7.2.686 [place] [id number] [address] 2021-12-06 2021-12-07 Emergency X [facility] ERT [id number] Univers 23:37:00 02:48:00 ARMEN ity of [facility] 2021-12-06 2021-12-07 Emergency Balbuena, TRAUMA [id number] Univers 23:37:00 02:48:00 Armen Whitney CENTER 350.1.13.10 [place] [id number] [address] 2021-10-26 2021-10-26 Emergency Ahmet, TRAUMA [id number] [id number] Univers 01:15:00 04:12:00 Mohsen Klein CENTER 350.1.13.10 [place] [id number] [address] 2021-10-26 2021-10-26 Emergency X AHMET, [facility] ERT [id number] Univers 01:15:00 04:12:00 MOHSEN [facility] 2021-09-14 2021-09-14 Emergency [facility] [id number] [place] 23:04:00 23:27:00 Health 2021-09-14 2021-09-14 Emergency [facility] [id number] [place] 00:00:00 00:00:00 [facility] 2020-07-30 2020-08-02 Inpatient SINAI, [facility] [id number] [place] 15:20:00 16:57:00 PIEDAD [facility] 2020-07-30 2020-07-30 Emergency [facility] [id number] [place] 16:49:10 16:54:47 [facility] 2019-05-30 2019-05-30 Emergency X AUFDERHEIDE [facility] ERT [id number] [facility] 09:14:59 11:46:00 , MARCOS [facility] Results Test Description Test Time Test Comments Results Result Comments Source TROPONIN I 2022-07-05 09:10:00 Test Item Value Reference Range Interpretation Comme nts TROPONIN I (test code = 0.002 ng/mL See_Comment [Au tomated message] The [id number]) system which ge nerated this result tra [...] biotin. Lab Interpretation Normal (test code = 80857-1) [id number] 09:10:00 Test Item Value Reference Range Interpretation Comments NT-proBNP (test code 25 pg/mL See_Comment [Autom ated = [id number]) message] The system which generated this result transmitted reference range : <=125. The reference range was not used to interpret this result as normal/abnormal . JESUS (test code = JESUS) Biotin has been reported to cause a negative bias, interpret results relative to patient's use of biotin. Lab Interpretation Normal (test code = 71915-9) [facility] Metabolic Panel ([id number])2022-07-05 07:25:13 Test Item Value Reference Range Interpretation Comments NA (test code = 133 mmol/L 135-145 L [id number]) K (test code = 4.5 mmol/L 3.5-5.0 0993902708) CL (test code = 98 mmol/L 98-108 2326052176) CO2 TOTAL (test code = 28 mmol/L 23-31 4419564359) AGAP (test code = 2-16 1481100583) BUN (test code = 18 mg/dL 7-23 6654596522) GLUCOSE (test code = 350 mg/dL 70-110 H 6074248253) CREATININE (test code = 0.71 mg/dL 0.50-1.04 0063586127) TOTAL BILI (test code = 0.7 mg/dL 0.1-1.3 4699754226) CALCIUM (test code = 9.4 mg/dL 8.6-10.6 7537665749) T PROTEIN (test code = 7.0 g/dL 6.3-8.2 3959043657) ALBUMIN (test code = 4.1 g/dL 3.5-5.0 8754222525) ALK PHOS (test code = 114 U/L 34-122 3274686848) ALTv (test code = 60 U/L 5-35 H 1742-6) AST(SGOT) (test code = 42 U/L 13-40 H [id number]) eGFR (test code = mL/min/1.73m2 0240781809) JESUS (test code = JESUS) Association of [...] tests). Lab Interpretation Abnormal (test code = 91890-2) [facility] [id number] 07:25:13 Test Item Value Reference Range Interpretation Comments LIPASE (test code = 7886800758) 104 U/L 0-220 Lab Interpretation (test code = Normal 20900-7) [facility] with [id number] 07:13:32 Test Item Value Reference Range Interpretation Comments WBC (test code = See_Comment [Automated 8180-2) message] The sy stem which generated this result transmitted reference range : 4.30 - 11.10 10*3/?L. The reference range was not used to interpret this result as normal/abnormal . RBC (test code = See_Comment [Automated 740-5) message] The sy stem which generated this [...] RDW-SD (test code = 40.9 fL 39.0-49.9 87669-2) RDW-CV (test code = 12.5 % 12.0-15.5 788-0) PLT (test code = See_Comment [Automated 777-3) message] The sy stem which generated this result transmitted reference range : 166 - 358 10*3/ ?L. The reference r jori was not used to interpret this result as normal/abnormal . MPV (test code = 11.3 fL 9.5-12.9 19599-3) NRBC/100 WBC (test See_Comment [Automat ed code = 0150461406) message] The system which generated this result transmitted reference range : 0.0 - 10.0 /100 WBCs. The refer ence range was not u sed to interpret th is result as normal/abnormal . NRBC x10^3 (test code See_Comment [Auto mated = 0868578666) message] The s ystem which generated this result transmitted reference range : 10*3/?L. The reference range was not used to interpret this result as normal/abnormal . GRAN MAT (NEUT) % 59.4 % (test code = 770-8) IMM GRAN % (test code 0.30 % = 0495603382) LYMPH % (test code = 29.6 % 736-9) MONO % (test code = 8.4 % 5905-5) EOS % (test code = 1.3 % 713-8) BASO % (test code = 1.0 % 706-2) GRAN MAT x10^3(ANC) 5.38 10*3/uL 1.88-7.09 (test code = 9155425772) IMM GRAN x10^3 (test 0.03 10*3/uL 0.00-0.06 code = 9940923554) LYMPH x10^3 (test code 2.68 10*3/uL 1.32-3.29 = 731-0) MONO x10^3 (test code 0.76 10*3/uL 0.33-0.92 = 742-7) EOS x10^3 (test code = 0.12 10*3/uL 0.03-0.39 711-2) BASO x10^3 (test code 0.09 10*3/uL 0.01-0.07 H = 704-7) Lab Interpretation Abnormal (test code = 31811-1) [facility]PO[facility]COSE (AUTOMATED)2022-04-22 09:06:42 Test Item Value Reference Range Interpretation Comments POCT GLU (test code = 6698695931) 286 mg/dL 70-110 H Lab Interpretation (test code = Abnormal 02324-3) [facility] CenterTROPONIN [id number] 07:57:54 Test Item Value Reference Interpretation Comments Range TROPONIN I (test 0.000 ng/mL See_Comment [Automated code = 4125275909) message] The system which generated this result [...] biotin. Lab Interpretation Normal (test code = 19931-0) [facility] CenterN-TERMINAL [id number] 07:57:54 Test Item Value Reference Range Interpretation Comments NT-proBNP (test code 77 pg/mL See_Comment [Autom ated = 2919640219) message] The system which generated this result transmitted reference range : <=125. The reference range was not used to interpret this result as normal/abnormal . JESUS (test code = JESUS) Biotin has been reported to cause a negative bias, interpret results relative to patient's use of biotin. Lab Interpretation Normal (test code = 04077-5) [facility]. METABOLIC PANEL (58740)2021-10-26 07:44:14 Test Item Value Reference Range Interpretation Comments NA (test code = 131 mmol/L 135-145 L 3098820208) K (test code = 4.3 mmol/L 3.5-5.0 8093729835) CL (test code = 99 mmol/L 98-108 5085632208) CO2 TOTAL (test code = 29 mmol/L 23-31 6590767889) AGAP (test code = 2-16 4482177490) BUN (test code = 20 mg/dL 7-23 2251418602) GLUCOSE (test code = 216 mg/dL 70-110 H 9989086160) CREATININE (test code = 0.70 mg/dL 0.50-1.04 5981131346) TOTAL BILI (test code = 0.5 mg/dL 0.1-1.6 3090308291) CALCIUM (test code = 9.1 mg/dL 8.6-10.6 8217598650) T PROTEIN (test code = 7.1 g/dL 6.3-8.2 0073575987) ALBUMIN (test code = 3.8 g/dL 3.5-5.0 9715754124) ALK PHOS (test code = 107 U/L 34-122 3810605877) ALTv (test code = 32 U/L 5-35 2-6) AST(SGOT) (test code = 27 U/L 13-40 1228337700) eGFR (test code = mL/min/1.73m2 9340872188) JESUS (test code = JESUS) Association of [...] tests). Lab Interpretation Abnormal (test code = 88276-3) [facility] CenterPHOSPHORUS2022-03-30 07:44:14 Test Item Value Reference Range Interpretation Comments PHOSPHORUS (test code = 0392432636) 4.3 mg/dL 2.5-5.0 Lab Interpretation (test code = Normal 12090-2) [facility] CenterMAGNESIUM2022-03-30 07:44:14 Test Item Value Reference Range Interpretation Comments MAGNESIUM (test code = 8740694735) 1.8 mg/dL 1.7-2.4 Lab Interpretation (test code = Normal 14657-5) [facility] WITH [id number] 07:14:47 Test Item Value Reference Range Interpretation Comments WBC (test code = See_Comment [Automated 6468-2) message] The sy stem which generated this result transmitted reference range : 4.30 - 11.10 10*3/?L. The reference range was not used to interpret this result as normal/abnormal . RBC (test code = See_Comment [Automated 412-8) message] The sy stem which generated this [...] RDW-SD (test code = 44.4 fL 39.0-49.9 44843-6) RDW-CV (test code = 13.1 % 12.0-15.5 788-0) PLT (test code = See_Comment [Automated 777-3) message] The sy stem which generated this result transmitted reference range : 166 - 358 10*3/ ?L. The reference r jori was not used to interpret this result as normal/abnormal . MPV (test code = 11.0 fL 9.5-12.9 83414-7) NRBC/100 WBC (test See_Comment [Automat ed code = 5396332351) message] The system which generated this result transmitted reference range : 0.0 - 10.0 /100 WBCs. The refer ence range was not u sed to interpret th is result as normal/abnormal . NRBC x10^3 (test code <0.01 See_Comment [Auto mated = 8406895315) message] The s ystem which generated this result transmitted reference range : 10*3/?L. The reference range was not used to interpret this result as normal/abnormal . GRAN MAT (NEUT) % 63.3 % (test code = 770-8) IMM GRAN % (test code 0.70 % = 4975988653) LYMPH % (test code = 25.8 % 736-9) MONO % (test code = 7.5 % 5905-5) EOS % (test code = 1.8 % 713-8) BASO % (test code = 0.9 % 706-2) GRAN MAT x10^3(ANC) 6.58 10*3/uL 1.88-7.09 (test code = 3464848088) IMM GRAN x10^3 (test 0.07 10*3/uL 0.00-0.06 H code = 3304310382) LYMPH x10^3 (test code 2.68 10*3/uL 1.32-3.29 = 731-0) MONO x10^3 (test code 0.78 10*3/uL 0.33-0.92 = 742-7) EOS x10^3 (test code = 0.19 10*3/uL 0.03-0.39 711-2) BASO x10^3 (test code 0.09 10*3/uL 0.01-0.07 H = 704-7) Lab Interpretation Abnormal (test code = 23159-2) [facility]"
--- NOTE | 2023-03-09 18:12 | RAD REPORT ---
EXAM DESCRIPTION: RAD - Chest Pa And Lat (2 Views) - 03/09/2023 6:06 pm CLINICAL HISTORY: COUGH Chest pain. COMPARISON: <Comparisons> FINDINGS: The lungs are clear. The heart is normal in size. No displaced fractures. IMPRESSION: No acute or concerning finding suspected.
[2023-03-09] MEDS ORDERED: HYDROCODONE/CHLORPHEN 5 ML/OSYR ONE (18:18)
[2023-03-09] MEDS ORDERED: IBUPROFEN 400 MG TAB ONE (18:18)
[2023-03-09] MEDS ORDERED: IPRATROPIUM BROM 0.5MG/2.5ML ONE (18:18)
[2023-03-09] MEDS ORDERED: ALBUTEROL 2.5 MG/3 ML NEB SOL ONE (18:18)
[2023-03-09] MEDS ORDERED: ONDANSETRON 4 MG (ODT) TAB ONE (18:19)
--- NOTE | 2023-03-09 19:58 | ER ---
Nurse's Notes [facility] Name: Silvia Kiran Age: 52 yrs Sex: Female : 1970 Arrival Date: 03/09/2023 Time: 17:29 Bed 8 Private MD: Vinod Crowell Diagnosis: Unspecified acute conjunctivitis, right eye;Acute pharyngitis, unspecified;Cough Presentation: 03/09 17:41 Chief complaint: Patient states: Shortness of breath, body aches, sore throat, fever, nj1 headache for 3 days. Took 1gm tylenol about 1hr ago for a temp of 101. Has been using inhalers with no significant relief, no breathing txs. 17:41 Coronavirus screen: Vaccine status: Patient reports being unvaccinated. Ebola Screen: nj1 Patient denies travel to an Ebola-affected area in the 21 days before illness onset. Initial Sepsis Screen: Does the patient meet any 2 criteria? No. Patient's initial sepsis screen is negative. Does the patient have a suspected source of infection? No. Patient's initial sepsis screen is negative. Risk Assessment: Do you want to hurt yourself or someone else? Patient reports no desire to harm self or others. Onset of symptoms was March 06, 2023. 17:41 Method Of Arrival: Ambulatory [facility] 17:41 Acuity: SUNG 3 nj1 Historical: - Allergies: 17:49 iv dye iodine; nj1 - PMHx: 17:49 Depression; Diabetes - NIDDM; Hypertension; repiratory problems; nj1 - PSHx: 17:49 Total abdominal hysterectomy; tumors removed; nj1 - Immunization history:: Client reports having NOT received the Covid vaccine. - Social history:: Smoking status: Patient denies any tobacco usage or history of. Screenin:00 [facility] ED Fall Risk Assessment (Adult) History of falling in the last 3 months, aa5 including since admission No falls in past 3 months (0 pts) Confusion or Disorientation No (0 pts) Intoxicated or Sedated No (0 pts) Impaired Gait No (0 pts) Mobility Assist Device Used No (0 pt) Altered Elimination No (0 pt) Score/Fall Risk Level 0 - 2 = Low Risk Oriented to surroundings, Maintained a safe environment, Educated pt \T\ family on fall prevention, incl call for assistance when getting out of bed. Abuse screen: Denies threats or abuse. Nutritional screening: No deficits noted. Tuberculosis screening: No symptoms or risk factors identified. Assessment: 18:00 General: Appears uncomfortable, Behavior is calm, cooperative, Reports feeling ill for aa5 2-3 days. Pain: Denies pain. Neuro: Level of Consciousness is awake, alert, obeys commands, Oriented to person, place, time, situation. Cardiovascular: Heart tones S1 S2 present Rhythm is regular. Respiratory: Reports shortness of breath cough that is productive, Airway is patent Respiratory effort is even, unlabored, Respiratory pattern is regular, symmetrical, Breath sounds are clear bilaterally. GI: Abdomen is round non-distended, Bowel sounds present X 4 quads. Abd is soft and non tender X 4 quads. Reports nausea, Patient currently denies vomiting. : No signs and/or symptoms were reported regarding the genitourinary system. EENT: Sclera/Cornea are reddened in right eye and left eye Reports yellowish drainage to right eye and irritation to both eyes. . Derm: Skin is pink, warm \T\ dry. Musculoskeletal: Range of motion: intact in all extremities. 18:33 Reassessment: Pt resting in bed with eye closed, neb tx ongoing . aa5 Vital Signs: 17:41 BP 150 / 76; Pulse 86; Resp 20; Temp 98.2(O); Pulse Ox 96% ; Weight 86.18 kg (R); nj1 Height 4 ft. 10 in. ; Pain 10/10; 18:15 Pulse 81; Resp 20 S; Pulse Ox 100% on Nebulizer Mask; aa5 17:41 Body Mass Index 39.71 (86.18 kg, 147.32 cm) nj1 17:41 Pain Scale: Adult [facility] ED Course: 17:32 Patient arrived in ED. mr 17:32 Vinod Crowell DO is Private Physician. mr 17:33 Hector Smith PA is PHCP. cp 17:33 Evie Kong MD is Attending Physician. cp 17:49 Triage completed. nj1 17:50 Arm band placed on right wrist. nj1 17:53 Rajwinder Ventura, RN is Primary Nurse. aa5 18:00 Patient has correct armband on for positive identification. Bed in low position. Call aa5 light in reach. Side rails up X2. Adult w/ patient. Pulse ox on. NIBP on. 18:08 XRAY Chest Pa And Lat (2 Views) In Process Unspecified. EDMS 19:11 Report given to TERRY Maddox and TERRY Graham. aa5 20:34 Provided Education on: drink fluids to loosen mucus. vc1 20:34 No provider procedures requiring assistance completed. Patient did not have IV access vc1 during this emergency room visit. Administered Medications: 18:14 Drug: DuoNeb Nebulize (2.5 mg - 0.5 mg) 3 ml Route: Nebulizer; aa5 18:33 Follow up: Response: No adverse reaction aa5 18:14 Drug: Ibuprofen PO 800 mg Route: PO; aa5 18:33 Follow up: Response: No adverse reaction aa5 18:15 Drug: Tussionex Pennkinetic ER PO Suspension 5 ml Route: PO; aa5 18:33 Follow up: Response: No adverse reaction aa5 18:15 Not Given (Physician Discretion): Ondansetron IVP 4 mg IVP once; over 2 minutes aa5 18:15 Drug: Ondansetron Oral Disintegrating Tablet Oral Disintegrating Tablet 4 mg Route: PO; aa5 18:33 Follow up: Response: No adverse reaction aa5 Medication: 20:35 VIS not applicable for this client. vc1 Outcome: 19:58 Discharge ordered by . cp 20:34 Discharged to home ambulatory. vc1 20:34 Condition: good 20:34 Discharge instructions given to patient, Instructed on discharge instructions, follow up and referral plans. medication usage, Demonstrated understanding of instructions, follow-up care, medications, Prescriptions given X 3. 20:35 Patient left the ED. vc1 Signatures: Dispatcher [employer] [facility] Ning Garcias, Rajwinder, RN RN aa5 Hector Smith PA PA cp Gladys De Anda RN RN vc1 Carolyn Mg RN RN nj1
--- NOTE | 2023-03-09 19:58 | EDPHYS ---
Physician Documentation [facility] Name: Silvia Kiran Age: 52 yrs Sex: Female : 1970 Arrival Date: 03/09/2023 Time: 17:29 Bed 8 Private MD: Vinod Crowell ED Physician Evie Kong HPI: 03/09 18:00 This 52 yrs old Female presents to ER via Ambulatory with complaints of Breathing cp Difficulty, Flu Symptoms. 18:00 The patient has shortness of breath at rest. Onset: The symptoms/episode began/occurred cp gradually. 18:00 Patient presents to ED with c/o cough, congestion, sore throat, body aches, head ache cp times 3 days. Patient reports fever 101 today, took tylenol.. Historical: - Allergies: 17:49 iv dye iodine; nj1 - PMHx: 17:49 Depression; Diabetes - NIDDM; Hypertension; repiratory problems; nj1 - PSHx: 17:49 Total abdominal hysterectomy; tumors removed; nj1 - Immunization history:: Client reports having NOT received the Covid vaccine. - Social history:: Smoking status: Patient denies any tobacco usage or history of. ROS: 18:05 Constitutional: Positive for body aches, Negative for fever, poor PO intake. cp 18:05 Eyes: Negative for injury, pain, redness, and discharge. cp 18:05 ENT: Positive for sore throat, Negative for drainage from ear(s), ear pain, difficulty swallowing, difficulty handling secretions. 18:05 Cardiovascular: Positive for chest pain, with cough, Negative for edema, palpitations. 18:05 Respiratory: Positive for cough, "sounds productive", shortness of breath. 18:05 Abdomen/GI: Negative for vomiting, diarrhea, constipation. 18:05 : Negative for urinary symptoms. 18:05 Neuro: Positive for headache, Negative for altered mental status, weakness. 18:05 All other systems are negative. Exam: 18:20 Constitutional: The patient appears in no acute distress, alert, awake, cp non-diaphoretic, non-toxic, well developed, well nourished, obese, uncomfortable. 18:20 Head/Face: Normocephalic, atraumatic. cp 18:20 Eyes: Periorbital structures: appear normal, Conjunctiva: normal, no exudate, no injection, Sclera: no appreciated abnormality, Lids and lashes: appear normal, bilaterally. 18:20 ENT: External ear(s): are unremarkable, Ear canal(s): are normal, clear, TM's: dullness, bilaterally, Nose: is normal, Mouth: Lips: moist, Oral mucosa: moist, Posterior pharynx: Airway: no evidence of obstruction, patent, Tonsils: no enlargement, no exudate, erythema, that is mild, exudate, is not appreciated. 18:20 Neck: ROM/movement: is normal, is supple, without pain, no range of motions limitations, no meningismus, Lymph nodes: no appreciated lymphadenopathy. 18:20 Chest/axilla: Inspection: normal. 18:20 Cardiovascular: Rate: normal, Rhythm: regular, Edema: is not appreciated, JVD: is not appreciated. 18:20 Respiratory: the patient does not display signs of respiratory distress, Respirations: labored breathing, is not present, shallow respirations, are not present, Breath sounds: bronchial sounds, that are mild, are heard diffusely, stridor, is not appreciated. 18:20 Abdomen/GI: Inspection: abdomen appears normal, Palpation: abdomen is soft and non-tender, in all quadrants. 18:20 Neuro: Orientation: to person, place \\T\\ time. Mentation: is normal, Motor: moves all fours, strength is normal. Vital Signs: 17:41 BP 150 / 76; Pulse 86; Resp 20; Temp 98.2(O); Pulse Ox 96% ; Weight 86.18 kg (R); nj1 Height 4 ft. 10 in. ; Pain 10/10; 18:15 Pulse 81; Resp 20 S; Pulse Ox 100% on Nebulizer Mask; aa5 17:41 Body Mass Index 39.71 (86.18 kg, 147.32 cm) nj1 17:41 Pain Scale: Adult nj1 MDM: 17:40 Patient medically screened. cp 18:00 Differential diagnosis: asthma, Chronic Obstructive Pulmonary Disease pneumonia, Sepsis.cp 19:57 Data reviewed: vital signs, nurses notes, lab test result(s), radiologic studies, plain cp films. 19:57 Consideration of Admission/Observation Escalation of care including cp admission/observation considered. Care significantly affected by the following chronic conditions: Diabetes, Hypertension. Counseling: I had a detailed discussion with the patient and/or guardian regarding: the historical points, exam findings, and any diagnostic results supporting the discharge/admit diagnosis, lab results, radiology results, to return to the emergency department if symptoms worsen or persist or if there are any questions or concerns that arise at home. Response to treatment: the patient's symptoms have markedly improved after treatment, and as a result, I will discharge patient. 03/09 17:53 Order name: COVID-19 SARS RT PCR; Complete Time: 19:55 03/09 19:55 Interpretation: Reviewed. cp 03/09 17:53 Order name: Influenza Screen (a \\T\\ B); Complete Time: 19:55 cp 03/09 17:53 Order name: Strep; Complete Time: 19:55 03/09 18:34 Order name: Throat Culture EDMS 03/09 17:53 Order name: XRAY Chest Pa And Lat (2 Views); Complete Time: 18:23 cp 03/09 18:23 Interpretation: Report reviewed. cp Administered Medications: 18:14 Drug: DuoNeb Nebulize (2.5 mg - 0.5 mg) 3 ml Route: Nebulizer; aa5 18:33 Follow up: Response: No adverse reaction aa5 18:14 Drug: Ibuprofen PO 800 mg Route: PO; aa5 18:33 Follow up: Response: No adverse reaction aa5 18:15 Drug: Tussionex Pennkinetic ER PO Suspension 5 ml Route: PO; aa5 18:33 Follow up: Response: No adverse reaction aa5 18:15 Not Given (Physician Discretion): Ondansetron IVP 4 mg IVP once; over 2 minutes aa5 18:15 Drug: Ondansetron Oral Disintegrating Tablet Oral Disintegrating Tablet 4 mg Route: PO; aa5 18:33 Follow up: Response: No adverse reaction aa5 Disposition: 20:33 I agree with the assessment and plan of care. cp3 Disposition Summary: 03/09/23 19:58 Discharge Ordered Location: Home cp Problem: new cp Symptoms: have improved cp Condition: Stable cp Diagnosis - Unspecified acute conjunctivitis, right eye cp - Acute pharyngitis, unspecified cp - Cough cp Followup: cp - With: Private Physician - When: 2 - 3 days - Reason: Worsening of condition Discharge Instructions: - Discharge Summary Sheet cp - Pharyngitis cp - Viral Respiratory Infection cp - Cool Mist Vaporizer cp - Cough, Adult cp Forms: - Medication Reconciliation Form cp - Thank You Letter cp - Antibiotic Education cp - Prescription Opioid Use cp - Patient Portal Instructions cp - Leadership Thank You Letter cp Prescriptions: - Bromfed DM 2-30-10 mg/5 mL Oral syrup - administer 10 milliliter by ORAL route every 6 hours; 180 milliliter; Refills: cp 0, Product Selection Permitted - Ibuprofen 800 mg Oral Tablet - take 1 tablet by ORAL route every 8 hours As needed take with food; 30 tablet; cp Refills: 0, Product Selection Permitted - Vigamox 0.5 % Ophthalmic Drops - instill 1 drop by OPHTHALMIC route every 8 hours for 7 days; 5 milliliter; cp Refills: 0, Product Selection Permitted Signatures: Dispatcher [employer] Evie Montes MD MD cp3 Rajwinder Ventura, RN RN aa5 Hector Smith, JEREMIAH PA cp Carolyn Mg RN RN nj1
[2023-03-09 20:39] VITALS: BP 150/76; TEMP 98.2
[2023-03-09 20:40] VITALS: O2SAT 100
== END 2023-03-09 20:35 | disposition home or self-care (01) ==
LOC: ER 17:29
DX: R05.9 Cough, unspecified (principal); H10.31 Unspecified acute conjunctivitis, right eye; J02.9 Acute pharyngitis, unspecified; Z20.822 Contact with and (suspected) exposure to COVID-19; Z91.041 Radiographic dye allergy status
CPT/HCPCS: 87070; 87081; 87635; 87804 ×2; 71046; 94640; 99284; Q0162; J7613; J7644

== ENCOUNTER 2023-04-01 11:49 | Emergency (ER) | payer OTHER ==
--- OUTSIDE RECORDS SUMMARY | 2023-04-01 11:54 | XMS REPORT | Continuity of Care Document ---
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 of colon (procedure) [code = 697593394] Future Scheduled Test 2020 Screening for malignant [facility] 00:00:00 neoplasm of colon (procedure) [code = 945485466] Future Scheduled Test 2020 Screening for malignant [facility] 00:00:00 neoplasm of colon (procedure) [code = 691943280] Future Scheduled Test 2020 Screening for malignant [facility] 00:00:00 neoplasm of colon (procedure) [code = 295313733] Future Scheduled Test 2010 Breast Cancer Scrn [...] 00:00:00 neoplasm of cervix (procedure) [code = 334732466] Future Scheduled Test 2000 Screening for malignant [facility] 00:00:00 neoplasm of cervix (procedure) [code = 167491691] Future Scheduled Test 2000 Screening for malignant [facility] 00:00:00 neoplasm of cervix (procedure) [code = 288139865] Future Scheduled Test 2000 Screening for malignant [facility] 00:00:00 neoplasm of cervix (procedure) [code = 520872580] Future Scheduled Test 2000 Screening for malignant [facility] 00:00:00 neoplasm of cervix (procedure) [code = 149870085] Future Scheduled Test 2000 Screening for malignant [facility] 00:00:00 neoplasm of cervix (procedure) [code = 586736647] Future Scheduled Test 2000 Screening for malignant [facility] 00:00:00 neoplasm of cervix (procedure) [code = 613592657] Future Scheduled Test 2000 Screening for malignant [facility] 00:00:00 neoplasm of cervix (procedure) [code = 317816124] Future Scheduled Test 2000 Screening for malignant [facility] 00:00:00 neoplasm of cervix (procedure) [code = 397550067] Future Scheduled Test 2000 Screening for malignant [facility] 00:00:00 neoplasm of cervix (procedure) [code = 383064114] Future Scheduled Test 1988 DM Foot Exam (Yearly) [facility] 00:00:00 [code = DM Foot Exam (Yearly)] Future Scheduled Test 1988 Urine screening for [facility] 00:00:00 protein (procedure) [code = 434354077] Future Scheduled Test 1988 DM Retinal Exam [facility] 00:00:00 (Yearly) [code = DM Retinal Exam (Yearly)] Future Scheduled Test 1988 Diabetic foot [facility] 00:00:00 examination (regime/therapy) [code = 302236675] Future Scheduled Test 1988 Urine screening for [facility] 00:00:00 protein (procedure) [code = 492226373] Future Scheduled Test 1988 DM Retinal Exam [facility] 00:00:00 (Yearly) [code = DM Retinal Exam (Yearly)] Future Scheduled Test 1988 Diabetic foot [facility] 00:[facility]:00 examination (regime/therapy) [code = 348480441] Future Scheduled Test 1988 Urine screening for [facility] 00:00:00 protein (procedure) [code = 562827251] Future Scheduled Test 1988 DM Retinal Exam [facility] 00:00:00 (Yearly) [code = DM Retinal Exam (Yearly)] Future Scheduled Test [address] [facility] 00:00:00 examination (regime/therapy) [code = 425580439] Future Scheduled Test 1988 Urine screening for [facility] 00:00:00 protein (procedure) [code = 735741774] Future Scheduled Test 1988 DM Retinal Exam [facility] 00:00:00 (Yearly) [code = DM Retinal Exam (Yearly)] Future Scheduled Test [address] [facility] 00:00:00 examination (regime/therapy) [code = 224822100] Future Scheduled Test 1988 Urine screening for [facility] 00:00:00 protein (procedure) [code = 676824195] Future Scheduled Test 1988 DM Retinal Exam [facility] 00:00:00 (Yearly) [code = DM Retinal Exam (Yearly)] Future Scheduled Test 1976 Imm Pneumococcal 0-64 [facility] 00:00:00 (1 of 2 - PPSV23) [code = Imm Pneumococcal 0-64 (1 of 2 - PPSV23)] Future Scheduled Test 1976 Imm Pneumococcal 0-64 [facility] 00:00:00 (1 - PCV) [code = Imm Pneumococcal 0-64 (1 - PCV)] Future Scheduled Test 1976 Imm Pneumococcal 0-64 [facility] 00:00:00 (1 - PCV) [code = Imm Pneumococcal 0-64 (1 - PCV)] Future Scheduled Test 1976 Imm Pneumococcal 0-64 [facility] 00:00:00 (1 - PCV) [code = Imm Pneumococcal 0-64 (1 - PCV)] Future Scheduled Test 1976 Imm Pneumococcal 0-64 [facility] 00:00:00 (1 - PCV) [code = Imm Pneumococcal 0-64 (1 - PCV)] Future Scheduled Test 1975 COVID-19 Vaccine (1) [facility] 00:00:00 [code = COVID-19 Vaccine (1)] Future Scheduled Test 1971-02-17 COVID-19 Vaccine (#1) [facility] 00:00:00 [code = COVID-19 Vaccine (#1)] Future Scheduled Test 1971-02-17 COVID-19 Vaccine (#1) [facility] 00:00:00 [code = COVID-19 Vaccine (#1)] Future Scheduled Test 1971-02-17 COVID-19 Vaccine (#1) [facility] 00:00:00 [code = COVID-19 Vaccine (#1)] Future Scheduled Test 1971-02-17 COVID-19 Vaccine (#1) [facility] 00:00:00 [code = COVID-19 Vaccine (#1)] Encounters Start End Encounter Admission Attending Care Care Encounter Source Date/Time Date/Time Type Type Clinicians Facility Department ID 2023-04-09 2023-04-09 Outpatient JOANIE BELTRÁN [id number] Joanie 08:15:00 08:15:00 AHMED Seybol d 2023-04-05 2023-04-05 Outpatient JOANIE KOCH [id number] Joanie 14:00:00 14:00:00 LULU Seybol d 2023-03-29 2023-03-29 Outpatient JOANIE KOCH [id number] Joanie 00:00:00 00:00:00 LULU Seybol d 2023-03-13 2023-03-13 Outpatient JOANIE TAVARES [id number] Joanie 09:00:00 09:00:00 Seybol d 2023-03-12 2023-03-12 Outpatient JOANIE KOCH [id number] Joanie 00:00:00 00:00:00 LULU Seybol d 2023-03-07 2023-03-07 Outpatient PREJOANIE PACHECO [id number] Joanie 15:00:00 15:00:00 LULU Seybol d 2023-03-02 2023-03-02 Outpatient JOANIE KOCH [id number] Joanie 00:00:00 00:00:00 LULU Seybol d 2023-03-02 2023-03-02 Outpatient JOANIE KOCH [id number] Joanie 00:00:00 00:00:00 LULU Seybol d 2023-03-01 2023-03-01 Outpatient JOANIE HARRIS [id number] Joanie 11:00:00 11:00:00 JAI Seybol d 2023-02-28 2023-02-28 Outpatient JOANIE KOCH [id number] Joanie 00:00:00 00:00:00 LULU Seybol d 2023-02-08 2023-02-08 Outpatient JOANIE KOCH [id number] Joanie 09:30:00 09:30:00 LULU Seybol d 2023-01-26 2023-01-26 Outpatient JOANIE TAVARES [id number] Joanie 16:00:00 16:00:00 Seybol d 2023-01-26 2023-01-26 Outpatient JOANIE TAVARES [id number] Joanie 15:55:00 15:55:00 Seybol d 2023-01-26 2023-01-26 Outpatient JOANIE TAVARES [id number] Joanie 15:50:00 15:50:00 Seybol d 2023-01-26 2023-01-26 Outpatient JOANIE BELTRÁN [id number] Joanie 07:30:00 07:30:00 AHMED Seybol d 2023-01-26 2023-01-26 Outpatient JOANIE KOCH [id number] Joanie 00:00:00 00:00:00 LULU Seybol d 2023-01-26 2023-01-26 Outpatient JOANIE KOCH [id number] Joanie 00:00:00 00:00:00 LULU Seybol d 2023-01-26 2023-01-26 Outpatient JOANIE BELTRÁN [id number] Joanie 00:00:00 00:00:00 AHMED Seybol d 2023-01-26 2023-01-26 Outpatient JOANIE WARREN [id number] Joanie 00:00:00 00:00:00 DOMINIQUE Seybo ld 2023-01-26 2023-01-26 Outpatient JOANIE KOCH [id number] Joanie 00:00:00 00:00:00 LULU Seybol d 2023-01-23 2023-01-23 Outpatient JOANIE KOCH [id number] Joanie 13:45:00 13:45:00 LULU Seybol d 2023-01-20 2023-01-20 Outpatient JOANIE BRIAN [id number] Joanie 00:00:00 00:00:00 TENZIN Seybol d 2023-01-12 2023-01-12 Outpatient JOANIE KOCH [id number] Joanie 00:00:00 00:00:00 LULU Seybol d 2023-01-11 2023-01-11 Outpatient JOANIE KOCH [id number] Joanie 00:00:00 00:00:00 LULU Seybol d 2023-01-04 2023-01-04 Outpatient JOANIE TAVARES [id number] Joanie 13:25:00 13:25:00 Seybol d 2023-01-04 2023-01-04 Outpatient JOANIE GAONA [id number] Joanie 13:00:00 13:00:00 MANNY Seybol d 2023-01-04 2023-01-04 Outpatient JOANIE GAONA [id number] Joanie 00:00:00 00:00:00 MANNY Seybol d 2022-12-28 2022-12-28 Outpatient JOANIE CEJA [id number] Joanie 08:00:00 08:00:00 TIFFANIE Seybol d 2022-12-26 2022-12-26 Outpatient JOANIE BELTRÁN [id number] Joanie 00:00:00 00:00:00 AHMED Seybol d 2022-12-22 2022-12-22 Outpatient JOANIE BRIAN [id number] Joanie 13:30:00 13:30:00 TENZIN Seybol d 2022-12-22 2022-12-22 Outpatient JOANIE BRIAN [id number] Joanie 00:00:00 00:00:00 TENZIN Seybol d 2022-12-22 2022-12-22 Outpatient JOANIE OCONNOR [id number] Joanie 00:00:00 00:00:00 AMBER Seybol d 2022-12-22 2022-12-22 Outpatient JOANIE BRIAN [id number] Joanie 00:00:00 00:00:00 TENZIN Seybol d 2022-12-20 2022-12-20 Outpatient JOANIE KOCH [id number] Joanie 00:00:00 00:00:00 LULU Tobar keon 2022-09-20 2022-09-20 Orders Doctor GUSTAVO Swan2.840.114 [id number] [facility] 00:00:00 00:00:00 Only Unassigned, MART 350.1.13.10 ity of [facility] 4.2.7.2.686 [place] as [id number] [address] 2022-07-25 2022-07-25 Orders Doctor GUSTAVO Hernandez.2.840.114 [id number] [facility] 00:00:00 00:00:00 Only Unassigned, MART 350.1.13.10 ity of [facility] 4.2.7.2.686 [place] as [id number] [address] 2022-07-04 2022-07-05 Emergency X SIA [facility] ERT [id number] Univers 23:33:00 04:01:00 CHARLIE ity [facility] 2022-07-04 2022-07-05 Emergency Dellis, [place] [id number] Univers 23:33:00 04:01:00 Charlie DIAMONDHEAD 350.1.13.10 [place] [id number] [address] 2022-05-29 2022-05-29 Outpatient DUNG SHARP, [facility] АЛЕКСАНДР [id number] [id number] [facility] 08:00:00 08:00:00 FLORENCE 73 Misty an keon [facility] 2022-04-22 2022-04-22 Emergency X LEVI HERNANDEZ [facility] ERT [id number] Univers 03:29:00 06:52:00 ity of [facility] 2022-04-22 2022-04-22 Emergency Levi Hernandez [place] 1.2.840.114 [id number] Univers 03:29:00 06:52:00 W CENTER 350.1.13.10 [id number] [address] 2022-02-02 2022-02-02 Orders Doctor GUSTAVO Swan2.840.114 [id number] Univers 00:00:00 00:00:00 Only Unassigned, MART 350.1.13.10 ity of [facility] 4.2.7.2.686 [place] [id number] [address] 2021-12-15 2021-12-15 Orders Doctor GUSTAVO 1.2.840.114 [id number] Univers 00:00:00 00:00:00 Only Unassigned, MART 350.1.13.10 ity of [facility] 4.2.7.2.686 [place] [id number] [address] 2021-12-06 2021-12-07 Emergency X BALBUENA, [facility] ERT [id number] Univers 23:37:00 02:48:00 ARMEN shankar [facility] 2021-12-06 2021-12-07 Emergency Balbuena, [place] 1.2.004.710 [id number] Univers 23:37:00 02:48:00 Armen Whitney JAMILA 350.1.13.10 [place] [id number] [address] 2021-10-26 2021-10-26 Emergency Ahmet, [place] 1.2.184.857 [id number] Univers 01:15:00 04:12:00 Mohsen Klein JAMILA 350.1.13.10 [place] [id number] [address] 2021-10-26 2021-10-26 Emergency X AHMET, [facility] ERT [id number] Univers 01:15:00 04:12:00 MOHSEN shankar [facility] 2021-09-14 2021-09-14 Emergency [facility] [id number] Devin 23:04:00 23:27:00 [facility] 2021-09-14 2021-09-14 Emergency [facility] [id number] Devin 00:00:00 00:00:00 [facility] 2020-07-30 2020-08-02 Inpatient [facility] [id number] Devin 15:20:00 [facility]57[facility]-07-30 2020-07-30 Emergency [facility] [id number] Devin 16:49:10 16:54:47 [facility] 2019-05-30 2019-05-30 Emergency X JENNIFERERIAN [facility] ERT [id number] Univers 09:14:59 11:46:00 , MARCOS shankar of [facility] Results Test Description Test Time Test Comments Results Result Comments Source TROPONIN I 2022-07-05 09:10:00 Test Item Value Reference Range Interpretation Comme nts TROPONIN I (test code = 0.002 ng/mL See_Comment [Au tomated message] The 3787547446) system which ge nerated this result tra [...] biotin. Lab Interpretation Normal (test code = 88623-3) [facility] [id number] 09:10:00 Test Item Value Reference Range Interpretation Comments NT-proBNP (test code 25 pg/mL See_Comment [Autom ated = 7247723578) message] The system which generated this result transmitted reference range : <=125. The reference range was not used to interpret this result as normal/abnormal . JESUS (test code = JESUS) Biotin has been reported to cause a negative bias, interpret results relative to patient's use of biotin. Lab Interpretation Normal (test code = 83913-6) [facility] ([id number])2022-07-05 07:25:13 Test Item Value Reference Range Interpretation Comments NA (test code = 133 mmol/L 135-145 L 7207859977) K (test code = 4.5 mmol/L 3.5-5.0 1314271465) CL (test code = 98 mmol/L 98-108 3738306564) CO2 TOTAL (test code = 28 mmol/L 23-31 3243889151) AGAP (test code = 2-16 1471420197) BUN (test code = 18 mg/dL 7-23 8029801010) GLUCOSE (test code = 350 mg/dL 70-110 H 2730472686) CREATININE (test code = 0.71 mg/dL 0.50-1.04 0855741927) TOTAL BILI (test code = 0.7 mg/dL 0.1-1.9 8732319993) CALCIUM (test code = 9.4 mg/dL 8.6-10.6 3792123275) T PROTEIN (test code = 7.0 g/dL 6.3-8.2 7205945553) ALBUMIN (test code = 4.1 g/dL 3.5-5.0 4472806049) ALK PHOS (test code = 114 U/L 34-122 2405809703) ALTv (test code = 60 U/L 5-35 H 1742-6) AST(SGOT) (test code = 42 U/L 13-40 H 2570337912) eGFR (test code = mL/min/1.73m2 2300089397) JESUS (test code = JESUS) Association of [...] tests). Lab Interpretation Abnormal (test code = 84870-6) [facility] [id number] 07:25:13 Test Item Value Reference Range Interpretation Comments LIPASE (test code = 4477638209) 104 U/L 0-220 Lab Interpretation (test code = Normal 04326-1) [facility] with [id number] 07:13:32 Test Item Value Reference Range Interpretation Comments WBC (test code = See_Comment [Automated 2556-2) message] The sy stem which generated this result transmitted reference range : 4.30 - 11.10 10*3/?L. The reference range was not used to interpret this result as normal/abnormal . RBC (test code = See_Comment [Automated 349-8) message] The sy stem which generated this [...] RDW-SD (test code = 40.9 fL 39.0-49.9 36381-8) RDW-CV (test code = 12.5 % 12.0-15.5 788-0) PLT (test code = See_Comment [Automated 037-3) message] The sy stem which generated this result transmitted reference range : 166 - 358 10*3/ ?L. The reference r jori was not used to interpret this result as normal/abnormal . MPV (test code = 11.3 fL 9.5-12.9 75594-3) NRBC/100 WBC (test See_Comment [Automat ed code = 3110292573) message] The system which generated this result transmitted reference range : 0.0 - 10.0 /100 WBCs. The refer ence range was not u sed to interpret th is result as normal/abnormal . NRBC x10^3 (test code See_Comment [Auto mated = 7880091358) message] The s ystem which generated this result transmitted reference range : 10*3/?L. The reference range was not used to interpret this result as normal/abnormal . GRAN MAT (NEUT) % 59.4 % (test code = 770-8) IMM GRAN % (test code 0.30 % = 3800143303) LYMPH % (test code = 29.6 % 736-9) MONO % (test code = 8.4 % 5905-5) EOS % (test code = 1.3 % 713-8) BASO % (test code = 1.0 % 706-2) GRAN MAT x10^3(ANC) 5.38 10*3/uL 1.88-7.09 (test code = 2278914421) IMM GRAN x10^3 (test 0.03 10*3/uL 0.00-0.06 code = 5015592706) LYMPH x10^3 (test code 2.68 10*3/uL 1.32-3.29 = 731-0) MONO x10^3 (test code 0.76 10*3/uL 0.33-0.92 = 742-7) EOS x10^3 (test code = 0.12 10*3/uL 0.03-0.39 711-2) BASO x10^3 (test code 0.09 10*3/uL 0.01-0.07 H = 704-7) Lab Interpretation Abnormal (test code = 31492-9) [facility] (AUTOMATED)2022-04-22 09:06:42 Test Item Value Reference Range Interpretation Comments POCT GLU (test code = 3735635729) 286 mg/dL 70-110 H Lab Interpretation (test code = Abnormal 11441-2) [facility] [id number] 07:57:54 Test Item Value Reference Interpretation Comments Range TROPONIN I (test 0.000 ng/mL See_Comment [Automated code = 5551826523) message] The system which generated this result [...] biotin. Lab Interpretation Normal (test code = 70862-5) [facility] [id number] 07:57:54 Test Item Value Reference Range Interpretation Comments NT-proBNP (test code 77 pg/mL See_Comment [Autom ated = 9949162583) message] The system which generated this result transmitted reference range : <=125. The reference range was not used to interpret this result as normal/abnormal . JESUS (test code = JESUS) Biotin has been reported to cause a negative bias, interpret results relative to patient's use of biotin. Lab Interpretation Normal (test code = 20854-9) [facility] MET[facility]OLIC PANEL (26675)2021-10-26 07:44:14 Test Item Value Reference Range Interpretation Comments NA (test code = 131 mmol/L 135-145 L 5890986787) K (test code = 4.3 mmol/L 3.5-5.0 3067506024) CL (test code = 99 mmol/L 98-108 6626684894) CO2 TOTAL (test code = 29 mmol/L 23-31 2312013714) AGAP (test code = 2-16 0399367509) BUN (test code = 20 mg/dL 7-23 0320014242) GLUCOSE (test code = 216 mg/dL 70-110 H 0679515714) CREATININE (test code = 0.70 mg/dL 0.50-1.04 2889500274) TOTAL BILI (test code = 0.5 mg/dL 0.1-1.1 1623176530) CALCIUM (test code = 9.1 mg/dL 8.6-10.6 5490549819) T PROTEIN (test code = 7.1 g/dL 6.3-8.2 4587345253) ALBUMIN (test code = 3.8 g/dL 3.5-5.0 4345231858) ALK PHOS (test code = 107 U/L 34-122 1365259383) ALTv (test code = 32 U/L 5-35 2-6) AST(SGOT) (test code = 27 U/L 13-40 2753958795) eGFR (test code = mL/min/1.73m2 2335186601) JESUS (test code = JESUS) Association of [...] tests). Lab Interpretation Abnormal (test code = 65403-7) [facility]2022-03-30 07:44:14 Test Item Value Reference Range Interpretation Comments PHOSPHORUS (test code = 0699204050) 4.3 mg/dL 2.5-5.0 Lab Interpretation (test code = Normal 09461-6) [facility]2022-03-30 07:44:14 Test Item Value Reference Range Interpretation Comments MAGNESIUM (test code = 0938049709) 1.8 mg/dL 1.7-2.4 Lab Interpretation (test code = Normal 89234-1) [facility] WITH [id number] 07:14:47 Test Item Value Reference Range Interpretation Comments WBC (test code = See_Comment [Automated 7390-2) message] The sy stem which generated this result transmitted reference range : 4.30 - 11.10 10*3/?L. The reference range was not used to interpret this result as normal/abnormal . RBC (test code = See_Comment [Automated 010-8) message] The sy stem which generated this [...] RDW-SD (test code = 44.4 fL 39.0-49.9 62794-3) RDW-CV (test code = 13.1 % 12.0-15.5 788-0) PLT (test code = See_Comment [Automated 7-3) message] The sy stem which generated this result transmitted reference range : 166 - 358 10*3/ ?L. The reference r jori was not used to interpret this result as normal/abnormal . MPV (test code = 11.0 fL 9.5-12.9 47027-3) NRBC/100 WBC (test See_Comment [Automat ed code = 3055429107) message] The system which generated this result transmitted reference range : 0.0 - 10.0 /100 WBCs. The refer ence range was not u sed to interpret th is result as normal/abnormal . NRBC x10^3 (test code <0.01 See_Comment [Auto mated = 0601874458) message] The s ystem which generated this result transmitted reference range : 10*3/?L. The reference range was not used to interpret this result as normal/abnormal . GRAN MAT (NEUT) % 63.3 % (test code = 770-8) IMM GRAN % (test code 0.70 % = 9656554713) LYMPH % (test code = 25.8 % 736-9) MONO % (test code = 7.5 % 5905-5) EOS % (test code = 1.8 % 713-8) BASO % (test code = 0.9 % 706-2) GRAN MAT x10^3(ANC) 6.58 10*3/uL 1.88-7.09 (test code = 8150271063) IMM GRAN x10^3 (test 0.07 10*3/uL 0.00-0.06 H code = 5845808269) LYMPH x10^3 (test code 2.68 10*3/uL 1.32-3.29 = 731-0) MONO x10^3 (test code 0.78 10*3/uL 0.33-0.92 = 742-7) EOS x10^3 (test code = 0.19 10*3/uL 0.03-0.39 711-2) BASO x10^3 (test code 0.09 10*3/uL 0.01-0.07 H = 704-7) Lab Interpretation Abnormal (test code = 97977-7) [facility]"
[2023-04-01 12:14] LABS: Absolute Lymphocytes (CBC) 3.3 K/uL (0.7-4.9); Hematocrit 39.1 % (36.0-45.0); Lymphocytes % 45.1 % (15.3-44.8); MCV 92.8 fL (80-100); MPV 8.8 fL (7.6-11.3); Platelets 245 thou/uL (152-406); RBC Red Blood Cell Count 4.21 M/uL (3.86-4.86)
[2023-04-01 12:19] LABS: Protime INR 0.91
[2023-04-01] MEDS ORDERED: MORPHINE 4 MG/ML SYR ONE (12:20)
[2023-04-01] MEDS ORDERED: ONDANSETRON 4 MG/2 ML VIAL ONE (12:20)
[2023-04-01 12:33] LABS: BUN Blood Urea Nitrogen 21 mg/dL (7-18); Bicarbonate 28 mEq/L (21-32); Glomerular Filtration Rate 93 ml/min (=/>90); Glucose Level 190 mg/dL (74-106); Potassium 3.9 mEq/L (3.5-5.1); Sodium Level 135 mEq/L (136-145)
[2023-04-01 12:34] LABS: ALT/SGPT 34 U/L (13-56); AST/SGOT 18 U/L (15-37); Albumin 2.9 g/dL (3.4-5.0); Alkaline Phosphatase 86 U/L (45-117); Bilirubin Total 0.4 mg/dL (0.2-1.0); Magnesium 2.2 mg/dL (1.6-2.4); NT PRO-BNP 126 pg/mL (<125); Protein, Total 6.9 g/dL (6.4-8.2)
[2023-04-01 12:36] LABS: Bilirubin Direct < 0.1 mg/dL (0-0.2); Bilirubin Indirect, Calculated ND mg/dL (0.2-0.8)
[2023-04-01 12:37] LABS: Troponin High Sensitivity 65.5 pg/mL (<58.9)
--- NOTE | 2023-04-01 12:50 | RAD REPORT ---
EXAM DESCRIPTION: RAD - Chest Single View - 04/01/2023 12:43 pm CLINICAL HISTORY: CHEST PAIN COMPARISON: Chest Pa And Lat (2 Views) dated 03/09/2023; Chest Single View dated 12/03/2022; Chest Sing le View dated 02/04/2022; Chest Single View dated 11/05/2020 FINDINGS: Lines: None. Lungs: No evidence of edema or pneumonia. Pleural: No significant pleural effusions or pneumothorax. Cardiac: The heart size is within normal limits. Mediastinum: Within normal limits. Bones: No acute fractures. Other: None IMPRESSION: No acute cardiopulmonary disease.
[2023-04-01] MEDS ORDERED: NITROGLYCERIN 0.4 MG/TAB SL ONE (13:05)
--- NOTE | 2023-04-01 13:21 | EDPHYS ---
Physician Documentation [facility] Name: Silvia Kiran Age: 52 yrs Sex: Female : 1970 Arrival Date: 04/01/2023 Time: 11:49 Bed 18 Private MD: ED Physician Denis Brown HPI: 04/01 13:20 This 52 yrs old Female presents to ER via EMS with complaints of Chest pain. kb 13:16 Patient is a 52-year-old female with a history of depression, diabetes, hypertension, kb asthma who presents for chest pain and shortness of breath that started upon waking at 10 AM. Reports pain is to the left chest and radiates into the left arm. EMS gave 324mg of aspirin and 1 sublingual nitro in route. Pain slightly improved after nitro.. Historical: - Allergies: 12:23 iv dye iodine; rs5 - Home Meds: 12:23 glipizide 5 mg Oral tab 1 tab 2 times per day [Active]; Glyburide Oral [Active]; rs5 lisinopril Oral 10 mL [Active]; metformin 500 mg Oral tab 1 tab 2 times per day [Active]; - PMHx: 12:23 Depression; Diabetes - NIDDM; Hypertension; repiratory problems; rs5 - PSHx: 12:23 Total abdominal hysterectomy; tumors removed; rs5 - Immunization history:: Adult Immunizations up to date, Adult Immunizations unknown. - Social history:: Smoking status: Patient denies any tobacco usage or history of. ROS: 13:16 Constitutional: Negative for fever, chills, and weight loss. kb 13:16 Cardiovascular: Positive for chest pain. 13:16 Respiratory: Positive for shortness of breath. 13:16 All other systems are negative. Exam: 13:16 Constitutional: This is a well developed, well nourished patient who is awake, alert, kb and in no acute distress. Head/Face: Normocephalic, atraumatic. ENT: Moist Mucous membranes Cardiovascular: Regular rate and rhythm with a normal S1 and S2. No gallops, murmurs, or rubs. No pulse deficits. Abdomen/GI: Soft, non-tender. No distention Skin: Warm, dry with normal turgor. Normal color. MS/ Extremity: Pulses equal, no cyanosis. Neurovascular intact. Full, normal range of motion. Neuro: Awake and alert, GCS 15, oriented to person, place, time, and situation. Moves all extremities. Normal gait. 13:16 Respiratory: mild respiratory distress is noted, Respirations: labored breathing, that is mild, Breath sounds: are clear throughout. Vital Signs: 11:52 BP 151 / 70; Pulse 74; Resp 17; Temp 97.8; Pulse Ox 99% on R/A; rs5 12:35 BP 133 / 64; Pulse 77; Resp 17; Pulse Ox 78% on R/A; rs5 12:36 BP 130 / 62; Pulse 78; Resp 17; Pulse Ox 97% on 3 lpm NC; rs5 13:00 BP 117 / 59; Pulse 64; Resp 18; Pulse Ox 98% on 2 lpm NC; rs5 13:25 BP 128 / 91; Pulse 80; Resp 17; Pulse Ox 97% on 3 lpm NC; rs5 13:30 Weight 97.07 kg (M); Height 4 ft. 10 in. (R); aa5 13:35 BP 121 / 60; Pulse 75; Resp 18; Pulse Ox 97% on 3 lpm NC; rs5 13:45 BP 121 / 60; Pulse 62; Resp 18; Pulse Ox 98% on 3 lpm NC; rs5 14:00 BP 117 / 66; Pulse 61; Resp 17; Pulse Ox 97% on 3 lpm NC; rs5 15:00 BP 118 / 60; Pulse 63; Pulse Ox 100% on 3 lpm NC; rs5 15:30 BP 123 / 61; Pulse 66; Pulse Ox 100% on 3 lpm NC; rs5 13:30 Body Mass Index 44.73 (97.07 kg, 147.32 cm) aa5 MDM: 11:52 Patient medically screened. kb 13:18 Differential diagnosis: abnormal EKG, acute myocardial infarction, coronary artery kb disease stable angina, unstable angina. The patient was not given aspirin in the Emergency Department. Administered by EMS. Data reviewed: vital signs, nurses notes. Consideration of Admission/Observation Escalation of care including admission/observation considered. Patient will be transferred to higher level of care. Management of patient was discussed with the following: Regulatory Consultant: Dr. Zhong consulted. Recommends nitro and transfer if pain unresolved. Historians other than the Patient: EMS: [facility]. Care significantly affected by the following chronic conditions: Diabetes, Hypertension. Counseling: I had a detailed discussion with the patient and/or guardian regarding the historical points, exam findings, and any diagnostic results supporting the discharge/admit diagnosis, lab results, radiology results, the need to transfer to another facility. ED course: Heart score 6. 13:20 ED course: Transfer initiated to [facility]. kb 13:44 Management of patient was discussed with the following: Dr Burciaga, counter pocket trimmer at [facility] accepts pt for consult and Dr Farooq, hospitalist accepts pt for transfer. 04/01 12:12 Order name: Basic Metabolic Panel; Complete Time: 12:38 EDMS 04/01 12:12 Order name: Liver (Hepatic) Function; Complete Time: 12:38 EDMS 04/01 12:12 Order name: Troponin High Sensitivity; Complete Time: 12:38 EDMS 04/01 12:12 Order name: NT PRO-BNP; Complete Time: 12:38 EDMS 04/01 12:12 Order name: Magnesium; Complete Time: 12:38 EDMS 04/01 12:12 Order name: CBC with Automated Diff; Complete Time: 12:19 EDMS 04/01 12:12 Order name: Protime (+INR); Complete Time: 12:22 EDMS 04/01 12:12 Order name: D-Dimer; Complete Time: 12:22 EDMS 04/01 13:25 Order name: Ptt, Activated; Complete Time: 13:54 aa5 04/01 12:04 Order name: Chest Single View; Complete Time: 12:53 EDMS 04/01 11:52 Order name: EKG; Complete Time: 12:14 kb 04/01 12:44 Order name: EKG; Complete Time: 12:45 kb 04/01 11:52 Order name: Cardiac monitoring; Complete Time: 12:05 kb 04/01 11:52 Order name: EKG - Nurse/Tech; Complete Time: 12:05 kb 04/01 11:52 Order name: IV Saline Lock; Complete Time: 12:05 kb 04/01 11:52 Order name: Labs collected and sent; Complete Time: 12:05 kb 04/01 11:52 Order name: O2 Per Protocol; Complete Time: 11:57 kb 04/01 11:52 Order name: O2 Sat Monitoring; Complete Time: 11:57 kb 04/01 12:44 Order name: EKG - Nurse/Tech; Complete Time: 12:51 kb Administered Medications: 12:16 Drug: morphine IVP or IV 4 mg Route: IVP; Infused Over: 4 mins; Site: left antecubital; rs5 12:16 Drug: Ondansetron IVP 4 mg Route: IVP; Site: left antecubital; rs5 13:07 CANCELLED (Other Intervention Used): Nitroglycerin Transdermal Ointment 2 % 1 inches kb Transdermal once 13:10 Drug: Nitroglycerin Sublingual 0.4 mg Route: Sublingual; rs5 13:25 Follow up: Response: No adverse reaction rs5 13:12 Drug: Nitroglycerin Sublingual 0.4 mg Route: Sublingual; rs5 13:35 Follow up: Response: No adverse reaction rs5 13:45 Drug: Heparin (NH-Bolus No thrombolytic) - HEParin IVP 60 units/kg {Co-Signature: aa5 rs5 (Rajwinder Ventura RN).} Route: IVP; Site: right upper arm; 14:00 Follow up: Response: No adverse reaction rs5 13:45 Drug: Heparin (NH Drip) - (D5W IV 500 ml, [place] [address] units) 12 units/kg/hr rs5 {Co-Signature: aa5 (Rajwinder Ventura RN).} Route: IV; Rate: calculated rate; Site: right upper arm; 14:00 Follow up: Response: No adverse reaction rs5 13:47 Drug: Nitroglycerin Transdermal Patch 0.4 mg/hr 1 patches Route: Transdermal; Site: aa5 anterior chest wall; 14:00 Follow up: Response: No adverse reaction rs5 Disposition Summary: 04/01/23 13:20 Transfer Ordered Transfer Location: [facility] kb Reason: Higher level of care kb Condition: Stable kb Problem: new kb Symptoms: are unchanged kb Accepting Physician: Dr. Farooq(04/01/23 15:41) rs5 Diagnosis - Unstable angina kb Forms: - Medication Reconciliation Form kb - SBAR form kb Signatures: Dispatcher [employer] EDAisha Washburn, YUNIEL GLOVER-Rajwinder Hayes RN RN aa5 Ulices Mcnair RN RN rs5 Rajwinder Ventura RN aa5 Corrections: (The following items were deleted from the chart) 12:16 12:14 CBC+H.LAB.BRZ ordered. EDMS EDMS 12:16 12:14 D-DIMER+COAG.LAB.BRZ ordered. EDMS EDMS 12:16 12:14 PROTIME (+INR)+COAG.LAB.BRZ ordered. EDMS EDMS 12:35 12:14 Chest Single View+RAD.RAD.BRZ ordered. EDMS EDMS 13:07 13:06 Nitroglycerin Transdermal Ointment 2 % 1 inches Transdermal once ordered. kb kb 13:45 13:20 Dr. nunez kb 15:41 13:45 Dr. Farooq kb rs5
--- NOTE | 2023-04-01 13:21 | ER ---
Nurse's Notes [facility] Name: Silvia Kiran Age: 52 yrs Sex: Female : 1970 Arrival Date: 04/01/2023 Time: 11:49 Bed 18 Private MD: Diagnosis: Unstable angina Presentation: 04/01 11:52 Chief complaint: EMS states: Chest pain started this morning that woke her up from her rs5 sleep. Radiates to left arm. Coronavirus screen: At this time, the client does not indicate any symptoms associated with coronavirus-19. Ebola Screen: Patient denies exposure to infectious person. Patient denies travel to an Ebola-affected area in the 21 days before illness onset. No symptoms or risks identified at this time. Initial Sepsis Screen: Does the patient meet any 2 criteria? No. Patient's initial sepsis screen is negative. Does the patient have a suspected source of infection? No. Patient's initial sepsis screen is negative. Risk Assessment: Do you want to hurt yourself or someone else? Patient reports no desire to harm self or others. Onset of symptoms was April 01, 2023 at 10:00. 11:52 Method Of Arrival: EMS: [facility] rs5 11:52 Acuity: SUNG 2 rs5 14:35 Care prior to arrival: Medication(s) given: 325 mg Asprin chewable, 0.4 mg/tab rs5 sub-lingual nitroglycerin. Historical: - Allergies: 12:23 iv dye iodine; rs5 - Home Meds: 12:23 glipizide 5 mg Oral tab 1 tab 2 times per day [Active]; Glyburide Oral [Active]; rs5 lisinopril Oral 10 mL [Active]; metformin 500 mg Oral tab 1 tab 2 times per day [Active]; - PMHx: 12:23 Depression; Diabetes - NIDDM; Hypertension; repiratory problems; rs5 - PSHx: 12:23 Total abdominal hysterectomy; tumors removed; rs5 - Immunization history:: Adult Immunizations up to date, Adult Immunizations unknown. - Social history:: Smoking status: Patient denies any tobacco usage or history of. Screenin:52 [facility] ED Fall Risk Assessment (Adult) History of falling in the last 3 months, rs5 including since admission No falls in past 3 months (0 pts) Confusion or Disorientation No (0 pts). 11:52 Abuse screen: Denies threats or abuse. Nutritional screening: No deficits noted. rs5 Tuberculosis screening: No symptoms or risk factors identified. Assessment: 11:52 General: Appears in no apparent distress. uncomfortable, Behavior is calm, cooperative. rs5 11:52 Pain: Complains of pain in chest Pain radiates to left arm Pain currently is 8 out of rs5 10 on a pain scale. Quality of pain is described as aching, heavy, sharp, Pain began this morning Is intermittent. Neuro: Level of Consciousness is awake, alert, obeys commands, Oriented to person, place, time, situation. Cardiovascular: Heart tones S1 S2 present Rhythm is regular. Respiratory: Airway is patent Respiratory effort is even, unlabored, Respiratory pattern is regular, symmetrical. GI: Abdomen is round non-distended, Bowel sounds present X 4 quads. Abd is soft and non tender X 4 quads. : No signs and/or symptoms were reported regarding the genitourinary system. EENT: No signs and/or symptoms were reported regarding the EENT system. Derm: Skin is pink, warm \T\ dry. Musculoskeletal: Range of motion: intact in all extremities. 12:16 Reassessment: To bedside for medical numerical control operator. rs5 12:16 Reassessment: Patient and/or family updated on plan of care and expected duration. Pain rs5 level reassessed. Cardiovascular: Rhythm is regular Chest pain is described as Pain is 8 out of 10 on a pain scale. quality is pressure, is located in chest wall radiates to left arm(s). Respiratory: Airway is patent Respiratory effort is even, unlabored, Respiratory pattern is regular, symmetrical. 12:36 Reassessment: Pt desaturated post med adm. Pt placed on 3L NC. O2 sat 97%. rs5 13:02 Reassessment: . Pain: Complains of pain in chest Pain radiates to left arm Pain rs5 currently is 7 out of 10 on a pain scale. Quality of pain is described as aching, heavy. 13:25 Reassessment: Patient is alert, oriented x 3, equal unlabored respirations, skin rs5 warm/dry/pink. 13:25 Pain: Complains of pain in chest Pain radiates to left arm Pain currently is 7 out of rs5 10 on a pain scale. Quality of pain is described as aching, heavy, sharp. 13:31 Reassessment: PTT drawn and sent to lab . rs5 13:35 Pain: Complains of pain in chest Pain radiates to left arm Pain currently is 7 out of rs5 10 on a pain scale. Quality of pain is described as aching, heavy, sharp. 13:35 Cardiovascular: Rhythm is regular. rs5 14:00 Reassessment: Patient states feeling better. Pain: Complains of pain in chest Pain rs5 radiates to left arm Pain currently is 5 out of 10 on a pain scale. Quality of pain is described as aching, heavy, sharp. 14:00 Cardiovascular: Rhythm is regular. rs5 14:28 Reassessment: Attempted to call report. Asked to call back at a later time by RN rs5 receiving report. 14:30 Reassessment: No changes from previously documented assessment. rs5 14:45 Reassessment: Report given to TERRY Trammell, from [facility]. rs5 15:15 Reassessment: Pt aware of waiting for EMS for transfer. rs5 15:30 Reassessment: Patient and/or family updated on plan of care and expected duration. Pain rs5 level reassessed. Patient is alert, oriented x 3, equal unlabored respirations, skin warm/dry/pink. Vital Signs: 11:52 BP 151 / 70; Pulse 74; Resp 17; Temp 97.8; Pulse Ox 99% on R/A; rs5 12:35 BP 133 / 64; Pulse 77; Resp 17; Pulse Ox 78% on R/A; rs5 12:36 BP 130 / 62; Pulse 78; Resp 17; Pulse Ox 97% on 3 lpm NC; rs5 13:00 BP 117 / 59; Pulse 64; Resp 18; Pulse Ox 98% on 2 lpm NC; rs5 13:25 BP 128 / 91; Pulse 80; Resp 17; Pulse Ox 97% on 3 lpm NC; rs5 13:30 Weight 97.07 kg (M); Height 4 ft. 10 in. (R); aa5 13:35 BP 121 / 60; Pulse 75; Resp 18; Pulse Ox 97% on 3 lpm NC; rs5 13:45 BP 121 / 60; Pulse 62; Resp 18; Pulse Ox 98% on 3 lpm NC; rs5 14:00 BP 117 / 66; Pulse 61; Resp 17; Pulse Ox 97% on 3 lpm NC; rs5 15:00 BP 118 / 60; Pulse 63; Pulse Ox 100% on 3 lpm NC; rs5 15:30 BP 123 / 61; Pulse 66; Pulse Ox 100% on 3 lpm NC; rs5 13:30 Body Mass Index 44.73 (97.07 kg, 147.32 cm) aa5 ED Course: 11:51 Patient arrived in ED. eb 11:52 [facility]C [facility] kb 11:52 Denis Brown MD is Attending Physician. kb 11:52 Arm band placed on left wrist. rs5 11:52 Placed in gown. Bed in low position. Call light in reach. Side rails up X2. rs5 12:15 Ulices Mcnair, RN is Primary Nurse. rs5 12:23 Triage completed. rs5 12:45 Chest Single View In Process Unspecified. EDMS 13:05 attempted to initiate a transfer with the [facility]/ after three eb minutes phone call was dropped. 13:09 attempted to initiate a transfer with the [facility] and was placed on eb an automatic hold. 13:12 initiated a transfer with Bibiana Schofield Rn from the [facility]. eb 13:15 Inserted saline lock: 20 gauge in right upper arm, using aseptic technique. aa5 13:30 Inserted saline lock: 20 gauge in left forearm, using aseptic technique. aa5 13:37 connected the canvas cutter machine workers compensation adjuster for [facility] with Dr. Brown for patient eb transfer consultation. 13:55 administrative approval given by Bibiana Schofield/ patient has been accepted to [facility] Room 1454/ Dr. Claire Farooq has accepted the patient in transfer/ report to be called through the transfer center at [phone]. 15:41 No provider procedures requiring assistance completed. Patient transferred, IV remains rs5 in place. Administered Medications: 12:16 Drug: morphine IVP or IV 4 mg Route: IVP; Infused Over: 4 mins; Site: left antecubital; rs5 12:16 Drug: Ondansetron IVP 4 mg Route: IVP; Site: left antecubital; rs5 13:07 CANCELLED (Other Intervention Used): Nitroglycerin Transdermal Ointment 2 % 1 inches kb Transdermal once 13:10 Drug: Nitroglycerin Sublingual 0.4 mg Route: Sublingual; rs5 13:25 Follow up: Response: No adverse reaction rs5 13:12 Drug: Nitroglycerin Sublingual 0.4 mg Route: Sublingual; rs5 13:35 Follow up: Response: No adverse reaction rs5 13:45 Drug: Heparin (MT-Bolus No thrombolytic) - HEParin IVP 60 units/kg {Co-Signature: aa5 sunny (Rajwinder Ventura RN).} Route: IVP; Site: right upper arm; 14:00 Follow up: Response: No adverse reaction rs5 13:45 Drug: Heparin (MT Drip) - (D5W IV 500 ml, [place] [address] units) 12 units/kg/hr rs5 {Co-Signature: aaNilson (Rajwinder Ventura RN).} Route: IV; Rate: calculated rate; Site: right upper arm; 14:00 Follow up: Response: No adverse reaction rs5 13:47 Drug: Nitroglycerin Transdermal Patch 0.4 mg/hr 1 patches Route: Transdermal; Site: aa5 anterior chest wall; 14:00 Follow up: Response: No adverse reaction rs5 Medication: 15:41 VIS not applicable for this client. rs5 Outcome: 13:20 ER care complete, transfer ordered by MD. nunez 15:40 Transferred by ground EMS to [facility], Transfer form completed. rs5 X-rays sent w/ patient. Note: report given to [facility] 15:40 Condition: stable 15:40 Instructed on the need for transfer, Demonstrated understanding of instructions. 15:41 Patient left the ED. rs5 Signatures: Dispatcher [employer] EDMS Aisha Lomax, YUNIEL GLOVER-Rajwinder Hayes, TERRY RN aa5 Char Dolan Ricky, RN RN rs5 Rajwinder Ventura RN Corrections: (The following items were deleted from the chart) 12:26 12:16 Acuity: SUNG 3 rs5 rs5 12:28 12:16 Chief complaint: EMS states: Chest pain started this morning that woke her up rs5 from her sleep. Radiates to left arm rs5 : 12:16 Coronavirus screen: At this time, the client does not indicate any symptoms rs5 associated with coronavirus-19. rs5 : 12:16 Ebola Screen: Patient denies exposure to infectious person. Patient denies travel rs5 to an Ebola-affected area in the 21 days before illness onset. No symptoms or risks identified at this time. rs5 : 12:16 Initial Sepsis Screen: Does the patient meet any 2 criteria? No. Patient's rs5 initial sepsis screen is negative. Does the patient have a suspected source of infection? No. Patient's initial sepsis screen is negative. rs5 : 12:16 Risk Assessment: Do you want to hurt yourself or someone else? Patient reports no rs5 desire to harm self or others. rs5 : 12:16 Onset of symptoms was April 01, 2023 at 10:00 rs5 rs5 : 12:16 Method Of Arrival: EMS: [facility] rs5 rs5 : 12:16 BP 151 / 70; Pulse 74bpm; Resp 17bpm; Pulse Ox 99% RA; Temp 97.8F; rs5 rs5 : 12:16 Acuity: SUNG 2 rs5 rs5 14:31 14:05 Response: No adverse reaction rs5 rs5
[2023-04-01] MEDS ORDERED: HEPARIN/D5W 25,000 UNIT/500 ML BAG IV ONE (13:54)
[2023-04-01] MEDS ORDERED: HEPARIN 5000 UNIT/ML 1 ML VIAL ONE (13:54)
[2023-04-01] MEDS ORDERED: NITROGLYCERIN 0.4 MG/HR (10 MG) PATCH TD ONE (14:00)
[2023-04-01 16:21] VITALS: TEMP 97.8
[2023-04-01 16:30] VITALS: BP 117/66; O2SAT 97
--- NOTE | 2023-04-03 16:53 | EKG ---
Test Date: 2023-04-01 Test Time: 12:01:24 Interactive Digital Media Specialist: DOUG MEASUREMENT RESULTS: Intervals: Rate: 68 MI: 156 QRSD: 84 QT: 466 QTc: 495 Homer: P: 31 MI: 156 QRS: 68 T: 84 INTERPRETIVE STATEMENTS: Normal sinus rhythm Prolonged QT Abnormal ECG Compared to ECG 02/04/2022 23:17:35 Prolonged QT interval now present Myocardial infarct finding no longer present Electronically Signed On 04-03-23 16:45:55 CDT by Manuelito Zhong
--- NOTE | 2023-04-03 16:53 | EKG ---
Test Date: 2023-04-01 Test Time: 12:48:13 Machine Shop Instructor: DOUG MEASUREMENT RESULTS: Intervals: Rate: 63 KS: 146 QRSD: 84 QT: 478 QTc: 489 Omer: P: 30 KS: 146 QRS: 65 T: 91 INTERPRETIVE STATEMENTS: Poor data quality, interpretation may be adversely affected Normal sinus rhythm Prolonged QT Abnormal ECG Compared to ECG 04/01/2023 12:01:24 No significant changes Electronically Signed On 04-03-23 16:45:54 CDT by Manuelito Zhong
== END 2023-04-01 15:41 | disposition short-term general hospital (02) ==
LOC: ER 11:49
DX: I20.0 Unstable angina (principal); I10 Essential (primary) hypertension; E11.9 Type 2 diabetes mellitus without complications; Z91.041 Radiographic dye allergy status
CPT/HCPCS: 93005 ×3; 85025; 80048; 36415; 83735; 85610; 85379; 80076; 85730; 84484; 83880; 71045; 99285; J1644; J2405

== ENCOUNTER 2023-04-08 03:02 | Emergency (ER) | payer OTHER ==
--- OUTSIDE RECORDS SUMMARY | 2023-04-08 03:09 | XMS REPORT | Continuity of Care Document ---
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 without (before long-term meals). current use of insulin metFORMIN Yes Type 2 1000mg Q.5D Take 1 Zazueta rris (GLUCOPHAGE 1-04 diabetes tablet by [facility] ) 1,000 mg 00:00: mellitus mouth 2 [...] Tony is (GLUCOTROL) 1-04 diabetes tablet by [employer] 5 mg tablet 00:00: mellitus mouth 2 00 without times complicatio daily n, without (before long-term meals). current use of insulin metFORMIN Yes Type 2 1000mg Take 1 Zazueta rris (GLUCOPHAGE 1-04 diabetes tablet by [employer] ) 1,000 mg 00:00: mellitus mouth 2 [...] Tony is (GLUCOTROL) 1-04 diabetes tablet by [employer] 5 mg tablet 00:00: mellitus mouth 2 00 without times complicatio daily n, without (before long-term meals). current use of insulin metFORMIN Yes Type 2 1000mg Q.5D Take 1 Zazueta rris (GLUCOPHAGE 1-04 diabetes tablet by [employer] ) 1,000 mg 00:00: mellitus mouth 2 [...] Tony is (GLUCOTROL) 1-04 diabetes tablet by [employer] 5 mg tablet 00:00: mellitus mouth 2 00 without times complicatio daily n, without (before long-term meals). current use of insulin metFORMIN Yes Type 2 1000mg Q.5D Take 1 Zazueta rris (GLUCOPHAGE 1-04 diabetes tablet by [employer] ) 1,000 mg 00:00: mellitus mouth 2 tablet 00 without times complicatio daily n, without (with long-term meals). current use of insulin blood Yes Type 2 Use as [facility] glucose 1-04 diabetes directed.. He alth meter 00:00: mellitus (PRECISION 00 without XTRA complicatio GLUCOMETER) n, without long-term current use of insulin blood 2021-0 Yes Type 2 Use 2 [facility] glucose [...] Tony is (GLUCOTROL) 1-04 diabetes tablet by [employer] 5 mg tablet 00:00: mellitus mouth 2 00 without times complicatio daily n, without (before long-term meals). current use of insulin metFORMIN Yes Type 2 1000mg Q.5D Take 1 Zazueta rris (GLUCOPHAGE 1-04 diabetes tablet by [employer] ) 1,000 mg 00:00: mellitus mouth 2 [...] needed for solution Wheezing. benzonatate 2018-07 Yes [id number] 100mg Take 1 [facility] 100 mg 1-01 capsule by [facility] of capsule 00:00: mouth 3 [place] 00 (three) Medical times Branch daily as needed for Cough. benzonatate 2018-07 Yes [id number] 100mg Take 1 [facility] 100 mg 1-01 capsule by [facility]y of capsule 00:00: mouth 3 [place] 00 (three) Medical times Branch daily as needed for Cough. benzonatate 2018-07 Yes [id number] 100mg Take 1 [facility] 100 mg 1-01 capsule by ity of capsule 00:00: mouth 3 [place] 00 (three) Medical times Branch daily as needed for Cough. benzonatate 2018-07 Yes [id number] 100mg Take 1 [facility] 100 mg 1-01 capsule by ity of capsule 00:00: mouth 3 [place] 00 (three) Medical times Branch daily as needed for Cough. benzonatate 2018-07 Yes [id number] 100mg Take 1 [facility] 100 mg 1-01 capsule by ity of capsule 00:00: mouth 3 [place] 00 (three) Medical times Branch daily as needed for Cough. benzonatate 2018-07 Yes [id number] 100mg Take 1 [facility] 100 mg 1-01 capsule by ity of capsule 00:00: mouth 3 [place] 00 (three) Medical times Branch daily as needed for Cough. benzonatate 2018-07 Yes [id number] 100mg Take 1 [facility] 100 mg 1-01 capsule by ity of capsule 00:00: mouth 3 [place] 00 (three) Medical times Branch daily as needed for Cough. benzonatate 2018-07 Yes [id number] 100mg Take 1 [facility] 100 mg 1-01 capsule by ity of capsule 00:00: mouth 3 [place] 00 (three) Medical times Branch daily as [...] Breath, Bronchospa sm or Chest tightness. ibuprofen 2017 Yes 800mg Take 1 Unive [...] Name Observation Time Observation Value Comments Source HEIGHT 2023-04-01 17:18:00 147.3 cm WEIGHT 2023-04-01 17:18:00 97.07 kg HEIGHT 2023-04-01 17:18:00 147.3 cm WEIGHT 2023-04-01 17:18:00 97.07 kg HEIGHT 2023-04-01 17:18:00 147.3 cm WEIGHT 2023-04-01 17:18:00 97.07 kg Systolic blood 2023-03-07 20:06:00 163 mm[Hg] Joanie [...] Heart rate 2023-01-26 12:29:00 76 /min Joanie Melendez eybold - External Body temperature 2023-01-26 12:29:00 36.56 Naima Roya pelayo Seybold - External Respiratory rate 2023-01-26 12:29:00 18 /min Roya pelayo Seybold - External Body height 2023-01-26 12:29:00 148.6 cm Joanie Melendez eybold - External Body weight 2023-01-26 12:29:00 95.255 kg Joanie Melendez eybold - External BMI 2023-01-26 12:29:00 43.14 kg/m2 Joanie Melendez eybold - External Systolic blood 2022-12-22 18:20:00 138 mm[Hg] Joanie Seybold - pressure External Diastolic blood 2022-12-22 18:20:00 72 mm[Hg] Diane hogan Seybold - pressure External Heart rate 2022-12-22 18:20:00 82 /min Joanie Melendez eybold - External Body temperature 2022-12-22 18:20:00 36.56 Naima Roya pelayo Seybold - External Respiratory rate 2022-12-22 18:20:00 19 /min Roya pelayo Seybold - External Body height 2022-12-22 18:20:00 147.3 cm Joanie Melendez eybold - External Body weight 2022-12-22 18:20:00 93.895 kg Joanie Melendez eybold - External BMI 2022-12-22 18:20:00 43.26 kg/m2 Joanie Melendez eybold - External Systolic blood 2022-07-05 09:30:00 137 mm[Hg] Univer sity of pressure [facility] Diastolic blood 2022-07-05 09:30:00 76 mm[Hg] Unive rsity of [facility] Heart rate 2022-07-05 09:30:00 82 /min [facility] Respiratory rate 2022-07-05 09:30:00 17 /min [facility] in 2022-07-05 09:30:00 97 /min [facility] of Arterial blood by [place] [facility] Pulse oximetry Branch Body temperature 2022-07-05 05:30:00 36.56 Naima [facility] [place] [facility] Body weight 2022-07-05 05:30:00 90.719 kg [facility] [place] [facility] BMI 2022-07-05 05:30:00 41.80 kg/m2 [facility] [place] [facility] Systolic blood 2022-04-22 08:28:00 170 mm[Hg] Univer sity of pressure [place] [facility] Diastolic blood 2022-04-22 08:28:00 87 mm[Hg] Unive rsity of pressure [place] [facility] Heart rate 2022-04-22 08:28:00 95 /min [facility] [place] [facility] Body temperature 2022-04-22 08:28:00 36.67 Naima [facility] [place] [facility] Respiratory rate 2022-04-22 08:28:00 22 /min [facility] [place] [facility] Body weight 2022-04-22 08:28:00 90.719 kg [facility] [place] [facility] BMI 2022-04-22 08:28:00 41.80 kg/m2 [facility] [place] [facility] Oxygen saturation in 2022-04-22 08:28:00 99 /min University of Arterial blood by [facility] hung Pulse oximetry Branch Systolic blood 2021-12-07 04:35:00 147 mm[Hg] Univer sity of pressure [place] [facility] Diastolic blood 2021-12-07 04:35:00 90 mm[Hg] Unive rsity of pressure [place] [facility] Heart rate 2021-12-07 04:35:00 95 /min [facility] [place] [facility] Body temperature 2021-12-07 04:35:00 36.5 Naima [facility] [place] [facility] Respiratory rate 2021-12-07 04:35:00 18 /min Univ [facility] [place] [facility] Body weight 2021-12-07 04:35:00 81.647 kg [facility] [place] [facility] BMI 2021-12-07 04:35:00 37.62 kg/m2 [facility] [place] [facility] Oxygen saturation in 2021-12-07 04:35:00 96 /min [facility] of Arterial blood by [facility] hung Pulse oximetry Branch Systolic blood 2021-10-26 08:30:00 160 mm[Hg] Univer sity of [facility] Diastolic blood 2021-10-26 08:30:00 88 mm[Hg] Unive rsity [facility] Heart rate 2021-10-26 08:30:00 88 /min Universi [facility] Respiratory rate 2021-10-26 08:30:00 16 /min [facility] O[facility] saturation in 2021-10-26 08:30:00 99 /min University Arterial blood by [facility] [place] Pulse oximetry Branch Body temperature 2021-10-26 06:11:00 36.67 Naima [facility] Body weight 2021-10-26 06:11:00 90.719 kg [facility] BMI 2021-10-26 06:11:00 41.80 kg/m2 [facility] Systolic blood 2023-04-04 15:00:00 130 mm[Hg] [facility] Diastolic blood 2023-04-04 15:00:00 60 mm[Hg] [facility] Heart rate 2023-04-04 15:00:00 66 /min [facility] Body temperature 2023-04-04 15:00:00 37.22 Naima [facility] Respiratory rate 2023-04-04 15:00:00 18 /min [facility] Oxygen saturation in 2023-04-04 15:00:00 95 /min [facility] Arterial blood by Medical nter Pulse oximetry Body weight 2023-04-01 17:18:00 97.07 kg [facility] BMI 2023-04-01 17:18:00 44.73 kg/m2 [facility] Body height 2023-04-01 17:18:00 147.3 cm [facility] Procedures Procedure Date / Time Performing Clinician Source Performed APTT 2023-04-04 14:31:00 Tio Chinchilla [facility] POCT-GLUCOSE METER 2023-04-04 11:00:00 Eileen Watkins [facility] NM MYOCARDIAL PERFUSION 2023-04-04 10:16:00 Brann, Christopher [facility] SPECT, PHARM [facility] POCT-GLUCOSE METER 2023-04-04 06:44:00 [facility] 2023-04-04 05:37:00 Amor [facility] APTT 2023-04-04 03:34:00 Amor [facility] POCT-GLUCOSE METER 2023-04-03 20:50:00 Juanita [facility] POCT-GLUCOSE METER 2023-04-03 16:28:00 Juanita [facility] TREADMILL 2023-04-03 11:06:07 Unknown, 7 [facility](NON-NUCLEAR Center TREADMILL) ECG 12-LEAD 2023-04-03 11:05:20 Unknown, 7 [facility] ECG 12-LEAD 2023-04-03 11:05:20 Unknown, 7 [facility] ECG 12-LEAD 2023-04-03 10:54:58 Unknown, 7 [facility] ECG 12-LEAD 2023-04-03 10:54:58 Unknown, 7 [facility] POCT-GLUCOSE METER 2023-04-03 06:17:00 [facility] W/[facility]T COUNT & AUTO 2023-04-03 03:29:00 Jona Trivedi [facility] BASIC METABOLIC PANEL 2023-04-03 03:29:00 Juanita [facility] B-TYPE NATRIURETIC 2023-04-03 03:29:00 Juanita [facility] FACTOR (BNP) [facility] HIGH SENSITIVITY 2023-04-03 03:29:00 Juanita [facility] TROPONIN I [facility] APTT 2023-04-03 03:29:00 Amor [facility] CBC W/PLT COUNT & AUTO 2023-04-03 03:29:00 Jona Trivedi I [facility] DIFFERENTIAL [facility] APTT 2023-04-02 20:20:00 Amor [facility] POCT-GLUCOSE METER 2023-04-02 20:20:00 Juanita [facility] POCT-GLUCOSE METER 2023-04-02 16:50:00 Juanita [facility] HIGH SENSITIVITY 2023-04-02 14:09:00 Juanita [facility] TROPONIN I [facility] APTT 2023-04-02 14:09:00 Amor [facility] ECHO W CONTRAST & 2023-04-02 13:51:17 Amor [facility] DOPPLER [place] ECG 12-LEAD 2023-04-02 13:23:[facility] 2023-04-02 13:23:17 Unknown, Hl7 [facility] POCT-GLUCOSE METER 2023-04-02 12:03:00 Juanita [facility] APTT 2023-04-02 08:51:00 Amor [facility] ECG 12-LEAD 2023-04-02 08:15:37 Amanda Prado [facility] ECG 12-LEAD 2023-04-02 08:15:37 Unknown, Hl7 [facility] POCT-GLUCOSE METER 2023-04-02 06:16:00 Amor [facility] COMPREHENSIVE METABOLIC 2023-04-02 00:51:00 Amor [facility] PANEL Center LIPID PANEL 2023-04-02 00:51:00 Amor [facility] APTT 2023-04-02 00:50:00 Amor [facility] CBC (HEMOGRAM ONLY) 2023-04-02 00:50:00 Amor [facility] POCT-GLUCOSE METER 2023-04-01 20:58:00 Amor [facility] HIGH SENSITIVITY 2023-04-01 18:01:00 [facility]OPONIN I Center PLATELET COUNT 2023-04-01 18:01:00 [facility] APTT 2023-04-01 18:01:00 [facility] HEMOGLOBIN A1C 2023-04-01 18:01:00 [facility] POCT-GLUCOSE METER 2023-04-01 17:11:00 [facility] AUTHORIZATION FOR 2022-09-20 06:01:00 Doctor Unassigned, No [facility] Name Medical Branch AUTHORIZATION FOR 2022-07-25 06:01:00 Doctor Unassigned, No [facility] RELEASE OF [facility] EKG-12 LEAD 2022-07-05 09:34:00 Charlie Stovall [facility] XR CHEST 2 VW 2022-07-05 08:22:52 Charlie Stovall [facility] CT ABDOMEN PELVIS WO 2022-07-05 07:17:25 [facility] Branch LIPASE 2022-07-05 06:26:00 Charlie Stovall [facility] TROPONIN I 2022-07-05 06:26:00 Charlie Stovall [facility] COMP. METABOLIC PANEL 2022-07-05 06:26:00 Charlie Stovall [facility] ([id number]) [facility] CBC WITH DIFF 2022-07-05 06:26:00 Charlie Stovall [facility] URINALYSIS 2022-07-05 06:26:00 Charlie Stovall [facility] N-TERMINAL PRO-BNP 2022-07-05 06:26:00 Charlie Stovall [facility] CONSENT/REFUSAL FOR 2022-07-05 05:31:12 Doctor Unassigned, No [facility] Name Medical Branch XR KNEE 3 VW RIGHT 2022-04-22 10:59:00 Nestor Hernandez [facility] POCT GLUCOSE (AUTOMATED) 2022-04-22 09:05:00 Nestor Hernandez [facility] CONSENT/REFUSAL FOR 2022-04-22 08:27:22 Doctor Unassigned, No [facility] Name [facility] AUTHORIZATION FOR 2022-02-02 05:01:00 Doctor Unassigned, No [facility] RELEASE OF [facility] AUTHORIZATION FOR 2021-12-15 05:01:00 Doctor Unassigned, No [facility] RELEASE OF [facility] XR HIPS 2 VW RIGHT 2021-12-07 07:15:00 Sotero Balbuena [facility] XR KNEE <3 VW RIGHT 2021-12-07 07:15:00 Sotero Balbuena [facility] XR ANKLE 3+ VW RIGHT 2021-12-07 06:11:00 Sotero Balbunea [facility] XR FOOT 3+ VW RIGHT 2021-12-07 06:11:00 Sotero Balbuena [facility] XR TIBIA FIBULA 2 VW 2021-12-07 06:11:00 Sotero Balbuena [facility] CONSENT/REFUSAL FOR 2021-12-07 04:34:35 Doctor Unassigned, No [facility] URINALYSIS 2021-10-26 08:36:00 Jose Loe [facility] PHOSPHORUS 2021-10-26 06:52:00 NicaJose espitia [facility] MAGNESIUM 2021-10-26 06:52:00 NicaJose espitia [facility] TROPONIN I 2021-10-26 06:52:00 Jose Leo [facility] COMP. METABOLIC PANEL 2021-10-26 06:52:00 Jose Leo [facility] ([id number]) [facility] CBC WITH DIFF 2021-10-26 06:52:00 NicaJose espitia [facility] N-TERMINAL PRO-BNP 2021-10-26 06:52:00 Jose [facility] [place] [facility] COVID-19 (ID NOW RAPID 2021-10-26 06:52:00 Jose Leo [facility] TESTING) Medical Branch CT ABDOMEN PELVIS WO 2021-10-26 06:47:00 Jose Leo [facility] CONTRAST Medical Branch XR CHEST 2 VW 2021-10-26 06:41:00 Jose Leo [place] [facility] [place] [facility] CONSENT/REFUSAL FOR 2021-10-26 06:08:00 Doctor Unassigned, No Un [facility] DIAGNOSIS AND TREATMENT Name Medical Branch Plan of Care Planned Activity Planned Date Details Comments Source Future Scheduled 2026-04-02 Lipid panel (procedure) [facility] Test 00:00:00 [code = 28439952] Medical Ce nter Future Scheduled 2023-04-29 IMM Influenza [facility]al [facility] 00:00:00 (>/= 19 yrs) [code = IMM Influenza Seasonal (>/= 19 yrs)] Future Scheduled 2023-04-29 IMM Influenza [facility]al [facility] 00:00:00 (>/= 19 yrs) [code = IMM Influenza Seasonal (>/= 19 yrs)] Future Scheduled 2023-04-29 IMM Influenza [facility]al [facility] 00:00:00 (>/= 19 yrs) [code = IMM Influenza Seasonal (>/= 19 yrs)] Future Scheduled 2023-04-29 IMM Influenza [facility]al [facility] 00:00:00 (>/= 19 yrs) [code = IMM Influenza Seasonal (>/= 19 yrs)] Future Scheduled 2023-04-29 [facility]MM Influenza [facility]al [facility] 00:00:00 (>/= 19 yrs) [code = IMM Influenza Seasonal (>/= 19 yrs)] Future Scheduled 2023-03-30 Influenza Vaccine (#1[facility] [code = Influenza Vaccine Me dical Center (#1)] Future Scheduled 2022-07-[address] [facility] Test 00:00:00 (12+) [code = DEPRESSION Med ical Center SCREENING (12+)] Future Scheduled 2021-07-30 Hemoglobin A1c [facility] 00:00:00 measurement (procedure) [code = 50319006] Future Scheduled 2021-07-30 Hemoglobin A1c [facility] 00:00:00 measurement (procedure) [code = 69641750] Future Scheduled 2021-07-30 Hemoglobin A1c [facility] 00:00:00 measurement (procedure) [code = 54030542] Future Scheduled 2021-07-30 Hemoglobin A1c [facility] 00:00:00 measurement (procedure) [code = 68666188] Future Scheduled 2021-07-30 Hemoglobin A1c [facility] 00:00:00 measurement (procedure) [code = 65498032] Future Scheduled 2021-07-30 Hemoglobin A1c [facility] 00:00:00 measurement (procedure) [code = 13837542] Future Scheduled 2021-04-29 IMM Influenza Seasonal [facility] 00:00:00 Apr to September (>/= 19 yrs) [code = IMM Influenza Seasonal Apr to September (>/= 19 yrs)] Future Scheduled 2020 Screening for malignant [facility] 00:00:00 neoplasm of colon (procedure) [code = 597855598] Future Scheduled 2020 Screening for malignant [facility] 00:00:00 neoplasm of colon (procedure) [code = 273345013] Future Scheduled 2020 Screening for malignant [facility] 00:00:00 neoplasm of colon (procedure) [code = 455237937] Future Scheduled 2020 Screening for malignant [facility] 00:00:00 neoplasm of colon (procedure) [code = 760658398] Future Scheduled 2020 Screening for malignant [facility] 00:00:00 neoplasm of colon (procedure) [code = 743148676] Future Scheduled 2020 Screening for malignant [facility] 00:00:00 neoplasm of colon (procedure) [code = 756744932] Future Scheduled 2020 SHINGLES VACCINES ([address] [facility] 00:00:00 2) [code = [facility] VACCINES (1 of 2)] Future Scheduled 2010 [facility] 00:00:00 (Yearly) [code = Breast Cancer Scrn (Yearly)] Future Scheduled 2010 [facility] 00:00:00 (Yearly) [code = Breast Cancer Scrn (Yearly)] Future Scheduled 2010 [facility] 00:00:00 (Yearly) [code = Breast Cancer Scrn (Yearly)] Future Scheduled 2010 [facility] 00:00:00 (Yearly) [code = Breast Cancer Scrn (Yearly)] Future Scheduled 2010 [facility] 00:00:00 (Yearly) [code = Breast Cancer Scrn (Yearly)] Future Scheduled 2010 [facility] 00:00:00 (Yearly) [code = Breast Cancer Scrn (Yearly)] Future Scheduled 2000 Screening for malignant [facility] 00:00:00 neoplasm of cervix (procedure) [code = 373035678] Future Scheduled 2000 Screening for malignant [facility] 00:00:00 neoplasm of cervix (procedure) [code = 306425616] Future Scheduled 2000 Screening for malignant [facility] 00:00:00 neoplasm of cervix (procedure) [code = 978898197] Future Scheduled 2000 Screening for malignant [facility] 00:00:00 neoplasm of cervix (procedure) [code = 625709669] Future Scheduled 2000 Screening for malignant [facility] 00:00:00 neoplasm of cervix (procedure) [code = 705293836] Future Scheduled 2000 Screening for malignant [facility] 00:00:00 neoplasm of cervix (procedure) [code = 609314254] Future Scheduled 2000 Screening for malignant [facility] 00:00:00 neoplasm of cervix (procedure) [code = 885014032] Future Scheduled 2000 Screening for malignant [facility] 00:00:00 neoplasm of cervix (procedure) [code = 513575830] Future Scheduled 2000 Screening for malignant [facility] 00:00:00 neoplasm of cervix (procedure) [code = 057556906] Future Scheduled 2000 Screening for malignant [facility] 00:00:00 neoplasm of cervix (procedure) [code = 026818785] Future Scheduled 2000 Screening for malignant [facility] 00:00:00 neoplasm of cervix (procedure) [code = 097820379] Future Scheduled 2000 Screening for malignant [facility] 00:00:00 neoplasm of cervix (procedure) [code = 314208604] Future Scheduled 1991 Screening for malignant [facility] 00:00:00 neoplasm of cervix Medical C enter (procedure) [code = 953142443] Future Scheduled 1989 DTAP/TDAP/TD VACCINES ([address] [facility] 00:00:00 - Tdap) [code = Medical Cent er DTAP/TDAP/TD VACCINES (1 - Tdap)] Future Scheduled 1988 Diabetic foot examination [facility] 00:00:00 (regime/therapy) [code = 106588774] Future Scheduled 1988 Urine screening for [facility] 00:00:00 protein (procedure) [code = 466826799] Future Scheduled 1988 DM Retinal Exam (Yearly) [facility] 00:00:00 [code = DM Retinal Exam (Yearly)] Future Scheduled 1988 DM Foot Exam (Yearly) [facility] 00:[facility]:00 [code = DM Foot Exam (Yearly)] Future Scheduled 1988 Urine screening for [facility] 00:00:00 protein (procedure) [code = 397180724] Future Scheduled 1988 DM Retinal Exam (Yearly) [facility] 00:00:00 [code = DM Retinal Exam (Yearly)] Future Scheduled 1988 Diabetic foot examination [facility] 00:00:00 (regime/therapy) [code = 436003172] Future Scheduled 1988 Urine screening for [facility] 00:00:00 protein (procedure) [code = 577022144] Future Scheduled 1988 DM Retinal Exam (Yearly) [facility] 00:00:00 [code = DM Retinal Exam (Yearly)] Future Scheduled 1988 Diabetic foot examination [facility] 00:00:00 (regime/therapy) [code = 521043653] Future Scheduled 1988 Urine screening for [facility] 00:00:00 protein (procedure) [code = 765053370] Future Scheduled 1988 DM Retinal Exam (Yearly) [facility] 00:00:00 [code = DM Retinal Exam (Yearly)] Future Scheduled 1988 Diabetic foot examination [facility] 00:00:00 (regime/therapy) [code = 432775990] Future Scheduled 1988 Urine screening for [facility] 00:00:00 protein (procedure) [code = 298620121] Future Scheduled 1988 DM Retinal Exam (Yearly) [facility] 00:00:00 [code = DM Retinal Exam (Yearly)] Future Scheduled 1988 Diabetic foot examination [facility] 00:00:00 (regime/therapy) [code = 462650674] Future Scheduled 1988 Urine screening for [facility] 00:00:00 protein (procedure) [code = 396098873] Future Scheduled 1988 DM Retinal Exam (Yearly) [facility] 00:00:00 [code = DM Retinal Exam (Yearly)] Future Scheduled 1988 HEPATITIS [facility] [code = HEPATITIS C Medical Center SCREENING] Future Scheduled [address] [facility] 00:00:00 virus screening Medical Cent er (procedure) [code = 038631572] Future Scheduled [address] [facility] Test 00:00:00 Counseling and Screening [facility] (12+) [code = Tobacco Cessation Counseling and Screening (12+)] Future Scheduled 1976 Imm Pneumococcal 0-64 (1 [facility] 00:00:00 - PCV) [code = Imm Pneumococcal 0-64 (1 - PCV)] Future Scheduled 1976 Imm Pneumococcal 0-64 (1 [facility] 00:00:00 of 2 - PPSV23) [code = Imm Pneumococcal 0-64 (1 of 2 - PPSV23)] Future Scheduled 1976 Imm Pneumococcal 0-64 (1 [facility] 00:00:00 - PCV) [code = Imm Pneumococcal 0-64 (1 - PCV)] Future Scheduled 1976 Imm Pneumococcal 0-64 (1 [facility] 00:00:00 - PCV) [code = Imm Pneumococcal 0-64 (1 - PCV)] Future Scheduled 1976 Imm Pneumococcal 0-64 (1 [facility] [facility] Test 00:00:00 - PCV) [code = Imm Pneumococcal 0-64 (1 - PCV)] Future Scheduled 1976 Imm Pneumococcal 0-64 (1 [facility] 00:00:00 - PCV) [code = Imm Pneumococcal 0-64 (1 - PCV)] Future Scheduled 1975 COVID-19 Vaccine (1) [facility] 00:00:00 [code = COVID-19 Vaccine (1)] Future Scheduled 1971-02-17 COVID-19 Vaccine (#1) [facility] 00:00:00 [code = COVID-19 Vaccine (#1)] Future Scheduled 1971-02-17 COVID-19 Vaccine (#1) [facility] 00:00:00 [code = COVID-19 Vaccine (#1)] Future Scheduled 1971-02-17 COVID-19 Vaccine (#1) [facility] 00:00:00 [code = COVID-19 Vaccine (#1)] Future Scheduled 1971-02-17 COVID-19 Vaccine (#1) [facility] 00:00:00 [code = COVID-19 Vaccine (#1)] Future Scheduled 1971-02-17 COVID-19 Vaccine (#1) [facility] 00:00:00 [code = COVID-19 Vaccine (#1)] Future Scheduled 1971-02-17 COVID-19 VACCINE (#1) [facility]:00 [code = COVID-19 VACCINE Med ical Center (#1)] Future Scheduled 1970 Screening for malignant [facility] Test 00:00:00 neoplasm of breast Medical C enter (procedure) [code = 303471655] Future Scheduled 1970 CT Colonography (combo) [facility] Test 00:00:00 [code = CT Colonography [facility] (combo)] Future Scheduled 1970 Screening for malignant [facility] Test 00:00:00 neoplasm of colon Medical Ce nter (procedure) [code = 500208953] Future Scheduled 1970 Screening for malignant [facility] Test 00:00:00 neoplasm of colon Medical Ce nter (procedure) [code = 222475516] Future Scheduled 1970 Screening for malignant [facility] Test 00:00:00 neoplasm of colon Medical Ce nter (procedure) [code = 069676561] Future Scheduled 1970 Screening for malignant [facility] Test 00:00:00 neoplasm of colon Medical Ce nter (procedure) [code = 158571254] Future Scheduled 1970 Sigmoidoscopy [code [facility] 00:[facility] Start End Encounter Admission Attending Care Care Encounter Source Date/Time Date/Time Type Type Clinicians Facility Department ID 2023-04-02 Inpatient ER ROBINSON CHINCHILLA [facility] [id number] [facility] 12:16:56 TIO 2023-04-20 2023-04-20 Outpatient JOANIE KOCH [id number] Joanie 15:00:00 15:00:00 LULU Seybol d 2023-04-09 2023-04-09 Outpatient JOANIE BELTRÁN [id number] Joanie 08:15:00 08:15:00 AHMED Seybol d 2023-04-06 2023-04-06 Outpatient JOANIE TAVARES [id number] Joanie 00:00:00 00:00:00 Seybol d 2023-04-05 2023-04-05 Outpatient JOANIE KOCH [id number] Joanie 14:00:00 14:00:00 LULU Seybol d 2023-04-05 2023-04-05 Outpatient JOANIE KOCH [id number] Joanie 00:00:00 00:00:00 LULU Seybol d 2023-04-05 2023-04-05 Outpatient JOANIE DE GUZMAN [id number] Joanie 00:00:00 00:00:00 MARYSE Christensenybo ld 2023-04-01 2023-04-04 Outpatient ER [facility] Cardiology [id number] SLE 16:52:00 18:09:00 EILEEN 2023-04-01 2023-04-04 [facility] Claire Acostaroderick [facility] [id number] [facility] 16:52:00 18:09:00 Encounter Shelby Chinchillaeen Jona Coulter [facility] 2023-04-04 2023-04-04 Outpatient JOANIE TAVARES [id number] Joanie 00:00:00 00:00:00 Seybol d 2023-04-03 2023-04-03 Outpatient ER JUANITA [facility] [id number] 10:15:24 10:15:24 JONA 2023-04-03 2023-04-03 Outpatient JOANIE KOCH [id number] Joanie 00:00:00 00:00:00 LULU Seybol d 2023-04-03 2023-04-03 Outpatient PREJOANIE PACHECO [id number] Joanie 00:00:00 00:00:00 LULU Seybol d 2023-04-02 2023-04-02 [facility] [id number] [facility] 00:00:00 00:00:00 [facility] 2023-03-29 2023-03-29 Outpatient JOANIE KOCH [id number] Joanie 00:00:00 00:00:00 LULU Seybol d 2023-03-13 2023-03-13 Outpatient JOANIE TAVARES [id number] Joanie 09:00:00 09:00:00 Seybol d 2023-03-12 2023-03-12 Outpatient JOANIE KOCH [id number] Joanie 00:00:00 00:00:00 LULU Seybol d 2023-03-07 2023-03-07 Outpatient PREZAJOANIE Melendez [id number] Joanie 15:00:00 15:00:00 LULU Seybol d 2023-03-02 2023-03-02 Outpatient JOANIE KOCH [id number] Joanie 00:00:00 00:00:00 LULU Seybol d 2023-03-02 2023-03-02 Outpatient JOANIE KOCH [id number] Joanie 00:00:00 00:00:00 LULU Seybol d 2023-03-01 2023-03-01 Outpatient JOANIE HARRIS [id number] Joanie 11:00:00 11:00:00 JAI Seybol d 2023-02-28 2023-02-28 Outpatient JOANIE KOCH [id number] Joanie 00:00:00 00:00:00 LULU Seybol d 2023-02-08 2023-02-08 Outpatient JOANIE KOCH [id number] Joanie 09:30:00 09:30:00 LULU Seybol d 2023-01-26 2023-01-26 Outpatient JOANIE TAVARES [id number] Joanie 16:00:00 16:00:00 Seybol d 2023-01-26 2023-01-26 Outpatient JOANIE TAVARES [id number] Joanie 15:55:00 15:55:00 Seybol d 2023-01-26 2023-01-26 Outpatient JOANIE TAVARES [id number] Joanie 15:50:00 15:50:00 Seybol d 2023-01-26 2023-01-26 Outpatient JOANIE BELTRÁN [id number] Joanie 07:30:00 07:30:00 AHMED Seybol d 2023-01-26 2023-01-26 Outpatient JOANIE KOCH [id number] Joanie 00:00:00 00:00:00 LULU Seybol d 2023-01-26 2023-01-26 Outpatient JOANIE KOCH [id number] Joanie 00:00:00 00:00:00 LULU Seybol d 2023-01-26 2023-01-26 Outpatient JOANIE BELTRÁN [id number] Joanie 00:00:00 00:00:00 AHMED Seybol d 2023-01-26 2023-01-26 Outpatient JOANIE WARREN [id number] Joanie 00:00:00 00:00:00 DOMINIQUE Seybo ld 2023-01-26 2023-01-26 Outpatient JOANIE KOCH [id number] Joanie 00:00:00 00:00:00 LULU Seybol d 2023-01-23 2023-01-23 Outpatient JOANIE KOCH [id number] Joanie 13:45:00 13:45:00 LULU Seybol d 2023-01-20 2023-01-20 Outpatient JOANIE BRIAN [id number] Joanie 00:00:00 00:00:00 TENZIN Seybol d 2023-01-12 2023-01-12 Outpatient JOANIE KOCH [id number] Joanie 00:00:00 00:00:00 LULU Seybol d 2023-01-11 2023-01-11 Outpatient JOANIE KOCH [id number] Joanie 00:00:00 00:00:00 LULU Seybol d 2023-01-04 2023-01-04 Outpatient JOANIE TAVARES [id number] Joanie 13:25:00 13:25:00 Seybol d 2023-01-04 2023-01-04 Outpatient JOANIE GAONA [id number] Joanie 13:00:00 13:00:00 MANNY Seybol d 2023-01-04 2023-01-04 Outpatient JOANIE GAONA [id number] Joanie 00:00:00 00:00:00 MANNY Seybol d 2022-12-28 2022-12-28 Outpatient JOANIE CEJA [id number] Joanie 08:00:00 08:00:00 TIFFANIE Seybol d 2022-12-26 2022-12-26 Outpatient JOANIE BELTRÁN [id number] Joanie 00:00:00 00:00:00 AHMED Seybol d 2022-12-22 2022-12-22 Outpatient JOANIE BRIAN [id number] Joanie 13:30:00 13:30:00 TENZIN Seybol d 2022-12-22 2022-12-22 Outpatient JOANIE BRIAN [id number] Joanie 00:00:00 00:00:00 TENZIN Seybol d 2022-12-22 2022-12-22 Outpatient JOANIE OCONNOR [id number] Joanie 00:00:00 00:00:00 AMBER Seybol d 2022-12-22 2022-12-22 Outpatient JOANIE BRIAN [id number] Joanie 00:00:00 00:00:00 TENZIN Seybol d 2022-12-20 2022-12-20 Outpatient JOANIE KOCH [id number] Joanie 00:00:00 00:00:00 LULU Seybol d 2022-09-20 2022-09-20 [facility] Doctor CHEN [id number] Univers 00:00:00 00:00:00 Only Unassigned, MART 350.1.13.10 ity of [place] [facility] 4.2.7.2.686 [place] as [id number] [address] 2022-07-25 2022-07-25 Orders Doctor GUSTAVO [id number] Univers 00:00:00 00:00:00 Only Unassigned, MART 350.1.13.10 ity of [facility] 4.2.7.2.686 [place] as [id number] [address] 2022-07-04 2022-07-05 Emergency X SIA [facility] ERT [id number] Univers 23:33:00 04:01:00 CHARLIE ity of [facility] 2022-07-04 2022-07-05 Emergency Dellis, TRAUMA [id number] Univers 23:33:00 04:01:00 Charlie O[place] 350.1.13.10 [id number] [address] 2022-05-29 2022-05-29 Outpatient DUNG SHARP, [facility] АЛЕКСАНДР [id number] [facility] 08:00:00 08:00:00 FLORENCE 73 Misty an [facility] 2022-04-22 2022-04-22 Emergency X NESTOR HERNANDEZ [facility] ERT [id number] Univers 03:29:00 06:52:00 ity [facility] 2022-04-22 2022-04-22 Emergency Nestor Hernandez [place] 1.2.840.114 [id number] Univers 03:29:00 06:52:00 W CENTER 350.1.13.10 [id number] [address] 2022-02-02 2022-02-02 Orders Doctor CHEN 1.2.840.114 [id number] Univers 00:00:00 00:00:00 Only Unassigned, MART 350.1.13.10 ity of [facility] 4.2.7.2.686 [place] as [id number] [address] 2021-12-15 2021-12-15 Orders Doctor GUSTAVO 1.2.840.114 [id number] Univers 00:00:00 00:00:00 Only Unassigned, MART 350.1.13.10 ity of [place] [facility] 4.2.7.2.686 [place] as [id number] [address] 2021-12-06 2021-12-07 Emergency X SUSAN [facility] ERT [id number] Univers 23:37:00 02:48:00 SOTERO shankar [facility] 2021-12-06 2021-12-07 Emergency Balbuena, TRAUMA [id number] Univers 23:37:00 02:48:00 Sotero Whitney O[place] 350.1.13.10 [place] [id number] [address] 2021-10-26 2021-10-26 Emergency Nica, TRAUMA [id number] [id number] Univers 01:15:00 04:12:00 Jose Ernie ONO 350.1.13.10 [place] [id number] [address] 2021-10-26 2021-10-26 Emergency X NICA [facility] ERT [id number] Univers 01:15:00 04:12:00 JOSE shankar [facility] 2021-09-14 2021-09-14 Emergency [facility] [id number] Devin 23:04:00 23:27:00 [facility] 2021-09-14 2021-09-14 Emergency [facility] [id number] [place] 00:00:00 00:00:00 [facility] 2020-07-30 2020-08-02 [facility] [id number] Devin 15:20:00 16:57:00 PIEDAD [facility] 2020-07-30 2020-07-30 Emergency [facility] [id number] Devin 16:49:10 16:54:47 [facility] 2019-05-30 2019-05-30 Emergency X AUFDERHEIDE [facility] ERT [id number] Univers 09:14:59 11:46:00 , MACROS [facility] Results Test Description Test Time Test Comments Results Result [facility] e Comments NM MYOCARDIAL 2023-03-0 PERFUSION SPECT, 6 PHARM 15:24:54 [facility] 1970 Sex: F PROCEDURE: MYOCARDIAL PERFUSION SPECT IMAGING (2-Day Stress/Rest)CPT CODE: [id number]: Ischemic evaluationCARDIOVASCULAR PROFILE: CAD History: None Symptoms: Chest pain Risk Factors: Diabetes hypertension hyperlipidemia BMI: 44.5 Medications: Aspirin atorvastatin carvedilolSTRESS PROTOCOL: Pharmacologic stress was achieved with a 10-second intravenousinfusion of regadenoson 0.4 mg. The radiopharmaceutical was rnosiinomryj50 seconds after the start of the regadenoson infusion.IMAGING PROTOCOL: 30.9 mCi of Tc-99m sestamibi was injected intravenously at peakstress, and gated SPECT images were obtained. Then on a separate day,30.7 mCi of Tc-99m sestamibi was injected intravenously at rest, andgated SPECT images were obtained. Image quality is fair.REST FINDINGS: HR: 68/min BP: 153/72 mmHg Prelim. EKG: Normal sinus rhythm with left bundle branch block. Perfusion: Normal. Wall Motion: Normal LV Volume: Normal.STRESS FINDINGS: HR: 91/min (54% of MPHR) BP: 150/68 mmHg Prelim. EKG: No ischemic changes. Symptoms: Chest pressure (treatment not required). Perfusion: There is mild, small size perfusion defect involvingthe apex and apical anterior segments. Wall Motion: Normal (LVEF >70%). LV Volume: Not significantly changed from rest.IMPRESSION:1. Abnormal study.2. Abnormal myocardial perfusion. Small size, mild intensity,reversible perfusion defect involving the apex and apical anteriorsegments.3. Normal resting LVEF, which does not deteriorate with stress.4. Normal extracardiac tracer distribution.5. There is no prior study for comparison.Electronically Signed By: Real Perkins04/04/2023 15:26 CDTWorkstation Name: [id number] APTT 2023-04-04 14:54:46 Test Item Value Reference Range Interpretation Comme nts PARTIAL THROMBOPLASTIN TIME (BEAKER) (test code = 760) 46.1 seconds 22.5-36.0 H POC-Glucose [id number] 11:12:24 Test Item Value Reference Range Interpretation Comments POC-Glucose Meter (test 199 mg/dL 70-110 H : No tified RN/MD: code = 1538) TESTED AT [place] [id number] [facility], [facility] 30: Roller Cleaner/Techni kuldeep ID = [id number] for Claudette Porras Lab Interpretation (test Abnormal code = 78989-0) [facility] [id number] 11:12:24 Test Item Value Reference Range Interpretation Comments POC-GLUCOSE METER 199 mg/dL 70-110 H : Notified RN/MD: [facility] (test code = TESTED AT [place] [address] 1538) [facility], [address]: Roller Cleaner/Techni kuldeep ID = [id number] for Claudette Porras POCT-GLUCOSE [id number] 06:56:17 Test Item Value Reference Range Interpretation Comments POC-GLUCOSE METER 195 mg/dL 70-110 H : TESTED [place] T [place] [address] ([facility] (test code = [facility], 1538) [address]: Roller Cleaner/Techni kuldeep ID = [id number] for Cristal Herrera [id number] 06:07:20 Test Item Value Reference Range Interpretation Comments PARTIAL THROMBOPLASTIN TIME 79.0 seconds 22.5-36.0 H (BEAKER) (test code = 760) [id number] 04:30:45 Test Item Value Reference Range Interpretation Comments PARTIAL THROMBOPLASTIN TIME > seconds 22.5-36.0 HH (BEAKER) (test code = 760) POCT-GLUCOSE [id number] 21:49:14 Test Item Value Reference Range Interpretation Comments POC-GLUCOSE METER 223 mg/dL 70-110 H : Notified RN/MD: (CECILIA) (test code = TESTED AT [facility] 67 1538) [facility], [address]: Roller Cleaner/Techni kuldeep ID = [id number] for Cristal Herrera POCT-GLUCOSE [id number] 17:03:46 Test Item Value Reference Range Interpretation Comments POC-GLUCOSE METER 231 mg/dL 70-110 H : Notified RN/MD: (CECILIA) (test code = TESTED AT [facility] 6720 1539) [facility], [address]: Roller Cleaner/Techni kuldeep ID = [id number] for Claudette Porras BASIC METABOLIC [id number] 10:28:56 Test Item Value Reference Range Interpretation Comments SODIUM (BEAKER) 140 meq/L 136-145 (test code = 381) POTASSIUM 3.9 meq/L 3.5-5.1 Specimen slight ly (BEAKER) (test hemolyzed code = 379) CHLORIDE (BEAKER) 104 meq/L 98-107 (test code = 382) CO2 (BEAKER) 26 meq/L 22-29 (test code = 355) BLOOD UREA 14 mg/dL 7-21 NITROGEN (BEAKER) (test code = 354) CREATININE 0.64 mg/dL 0.57-1.25 Specimen slight ly (BEAKER) (test hemolyzed code = 358) GLUCOSE RANDOM 144 mg/dL 70-105 H (BEAKER) (test code = 652) CALCIUM (BEAKER) 7.9 mg/dL 8.4-10.2 L (test code = 697) EGFR (BEAKER) 106 Interpretatio n of eGFR (test code = mL/min/1.73 values Stage De scription 1092) sq m Result G1 Carolyn l or high >=90 G2 Mildly decreased 60-89 G3a Mildl y to moderately 45-5 9 G3b Moderately to s everely 30-44 G4 Severl y decreased 15-29 G5 Kidney failure <15Reported eGF R is based on the CKD-EPI 1 equation that d oes not use a race coefficientEsti mated GFR is not as accur ate as Creatinine Naina hong in predicting glom erular filtration rate . Estimated GFR is not appl icable for dialysis patien ts POCT-GLUCOSE [id number] 06:30:03 Test Item Value Reference Range Interpretation Comments POC-GLUCOSE METER 182 mg/dL 70-110 H : TESTED A T [facility] 6720 (BEAKER) (test code = [place], 1538) [address]: Roller Cleaner/Techni kuldeep ID = [id number] for Crisatl Herrera HIGH SENSITIVITY TROPONIN [id number] 04:58:50 Test Item Value Reference Range Interpretation Comments HIGH SENSITIVITY 8 pg/ml See_Comment [Automated message] TROPONIN I (test code = The system which [id number]) generated this result transmitted ref erence range: <=17. Th e reference range was not used to interpr et this result as normal/abnormal . Roller Cleaner ID - ADMINThe SCHOOL CUSTODIAN STAT High Sensitivity Troponin-I results should be used in conjunction with other diagnostic information such as ECG, clinical observations and information, and patientsymptoms to aid in the diagnosis of NE. B-TYPE NATRIURETIC FACTOR (BNP)2023-04-03 04:58:50 Test Item Value Reference Range Interpretation Comments B-TYPE NATRIURETIC PEPTIDE (BEAKER) 55 pg/mL 0-100 (test code = 700) Roller Cleaner ID - [id number] 04:46:22 Test Item Value Reference Range Interpretation Comments PARTIAL THROMBOPLASTIN TIME 80.8 seconds 22.5-36.0 H (BEAKER) (test code = 760) CBC W/PLT COUNT & AUTO [id number] 04:42:02 Test Item Value Reference Range Interpretation Comments WHITE BLOOD CELL COUNT (BEAKER) 8.4 K/ L 3.5-10.5 (test code = 775) RED BLOOD CELL COUNT (BEAKER) 3.95 M/ L 3.93-5.22 (test code = 761) HEMOGLOBIN (BEAKER) (test code = 12.1 GM/DL 11.2-15.7 410) HEMATOCRIT (BEAKER) (test code = 36.9 % 34.1-44.9 411) MEAN CORPUSCULAR VOLUME (BEAKER) 93 fL 79-95 (test code = 753) MEAN CORPUSCULAR HEMOGLOBIN 30.6 pg 25.6-32.2 (BEAKER) (test code = 751) MEAN CORPUSCULAR HEMOGLOBIN CONC 32.8 GM/DL 32.2-35.5 (BEAKER) (test code = 752) RED CELL DISTRIBUTION WIDTH 13.5 % 11.7-14.4 (BEAKER) (test code = 412) PLATELET COUNT (BEAKER) (test 232 K/CU MM 150-450 code = 756) MEAN PLATELET VOLUME (BEAKER) 11.0 fL 9.4-12.3 (test code = 754) NUCLEATED RED BLOOD CELLS 0 /100 WBC 0-0 (BEAKER) (test code = 413) NEUTROPHILS RELATIVE PERCENT 54 % (BEAKER) (test code = 429) LYMPHOCYTES RELATIVE PERCENT 34 % (BEAKER) (test code = 430) MONOCYTES RELATIVE PERCENT 7 % (BEAKER) (test code = 431) EOSINOPHILS RELATIVE PERCENT 4 % (BEAKER) (test code = 432) BASOPHILS RELATIVE PERCENT 1 % (BEAKER) (test code = 437) NEUTROPHILS ABSOLUTE COUNT 4.53 K/ L 1.56-6.13 (BEAKER) (test code = 670) LYMPHOCYTES ABSOLUTE COUNT 2.90 K/ L 1.18-3.74 (BEAKER) (test code = 414) MONOCYTES ABSOLUTE COUNT (BEAKER) 0.62 K/ L 0.24-0.36 H (test code = 415) EOSINOPHILS ABSOLUTE COUNT 0.30 K/ L 0.04-0.36 (BEAKER) (test code = 416) BASOPHILS ABSOLUTE COUNT (BEAKER) 0.06 K/ L 0.01-0.08 (test code = 417) IMMATURE GRANULOCYTES-RELATIVE 0.40 % 0.00-1.00 PERCENT (BEAKER) (test code = 2801) [id number] 20:40:27 Test Item Value Reference Range Interpretation Comments PARTIAL THROMBOPLASTIN TIME 69.1 seconds 22.5-36.0 H (BEAKER) (test code = 760) POCT-GLUCOSE [id number] 20:32:47 Test Item Value Reference Range Interpretation Comments POC-GLUCOSE METER 179 mg/dL 70-110 H : TESTED A T [facility] 6720 (BEAKER) (test code = [facility] [place], 1538) [address]: Roller Cleaner/Techni kuldeep ID = [id number] for Cristal Herrera POCT-GLUCOSE [id number] 17:19:48 Test Item Value Reference Range Interpretation Comments POC-GLUCOSE METER 200 mg/dL 70-110 H : TESTED A T [facility] 6720 (BEAKER) (test code = [facility], 1538) [address]: Roller Cleaner/Techni kuldeep ID = [id number] for Sarah Bolivar HIGH SENSITIVITY TROPONIN [id number] 14:42:59 Test Item Value Reference Range Interpretation Comments HIGH SENSITIVITY 7 pg/ml See_Comment [Automated message] TROPONIN I (test code = The system which [id number]) generated this result transmitted ref erence range: <=17. Th e reference range was not used to interpr et this result as normal/abnormal . Roller Cleaner ID - Christine SCHOOL CUSTODIAN STAT High Sensitivity Troponin-I results should be used in conjunction with other diagnostic information such as ECG, clinical observations and information, and patientsymptoms to aid in the diagnosis of NE. [id number] 14:27:20 Test Item Value Reference Range Interpretation Comments PARTIAL THROMBOPLASTIN TIME 78.0 seconds 22.5-36.0 H ([place]) (test code = 760) POCT-GLUCOSE [id number] 12:22:21 Test Item Value Reference Range Interpretation Comments POC-GLUCOSE METER 190 mg/dL 70-110 H : TESTED A T [facility] 6720 ([facility]) (test code = [facility], 1538) [address]: Roller Cleaner/Techni kuldeep ID = [id number] for Sarah Bolivar HEMOGLOBIN [id number] 09:59:42 Test Item Value Reference Range Interpretation Comments HEMOGLOBIN A1C 7.6 % See_Comment H [Automated m essage] ELECTROPHORESIS ([facility]) The system which (test code = 3811) generated this result transmitted ref erence range: <=5.6%. The reference range was not used to int erpret this result as normal/abnormal . "The A1c is measured using a NGSP-certified method. HbA1c value equal to or greater than 6.5% as thediagnosis cutoff for diabetes. An HbA1c value of 5.7- 6.4% indicates increased risk for diabetes (prediabetes)."Roller Cleaner ID - ADMOperator ID - [id number] 09:18:37 Test Item Value Reference Range Interpretation Comments PARTIAL THROMBOPLASTIN TIME 63.2 seconds 22.5-36.0 H ([place]) (test code = 760) POCT-GLUCOSE [id number] 06:28:39 Test Item Value Reference Range Interpretation Comments POC-GLUCOSE METER 196 mg/dL 70-110 H : TESTED A T [facility] 6720 (BEAKER) (test code = [place], 1538) [address]: Roller Cleaner/Techni kuldeep ID = [id number] for Cristal Herrera COMPREHENSIVE METABOLIC [id number] 01:28:42 Test Item Value Reference Range Interpretation Comments TOTAL PROTEIN 6.1 gm/dL 6.0-8.3 Specimen sligh tly (BEAKER) (test hemolyzed code = 770) ALBUMIN (BEAKER) 3.0 g/dL 3.5-5.0 L Specimen sl ightly (test code = 1145) hemolyzed ALKALINE 77 U/L 40-150 PHOSPHATASE (BEAKER) (test code = 346) BILIRUBIN TOTAL 0.2 mg/dL 0.2-1.2 Specimen sli ghtly (BEAKER) (test hemolyzed code = 377) SODIUM (BEAKER) 136 meq/L 136-145 (test code = 381) POTASSIUM (BEAKER) 4.3 meq/L 3.5-5.1 Specimen slightly (test code = 379) hemolyzed CHLORIDE (BEAKER) 104 meq/L 98-107 (test code = 382) CO2 (BEAKER) (test 23 meq/L 22-29 code = 355) BLOOD UREA 21 mg/dL 7-21 NITROGEN (BEAKER) (test code = 354) CREATININE 0.83 mg/dL 0.57-1.25 Specimen slight ly (BEAKER) (test hemolyzed code = 358) GLUCOSE RANDOM 222 mg/dL 70-105 H (BEAKER) (test code = 652) CALCIUM (BEAKER) 8.1 mg/dL 8.4-10.2 L (test code = 697) AST (SGOT) 21 U/L 5-34 Specimen slight ly (BEAKER) (test hemolyzed code = 353) ALT (SGPT) 23 U/L 6-55 Specimen slight ly (BEAKER) (test hemolyzed code = 347) EGFR (BEAKER) 85 Interpretati on of eGFR (test code = 1092) mL/min/1.[address] age Description sq m Result G1 Carolyn l or high >=90 G2 Mildly decreased 60-89 G3a Mildl y to moderately 45-5 9 G3b Moderately to s everely 30-44 G4 Severl y decreased 15-29 G5 Kidney failure <15Reported eGF R is based on the CKD-EPI 2020 equation that d oes not use a race coefficientEsti mated GFR is not as accur ate as Creatinine Naina hong in predicting glom erular filtration rate . Estimated GFR is not appl icable for dialysis patien ts [employer]er ID - ADMINLIPID [id number] 01:28:42 Test Item Value Reference Range Interpretation Comments TRIGLYCERIDES (BEAKER) 332 mg/dL Speci men slightly (test code = 540) hemolyzed CHOLESTEROL (BEAKER) 196 mg/dL Specime n slightly (test code = 631) hemolyzed HDL CHOLESTEROL (BEAKER) 32 mg/dL (test code = 976) LDL CHOLESTEROL 98 mg/dL CALCULATED (BEAKER) (test code = 633) Triglyceride Reference Range: Low Risk <150 Borderline 150-199 High Risk 200- 499 Very High Risk >=500Cholesterol Reference Range: Low Risk <200 Borderline 200-239 High Risk >240HDL Cholesterol Reference Range: Low Risk >=60 High Risk <40LDL Cholesterol Reference Range: Optimal <100 Near Optimal 100-129 Borderline 130-159 High 160-189 Very High >=190 Rol[employer]er ID - [id number] (HEMOGRAM ONLY)[id number] 01:28:22 Test Item Value Reference Range Interpretation Comments WHITE BLOOD CELL COUNT (BEAKER) 8.7 K/ L 3.5-10.5 (test code = 775) RED BLOOD CELL COUNT (BEAKER) 3.89 M/ L 3.93-5.22 L (test code = 761) HEMOGLOBIN (BEAKER) (test code = 12.0 GM/DL 11.2-15.7 410) HEMATOCRIT (BEAKER) (test code = 36.9 % 34.1-44.9 411) MEAN CORPUSCULAR VOLUME (BEAKER) 95 fL 79-95 (test code = 753) MEAN CORPUSCULAR HEMOGLOBIN 30.8 pg 25.6-32.2 (BEAKER) (test code = 751) MEAN CORPUSCULAR HEMOGLOBIN CONC 32.5 GM/DL 32.2-35.5 (BEAKER) (test code = 752) RED CELL DISTRIBUTION WIDTH 13.9 % 11.7-14.4 (BEAKER) (test code = 412) PLATELET COUNT (BEAKER) (test 216 K/CU MM 150-450 code = 756) MEAN PLATELET VOLUME (BEAKER) 11.2 fL 9.4-12.3 (test code = 754) NUCLEATED RED BLOOD CELLS 0 /100 WBC 0-0 (BEAKER) (test code = 413) [id number] 01:22:41 Test Item Value Reference Range Interpretation Comments PARTIAL THROMBOPLASTIN TIME 41.8 seconds 22.5-36.0 H (BEAKER) (test code = 760) POCT-GLUCOSE [id number] 21:11:23 Test Item Value Reference Range Interpretation Comments POC-GLUCOSE METER 295 mg/dL 70-110 H : Notified RN/MD: ([facility]) (test code = TESTED AT [place] [address] 2791) [facility], [id number]: Roller Cleaner/Techni kuldeep ID = [id number] for Cristal Herrera HIGH SENSITIVITY TROPONIN [id number] 18:38:45 Test Item Value Reference Range Interpretation Comments HIGH SENSITIVITY 6 pg/ml See_Comment [Automated message] TROPONIN I (test code = The system which 2525157) generated this result transmitted ref erence range: <=17. Th e reference range was not used to interpr et this result as normal/abnormal . Roller Cleaner ID - ADMINThe SCHOOL CUSTODIAN STAT High Sensitivity Troponin-I results should be used in conjunction with other diagnostic information such as ECG, clinical observations and information, and patientsymptoms to aid in the diagnosis of NE. [id number] 18:37:47 Test Item Value Reference Range Interpretation Comments PARTIAL THROMBOPLASTIN TIME 42.9 seconds 22.5-36.0 H (BEAKER) (test code = 760) PLATELET [id number] 18:18:21 Test Item Value Reference Range Interpretation Comments PLATELET COUNT (BEAKER) (test 223 K/CU MM 150-450 code = 756) Roller Cleaner ID - [id number]-GLUCOSE [id number] 17:24:48 Test Item Value Reference Range Interpretation Comments POC-GLUCOSE METER 133 mg/dL 70-110 H : TESTED A T [facility] 67 ([facility]) (test code = [facility], 1538) [address]: Roller Cleaner/Techni kuldeep ID = [id number] for Claudette Porras TROPONIN [id number] 09:10:00 Test Item Value Reference Interpretation Comments Range TROPONIN I (test 0.002 ng/mL See_Comment [Automated code = 0223277609) message] The system which generated this result [...] biotin. Lab Interpretation Normal (test code = 76255-0) [id number] 09:10:00 Test Item Value Reference Range Interpretation Comments NT-proBNP (test code 25 pg/mL See_Comment [Autom ated = 7423719528) message] The system which generated this result transmitted reference range : <=125. The reference range was not used to interpret this result as normal/abnormal . JESUS (test code = JESUS) Biotin has been reported to cause a negative bias, interpret results relative to patient's use of biotin. Lab Interpretation Normal (test code = 14191-0) [facility] (36159)2022-07-05 07:25:13 Test Item Value Reference Range Interpretation Comments NA (test code = 133 mmol/L 135-145 L 3382198976) K (test code = 4.5 mmol/L 3.5-5.0 0119710558) CL (test code = 98 mmol/L 98-108 7360600068) CO2 TOTAL (test code = 28 mmol/L 23-31 7590059611) AGAP (test code = 2-16 1540199268) BUN (test code = 18 mg/dL 7-23 7033347976) GLUCOSE (test code = 350 mg/dL 70-110 H 3423765558) CREATININE (test code = 0.71 mg/dL 0.50-1.04 6603466654) TOTAL BILI (test code = 0.7 mg/dL 0.1-1.4 7402295862) CALCIUM (test code = 9.4 mg/dL 8.6-10.6 7307027661) T PROTEIN (test code = 7.0 g/dL 6.3-8.2 4418103451) ALBUMIN (test code = 4.1 g/dL 3.5-5.0 8668957739) ALK PHOS (test code = 114 U/L 34-122 2972581182) ALTv (test code = 60 U/L 5-35 H 2-6) AST(SGOT) (test code = 42 U/L 13-40 H 0150625358) eGFR (test code = mL/min/1.73m2 4018574381) JESUS (test code = JESUS) Association of [...] tests). Lab Interpretation Abnormal (test code = 59157-0) [facility] [id number] 07:25:13 Test Item Value Reference Range Interpretation Comments LIPASE (test code = 9173312421) 104 U/L 0-220 Lab Interpretation (test code = Normal 63747-5) [facility] with [id number] 07:13:32 Test Item Value Reference Range Interpretation [...] RDW-SD (test code = 40.9 fL 39.0-49.9 72060-4) RDW-CV (test code = 12.5 % 12.0-15.5 788-0) PLT (test code = See_Comment [Automated 777-3) message] The sy stem which generated this result transmitted reference range : 166 - 358 10*3/ ?L. The reference r jori was not used to interpret this result as normal/abnormal . MPV (test code = 11.3 fL 9.5-12.9 85347-7) NRBC/100 WBC (test See_Comment [Automat ed code = 9228195190) message] The system which generated this result transmitted reference range : 0.0 - 10.0 /100 WBCs. The refer ence range was not u sed to interpret th is result as normal/abnormal . NRBC x10^3 (test code See_Comment [Auto mated = 5424616041) message] The s ystem which generated this result transmitted reference range : 10*3/?L. The reference range was not used to interpret this result as normal/abnormal . GRAN MAT (NEUT) % 59.4 % (test code = 770-8) IMM GRAN % (test code 0.30 % = 9257346603) LYMPH % (test code = 29.6 % 736-9) MONO % (test code = 8.4 % 5905-5) EOS % (test code = 1.3 % 713-8) BASO % (test code = 1.0 % 706-2) GRAN MAT x10^3(ANC) 5.38 10*3/uL 1.88-7.09 (test code = 1182915937) IMM GRAN x10^3 (test 0.03 10*3/uL 0.00-0.06 code = 9844836254) LYMPH x10^3 (test code 2.68 10*3/uL 1.32-3.29 = 731-0) MONO x10^3 (test code 0.76 10*3/uL 0.33-0.92 = 742-7) EOS x10^3 (test code = 0.12 10*3/uL 0.03-0.39 711-2) BASO x10^3 (test code 0.09 10*3/uL 0.01-0.07 H = 704-7) Lab Interpretation Abnormal (test code = 56035-5) [facility]2022-04-22 09:06:42 Test Item Value Reference Range Interpretation Comments POCT GLU (test code = 2248508745) 286 mg/dL 70-110 H Lab Interpretation (test code = Abnormal 83470-4) [facility] [id number] 07:57:54 Test Item Value Reference Interpretation Comments Range TROPONIN I (test 0.000 ng/mL See_Comment [Automated code = 6472027218) message] The system which generated this result [...] biotin. Lab Interpretation Normal (test code = 39158-6) [facility] [id number] 07:57:54 Test Item Value Reference Range Interpretation Comments NT-proBNP (test code 77 pg/mL See_Comment [Autom ated = 1045647332) message] The system which generated this result transmitted reference range : <=125. The reference range was not used to interpret this result as normal/abnormal . JESUS (test code = JESUS) Biotin has been reported to cause a negative bias, interpret results relative to patient's use of biotin. Lab Interpretation Normal (test code = 84987-8) [facility]OLIC PANEL (40976)2021-10-26 07:44:14 Test Item Value Reference Range Interpretation Comments NA (test code = 131 mmol/L 135-145 L 6300309724) K (test code = 4.3 mmol/L 3.5-5.0 2642123160) CL (test code = 99 mmol/L 98-108 6534986918) CO2 TOTAL (test code = 29 mmol/L 23-31 0239961837) AGAP (test code = 2-16 5373801800) BUN (test code = 20 mg/dL 7-23 4026758149) GLUCOSE (test code = 216 mg/dL 70-110 H 2120080614) CREATININE (test code = 0.70 mg/dL 0.50-1.04 4754091665) TOTAL BILI (test code = 0.5 mg/dL 0.1-1.9 1284462289) CALCIUM (test code = 9.1 mg/dL 8.6-10.6 8130837815) T PROTEIN (test code = 7.1 g/dL 6.3-8.2 3881001006) ALBUMIN (test code = 3.8 g/dL 3.5-5.0 6061604151) ALK PHOS (test code = 107 U/L 34-122 5863308204) ALTv (test code = 32 U/L 5-35 1742-6) AST(SGOT) (test code = 27 U/L 13-40 1531719866) eGFR (test code = mL/min/1.73m2 9058175965) JESUS (test code = JESUS) Association of [...] tests). Lab Interpretation Abnormal (test code = 20743-5) [facility]2022-03-30 07:44:14 Test Item Value Reference Range Interpretation Comments PHOSPHORUS (test code = 9109940886) 4.3 mg/dL 2.5-5.0 Lab Interpretation (test code = Normal 49801-0) [facility]UM2022-03-30 07:44:14 Test Item Value Reference Range Interpretation Comments MAGNESIUM (test code = 6419772664) 1.8 mg/dL 1.7-2.4 Lab Interpretation (test code = Normal 45365-6) [facility] WITH [id number] 07:14:47 Test Item Value Reference Range Interpretation [...] RDW-SD (test code = 44.4 fL 39.0-49.9 92811-8) RDW-CV (test code = 13.1 % 12.0-15.5 788-0) PLT (test code = See_Comment [Automated 777-3) message] The sy stem which generated this result transmitted reference range : 166 - 358 10*3/ ?L. The reference r jori was not used to interpret this result as normal/abnormal . MPV (test code = 11.0 fL 9.5-12.9 83906-2) NRBC/100 WBC (test See_Comment [Automat ed code = 1531305485) message] The system which generated this result transmitted reference range : 0.0 - 10.0 /100 WBCs. The refer ence range was not u sed to interpret th is result as normal/abnormal . NRBC x10^3 (test code <0.01 See_Comment [Auto mated = 2538323871) message] The s ystem which generated this result transmitted reference range : 10*3/?L. The reference range was not used to interpret this result as normal/abnormal . GRAN MAT (NEUT) % 63.3 % (test code = 770-8) IMM GRAN % (test code 0.70 % = 8846645795) LYMPH % (test code = 25.8 % 736-9) MONO % (test code = 7.5 % 5905-5) EOS % (test code = 1.8 % 713-8) BASO % (test code = 0.9 % 706-2) GRAN MAT x10^3(ANC) 6.58 10*3/uL 1.88-7.09 (test code = 7325696217) IMM GRAN x10^3 (test 0.07 10*3/uL 0.00-0.06 H code = 6683981949) LYMPH x10^3 (test code 2.68 10*3/uL 1.32-3.29 = 731-0) MONO x10^3 (test code 0.78 10*3/uL 0.33-0.92 = 742-7) EOS x10^3 (test code = 0.19 10*3/uL 0.03-0.39 711-2) BASO x10^3 (test code 0.09 10*3/uL 0.01-0.07 H = 704-7) Lab Interpretation Abnormal (test code = 49013-4) [facility]
[2023-04-08] MEDS ORDERED: CYCLOBENZAPRINE 10 MG TAB ONE (03:35)
[2023-04-08] MEDS ORDERED: ALBUTEROL 2.5 MG/3 ML NEB SOL ONE (03:35)
[2023-04-08] MEDS ORDERED: IPRATROPIUM BROM 0.5MG/2.5ML ONE (03:35)
[2023-04-08 03:48] LABS: Absolute Lymphocytes (CBC) 3.4 K/uL (0.7-4.9); Hematocrit 35.2 % (36.0-45.0); Lymphocytes % 34.8 % (15.3-44.8); MCV 93.2 fL (80-100); MPV 8.5 fL (7.6-11.3); Platelets 261 thou/uL (152-406); RBC Red Blood Cell Count 3.78 M/uL (3.86-4.86)
[2023-04-08 04:22] LABS: ALT/SGPT 38 U/L (13-56); AST/SGOT 16 U/L (15-37); Alkaline Phosphatase 101 U/L (45-117); BUN Blood Urea Nitrogen 26 mg/dL (7-18); Bicarbonate 27 mEq/L (21-32); Bilirubin Total 0.2 mg/dL (0.2-1.0); Glomerular Filtration Rate 102 ml/min (=/>90); Glucose Level 180 mg/dL (74-106); NT PRO-BNP 46 pg/mL (<125); Potassium 3.6 mEq/L (3.5-5.1); Protein, Total 6.7 g/dL (6.4-8.2); Sodium Level 138 mEq/L (136-145); Troponin High Sensitivity 37.3 pg/mL (<58.9)
[2023-04-08 04:28] LABS: Bilirubin Direct < 0.1 mg/dL (0-0.2); Bilirubin Indirect, Calculated ND mg/dL (0.2-0.8)
--- NOTE | 2023-04-08 06:06 | EDPHYS ---
Physician Documentation [facility] Name: Silvia Kiran Age: 52 yrs Sex: Female : 1970 Arrival Date: 04/08/2023 Time: 02:57 Bed 18 Private MD: ED Physician [place] HPI: 04/08 04:58 This 52 yrs old Female presents to ER via EMS with complaints of Shortness Of Breath. rt 04:58 Patient with history of asthma presents to the ED with shortness of breath. Patient rt states that started this evening. Patient reports a cramping to the legs at this time associated with it. Denies any wheezing. Denies other acute complaints at this time, symptoms are moderate severity, no other aggravating or elevating factors.. Historical: - Allergies: 03:00 iv dye iodine; bp - PMHx: 03:00 Depression; Diabetes - NIDDM; Hypertension; repiratory problems; Chronic pain; bp - PSHx: 03:00 Total abdominal hysterectomy; tumors removed; bp - Immunization history:: Adult Immunizations up to date. - Social history:: Smoking status: Patient denies any tobacco usage or history of. - Family history:: not pertinent. ROS: 04:58 Constitutional: Negative for fever, chills, and weight loss, Cardiovascular: Negative rt for chest pain, palpitations, and edema, MS/Extremity: Negative for injury and deformity, Skin: Negative for injury, rash, and discoloration, Neuro: Negative for headache, weakness, numbness, tingling, and seizure. 04:58 Respiratory: Positive for cough, shortness of breath. Exam: 04:58 ECG was reviewed by the Attending Physician. rt Vital Signs: 02:57 BP 129 / 86; Pulse 83; Resp 16; Temp 98; Pulse Ox 100% ; bp 04:19 BP 120 / 69; Pulse 76; Resp 16; Pulse Ox 98% on R/A; jb4 05:45 BP 123 / 68; Pulse 68; Resp 19; Pulse Ox 99% on R/A; jb4 MDM: 03:03 Patient medically screened. rt 07:58 Differential diagnosis: Anemia Anxiety Reaction asthma, Chronic Obstructive Pulmonary rt Disease pneumonia. Data reviewed: vital signs, nurses notes. I considered the following discharge prescriptions or medication management in the emergency department Medications were administered in the Emergency Department. See MAR. Independent interpretation of the following test(s) in the Emergency Department X-Ray: My interpretation is No consolidation seen on interpretation of the x-ray images. Test considered but Not performed: CT: Low suspicion for PE, CT angiogram not indicated. Care significantly affected by the following chronic conditions: Diabetes. Counseling: I had a detailed discussion with the patient and/or guardian regarding the historical points, exam findings, and any diagnostic results supporting the discharge/admit diagnosis, lab results, radiology results, the need for outpatient follow up. Response to treatment: the patient's symptoms have markedly improved after treatment. 04/08 03:11 Order name: Basic Metabolic Panel; Complete Time: 04:34 rt 04/08 03:11 Order name: CBC with Diff; Complete Time: 04:34 rt 04/08 03:11 Order name: LFT's; Complete Time: 04:34 rt 04/08 03:11 Order name: NT PRO-BNP; Complete Time: 04:34 rt 04/08 03:11 Order name: Troponin HS; Complete Time: 04:34 rt 04/08 03:11 Order name: XRAY Chest (1 view) rt 04/08 03:11 Order name: EKG; Complete Time: 03:12 rt 04/08 03:11 Order name: Cardiac monitoring; Complete Time: 03:19 rt 04/08 03:11 Order name: EKG - Nurse/Tech; Complete Time: 03:19 rt 04/08 03:11 Order name: IV Saline Lock; Complete Time: 03:19 rt 04/08 03:11 Order name: Labs collected and sent; Complete Time: 03:48 rt 04/08 03:11 Order name: O2 Per Protocol; Complete Time: 03:19 rt 04/08 03:11 Order name: O2 Sat Monitoring; Complete Time: 03:20 rt EC:58 Rate is 78 beats/min. Rhythm is regular, Normal Sinus Rhythm with No ectopy. QRS [place] rt is Normal. NM interval is normal. QRS interval is normal. QT interval is normal. No Q waves. T waves are Normal. No ST changes noted. Interpreted by me. Administered Medications: 03:43 Drug: Cyclobenzaprine PO 10 mg Route: PO; jb4 03:44 Drug: DuoNeb Nebulize (2.5 mg - 0.5 mg) 3 ml Route: Nebulizer; jb4 Disposition Summary: 04/08/23 06:06 Discharge Ordered Location: Home rt Problem: new rt Symptoms: have improved rt Condition: Stable rt Diagnosis - Dyspnea rt Followup: rt - With: Private Physician - When: 2 - 3 days - Reason: Discharge Instructions: - Discharge Summary Sheet rt - Shortness of Breath, Adult rt Forms: - Medication Reconciliation Form rt - Thank You Letter rt - Antibiotic Education rt - Prescription Opioid Use rt - Patient Portal Instructions rt - Leadership Thank You Letter rt Signatures: Dispatcher [employer] Taran Lai RN RN jb4 Nestor Mcgraw, TERRY RN bp [place] Scott MD MD rt
--- NOTE | 2023-04-08 06:06 | ER ---
Nurse's Notes [facility] Name: Silvia Kiran Age: 52 yrs Sex: Female : 1970 Arrival Date: 04/08/2023 Time: 02:57 Bed 18 Private MD: Diagnosis: Dyspnea Presentation: 04/08 02:57 Chief complaint: EMS states: "HER FRIEND CALLED BECAUSE SHE WAS SHORT OF BREATH. OVER bp THE COURSE OF THE DRIVE HERE, SHE HAS STATED SHE HAD PAIN IN HER RIGHT FOOT, RIGHT KNEE, BACK, AND HEAD.". Coronavirus screen: At this time, the client does not indicate any symptoms associated with coronavirus-19. Ebola Screen: No symptoms or risks identified at this time. Initial Sepsis Screen: Does the patient meet any 2 criteria? No. Patient's initial sepsis screen is negative. Does the patient have a suspected source of infection? No. Patient's initial sepsis screen is negative. Risk Assessment: Do you want to hurt yourself or someone else? Patient reports no desire to harm self or others. Onset of symptoms is unknown. Care prior to arrival: Medication(s) given: ASA, 325 mg, zofran 4 mg, IV initiated. 20 GA, in the left antecubital area, Glucose check: 185. 02:57 Method Of Arrival: EMS: [facility] bp 02:57 Acuity: SUNG 3 bp Triage Assessment: 03:00 General: Appears in no apparent distress. Behavior is cooperative, appropriate for age, bp anxious. Pain: Complains of pain in back, chest and right leg. Respiratory: Reports shortness of breath Onset: The symptoms/episode began/occurred just prior to arrival, the patient has mild shortness of breath. Historical: - Allergies: 03:00 iv dye iodine; bp - PMHx: 03:00 Depression; Diabetes - NIDDM; Hypertension; repiratory problems; Chronic pain; bp - PSHx: 03:00 Total abdominal hysterectomy; tumors removed; bp - Immunization history:: Adult Immunizations up to date. - Social history:: Smoking status: Patient denies any tobacco usage or history of. - Family history:: not pertinent. Screenin:26 [facility] ED Fall Risk Assessment (Adult) History of falling in the last 3 months, jb4 including since admission No falls in past 3 months (0 pts) Confusion or Disorientation No (0 pts) Score/Fall Risk Level 0 - 2 = Low Risk Oriented to surroundings, Maintained a safe environment. Abuse screen: Denies threats or abuse. Nutritional screening: No deficits noted. Tuberculosis screening: No symptoms or risk factors identified. Assessment: 04:19 Reassessment: Patient appears in no apparent distress at this time. Patient and/or jb4 family updated on plan of care and expected duration. Pain level reassessed. Patient is alert, oriented x 3, equal unlabored respirations, skin warm/dry/pink. 05:00 Reassessment: Pt is resting in bed with eyes closed, respirations are even and jb4 unlabored with no s/s of pain or distress noted. 06:03 Reassessment: Patient appears in no apparent distress at this time. Patient and/or jb4 family updated on plan of care and expected duration. Pain level reassessed. Patient is alert, oriented x 3, equal unlabored respirations, skin warm/dry/pink. Vital Signs: 02:57 BP 129 / 86; Pulse 83; Resp 16; Temp 98; Pulse Ox 100% ; bp 04:19 BP 120 / 69; Pulse 76; Resp 16; Pulse Ox 98% on R/A; jb4 05:45 BP 123 / 68; Pulse 68; Resp 19; Pulse Ox 99% on R/A; jb4 ED Course: 02:57 Patient arrived in ED. bp 03:00 Triage completed. bp 03:00 Arm band placed on. bp 03:01 West Scott MD is Attending Physician. rt 03:01 Maintain EMS IV. Dressing intact. Good blood return noted. Site clean \\T\\ dry. Gauge \\T\\ bp site: 20 GA LEFT AC. 03:19 Taran Marshall, RN is Primary Nurse. jb4 03:51 XRAY Chest (1 view) In Process Unspecified. EDMS 06:26 Patient has correct armband on for positive identification. Bed in low position. Call jb4 light in reach. Side rails up X 1. 06:26 No provider procedures requiring assistance completed. IV discontinued, intact, jb4 bleeding controlled, No redness/swelling at site. Pressure dressing applied. Administered Medications: 03:43 Drug: Cyclobenzaprine PO 10 mg Route: PO; jb4 03:44 Drug: DuoNeb Nebulize (2.5 mg - 0.5 mg) 3 ml Route: Nebulizer; jb4 Medication: 06:26 VIS not applicable for this client. jb4 Outcome: : Discharge ordered by . rt : Discharged to home via wheelchair. jb4 : Condition: stable : Discharge instructions given to patient, Instructed on discharge instructions, follow up and referral plans. Demonstrated understanding of instructions, follow-up care, Prescriptions given X :28 Patient left the ED. jb4 Signatures: Dispatcher [employer] EDTaran Bar RN RN jb4 Nestor Mcgraw, TERRY RN bp [place] Scott MD MD rt
[2023-04-08 06:34] VITALS: BP 123/68; O2SAT 99
--- NOTE | 2023-04-09 11:58 | RAD REPORT ---
EXAM DESCRIPTION: RAD - Chest Single View - 04/08/2023 3:49 am CLINICAL HISTORY: The patient is 52 years old and is Female; DYSPNEA TECHNIQUE: Frontal view of the chest. COMPARISON: No relevant prior studies available. FINDINGS: Lungs: Prominent interstitial markings which may indicate mild interstitial edema. No co nsolidation. Pleural space: Unremarkable. No pneumothorax. Heart: Unremarkable. Mediastinum: Unremarkable. Bones/joints: Unremarkable. IMPRESSION: Prominent interstitial markings which may indicate mild interstitial edema. No consolida tion. Electronically signed by: Masoud Marquez MD 04/08/2023 5:47 AM CDT Due to temporary technical issues with the PACS/Fluency reporting system, reports are being signed by the in house radiologist without review as a courtesy to ensure prompt reporting. The interpreting r adiologist is fully responsible for the content of the report.
--- NOTE | 2023-04-09 17:09 | EKG ---
Test Date: 2023-04-08 Test Time: 03:00:58 Parts Room Associate: PHILOMENA MEASUREMENT RESULTS: Intervals: Rate: 78 GA: 150 QRSD: 86 QT: 420 QTc: 478 [place]: P: 26 GA: 150 QRS: 31 T: 57 INTERPRETIVE STATEMENTS: Normal sinus rhythm Normal ECG Compared to ECG 04/01/2023 12:48:13 Prolonged QT interval no longer present Electronically Signed On 04-09-23 17:06:10 CDT by Manuelito Zhong
== END 2023-04-08 06:28 | disposition home or self-care (01) ==
LOC: ER 03:02
DX: R06.00 Dyspnea, unspecified (principal); E11.9 Type 2 diabetes mellitus without complications; I10 Essential (primary) hypertension; F32.A Depression, unspecified; G89.29 Other chronic pain; Z88.8 Allergy status to other drugs, medicaments and biological substances
CPT/HCPCS: 93005; 85025; 80048; 36415; 80076; 84484; 83880; 71045; 94640; 99284; J7613; J7644

== ENCOUNTER → 2023-08-12 | Emergency (ER) | payer OTHER ==
--- NOTE | 2023-08-12 20:55 | ER ---
Nurse's Notes [facility] Name: Silvia Kiran Age: 52 yrs Sex: Female : 1970 Arrival Date: 08/12/2023 Time: 20:34 Bed Waiting Private MD: Diagnosis: - Family history:: not pertinent. ED Course: 08/12 20:36 Patient arrived in ED. rg4 20:47 Zander Jenkins MD is Attending Physician. sp4 20:55 Patient's name was called from [facility]. Unable to locate patient. Will disposition as cm10 left without being seen by a provider. Administered Medications: No medications were administered Outcome: 20:55 Patient left the ED. cm10 Signatures: Leighann Garza rg4 Zander Jenkins MD MD sp4 Tomasa Sunshine RN RN cm10
--- NOTE | 2023-08-12 20:55 | EDPHYS ---
Physician Documentation [facility] Name: Silvia Kiran Age: 52 yrs Sex: Female : 1970 Arrival Date: 08/12/2023 Time: 20:34 Bed Waiting Private MD: ED Physician Zander Jenkins HPI: 08/12 20:47 This 52 yrs old Female presents to ER via Unassigned with complaints of Knee sp4 Pain, Leg Pain. 20:47 PMH - Allergies: iv dye iodine PMHx: Depression; Diabetes - NIDDM; Hypertension; sp4 repiratory problems; Chronic pain PSHx: Total abdominal hysterectomy; tumors removed; . 20:55 Patient left prior to being seen by MD . sp4 - Family history:: not pertinent. Exam: 20:55 Constitutional: Left Prior to evaluation sp4 MDM: 20:49 Patient medically screened. sp4 20:55 Data reviewed: vital signs, nurses notes. sp4 Administered Medications: No medications were administered Disposition Summary: 08/12/23 20:55 Eloped Notes: Disposition: before being seen by provider cm10 Reason: unknown cm10 Signatures: Zander Jenkins MD MD sp4 Tomasa Sunshine RN RN cm10
== END ==
LOC: ER 20:34
DX: Z02.9 Encounter for administrative examinations, unspecified (principal)

== ENCOUNTER → 2023-08-20 | Emergency (ER) | payer OTHER ==
[~2023-08-20] MED LIST: KETOROLAC 30 MG/ML INJ ONE
--- NOTE | 2023-08-20 13:02 | RAD REPORT ---
EXAM DESCRIPTION: RAD - Tib Fib Left - 08/20/2023 12:42 pm CLINICAL HISTORY: injury COMPARISON: <Comparisons> TECHNIQUE: Left tibia and fibula, 2 views. FINDINGS: No fracture is identified. There is no dislocation or periosteal reaction noted. Epiphyses and growth plates are normal in appea hong. No foreign body or other soft tissue abnormality. IMPRESSION: Negative left tibia & fibula examination.
--- NOTE | 2023-08-20 13:32 | RAD REPORT ---
EXAM DESCRIPTION: RAD - Knee Left 3 View - 08/20/2023 12:42 pm CLINICAL HISTORY: injury COMPARISON: No comparisons TECHNIQUE: Left knee, 3 views. FINDINGS: No fracture, dislocation or periosteal reaction.No joint effusion seen. No joint space doris rowing. No soft tissue abnormality. Clinical concerns for internal derangement or occult bony injury could be further assessed with MR im aging. IMPRESSION: Negative left knee.
--- NOTE | 2023-08-20 13:56 | ER ---
Nurse's Notes [facility] Name: Silvia Kiran Age: 53 yrs Sex: Female : 1970 Arrival Date: 08/20/2023 Time: 11:05 Bed IW1 Private MD: Diagnosis: Pain in left knee Presentation: 08/20 11:24 Chief complaint: Patient states: Left knee pain. Coronavirus screen: At this time, the ld1 client does not indicate any symptoms associated with coronavirus-19. Ebola Screen: No symptoms or risks identified at this time. Initial Sepsis Screen: Does the patient meet any 2 criteria? No. Patient's initial sepsis screen is negative. Does the patient have a suspected source of infection? No. Patient's initial sepsis screen is negative. Risk Assessment: Do you want to hurt yourself or someone else? Patient reports no desire to harm self or others. Onset of symptoms was August 20, 2023. 11:24 Method Of Arrival: Ambulatory ld1 11:24 Method Of Arrival: Wheelchair ld1 11:24 Acuity: SUNG 3 ld1 11:24 Acuity: SUNG 4 ld1 Triage Assessment: 11:25 General: Appears in no apparent distress. uncomfortable, Behavior is calm, cooperative, ld1 appropriate for age. Pain: Complains of pain in left leg Pain does not radiate. Pain currently is 10 out of 10 on a pain scale. Quality of pain is described as throbbing. EENT: No signs and/or symptoms were reported regarding the EENT system. Neuro: Level of Consciousness is awake, alert, obeys commands, Oriented to person, place, time, situation. Cardiovascular: Capillary refill < 3 seconds Patient's skin is warm and dry. Respiratory: Airway is patent Respiratory effort is even, unlabored. GI: Abdomen is round non-distended. : No signs and/or symptoms were reported regarding the genitourinary system. Derm: No signs and/or symptoms reported regarding the dermatologic system. Musculoskeletal: No signs and/or symptoms reported regarding the musculoskeletal system. Historical: - Allergies: 11: iv dye iodine; ld1 - PMHx: :25 Chronic pain; Depression; Diabetes - NIDDM; Hypertension; repiratory problems; ld1 - PSHx: : Total abdominal hysterectomy; tumors removed; ld1 - Immunization history:: Adult Immunizations up to date. - Social history:: Smoking status: Patient denies any tobacco usage or history of. Patient/guardian denies using alcohol. Screenin:27 [facility] ED Fall Risk Assessment (Adult) History of falling in the last 3 months, ld1 including since admission No falls in past 3 months (0 pts). Abuse screen: Denies threats or abuse. Denies injuries from another. Nutritional screening: No deficits noted. Tuberculosis screening: No symptoms or risk factors identified. Assessment: 11:27 Reassessment: See triage assessmnet. ld1 Vital Signs: 11:24 BP 116 / 69; Pulse 83; Resp 18; Temp 98.1(O); Pulse Ox 100% on R/A; Weight 93.44 kg; ld1 Height 5 ft. 4 in. ; Pain 10/10; 11:24 Body Mass Index 35.36 (93.44 kg, 162.56 cm) ld1 11:24 Pain Scale: Adult ld1 ED Course: 11:07 Patient arrived in ED. rg4 11:09 Manpreet Gardner MD is Attending Physician. ec2 11:25 Triage completed. ld1 11:25 Arm band placed on right wrist. ld1 11:27 Patient has correct armband on for positive identification. Placed in gown. Bed in low ld1 position. Call light in reach. Side rails up X2. hospital monitor on. Pulse ox on. NIBP on. Door closed. Noise minimized. 11:27 No provider procedures requiring assistance completed. ld1 12:44 Knee Left 3 View XRAY In Process Unspecified. EDMS 12:44 Tib Fib Left XRAY In Process Unspecified. EDMS 14:04 Patient did not have IV access during this emergency room visit. ld1 Administered Medications: 12:09 Drug: Ketorolac IM 30 mg IM once Route: IM; Site: left deltoid; ap3 Medication: 11:27 VIS not applicable for this client. ld1 Outcome: 13:56 Discharge ordered by . ec2 14:04 Discharged to home ambulatory, ld1 14:04 Condition: stable 14:04 Discharge instructions given to patient, Instructed on discharge instructions, follow up and referral plans. medication usage, Demonstrated understanding of instructions, follow-up care, medications, 14:04 Patient left the ED. ld1 Signatures: Dispatcher [employer] Leighann Wagner rg4 Ignacia Lindquist RN RN ap3 Micaela Gray RN RN ld1 Manpreet Gardner MD MD ec2 Corrections: (The following items were deleted from the chart) 11:26 11:24 Pulse 83bpm; Resp 18bpm; Pulse Ox 100% RA; Temp 98.1F Oral; 93.44 kg; Height 5 ld1 ft. 4 in.; BMI: 35.3; Pain 05/08, Adult; ld1
--- NOTE | 2023-08-20 13:56 | EDPHYS ---
Physician Documentation [facility] Name: Silvia Kiran Age: 53 yrs Sex: Female : 1970 Arrival Date: 08/20/2023 Time: 11:05 Bed IW1 Private MD: ED Physician Manpreet Gardner HPI: 08/20 11:34 This 53 yrs old Female presents to ER via Wheelchair with complaints of Knee ec2 Pain, Leg Pain. 11:34 Patient arrives today for left knee pain. Had fallen several days ago is having ec2 worsening pain. Patient states that she has been ambulatory on it. Patient states that she is taking multiple medications to help with her symptoms. Patient reports no other concerns.. Historical: - Allergies: 11:25 iv dye iodine; ld1 - PMHx: 11:25 Chronic pain; Depression; Diabetes - NIDDM; Hypertension; repiratory problems; ld1 - PSHx: 11:25 Total abdominal hysterectomy; tumors removed; ld1 - Immunization history:: Adult Immunizations up to date. - Social history:: Smoking status: Patient denies any tobacco usage or history of. Patient/guardian denies using alcohol. ROS: 11:34 Constitutional: as per hpi ec2 Exam: 11:34 Constitutional: GEN: NAD Head: atraumatic Eyes: EOMI Ears: External ears are ec2 normal. CV: regular rate LUNGS: no respiratory distress ABD: non-distended SKIN: no evidence of rashes MSK: Left distal femur, proximal tibia with TTP, no obvious deformity, no significant ecchymosis. NEURO: moves all extremities equally Vital Signs: 11:24 BP 116 / 69; Pulse 83; Resp 18; Temp 98.1(O); Pulse Ox 100% on R/A; Weight 93.44 kg; ld1 Height 5 ft. 4 in. ; Pain 10/10; 11:24 Body Mass Index 35.36 (93.44 kg, 162.56 cm) ld1 11:24 Pain Scale: Adult ld1 MDM: 11:28 Patient medically screened. ec2 11:34 Data reviewed: vital signs. ED course: Patient arrives today for evaluation of left ec2 knee pain. Examination remarkable for MSK findings as noted above. Will obtain a radiograph of the left knee and tib-fib. Considering contusion, fracture.. 13:55 ED course: Knee x-ray without bony fracture. Will discharge home. Return precautions ec2 given. Suspect contusion versus sprain.. 08/20 11:28 Order name: Knee Left 3 View XRAY; Complete Time: 13:55 ec2 08/20 11:28 Order name: Tib Fib Left XRAY; Complete Time: 13:21 ec2 Administered Medications: 12:09 Drug: Ketorolac IM 30 mg IM once Route: IM; Site: left deltoid; ap3 Disposition Summary: 08/20/23 13:56 Discharge Ordered Notes: Location: Home ec2 Condition: Stable ec2 Diagnosis - Pain in left knee ec2 Followup: ec2 - With: Private Physician - When: - Reason: Recheck today's complaints Discharge Instructions: - Discharge Summary Sheet ec2 - Acute Knee Pain, Adult ec2 Forms: - Medication Reconciliation Form ec2 - Thank You Letter ec2 - Antibiotic Education ec2 - Prescription Opioid Use ec2 - Patient Portal Instructions ec2 - Leadership Thank You Letter ec2 Prescriptions: - methocarbamol 500 mg Oral tablet - take 2 tablets ORAL route 4 times per day; 20 tablet; Refills: 0, Product ec2 Selection Permitted Signatures: Dispatcher [employer] Ignacia Hutchison RN RN ap3 Micaela Gray RN RN ld1 Manpreet Gardner MD MD ec2
[2023-08-20 14:26] VITALS: BP 116/69; TEMP 98.1; O2SAT 100
== END ==
LOC: ER 11:05
DX: M25.562 Pain in left knee (principal); E11.9 Type 2 diabetes mellitus without complications; F32.A Depression, unspecified; I10 Essential (primary) hypertension; G89.29 Other chronic pain
CPT/HCPCS: 96372; 99284

== ENCOUNTER 2023-08-26 04:49 | Observation (INO) | payer OTHER ==
[2023-08-26] MEDS ORDERED: ENOXAPARIN 80 MG/0.8 ML SQ ONE (05:29)
[2023-08-26] MEDS ORDERED: MORPHINE 2 MG/ML SYR ONE (05:29)
[2023-08-26] MEDS ORDERED: ONDANSETRON 4 MG/2 ML VIAL ONE (05:29)
[2023-08-26] MEDS ORDERED: NA CHLORIDE 0.9% 1,000 ML ONE (05:30)
[2023-08-26] MEDS ORDERED: FAMOTIDINE 20 MG/2 ML VIAL IV ONE (05:30)
[2023-08-26 05:36] LABS: Absolute Lymphocytes (CBC) 2.9 K/uL (0.7-4.9); Hematocrit 39.4 % (36.0-45.0); MCV 92.7 fL (80-100); MPV 8.9 fL (7.6-11.3); Platelets 327 thou/uL (152-406); RBC Red Blood Cell Count 4.25 M/uL (3.86-4.86)
[2023-08-26 05:54] LABS: Albumin 3.4 g/dL (3.4-5.0); Bilirubin Direct 0.1 mg/dL (0-0.2); Bilirubin Indirect, Calculated 0.5 mg/dL (0.2-0.8); Bilirubin Total 0.6 mg/dL (0.2-1.0); Potassium 3.9 mEq/L (3.5-5.1); Protein, Total 7.7 g/dL (6.4-8.2); Troponin High Sensitivity 43.2 pg/mL (<58.9)
--- NOTE | 2023-08-26 06:17 | EDPHYS ---
Physician Documentation [facility] Name: Silvia Kiran Age: 53 yrs Sex: Female : 1970 Arrival Date: 08/26/2023 Time: 04:49 Bed 7 Private MD: NURY Physician Hector Houston HPI: 08/26 05:15 This 53 yrs old Female presents to ER via Unassigned with complaints of Chest marta Pain, Leg Swelling, Leg Discoloration. 05:15 The patient or guardian reports chest pain that is located primarily in the substernal marta area, anterior chest wall, bilaterally. Onset: today, last night, 1 day(s) ago. The pain does not radiate. Associated signs and symptoms: The patient has no apparent associated signs or symptoms. The chest pain is described as squeezing. Modifying factors: The symptoms are alleviated by nothing. the symptoms are aggravated by nothing. Severity of pain: At its worst the pain was moderate in the emergency department the pain has improved mildly. The patient has experienced similar episodes in the past, a few times. 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 Flu vaccine status is unknown. - Social history:: Smoking status: Patient denies any tobacco usage or history of. - Family history:: not pertinent. ROS: 05:17 Constitutional: Negative for fever, chills, and weight loss, Eyes: Negative for injury, marta pain, redness, and discharge, ENT: Negative for injury, pain, and discharge, Neck: Negative for injury, pain, and swelling, Respiratory: Negative for shortness of breath, cough, wheezing, and pleuritic chest pain, Abdomen/GI: Negative for abdominal pain, nausea, vomiting, diarrhea, and constipation, Back: Negative for injury and pain, : Negative for injury, bleeding, discharge, and swelling, MS/Extremity: Negative for injury and deformity, Skin: Negative for injury, rash, and discoloration, Neuro: Negative for headache, weakness, numbness, tingling, and seizure, Psych: Negative for depression, anxiety, suicide ideation, homicidal ideation, and hallucinations, Allergy/Immunology: Negative for hives, rash, and allergies, Endocrine: Negative for neck swelling, polydipsia, polyuria, polyphagia, and marked weight changes, Hematologic/Lymphatic: Negative for swollen nodes, abnormal bleeding, and unusual bruising, 05:17 Cardiovascular: Positive for chest pain, 05:17 MS/extremity: Positive for pain, of the left leg, Exam: 05:17 Constitutional: This is a well developed, well nourished patient who is awake, alert, marta and in no acute distress. Head/Face: Normocephalic, atraumatic. Eyes: Pupils equal round and reactive to light, extra-ocular motions intact. Lids and lashes normal. Conjunctiva and sclera are non-icteric and not injected. Cornea within normal limits. Periorbital areas with no swelling, redness, or edema. ENT: Nares patent. No nasal discharge, no septal abnormalities noted. Tympanic membranes are normal and external auditory canals are clear. Oropharynx with no redness, swelling, or masses, exudates, or evidence of obstruction, uvula midline. Mucous membranes moist. Neck: Trachea midline, no thyromegaly or masses palpated, and no cervical lymphadenopathy. Supple, full range of motion without nuchal rigidity, or vertebral point tenderness. No Meningismus. Chest/axilla: Normal chest wall appearance and motion. Nontender with no deformity. No lesions are appreciated. Cardiovascular: Regular rate and rhythm with a normal S1 and S2. No gallops, murmurs, or rubs. Normal PMI, no JVD. No pulse deficits. Respiratory: Lungs have equal breath sounds bilaterally, clear to auscultation and percussion. No rales, rhonchi or wheezes noted. No increased work of breathing, no retractions or nasal flaring. Abdomen/GI: Soft, non-tender, with normal bowel sounds. No distension or tympany. No guarding or rebound. No evidence of tenderness throughout. Back: No spinal tenderness. No costovertebral tenderness. Full range of motion. Skin: Warm, dry with normal turgor. Normal color with no rashes, no lesions, and no evidence of cellulitis. Neuro: Awake and alert, GCS 15, oriented to person, place, time, and situation. Cranial nerves II-XII grossly intact. Motor strength 5/5 in all extremities. Sensory grossly intact. Cerebellar exam normal. Normal gait. Psych: Awake, alert, with orientation to person, place and time. Behavior, mood, and affect are within normal limits. 05:17 Musculoskeletal/extremity: ROM: full active range of motion, full passive range of motion, Circulation is intact in all extremities. Sensation intact. Compartment Syndrome exam of affected extremity: is normal. Weight bearing: able to fully bear weight, DVT Exam: no swelling, negative Homans' sign noted on exam, no appreciated bluish discoloration, no erythema, no increased warmth, pain, tenderness, 05:20 ECG was reviewed by the Attending Physician. marta Vital Signs: 05:23 Weight 90.72 kg; la4 05:23 BP 176 / 80; Pulse 82; Resp 18; Temp 98.1; Pulse Ox 100% ; Height 4 ft. 10 in. ; Pain vc1 10/10; 07:30 BP 135 / 67; Pulse 81; Resp 18; Pulse Ox 98% on R/A; ph 05:23 Pain Scale: Adult vc1 MDM: 04:57 Patient medically screened. marta 05:18 Differential diagnosis: contusion, tendonitis, abnormal EKG, acute myocardial marta infarction, acute pericarditis, anxiety, coronary artery disease chest wall pain, esophagitis, gastritis, hiatal hernia, pancreatitis, peptic ulcer disease, pericarditis, pneumonia, pulmonary embolus, unstable angina. HEART Score: History: Slightly Suspicious (0), ECG: Non specific repolarization disturbance / LBTB / PM (1), Age: > 45 and < 65 years (1), Risk Factors: > or = 3 Risk factors for atherosclerotic disease (2), [Hypercholesterolemia] [Hypertension] [DM] [+ Family HX] [Obesity] Troponin: < or = 1 x Normal Limit (0). The patient was given aspirin in the Emergency Department. NAGI Risk Score: 1 - Three or more CAD risk factors, [Family Hx], [HTN], [Elevated Cholesterol], [DM], TOTAL SCORE = 1. Data reviewed: vital signs, nurses notes. Consideration of Admission/Observation Patient was admitted/placed on observation. Escalation of care including admission/observation considered. I considered the following discharge prescriptions or medication management in the emergency department Medications were administered in the Emergency Department. See MAR. Independent interpretation of the following test(s) in the Emergency Department EKG: See my EKG interpretation above. Test considered but Not performed: CT: no ct chest. Care significantly affected by the following chronic conditions: Diabetes, Hypertension, Obesity. Counseling: I had a detailed discussion with the patient and/or guardian regarding the historical points, exam findings, and any diagnostic results supporting the discharge/admit diagnosis, the presence of at least one elevated blood pressure reading (>120/80) during this emergency department visit, lab results, radiology results, the need for further work-up and treatment in the hospital. 08/26 04:58 Order name: Basic Metabolic Panel; Complete Time: 06:15 marta 08/26 04:58 Order name: CBC with Diff; Complete Time: 06:15 marta 08/26 04:58 Order name: LFT's; Complete Time: 06:15 marta 08/26 04:58 Order name: Magnesium; Complete Time: 06:15 marta 08/26 04:58 Order name: NT PRO-BNP; Complete Time: 06:15 marta 08/26 04:58 Order name: PT-INR 08/26 04:58 Order name: Troponin HS; Complete Time: 06:15 marta 08/26 04:58 Order name: Urinalysis w/ reflexes 08/26 04:58 Order name: Lipase; Complete Time: 06:15 [facility] 08/26 08:08 Order name: Liver (Hepatic) Function EDVT 08/26 08:08 Order name: T4 Free EDVT 08/26 08:08 Order name: Thyroid Stimulating Hormone EDVT 08/26 08:08 Order name: Basic Metabolic Panel EDMS 08/26 08:08 Order name: Basic Metabolic Panel EDMS 08/26 08:08 Order name: Basic Metabolic Panel EDMS 08/26 08:08 Order name: Basic Metabolic Panel EDMS 08/26 08:08 Order name: Basic Metabolic Panel EDMS 08/26 08:08 Order name: Basic Metabolic Panel EDMS 08/26 08:08 Order name: CBC with Automated Diff EDMS 08/26 08:08 Order name: CBC with Automated Diff EDMS 08/26 08:08 Order name: CBC with Automated Diff EDMS 08/26 08:08 Order name: CBC with Automated Diff EDMS 08/26 08:08 Order name: CBC with Automated Diff EDMS 08/26 08:08 Order name: CBC with Automated Diff EDMS 08/26 08:08 Order name: Lipid Profile EDMS 08/26 08:08 Order name: Lipid Profile EDMS 08/26 08:08 Order name: Magnesium EDMS 08/26 08:08 Order name: Magnesium EDMS 08/26 08:08 Order name: Magnesium EDMS 08/26 08:08 Order name: Magnesium EDMS 08/26 08:08 Order name: Magnesium EDMS 08/26 08:08 Order name: Magnesium EDMS 08/26 08:08 Order name: Phosphorus EDMS 08/26 08:08 Order name: Phosphorus EDMS 08/26 08:08 Order name: Phosphorus EDMS 08/26 08:08 Order name: Phosphorus EDMS 08/26 08:08 Order name: Phosphorus EDMS 08/26 08:08 Order name: Phosphorus EDMS 08/26 08:08 Order name: Troponin High Sensitivity EDMS 08/26 08:08 Order name: Troponin High Sensitivity EDMS 08/26 08:08 Order name: Troponin High Sensitivity EDMS 08/26 04:58 Order name: XRAY Chest (1 view) 08/26 04:58 Order name: US Extremity Venous W Compression Philip 08/26 04:58 Order name: EKG; Complete Time: 04:59 08/26 04:58 Order name: Cardiac monitoring; Complete Time: 05:30 08/26 04:58 Order name: EKG - Nurse/Tech; Complete Time: 05:30 08/26 04:58 Order name: IV Saline Lock; Complete Time: 05:30 08/26 04:58 Order name: Labs collected and sent; Complete Time: 05:30 08/26 04:58 Order name: O2 Per Protocol; Complete Time: 05:30 08/26 04:58 Order name: O2 Sat Monitoring; Complete Time: 05:30 [facility] EC:20 Rate is 81 beats/min. Rhythm is regular. QRS [place] is Normal. GA interval is normal. QRS marta interval is normal. QT interval is normal. No Q waves. T waves are Normal. No ST changes noted. Clinical impression: Normal ECG and No evidence of ischemia. Interpreted by me. Reviewed by me. Administered Medications: 05:40 Drug: NS 0.9% IV 1000 ml IV at 75 ml/hr continuous Route: IV; Rate: 75 ml/hr; Site: nw1 left antecubital; 05:40 Drug: Aspirin PO Chewable Tablet 162 mg PO once Route: PO; nw1 05:40 Drug: morphine IVP or IV 2 mg IVP once over 4 mins Route: IVP; Infused Over: 4 mins; nw1 Site: left antecubital; 05:40 Drug: morphine IVP or IV 2 mg IVP once over 4 mins Route: IVP; Infused Over: 4 mins; nw1 Site: left antecubital; 05:40 Drug: Ondansetron IVP 4 mg IVP once; over 2 minutes Route: IVP; Site: left antecubital; nw1 05:40 Drug: Famotidine IVP 20 mg IVP once; dilute with 10 mL 0.9% NaCl; give over 2 minutes nw1 Route: IVP; Site: left antecubital; 05:50 Drug: Enoxaparin Sub-Q 1 mg/kg Sub-Q once Route: Sub-Q; Site: right lower abdomen; nw1 Disposition Summary: 08/26/23 06:16 Hospitalization Ordered Notes: Hospitalization Status: Observation marta Provider: Clark Larson cha Location: Telemetry/MedSurg (observation) marta Condition: Stable marta Problem: new marta Symptoms: have improved marta Bed/Room Type: [facility] Room Assignment: 208(08/26/23 08:30) eb Diagnosis - Chest pain, unspecified marta - Pain in left leg marta - Unspecified kidney failure marta - Type 2 diabetes mellitus with hyperglycemia marta Forms: - Medication Reconciliation Form marta - SBAR form marta - Leadership Thank You Letter marta Signatures: Dispatcher [employer] Hector Machuca MD MD cha Botello, Elizabeth eb Calcote, Vanessa, RN RN vc1 Ping Morel RN RN nw1 Corrections: (The following items were deleted from the chart) 08:30 06:16 marta eb
--- NOTE | 2023-08-26 06:17 | ER ---
Nurse's Notes [facility] Name: Silvia Kiran Age: 53 yrs Sex: Female : 1970 Arrival Date: 08/26/2023 Time: 04:49 Bed 7 Private MD: Diagnosis: Chest pain, unspecified;Pain in left leg;Unspecified kidney failure;Type 2 diabetes mellitus with hyperglycemia Presentation: 08/26 05:23 Chief complaint: Patient states: I've been having some pain and swelling to my left leg vc1 since a fell about a week and a half ago and yesterday afternoon I started having some chest tightness. Coronavirus screen: Vaccine status: Patient reports being unvaccinated. Client denies travel out of the [place] in the last 14 days. At this time, the client does not indicate any symptoms associated with coronavirus-19. Ebola Screen: Patient negative for fever greater than or equal to 101.5 degrees Fahrenheit, and additional compatible Ebola Virus Disease symptoms Patient denies exposure to infectious person. Patient denies travel to an Ebola-affected area in the 21 days before illness onset. No symptoms or risks identified at this time. Initial Sepsis Screen: Does the patient meet any 2 criteria? No. Patient's initial sepsis screen is negative. Does the patient have a suspected source of infection? No. Patient's initial sepsis screen is negative. Risk Assessment: Do you want to hurt yourself or someone else? Patient reports no desire to harm self or others. Onset of symptoms was August 26, 2023. 05:23 Method Of Arrival: Ambulatory vc1 05:23 Acuity: SUNG 3 vc1 Triage Assessment: 05:31 General: Appears in no apparent distress. uncomfortable, obese, Behavior is calm, vc1 cooperative, appropriate for age. Pain: Complains of pain in chest and left leg Pain does not radiate. Pain currently is 10 out of 10 on a pain scale. Quality of pain is described as sharp, Pain began 1 day ago. EENT: No deficits noted. No signs and/or symptoms were reported regarding the EENT system. Neuro: Level of Consciousness is awake, alert, obeys commands, Oriented to person, place, time, situation, Appropriate for age. Cardiovascular: Chest pain is described as severe, quality is tightness. Respiratory: Airway is patent Respiratory effort is even, unlabored, Respiratory pattern is regular, symmetrical. GI: No deficits noted. No signs and/or symptoms were reported involving the gastrointestinal system. : No deficits noted. No signs and/or symptoms were reported regarding the genitourinary system. Derm: No deficits noted. No signs and/or symptoms reported regarding the dermatologic system. Musculoskeletal: No deficits noted. No signs and/or symptoms reported regarding the musculoskeletal system. 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 Flu vaccine status is unknown. - Social history:: Smoking status: Patient denies any tobacco usage or history of. - Family history:: not pertinent. Screenin:26 Abuse screen: Denies threats or abuse. Nutritional screening: No deficits noted. vc1 Tuberculosis screening: No symptoms or risk factors identified. 05:33 [facility] ED Fall Risk Assessment (Adult) History of falling in the last 3 months, vc1 including since admission No falls in past 3 months (0 pts) Confusion or Disorientation No (0 pts) Intoxicated or Sedated No (0 pts) Impaired Gait No (0 pts) Mobility Assist Device Used No (0 pt) Altered Elimination No (0 pt) Score/Fall Risk Level 0 - 2 = Low Risk Oriented to surroundings, Maintained a safe environment, Educated pt \T\ family on fall prevention, incl call for assistance when getting out of bed. Assessment: 05:56 Reassessment: Pt assessed. Pt states intermittent CP since yesterday afternoon. Pt nw1 endorses LLE swelling x 1.5 weeks. Pt states extensive cardiac history. VSS, no noted distress at this time. Pt states 0 needs and wants. Call light at bedside. Will continue to monitor. General: Appears comfortable, obese, Behavior is calm, cooperative, appropriate for age. Pain: Complains of pain in chest Pain does not radiate. Is intermittent. Pain: Pain currently is 4 out of 10 on a pain scale. Pain: Quality of pain is described as aching, Pain began 1 day ago. Neuro: Level of Consciousness is awake, alert, obeys commands, Oriented to person, place, time, situation, Appropriate for age. Cardiovascular: Reports chest pain, Heart tones present Capillary refill < 3 seconds Edema is 2+ to left leg Rhythm is sinus rhythm. Respiratory: Airway is patent Respiratory effort is even, unlabored, Respiratory pattern is regular, symmetrical. GI: Abdomen is round Bowel sounds present X 4 quads. 05:56 Derm:. nw1 Vital Signs: 05:23 Weight 90.72 kg; la4 05:23 BP 176 / 80; Pulse 82; Resp 18; Temp 98.1; Pulse Ox 100% ; Height 4 ft. 10 in. ; Pain vc1 10/10; 07:30 BP 135 / 67; Pulse 81; Resp 18; Pulse Ox 98% on R/A; ph 05:23 Pain Scale: Adult vc1 Vitals: 07:30 Cardiac Rhythm Assessment Sinus rhythm. ph ED Course: 04:51 Patient arrived in ED. [email or web address] 04:57 Hector Houston MD is Attending Physician. marta 05:20 Tom Collins RN is Primary Nurse. la4 05:21 Patient has correct armband on for positive identification. Placed in gown. Bed in low la4 position. Call light in reach. Side rails up X2. Provided Education on: Plan of care. Jessica STEWART and Nissa Abrams to bedside to assist in settling patient at this time. Client placed on continuous cardiac and pulse oximetry monitoring. NIBP monitoring applied. 05:26 Triage completed. vc1 05:27 Arm band placed on right wrist. vc1 05:30 Inserted saline lock: 20 gauge in left antecubital area, using aseptic technique. Blood lg3 collected. 05:30 Lipase Sent. lg3 05:30 Basic Metabolic Panel Sent. lg3 05:30 CBC with Diff Sent. lg3 05:30 LFT's Sent. lg3 05:30 Magnesium Sent. lg3 05:30 NT PRO-BNP Sent. lg3 05:30 PT-INR Sent. lg3 05:30 Troponin HS Sent. lg3 05:34 Patient maintains SpO2 saturation greater than 95% on room air. vc1 06:15 Clark Larson is Hospitalizing Provider. marta 06:35 US Extremity Venous W Compression Philip In Process Unspecified. EDMS 06:47 XRAY Chest (1 view) In Process Unspecified. EDCO 07:20 Primary Nurse role handed off by Tom Collins RN 07:20 Nestor Mcgraw, RN is Primary Nurse. bp Administered Medications: 05:40 Drug: NS 0.9% IV 1000 ml IV at 75 ml/hr continuous Route: IV; Rate: 75 ml/hr; Site: nw1 left antecubital; 05:40 Drug: Aspirin PO Chewable Tablet 162 mg PO once Route: PO; nw1 05:40 Drug: morphine IVP or IV 2 mg IVP once over 4 mins Route: IVP; Infused Over: 4 mins; nw1 Site: left antecubital; 05:40 Drug: morphine IVP or IV 2 mg IVP once over 4 mins Route: IVP; Infused Over: 4 mins; nw1 Site: left antecubital; 05:40 Drug: Ondansetron IVP 4 mg IVP once; over 2 minutes Route: IVP; Site: left antecubital; nw1 05:40 Drug: Famotidine IVP 20 mg IVP once; dilute with 10 mL 0.9% NaCl; give over 2 minutes nw1 Route: IVP; Site: left antecubital; 05:50 Drug: Enoxaparin Sub-Q 1 mg/kg Sub-Q once Route: Sub-Q; Site: right lower abdomen; nw1 Medication: 05:33 VIS not applicable for this client. vc1 Outcome: 06:16 Decision to Hospitalize by Provider. [facility] 10:09 Patient left the ED. eb Signatures: Dispatcher [employer] EDCO Hector Houston MD MD cha Hall, Patricia RN TERRY Nestor Mcgraw, RN RN Char Dolan Lacie, RN RN lg3 Rosi Ye jj6 Gladys De Anda RN RN vc1 Tom Collins, TERRY RN la4 Ping Morel RN RN nw1 Corrections: (The following items were deleted from the chart) 06:06 05:55 Reassessment: nw nw1 06:07 05:56 Cardiovascular: Reports chest pain, Heart tones present Capillary refill < 3 nw1 seconds Rhythm is sinus rhythm nw1
--- NOTE | 2023-08-26 06:43 | P.HP ---
Certification for Inpatient Patient admitted to: Observation With expected LOS: >2 Midnights Patient will require the following post-hospital care: None Practitioner: I am a practitioner with admitting privileges, knowledge of patient current condition, hospital course, and medical plan of care. Services: Services provided to patient in accordance with Admission requirements found in Title 42 Section 412.3 of the Code of Federal Regulations Patient History Date of Service: 08/26/23 Reason for admission: Chest pain r/o History of Present Illness: Silvia Kiran is a 53-year-old female with past medical history Chronic pain; Depression; Diabetes - NIDDM; Hypertension; repiratory problems; who presents to the ED with complaints of chest pain, leg swelling, and leg discoloration. Chest pain is located in the substernal chest area and does not radiate, onset of one day ago. Chest pain is described as squeezing and tightness. She reports having similar episodes in the past. She is concerned also about her left leg swelling. No blood clot was found on the venous ultrasound. She reports falling up the stairs a few days ago and came to the ER, x-rays were negative and are recorded below. Initial vitals BP 176 / 80; Pulse 82; Resp 18; Temp 98.1; Pulse Ox 100% Significant labs troponin 43.2, BNP 53, BUN/creatinine 38/1.24, GFR 52, serum glucose 194, H&H 13/39, platelets 327, WBC 9. Chest x-ray reports "Lungs: Similar prominence of the pulmonary interstitial markings at the right lung base. No acute process identified. Pleural: No significant pleural effusions or pneumothorax. Cardiac: Similar size and configuration. Mediastinum: Within normal limits. Bones: No acute fractures. Other: None IMPRESSION: No acute cardiopulmonary disease." Venous extremity reports "Normal compressibility, flow augmentation, phasic flow and spontaneous flow is identified in both the left and right lower extremity deep venous systems. No intraluminal filling defects seen. No DVT in either lower extremity." 08/20/23: Left tibia x-ray reports "No fracture is identified. There is no dislocation or periosteal reaction noted. Epiphyses and growth plates are normal in appearance. No foreign body or other soft tissue abnormality. Negative left tibia & fibula examination" 08/20/2023 Left knee x-ray reports "No fracture, dislocation or periosteal reaction.No joint effusion seen. No joint space narrowing. No soft tissue abnormality. Clinical concerns for internal derangement or occult bony injury could be further assessed with MR imaging. Negative left knee." Silvia will be admitted to hospitalist service for further evaluation and treatment of chest pain rule out ACS. Allergies iodine Allergy (Intermediate, Verified 02/15/12 01:45) swelling, hives No Known Allergies Allergy (Uncoded 08/23/17 20:20) Unknown Home Medications: Acetaminophen with Codeine [Acetaminophen-Cod #3 Tablet] 1 tab PO BID PRN 08/26/23 Aspirin Chewable [Aspirin Chewable*] 1 tab PO DAILY 08/26/23 Atorvastatin Calcium 1 tab PO BEDTIME 08/26/23 Benzonatate [Tessalon Perle*] 1 tab PO TID PRN 08/26/23 Cetirizine HCl 1 tab PO DAILY 08/26/23 Cyclobenzaprine [Flexeril*] 1 tab PO BID PRN 08/26/23 Doxepin HCl 25 mg PO BEDTIME 08/26/23 Escitalopram [Lexapro*] 1 tab PO DAILY 08/26/23 Famotidine [Pepcid*] 1 tab PO DAILY 08/26/23 Gabapentin 2 tab PO TID 08/26/23 Losartan Potassium 1 tab PO DAILY 08/26/23 Meloxicam 1 tab PO DAILY 08/26/23 Montelukast [Singulair*] 1 tab PO BEDTIME 08/26/23 glipiZIDE [Glipizide] 1 tab PO TID 08/26/23 hydroCHLOROthiazide [Hydrochlorothiazide*] 25 mg PO DAILY 08/26/23 - Past Medical/Surgical History Diabetic: Yes -: COVID-19 Pneumonia -: Pulmonary embolism -: Right knee surgery - Social History Smoking Status: Never smoker Alcohol use: No CD- Drugs: No Review of Systems Cardiovascular: Chest Pain (tightness) Musculoskeletal: Leg Pain (LLE previous injury) Physical Examination - Physical Exam General: Alert, In no apparent distress, Oriented x3 HEENT: Atraumatic, Normocephalic, PERRLA Neck: Supple, 2+ carotid pulse no bruit, JVD not distended Respiratory: Clear to auscultation bilaterally, Normal air movement Cardiovascular: No edema, Normal pulses, Regular rate/rhythm, Normal S1 S2 Capillary refill: <2 Seconds Gastrointestinal: Normal bowel sounds, Soft and benign Musculoskeletal: No clubbing, No swelling, No contractures, Tenderness (LLE) Integumentary: No rashes, No breakdown, No significant lesion, No tenderness/swelling Neurological: Normal speech, Normal strength at 5/5 x4 extr, Normal tone - Studies Laboratory Data (last 24 hrs) 08/26/23 08/26/23 05:28 05:28 WBC 9.00 Hgb 13.6 Hct 39.4 Plt Count 327 Sodium 136 Potassium 3.9 BUN 38 H Creatinine 1.24 H Glucose 194 H Magnesium 2.0 Total Bilirubin 0.6 AST 29 ALT 51 Alkaline Phosphatase 94 Lipase 27 Assessment and Plan - Plan Assessment and plan Chest pain rule out ACS Troponin 43.2, BNP 43 Trend troponins Aspirin, statin daily Morphine, nitroglycerin SL as needed Chest x-ray reports "No acute cardiopulmonary disease." EKG negative Will evaluate consult cardiology Trauma fall, left leg injury 08/20/2023 Reports pain above and below the knee X-rays on 08/20 showed no breaks bilateral Venous Doppler reports no DVT in either leg 2+ peripheral pulses present Follow-up outpatient History of hypertension continue medications BP stable Chronic back pain Continue home medication Diabetes mellitus 2NIDDM Accu-Chek with sliding scale insulin Depressive disorder Continue home medication DVT PPx heparin subcu Full code Discharge Plan: Home Plan to discharge in: 48 Hours - Advance Directives Does patient have a Living Will: No Does patient have a Durable POA for Healthcare: No Time Spent Managing Pts Care (In Minutes): 50
--- NOTE | 2023-08-26 07:02 | RAD REPORT ---
EXAM DESCRIPTION: RAD - Chest Single View - 08/26/2023 6:45 am CLINICAL HISTORY: CHEST PAIN COMPARISON: Chest Single View dated 04/08/2023; Chest Single View dated 04/01/2023; Chest Pa And Lat (2 Views) dated 03/09/2023; Chest Single View dated 12/03/2022 FINDINGS: Lines: None. Lungs: Similar prominence of the pulmonary interstitial markings at the right lung base. No acute pro cess identified. Pleural: No significant pleural effusions or pneumothorax. Cardiac: Similar size and configuration. Mediastinum: Within normal limits. Bones: No acute fractures. Other: None IMPRESSION: No acute cardiopulmonary disease.
--- NOTE | 2023-08-26 07:05 | RAD REPORT ---
EXAM DESCRIPTION: US - Extrem Venous W Compress Philip - 08/26/2023 6:34 am CLINICAL HISTORY: Pain;Swelling COMPARISON: Extremity Venous Uni Ltd dated 01/04/2019 TECHNIQUE: Real-time sonographic evaluation of the lower extremity deep venous systems was performed using color Doppler, grayscale, and compression. FINDINGS: Bilateral lower extremities. Normal compressibility, flow augmentation, phasic flow and spontaneous flow is identified in both the left and right lower extremity deep venous systems. No intraluminal filling defects seen. IMPRESSION: No DVT in either lower extremity.
[2023-08-26] MEDS ORDERED: NITROGLYCERIN 0.4 MG/TAB SL PRN (07:57)
[2023-08-26] MEDS ORDERED: MORPHINE 2 MG/ML SYR IV PRN (07:57)
[2023-08-26 08:47] VITALS: BMI 41.4
[2023-08-26] MEDS ORDERED: APIXABAN 5 MG TABLET PO SCH (09:00)
[2023-08-26] MEDS ORDERED: HEPARIN 5000 UNIT/ML 1 ML VIAL SQ SCH (09:00)
[2023-08-26] MEDS: METOPROLOL TAR 25 MG TAB PO SCH ×2 (10:48→20:43)
[2023-08-26] MEDS: ASPIRIN EC 81 MG TAB PO SCH (10:48)
[2023-08-26 11:52] LABS: Protime INR 1.07
[2023-08-26 12:04] LABS: Bilirubin Direct 0.1 mg/dL (0-0.2); Bilirubin Indirect, Calculated 0.4 mg/dL (0.2-0.8); Bilirubin Total 0.5 mg/dL (0.2-1.0); Protein, Total 6.7 g/dL (6.4-8.2); Thyroid Stimulating Hormone 1.51 uIU/mL (0.358-3.740)
[2023-08-26] MEDS ORDERED: CYCLOBENZAPRINE 10 MG TAB PO PRN (13:26)
[2023-08-26] MEDS: GABAPENTIN 300 MG CAP PO SCH ×2 (14:17→20:42)
[2023-08-26] MEDS: CODEINE 30MG/APAP 300MG TAB PO PRN (14:21)
[2023-08-26] MEDS ORDERED: D10W 250 ML BAG IV PRN (14:30)
[2023-08-26] MEDS ORDERED: GLUCAGON 1 MG/VIAL IM PRN (14:30)
--- NOTE | 2023-08-26 14:40 | P.PN ---
Date of Service: 08/26/23 Subjective Awake alert and oriented this morning, chest pain is intermittent tightness that causes shortness of breath. Still complaining of left leg pain. Continue weaning chronic pain management medications ROS 10 point ROS as noted above, otherwise negative Physical Exam General: Alert, In no apparent distress, Oriented x3 HEENT: Atraumatic, Normocephalic, PERRLA Neck: Supple, 2+ carotid pulse no bruit, JVD not distended Respiratory: Clear to auscultation bilaterally, Normal air movement Cardiovascular: No edema, Normal pulses, Regular rate/rhythm, Normal S1 S2 Capillary refill: <2 Seconds Gastrointestinal: Normal bowel sounds, Soft and benign Musculoskeletal: No clubbing, No swelling, No contractures, Tenderness (LLE) Integumentary: No rashes, No breakdown, No significant lesion, No tenderness/swelling Neurological: Normal speech, Normal strength at 5/5 x4 extr, Normal tone Vitals Reviewed Problem list Chest pain rule out ACS Trauma fall, left leg injury 08/20/2023 History of hypertension Diabetes mellitus 2NIDDM Depressive disorder Assessment and Plan Chest pain rule out ACS Troponin 43.2, BNP 43 Trend troponins Aspirin, statin daily Morphine, nitroglycerin SL as needed Chest x-ray reports "No acute cardiopulmonary disease." EKG negative Will evaluate consult cardiology Trauma fall, left leg injury 08/20/2023 Reports pain above and below the knee X-rays on 08/20 showed no breaks bilateral Venous Doppler reports no DVT in either leg 2+ peripheral pulses present Follow-up outpatient History of hypertension continue medications BP stable Chronic back pain Continue home medication Hold Mobic Diabetes mellitus 2NIDDM Accu-Chek with sliding scale insulin Depressive disorder Continue home medication DVT PPx heparin subcu Full code
[2023-08-26] MEDS: INSULIN REGULAR (HUMAN) 100 UNIT/ML SQ SCH ×2 (16:30→20:50)
[2023-08-26] MEDS ORDERED: ALBUTEROL 2.5 MG/3 ML NEB SOL NEB PRN (20:40)
[2023-08-26] MEDS: HEPARIN 5000 UNIT/ML 1 ML VIAL SQ SCH (20:43)
[2023-08-26] MEDS: ATORVASTATIN 40 MG TAB PO SCH (20:43)
[2023-08-26] MEDS: DOXEPIN HCL 25 MG CAP PO SCH (20:43)
[2023-08-27 06:28] LABS: Absolute Lymphocytes (CBC) 2.8 K/uL (0.7-4.9); Lymphocytes % 41.6 % (15.3-44.8); MCV 93.4 fL (80-100); MPV 10.2 fL (7.6-11.3); Platelets 171 thou/uL (152-406); RBC Red Blood Cell Count 3.96 M/uL (3.86-4.86)
[2023-08-27] MEDS: INSULIN REGULAR (HUMAN) 100 UNIT/ML SQ SCH ×4 (07:30→20:51)
[2023-08-27 08:03] LABS: Magnesium 2.1 mg/dL (1.6-2.4); Phosphorus 2.6 mg/dL (2.5-4.9); Potassium 4.5 mEq/L (3.5-5.1)
[2023-08-27] MEDS: ESCITALOPRAM 20 MG TAB PO SCH (08:08)
[2023-08-27] MEDS: LOSARTAN POTASSIUM 50 MG TABLET PO SCH (08:08)
[2023-08-27] MEDS: CETIRIZINE HCL 5 MG TABLET PO SCH (08:08)
[2023-08-27] MEDS: HEPARIN 5000 UNIT/ML 1 ML VIAL SQ SCH ×2 (08:08→20:13)
[2023-08-27] MEDS: ASPIRIN EC 81 MG TAB PO SCH (08:08)
[2023-08-27] MEDS: METOPROLOL TAR 25 MG TAB PO SCH ×2 (08:09→20:13)
[2023-08-27] MEDS: hydroCHLOROthiazide 25 MG TAB PO SCH (08:09)
[2023-08-27] MEDS: GABAPENTIN 300 MG CAP PO SCH ×3 (08:11→20:13)
[2023-08-27] MEDS ORDERED: HOME MED 1 EA UNK (Cetirizine Hcl [Cetirizine Hcl] 10 MG Tablet) PO SCH (09:00)
[2023-08-27] MEDS ORDERED: HEPARIN 5000 UNIT/ML 1 ML VIAL SQ SCH (09:00)
[2023-08-27] MEDS ORDERED: ASPIRIN 81 MG CHEWABLE TABLET PO SCH (09:00)
[2023-08-27] MEDS ORDERED: HOME MED 1 EA UNK (Meloxicam [Meloxicam] 15 MG Tablet) PO SCH (09:00)
[2023-08-27] MEDS ORDERED: APIXABAN 5 MG TABLET PO SCH (09:00)
[2023-08-27] MEDS: CODEINE 30MG/APAP 300MG TAB PO PRN ×2 (10:33→20:26)
--- NOTE | 2023-08-27 18:42 | P.DS ---
Admission Date: 08/26/23 Discharge Date: 08/27/23 Disposition: ROUTINE DISCHARGE Discharge Condition: GOOD Reason for Admission: Chest pain r/o Brief History of Present Illness: Diagnosis Chest pain rule out ACS Fall, left leg injury 08/20/2023 History of hypertension Chronic back pain Diabetes mellitus 2NIDDM Depressive disorder HPI 08/26/23 Silvia Kiran is a 53-year-old female with past medical history Chronic pain; Depression; Diabetes - NIDDM; Hypertension; repiratory problems; who presents to the ED with complaints of chest pain, leg swelling, and leg discoloration. Chest pain is located in the substernal chest area and does not radiate, onset of one day ago. Chest pain is described as squeezing and tightness. She reports having similar episodes in the past. She is concerned also about her left leg swelling. No blood clot was found on the venous ultrasound. She reports falling up the stairs a few days ago and came to the ER, x-rays were negative and are recorded below. Initial vitals BP 176 / 80; Pulse 82; Resp 18; Temp 98.1; Pulse Ox 100% Significant labs troponin 43.2, BNP 53, BUN/creatinine 38/1.24, GFR 52, serum glucose 194, H&H 13/39, platelets 327, WBC 9. Chest x-ray reports "Lungs: Similar prominence of the pulmonary interstitial markings at the right lung base. No acute process identified. Pleural: No significant pleural effusions or pneumothorax. Cardiac: Similar size and configuration. Mediastinum: Within normal limits. Bones: No acute fractures. Other: None IMPRESSION: No acute cardiopulmonary disease." Venous extremity reports "Normal compressibility, flow augmentation, phasic flow and spontaneous flow is identified in both the left and right lower extremity deep venous systems. No intraluminal filling defects seen. No DVT in either lower extremity." 08/20/23: Left tibia x-ray reports "No fracture is identified. There is no dislocation or periosteal reaction noted. Epiphyses and growth plates are normal in appearance. No foreign body or other soft tissue abnormality. Negative left tibia & fibula examination" 08/20/2023 Left knee x-ray reports "No fracture, dislocation or periosteal reaction.No joint effusion seen. No joint space narrowing. No soft tissue abnormality. Clinical concerns for internal derangement or occult bony injury could be further assessed with MR imaging. Negative left knee." Silvia will be admitted to hospitalist service for further evaluation and treatment of chest pain rule out ACS. Hospital Course: Silvia Kiran is a pleasant 53 year old female with a past medical history signifi cant for Chronic pain; Depression; Diabetes - NIDDM; Hypertension; repiratory problems who was admitted to the [facility] on 08/26/23 for Chest pain r/o ACS. Silvia Kiran presented to the ED with chief complaints of chest tightness and left lower extremity injury from 08/20. Troponins trended flat and EKG was negative. Chest tightness has improved. Ultrasound of bilateral lower extremities reveals no DVT present. CT of left lower extremity has not been read but will be available for the orthopedist to view during your outpatient follow up. Dr. Zhong is aware of her heart cath performed by Dr. Nair and deems you safe for outpatient follow up with Dr. Nair. She has tolerated PO diet, ambulating independently, and hemodynamically stable for discharge. On 08/27/23, Silvia was seen on morning rounds and deemed medically stable for discharge. Silvia was discharged with instructions to schedule follow-up appointments with Dr. Nair and Dr. Means. No new prescriptions this admission. Silvia and her family members were given the opportunity to ask questions and reported no further questions. Furthermore, all questions were answered to the best of my ability. A copy of this discharge summary will be sent to the above providers to facilitate continuity of care. Today, I personally spent 50 minutes with Silvia, of which greater than 50% of the time was spent in patient education, counseling, and coordination of care as described above. Physical Exam General: AAOx3, NAD, Obese HEENT: Atraumatic, Normocephalic, PERRLA Neck: Supple, 2+ carotid pulse no bruit, JVD not distended Respiratory: Clear to auscultation bilaterally, Normal air movement Cardiovascular: No edema, 2+ pulses, RRR, Normal S1 S2 Capillary refill: <2 Seconds Gastrointestinal: Normal bowel sounds, Soft and benign on palpation, NT/ND Musculoskeletal: No clubbing, No swelling, No contractures, Tenderness (LLE), 2+ peripheral pulses, no edema, no discoloration Integumentary: No rashes, No breakdown, No significant lesion, No tenderness/swelling Neurological: Normal speech, Normal strength at 5/5 x4 extr, Normal tone Vital Signs/Physical Exam: Temp Pulse Resp BP Pulse Ox 97.7 F 64 17 117/56 L 97 08/27/23 15:34 08/27/23 15:34 08/27/23 15:34 08/27/23 15:34 08/27/23 15:34 Laboratory Data at Discharge: WBC 6.70 thou/uL (4.3-10.9) 08/27/23 05:55 Hgb 12.8 g/dL (12.0-15.0) 08/27/23 05:55 Hct 37.0 % (36.0-45.0) 08/27/23 05:55 Plt Count 171 thou/uL (152-406) D 08/27/23 05:55 PT 11.8 SECONDS (9.5-12.5) 08/26/23 11:26 INR 1.07 08/26/23 11:26 Sodium 137 mEq/L (136-145) 08/27/23 07:25 Potassium 4.5 mEq/L (3.5-5.1) D 08/27/23 07:25 BUN 26 mg/dL (7-18) H 08/27/23 07:25 Creatinine 0.77 mg/dL (0.55-1.02) 08/27/23 07:25 Glucose 233 mg/dL (74-106) H 08/27/23 07:25 Phosphorus 2.6 mg/dL (2.5-4.9) 08/27/23 07:25 Magnesium 2.1 mg/dL (1.6-2.4) 08/27/23 07:25 Total Bilirubin 0.5 mg/dL (0.2-1.0) 08/26/23 11:26 AST 26 U/L (15-37) 08/26/23 11:26 ALT 45 U/L (13-56) 08/26/23 11:26 Alkaline Phosphatase 87 U/L (45-117) 08/26/23 11:26 Triglycerides 193 mg/dL (<150) H 08/27/23 07:25 Cholesterol 126 mg/dL (<200) 08/27/23 07:25 HDL Cholesterol 30 mg/dL (40-60) L 08/27/23 07:25 Cholesterol/HDL Ratio 4.20 08/27/23 07:25 Lipase 27 U/L (13-75) 08/26/23 05:28 Home Medications: Acetaminophen with Codeine [Acetaminophen-Cod #3 Tablet] 1 tab PO BID PRN 08/26/23 Aspirin Chewable [Aspirin Chewable*] 1 tab PO DAILY 08/26/23 Atorvastatin Calcium 1 tab PO BEDTIME 08/26/23 Benzonatate [Tessalon Perle*] 1 tab PO TID PRN 08/26/23 Cetirizine HCl 1 tab PO DAILY 08/26/23 Cyclobenzaprine [Flexeril*] 1 tab PO BID PRN 08/26/23 Doxepin HCl 25 mg PO BEDTIME 08/26/23 Escitalopram [Lexapro*] 1 tab PO DAILY 08/26/23 Famotidine [Pepcid*] 1 tab PO DAILY 08/26/23 Gabapentin 2 tab PO TID 08/26/23 Losartan Potassium 1 tab PO DAILY 08/26/23 Meloxicam 1 tab PO DAILY 08/26/23 Montelukast [Singulair*] 1 tab PO BEDTIME 08/26/23 glipiZIDE [Glipizide] 1 tab PO TID 08/26/23 hydroCHLOROthiazide [Hydrochlorothiazide*] 25 mg PO DAILY 08/26/23 Atorvastatin Calcium [Lipitor] 40 mg PO BEDTIME tab 08/27/23 Metoprolol Tartrate [Lopressor*] 25 mg PO BID tab 08/27/23 Physician Discharge Instructions: Silvia Kiran presented to the ED with chief complaints of chest tightness and left lower extremity injury from 08/20. The CT of your lower extremity has not been read yet but will be available for the orthopedist to view during your outpatient follow up. Dr. Zhong is aware of your heart cath performed by Dr. Nair and deems you safe for outpatient follow up with Dr. Nair. Your tr oponins have trended flat, EKG negative for ST elevation, Tolerated PO diet, ambulating independently, and hemodynamically stable for discharge. 1. Follow up with your Cardiology Dr. Nair for outpatient recommendations 2. Follow up with orthopedics concerning your left leg injury 3. Follow up with your PCP for continued medical management 4. Continue with diabetic and heart healthy diet 5. No activity restrictions 6. Return to the ED if your symptoms worsen No new medications this admission Diet: AHA Activity: Ad ara Followup: Vinod Crowell DO [Primary Care Provider] - Kuldeep Means MD [ACTIVE - CAN ADMIT] -
--- NOTE | 2023-08-27 18:53 | RAD REPORT ---
EXAM DESCRIPTION: CT - Low Extremity Wo Cont - 08/27/2023 10:46 am CLINICAL HISTORY: Knee injury with pain status post fall COMPARISON: August 20, 2023 x-ray TECHNIQUE: Computed axial tomography obtained from above the left knee to the left ankle. Coronal an d sagittal reconstruction All CT scans are performed using dose optimization technique as appropriate and may include automated exposure control or mA/KV adjustment according to patient size. FINDINGS: No fracture. No dislocation No significant joint effusion. . Subcutaneous tissues unremarkable IMPRESSION: No fracture visualized If the patient has clinical symptoms to suggest a ligamentous or meniscal injury then MRI would be re commended
[2023-08-27] MEDS: ATORVASTATIN 40 MG TAB PO SCH (20:14)
[2023-08-27] MEDS: DOXEPIN HCL 25 MG CAP PO SCH (20:50)
[2023-08-27 23:03] VITALS: O2SAT 96
[2023-08-28 06:35] LABS: Hematocrit 36.2 % (36.0-45.0); RBC Red Blood Cell Count 3.87 M/uL (3.86-4.86)
[2023-08-28 06:36] LABS: Absolute Lymphocytes (CBC) 2.6 K/uL (0.7-4.9); Lymphocytes % 34.3 % (15.3-44.8); MCV 93.4 fL (80-100); MPV 9.5 fL (7.6-11.3); Platelets 272 thou/uL (152-406)
[2023-08-28 06:48] LABS: Magnesium 1.7 mg/dL (1.6-2.4); Phosphorus 2.9 mg/dL (2.5-4.9); Potassium 4.2 mEq/L (3.5-5.1)
[2023-08-28] MEDS: INSULIN REGULAR (HUMAN) 100 UNIT/ML SQ SCH ×2 (07:30→11:30)
[2023-08-28] MEDS: ASPIRIN EC 81 MG TAB PO SCH (08:19)
[2023-08-28] MEDS: hydroCHLOROthiazide 25 MG TAB PO SCH (08:19)
[2023-08-28] MEDS: LOSARTAN POTASSIUM 50 MG TABLET PO SCH (08:19)
[2023-08-28] MEDS: CETIRIZINE HCL 5 MG TABLET PO SCH (08:19)
[2023-08-28] MEDS: ESCITALOPRAM 20 MG TAB PO SCH (08:19)
[2023-08-28] MEDS: GABAPENTIN 300 MG CAP PO SCH ×2 (08:20→13:21)
[2023-08-28] MEDS: METOPROLOL TAR 25 MG TAB PO SCH (08:20)
[2023-08-28] MEDS: HEPARIN 5000 UNIT/ML 1 ML VIAL SQ SCH (08:21)
--- NOTE | 2023-08-28 09:06 | ECHO ---
HEIGHT: 4 ft 10 in WEIGHT: 198 lb 6.657 oz DATE OF STUDY: 08/27/[address]: Kandice Villalpando NP 2-DIMENSIONAL: YES M.MODE: YES DOPPLER: YES COLOR FLOW: YES TDS: PORTABLE: YES DEFINITY: BUBBLE STUDY: DIAGNOSIS: CHEST PAIN CARDIAC HISTORY: CATHERIZATION: SURGERY: PROSTHETIC VALVE: PACEMAKER: MEASUREMENTS (cm) DIASTOLIC (NORMALS) SYSTOLIC (NORMALS) IVSd 0.8 (0.6-1.2) LA Diam 3.2 (1.9-4.0) LVEF 68% LVIDd 4.9 (3.5-5.7) LVIDs 3.0 (2.0-3.5) %FS 38% LVPWd 1.0 (0.6-1.2) Ao Diam 2.8 (2.0-3.7) 2 DIMENSIONAL ASSESSMENT: RIGHT ATRIUM: NORMAL LEFT ATRIUM: NORMAL RIGHT VENTRICLE: NORMAL LEFT VENTRICLE: NORMAL TRICUSPID VALVE: MILD TRICUSPID REGURGITATION MITRAL VALVE: MILD MITRAL REGURGITATION PULMONIC VALVE: NORMAL AORTIC VALVE: MODERATE AORTIC INSUFFICIENCY PERICARDIAL EFFUSION: NONE AORTIC ROOT: NORMAL LEFT VENTRICULAR WALL MOTION: NORMAL DOPPLER/COLOR FLOW: SEE BELOW COMMENTS: 1. NORMAL LEFT VENTRICULAR EJECTION FRACTION 60-65% WITH NORMAL WALL MOTION 2. DIASTOLIC DYSFUNCTION 3. MODERATE AORTIC INSUFFICIENCY 4. MILD MITRAL REGURGITATION, TRICUSPID REGURGITATION TECHNOLOGIST: CAT RAMOS
--- NOTE | 2023-08-28 11:11 | RAD REPORT ---
EXAM DESCRIPTION: MRI - Knee Left Wo Cont - 08/28/2023 9:53 am CLINICAL HISTORY: fall 1wk ago, pain in knee, posterior, swelling COMPARISON: Low Extremity Wo Cont dated 08/27/2023; Knee Left 3 View dated 08/20/2023 TECHNIQUE: Multiplanar multisequence MRI of the left knee, obtained without IV contrast. FINDINGS: The medial meniscus shows a small radial tear or defect along the free margin of the poste rior horn, see series 5, image 7 and series 3, image 14 among others. The lateral meniscus is intact. The ACL and PCL are intact. Abnormal T2 signal superficial to the MCL without discrete evidence of tear. LCL appears intact. Webber llofemoral ligaments appear intact. Mild edema overlying the patella and adjacent patellar tendon. Mild chondromalacia along the medial weight-bearing and patellofemoral articulations without full-thi ckness or near full-thickness cartilage defects. Static patellar alignment is normal. Patellar retinacula are intact. Patellar and quadriceps tendons are normal. No fracture or significant bone bruise. Mild joint effusion. Small non ruptured Avila's cyst measuring 2.1 cm. IMPRESSION: Small tear of the posterior horn medial meniscus as above. Grade 1 MCL injury. Mild edema overlying the patella and adjacent patellar tendon attachment, may relate to recent trauma , less likely low-grade injury to the extensor mechanism. Mild joint effusion. Small non ruptured Avila cyst. Mild medial weight-bearing and patellofemoral chondromalacia.
--- NOTE | 2023-08-28 12:14 | P.DS ---
Admission Date: 08/26/23 Discharge Date: 08/28/23 Disposition: ROUTINE DISCHARGE Discharge Condition: GOOD Reason for Admission: Chest pain r/o Consultations: Cardiology - Dr. Zhong Brief History of Present Illness: 53yo F, PMH: Chronic pain; Depression; Diabetes - NIDDM; Hypertension; repiratory problems; who presents to the ED with complaints of chest pain, leg swelling, and leg discoloration. Chest pain is located in the substernal chest area and does not radiate, onset of one day ago. Chest pain is described as squeezing and tightness. She reports having similar episodes in the past. She is concerned also about her left leg swelling. No blood clot was found on the venous ultrasound. She reports falling up the stairs a few days ago and came to the ER. Significant labs troponin 43.2, BNP 53, BUN/creatinine 38/1.24, GFR 52, serum glucose 194, H&H 13/39, platelets 327, WBC 9. Chest x-ray reports "Lungs: Similar prominence of the pulmonary interstitial markings at the right lung base. No acute process identified. Hospital Course: Problem List: Chest pain Small tear posterior horn medial meniscus s/p fall Grade 1 MCL injury s/p fall Hypertension Chronic back pain NIDDM2 Depressive disorder Patient presented to the ED with chief complaints of chest tightness and left lower extremity injury from 08/20. Troponins trended flat and EKG was negative. Chest tightness improved. Dr. Zhong is aware of her heart cath performed by Dr. Nair and deems you safe for outpatient follow up with Dr. Nair. She has tolerated PO diet and hemodynamically stable for discharge. Advised to follow-up as outpatient with Dr. Nair and Dr. Means. In regards to her left knee pain: Ultrasound of bilateral lower extremities reveals no DVT present. CT lower extremity (08/27): was negative for any fractures / acute findings. She continued to report ongoing pain and intermittent swelling. She is on chronic pain medication and that has not been enough to help with her pain. MRI of Left knee (08/28): noted small tear of the posterior horn medial meniscus. Grade 1 MCL injury. Mild edema overlying the patella and adjacent patellar tendon attachment, may relate to recent trauma, less likely low-grade injury to the extensor mechanism. Mild joint effusion. Small non ruptured Avila cyst. Mild medial weight-bearing and patellofemoral chondromalacia Briefly spoke to Dr. Mcintyre - ortho interior surface insulation worker today who recommended non -urgent / non-operable treatment with rest and crutches and close follow up in the office. Patient states she will see PCP today/tomorrow to get referral to see ortho. Medications: Rut[place] 5/325 as needed for pain; 10 pills Follow up: PCP 3-5 days Cardiology 1-2 weeks Ortho 1-2 weeks Physical Exam: GEN: Alert, oriented, NAD HEENT: Normal conjunctiva, sclera anicteric CV: Regular rate and rhythm, no edema Pulm: Nonlabored respirations on room air, clear bilaterally ABD: Soft, nontender, nondistended MSK: Left knee tenderness, mild swelling Neuro: Normal speech, normal affect Vital Signs/Physical Exam: Temp Pulse Resp BP Pulse Ox 97.5 F 69 18 125/58 L 94 08/28/23 08:00 08/28/23 08:20 08/28/23 08:00 08/28/23 08:20 08/28/23 08:00 Laboratory Data at Discharge: WBC 7.70 thou/uL (4.3-10.9) 08/28/23 06:05 Hgb 12.6 g/dL (12.0-15.0) 08/28/23 06:05 Hct 36.2 % (36.0-45.0) 08/28/23 06:05 Plt Count 272 thou/uL (152-406) D 08/28/23 06:05 PT 11.8 SECONDS (9.5-12.5) 08/26/23 11:26 INR 1.07 08/26/23 11:26 Sodium 138 mEq/L (136-145) 08/28/23 06:05 Potassium 4.2 mEq/L (3.5-5.1) 08/28/23 06:05 BUN 18 mg/dL (7-18) 08/28/23 06:05 Creatinine 0.67 mg/dL (0.55-1.02) 08/28/23 06:05 Glucose 214 mg/dL (74-106) H 08/28/23 06:05 Phosphorus 2.9 mg/dL (2.5-4.9) 08/28/23 06:05 Magnesium 1.7 mg/dL (1.6-2.4) 08/28/23 06:05 Total Bilirubin 0.5 mg/dL (0.2-1.0) 08/26/23 11:26 AST 26 U/L (15-37) 08/26/23 11:26 ALT 45 U/L (13-56) 08/26/23 11:26 Alkaline Phosphatase 87 U/L (45-117) 08/26/23 11:26 Triglycerides 193 mg/dL (<150) H 08/27/23 07:25 Cholesterol 126 mg/dL (<200) 08/27/23 07:25 HDL Cholesterol 30 mg/dL (40-60) L 08/27/23 07:25 Cholesterol/HDL Ratio 4.20 08/27/23 07:25 Lipase 27 U/L (13-75) 08/26/23 05:28 Home Medications: Acetaminophen with Codeine [Acetaminophen-Cod #3 Tablet] 1 tab PO BID PRN 08/26/23 Aspirin Chewable [Aspirin Chewable*] 1 tab PO DAILY 08/26/23 Atorvastatin Calcium 1 tab PO BEDTIME 08/26/23 Benzonatate [Tessalon Perle*] 1 tab PO TID PRN 08/26/23 Cetirizine HCl 1 tab PO DAILY 08/26/23 Cyclobenzaprine [Flexeril*] 1 tab PO BID PRN 08/26/23 Doxepin HCl 25 mg PO BEDTIME 08/26/23 Escitalopram [Lexapro*] 1 tab PO DAILY 08/26/23 Famotidine [Pepcid*] 1 tab PO DAILY 08/26/23 Gabapentin 2 tab PO TID 08/26/23 Losartan Potassium 1 tab PO DAILY 08/26/23 Meloxicam 1 tab PO DAILY 08/26/23 Montelukast [Singulair*] 1 tab PO BEDTIME 08/26/23 glipiZIDE [Glipizide] 1 tab PO TID 08/26/23 hydroCHLOROthiazide [Hydrochlorothiazide*] 25 mg PO DAILY 08/26/23 Atorvastatin Calcium [Lipitor] 40 mg PO BEDTIME tab 08/27/23 Metoprolol Tartrate [Lopressor*] 25 mg PO BID tab 08/27/23 Hydrocodone 5/APAP 325 [[place] 5/325*] 1 tab PO Q6H PRN #10 tab 08/28/23 New Medications: Hydrocodone 5/APAP 325 [[place] 5/325*] 1 tab PO Q6H PRN #10 tab PRN Reason: Pain Physician Discharge Instructions: Patient presented to the ED with chief complaints of chest tightness and left l ower extremity injury from 08/20. Troponins trended flat and EKG was negative. Chest tightness improved. Dr. Zhong is aware of her heart cath performed by Dr. Nair and deems you safe for outpatient follow up with Dr. Nair. She has tolerated PO diet and hemodynamically stable for discharge. Advised to follow-up as outpatient with Dr. Nair and Dr. Means. In regards to her left knee pain: Ultrasound of bilateral lower extremities reveals no DVT present. CT lower extremity (08/27): was negative for any fractures / acute findings. She continued to report ongoing pain and intermittent swelling. She is on chronic pain medication and that has not been enough to help with her pain. MRI of Left knee (08/28): noted small tear of the posterior horn medial meniscus. Grade 1 MCL injury. Mild edema overlying the patella and adjacent patellar tendon attachment, may relate to recent trauma, less likely low-grade injury to the extensor mechanism. Mild joint effusion. Small non ruptured Avila cyst. Mild medial weight-bearing and patellofemoral chondromalacia Briefly spoke to Dr. Mcintyre - ortho interior surface insulation worker today who recommended non -urgent / non-operable treatment with rest and crutches and close follow up in the office. Patient states she will see PCP today/tomorrow to get referral to see ortho. Medications: [place] 5/325 as needed for pain; 10 pills Follow up: PCP 3-5 days Cardiology 1-2 weeks Ortho 1-2 weeks Diet: AHA Activity: Ad ara Followup: Vinod Crowell DO [Primary Care Provider] - 1-2 Weeks Kuldeep Means MD [ACTIVE - CAN ADMIT] - 1-2 Weeks Time spent managing pt's care (in minutes): 45
[2023-08-28 14:46] VITALS: BP 153/68; TEMP 97.2
== END 2023-08-28 14:56 | disposition home or self-care (01) ==
LOC: ER 04:49 → ERHOLD 07:57 → 2ND 09:54
PROVIDERS: ADMIT Internal Medicine; ATTEND Hospitalist
DX: R07.9 Chest pain, unspecified (principal); R22.42 Localized swelling, mass and lump, left lower limb; S89.92XA Unspecified injury of left lower leg, initial encounter; W19.XXXA Unspecified fall, initial encounter; G89.29 Other chronic pain; F32.A Depression, unspecified; E11.9 Type 2 diabetes mellitus without complications; I10 Essential (primary) hypertension
CPT/HCPCS: 93005; 93306; 85025 ×3; 80048 ×3; 36415 ×3; 83735 ×3; 84100 ×2; 85610; 80061; 82947 ×9; 80076 ×2; 84443; 84484 ×3; 84439; 83690; 83880; 73700; 71045; 93970; 73721; 94640; J1815 ×3; J1644 ×4; J7613; J2270; J2405; J7030; G0378

== ENCOUNTER → 2023-10-24 | Emergency (ER) | payer OTHER ==
[~2023-10-24] MED LIST changes: +HYDROCODONE/APAP 7.5/325 MG TAB ONE; -KETOROLAC 30 MG/ML INJ ONE
--- NOTE | 2023-10-24 17:58 | RAD REPORT ---
EXAM DESCRIPTION: RAD - Knee Left 3 View - 10/24/2023 5:48 pm CLINICAL HISTORY: Left knee pain FINDINGS: No fracture or dislocation is seen.
--- NOTE | 2023-10-24 18:04 | RAD REPORT ---
EXAM DESCRIPTION: USExtchilango Venous Uni Ltd3 5:54 pm CLINICAL HISTORY: left leg pain COMPARISON: July 2023 FINDINGS: Left common femoral, superficial femoral, greater saphenous, popliteal and posterior tibi al veins are compressible and demonstrate augmentation. Doppler demonstrates good flow. Grayscale, color and spectral analysis performed on all vessels IMPRESSION: No evidence of deep venous thrombosis involving the left lower extremity.
--- NOTE | 2023-10-24 18:13 | EDPHYS ---
Physician Documentation [facility] Name: Silvia Kiran Age: 53 yrs Sex: Female : 1970 Arrival Date: 10/24/2023 Time: 17:16 Bed 11 Private MD: ED Physician Hector Houston HPI: 10/23 18:11 This 53 yrs old Female presents to ER via Wheelchair with complaints of Knee Pain. kb 18:11 Pt is a 53 year old female who presents for left knee pain after falling 2 weeks ago. kb States she was seen at [facility] at the time and diagnosed with a patella fracture. Followed up with Dr Crowell who wanted to get it x-rayed again. States she hasn't gone for repeat x-rays yet, but the pain increased today and she is having left calf pain so she came in for eval. 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 - Social history:: Smoking status: Patient denies any tobacco usage or history of. ROS: 18:07 Constitutional: As per HPI kb Exam: 18:07 Constitutional: This is a well developed, well nourished patient who is awake, alert, kb and in no acute distress. Head/Face: Normocephalic, atraumatic. ENT: Moist Mucous membranes Cardiovascular: Regular rate Respiratory: Respirations even and unlabored. No increased work of breathing. Talking in full sentences Skin: Warm, dry with normal turgor. Normal color. Neuro: Awake and alert, GCS 15, oriented to person, place, time, and situation. Moves all extremities. Normal gait. 18:07 Musculoskeletal/extremity: Extremities: grossly normal except: noted in the left knee: pain, swelling, tenderness, ROM: limited active range of motion due to pain, Circulation is intact in all extremities. Sensation intact. Weight bearing: able to fully bear weight, Vital Signs: 17:25 BP 142 / 75; Pulse 72; Resp 16; Temp 97.1(TE); Pulse Ox 96% on R/A; Weight 86.18 kg; hb Height 4 ft. 10 in. ; Pain 10/10; 18:21 BP 136 / 67; Pulse 74; Resp 16; Temp 97.6; Pulse Ox 97% ; Pain 3/10; me1 18:40 Pain 3/10; me1 17:25 Body Mass Index 39.71 (86.18 kg, 147.32 cm) hb 17:25 Pain Scale: Adult hb 18:21 Pain Scale: Adult me1 18:40 Pain Scale: Adult me1 MDM: 17:21 Patient medically screened. kb 18:08 Differential diagnosis: contusion, fracture, sprain. Data reviewed: vital signs, nurses kb notes. Counseling: I had a detailed discussion with the patient and/or guardian regarding the historical points, exam findings, and any diagnostic results supporting the discharge/admit diagnosis, radiology results, the need for outpatient follow up, a orthopedic surgeon, to return to the emergency department if symptoms worsen or persist or if there are any questions or concerns that arise at home. 10/23 17:26 Order name: Knee Left 3 View XRAY; Complete Time: 18:02 kb 10/23 17:26 Order name: US Extremity Venous Unilateral Ltd; Complete Time: 18:07 kb 10/23 18:12 Order name: Papi Wrap; Complete Time: 18:40 kb Administered Medications: 17:48 Drug: Hydrocodone-Acetaminophen PO (7.5 mg-325 mg) 1 tabs PO once Route: PO; me1 18:40 Follow up: Pain 3/10 Adult; Response: No adverse reaction; Pain is decreased me1 Disposition Summary: 10/24/23 18:13 Discharge Ordered Notes: Location: Home kb Condition: Stable kb Diagnosis - Pain in left knee kb Followup: kb - With: Emergency Department - When: As needed - Reason: Worsening of condition Followup: kb - With: Private Physician - When: 2 - 3 days - Reason: Recheck today's complaints, Continuance of care, Re-evaluation by your physician Discharge Instructions: - Discharge Summary Sheet kb - Acute Knee Pain, Adult, [id number] kb Forms: - Medication Reconciliation Form kb - Thank You Letter kb - Antibiotic Education kb - Prescription Opioid Use kb - Patient Portal Instructions kb - Leadership Thank You Letter kb Prescriptions: - Diclofenac Sodium 75 mg Oral tablet, delayed release (enteric coated) - take 1 tablet ORAL route 2 times per day As needed; 30 tablet; Refills: 0, kb Product Selection Permitted - orphenadrine citrate 100 mg Oral Tablet Sustained Release - take 1 tablet ORAL route 2 times per day As needed; 20 tablet; Refills: 0, kb Product Selection Permitted Signatures: Dispatcher [employer] Aisha Billings FNP-C FNP-Ckb Baxter, Heather RN RN Estela Brizuela RN RN me1
--- NOTE | 2023-10-24 18:13 | ER ---
Nurse's Notes [facility] Name: Silvia Kiran Age: 53 yrs Sex: Female : 1970 Arrival Date: 10/24/2023 Time: 17:16 Bed 11 Private MD: Diagnosis: Pain in left knee Presentation: 10/23 17:24 Chief complaint: Left knee pain after mechanical fall from standing 2 weeks ago. hb Coronavirus screen: At this time, the client does not indicate any symptoms associated with coronavirus-19. Ebola Screen: No symptoms or risks identified at this time. Initial Sepsis Screen: Does the patient meet any 2 criteria? No. Patient's initial sepsis screen is negative. Does the patient have a suspected source of infection? No. Patient's initial sepsis screen is negative. Risk Assessment: Do you want to hurt yourself or someone else? Patient reports no desire to harm self or others. Onset of symptoms was October 10, 2023. 17:24 Method Of Arrival: Wheelchair hb 17:24 Acuity: SUNG 4 hb Triage Assessment: 17:25 General: Appears in no apparent distress. Behavior is calm, cooperative. Pain: Pain hb currently is 10 out of 10 on a pain scale. Neuro: Level of Consciousness is awake, alert, obeys commands, Oriented to person, place, time, situation. Cardiovascular: Patient's skin is warm and dry. Respiratory: Respiratory effort is even, unlabored, Respiratory pattern is regular, symmetrical. Musculoskeletal: Reports left knee pain 10/10. 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 - Social history:: Smoking status: Patient denies any tobacco usage or history of. Screenin:20 [facility] ED Fall Risk Assessment (Adult) History of falling in the last 3 months, me1 including since admission Yes- single mechanical fall (1 pt) Confusion or Disorientation No (0 pts) Intoxicated or Sedated No (0 pts) Impaired Gait No (0 pts) Mobility Assist Device Used No (0 pt) Altered Elimination No (0 pt) Score/Fall Risk Level 0 - 2 = Low Risk Maintained a safe environment, Provided non-skid footwear, Hourly rounding (assess needs \T\ fall precautionary measures) done. Abuse screen: Denies threats or abuse. Nutritional screening: No deficits noted. Tuberculosis screening: No symptoms or risk factors identified. Assessment: 17:30 General: Appears uncomfortable, well groomed, well developed, well nourished, Behavior me1 is calm, cooperative, appropriate for age, Reports L knee pain after a mechanical fall 2 weeks ago. Pain: Complains of pain in left leg and left knee Pain does not radiate. Pain currently is 10 out of 10 on a pain scale. Quality of pain is described as sharp, Pain began suddenly, Is continuous. Neuro: Level of Consciousness is awake, alert, obeys commands, Oriented to person, place, time, situation, Appropriate for age. Cardiovascular: Patient's skin is warm and dry. Respiratory: Airway is patent Respiratory effort is even, unlabored, Respiratory pattern is regular, symmetrical. GI: No signs and/or symptoms were reported involving the gastrointestinal system. : No signs and/or symptoms were reported regarding the genitourinary system. Derm: Skin is pink, warm \T\ dry. Musculoskeletal: Reports pain in left knee since 2 weeks ago.. Vital Signs: 17:25 BP 142 / 75; Pulse 72; Resp 16; Temp 97.1(TE); Pulse Ox 96% on R/A; Weight 86.18 kg; hb Height 4 ft. 10 in. ; Pain 10/10; 18:21 BP 136 / 67; Pulse 74; Resp 16; Temp 97.6; Pulse Ox 97% ; Pain 3/10; me1 18:40 Pain 3/10; me1 17:25 Body Mass Index 39.71 (86.18 kg, 147.32 cm) hb 17:25 Pain Scale: Adult hb 18:21 Pain Scale: Adult me1 18:40 Pain Scale: Adult me1 ED Course: 17:19 Patient arrived in ED. ae5 17:21 [facility]C [facility] kb 17:21 Hector Houston MD is Attending Physician. kb 17:25 Triage completed. hb 17:25 Arm band placed on. hb 17:32 Thermoregulation: warm blanket given to patient. 17:46 Estela Brizuela, RN is Primary Nurse. me1 17:50 Knee Left 3 View XRAY In Process Unspecified. EDMS 17:56 US Extremity Venous Unilateral Ltd In Process Unspecified. EDMS 18:20 Patient has correct armband on for positive identification. Bed in low position. Call me1 light in reach. Side rails up X2. Provided Education on: POC. Verbalized understanding.. 18:20 No provider procedures requiring assistance completed. Patient did not have IV access me1 during this emergency room visit. Administered Medications: 17:48 Drug: Hydrocodone-Acetaminophen PO (7.5 mg-325 mg) 1 tabs PO once Route: PO; me1 18:40 Follow up: Pain 10/06 Adult; Response: No adverse reaction; Pain is decreased me1 Medication: 18:39 VIS not applicable for this client. me1 Outcome: 18:13 Discharge ordered by MD. kb 18:39 Discharged to home via wheelchair, me1 18:39 Condition: stable 18:39 Discharge instructions given to patient, Instructed on discharge instructions, follow up and referral plans. medication usage, Demonstrated understanding of instructions, follow-up care, medications, Prescriptions given X 2, 18:40 Patient left the ED. me1 Signatures: Dispatcher [employer] Aisha Billings, METAL EXPEDITER-Felicia RUDDP-Ami Eric, RN RN Estela Brizuela, RN RN me1 Nimco Coe ae5
[2023-10-24 19:24] VITALS: BP 136/67; TEMP 97.6; O2SAT 97
== END ==
LOC: ER 17:16
DX: M25.562 Pain in left knee (principal)
CPT/HCPCS: 93971

== ENCOUNTER 2023-11-23 00:58 | Emergency (ER) | payer OTHER ==
[2023-11-23] MEDS ORDERED: AZITHROMYCIN 250 MG TAB ONE (01:05)
[2023-11-23 01:37] LABS: SARS-CoV-2 Antigen CONTROL BLUE LINE VIS/BG OK; SARS-CoV-2 Antigen Rapid Res Negative (Negative)
--- NOTE | 2023-11-23 01:49 | EDPHYS ---
Physician Documentation [facility] Name: Silvia Kiran Age: 53 yrs Sex: Female : 1970 Arrival Date: 11/23/2023 Time: 00:58 Bed 13 Private MD: NURY Physician Hector Houston HPI: 11/22 01:34 This 53 yrs old Female presents to ER via Ambulatory with complaints of Sore marta Throat, Fever. 01:34 The patient presents with sore throat. The patient describes throat pain as burning, marta constant. Onset: The symptoms/episode began/occurred 3 day(s) ago. Severity of symptoms: At their worst the symptoms were mild, moderate, in the emergency department the symptoms are unchanged. Modifying factors: The symptoms are alleviated by nothing, the symptoms are aggravated by swallowing, Patient's oral intake status: good. Associated signs and symptoms: Pertinent positives: chills, cough, fever. The patient has experienced similar episodes in the past, several times. Historical: - Allergies: 01:10 iv dye iodine; pf1 - PMHx: 01:10 Chronic pain; Depression; Diabetes - NIDDM; Hypertension; repiratory problems; pf1 01:11 Asthma; pf1 - PSHx: 01:10 Total abdominal hysterectomy; tumors removed; pf1 01:11 right knee; pf1 - Immunization history:: Adult Immunizations not up to date, Client reports having NOT received the Covid vaccine. Last tetanus immunization: < 5 years ago Flu vaccine is not up to date. - Infectious Disease History:: Denies. - Social history:: Smoking status: Patient denies any tobacco usage or history of. Patient/guardian denies using alcohol, street drugs. - Family history:: not pertinent. ROS: 01:34 Constitutional: Negative for fever, chills, and weight loss, Eyes: Negative for injury, marta pain, redness, and discharge, Neck: Negative for injury, pain, and swelling, Cardiovascular: Negative for chest pain, palpitations, and edema, Respiratory: Negative for shortness of breath, cough, wheezing, and pleuritic chest pain, Abdomen/GI: Negative for abdominal pain, nausea, vomiting, diarrhea, and constipation, Back: Negative for injury and pain, : Negative for injury, bleeding, discharge, and swelling, MS/Extremity: Negative for injury and deformity, Skin: Negative for injury, rash, and discoloration, Neuro: Negative for headache, weakness, numbness, tingling, and seizure, Psych: Negative for depression, anxiety, suicide ideation, homicidal ideation, and hallucinations, Allergy/Immunology: Negative for hives, rash, and allergies, Endocrine: Negative for neck swelling, polydipsia, polyuria, polyphagia, and marked weight changes, :34 ENT: Positive for rhinorrhea, sinus congestion, sore throat, Exam: :34 Constitutional: This is a well developed, well nourished patient who is awake, alert, marta and in no acute distress. Head/Face: Normocephalic, atraumatic. Eyes: Pupils equal round and reactive to light, extra-ocular motions intact. Lids and lashes normal. Conjunctiva and sclera are non-icteric and not injected. Cornea within normal limits. Periorbital areas with no swelling, redness, or edema. Neck: Trachea midline, no thyromegaly or masses palpated, and no cervical lymphadenopathy. Supple, full range of motion without nuchal rigidity, or vertebral point tenderness. No Meningismus. Chest/axilla: Normal chest wall appearance and motion. Nontender with no deformity. No lesions are appreciated. Cardiovascular: Regular rate and rhythm with a normal S1 and S2. No gallops, murmurs, or rubs. Normal PMI, no JVD. No pulse deficits. Respiratory: Lungs have equal breath sounds bilaterally, clear to auscultation and percussion. No rales, rhonchi or wheezes noted. No increased work of breathing, no retractions or nasal flaring. Abdomen/GI: Soft, non-tender, with normal bowel sounds. No distension or tympany. No guarding or rebound. No evidence of tenderness throughout. Back: No spinal tenderness. No costovertebral tenderness. Full range of motion. Female : Normal external genitalia. Skin: Warm, dry with normal turgor. Normal color with no rashes, no lesions, and no evidence of cellulitis. MS/ Extremity: Pulses equal, no cyanosis. Neurovascular intact. Full, normal range of motion. Neuro: Awake and alert, GCS 15, oriented to person, place, time, and situation. Cranial nerves II-XII grossly intact. Motor strength 5/5 in all extremities. Sensory grossly intact. Cerebellar exam normal. Normal gait. Psych: Awake, alert, with orientation to person, place and time. Behavior, mood, and affect are within normal limits. 01:34 ENT: Posterior pharynx: Airway: normal, no evidence of obstruction, Tonsils: bilaterally enlarged, with erythema, Uvula: normal, midline, non-edematous, no erythema, swelling, is not appreciated, erythema, is not appreciated, exudate, is not appreciated, peritonsillar mass, is not appreciated, pooling of secretions, is not appreciated, Vital Signs: 01:00 BP 148 / 87; Pulse 90; Resp 16; Temp 97.2; Pulse Ox 97% on R/A; Weight 90.72 kg; Height pf1 4 ft. 10 in. ; Pain 8/10; 02:06 BP 141 / 88; Pulse 84; Resp 17 S; Temp 97.4; Pulse Ox 98% on R/A; lg3 01:00 Body Mass Index 41.80 (90.72 kg, 147.32 cm) pf1 01:00 Pain Scale: Adult pf1 MDM: 00:59 Patient medically screened. [facility] 01:36 Differential diagnosis: epiglottitis, group A strep tonsillitis, influenza, laryngitis, marta mononucleosis, peritonsillar abscess radiation retropharyngeal abcess tonsillitis, tracheobronchitis, upper respiratory infection, uvulitis. Data reviewed: vital signs, nurses notes, lab test result(s), Flu:. Consideration of Admission/Observation Escalation of care including admission/observation considered. I considered the following discharge prescriptions or medication management in the emergency department Medications were administered in the Emergency Department. See MAR. Test considered but Not performed: Labs: no cbc , comp met. Care significantly affected by the following chronic conditions: Diabetes, Hypertension, Obesity, chronic pain, depression. 11/22 01:00 Order name: Strep; Complete Time: 01:48 [facility] 11/22 01:00 Order name: Flu; Complete Time: 01:48 [facility] 11/22 01:00 Order name: SARS RAPID; Complete Time: 01:48 [facility] 11/22 01:40 Order name: Throat Culture EDMS Administered Medications: 01:24 Drug: AZITHromycin PO 500 mg PO once Route: PO; lg3 02:02 Follow up: Response: No adverse reaction lg3 02:02 Drug: GI Cocktail without - (Maalox PO 30 ml, Lidocaine Mucous Membrane 2 % 15 lg3 ml) PO once Route: PO; 02:07 Follow up: Response: No adverse reaction; Marked relief of symptoms lg3 Disposition Summary: 11/23/23 01:49 Discharge Ordered Notes: Location: Home [facility] Problem: new marta Symptoms: have improved marta Condition: Stable marta Diagnosis - Acute tonsillitis, unspecified marta - Acute pharyngitis, unspecified marta - Acute upper respiratory infection, unspecified marta Followup: [facility] - With: Private Physician - When: 2 - 3 days - Reason: Recheck today's complaints, Continuance of care, Re-evaluation by your physician Discharge Instructions: - Discharge Summary Sheet marta - Pharyngitis marta - Sore Throat marta - Tonsillitis marta - Upper Respiratory Infection, Adult marta - Tonsillitis, [id number] marta - Cool Mist Vaporizer marta - Upper Respiratory Infection, Adult, [id number] marta - Pharyngitis, [id number] marta - Cough, Adult [facility] Forms: - Medication Reconciliation Form [facility] - Antibiotic Education marta - Prescription Opioid Use [facility] - Patient Portal Instructions [facility] - Leadership Thank You Letter [facility] Prescriptions: - Tessalon Perles 100 mg Oral capsule - take 2 capsule ORAL route every 8 hours As needed; 30 capsule; Refills: 0, [facility] Product Selection Permitted - Zithromax 500 mg Oral Tablet - take 1 tablet ORAL route once daily for 5 days; 5 tablet; Refills: 0, Product [facility] Selection Permitted Signatures: Dispatcher [employer] Hector Machuca MD MD cha Able, Lacie RN RN lg3 Amaya Dejesus RN RN pf1
--- NOTE | 2023-11-23 01:49 | ER ---
Nurse's Notes [facility] Name: Silvia Kiran Age: 53 yrs Sex: Female : 1970 Arrival Date: 11/23/2023 Time: 00:58 Bed 13 Private MD: Diagnosis: Acute tonsillitis, unspecified;Acute pharyngitis, unspecified;Acute upper respiratory infection, unspecified Presentation: 11/22 01:00 Chief complaint: Patient states: sore throat, congestion with fever,onset 2 days. pf1 Patient stated was exposed to grandkid's that had strep. 01:00 Coronavirus screen: Vaccine status: Patient reports being unvaccinated. Client denies pf1 travel out of the [place] in the last 14 days. Client presents with at least one sign or symptom that may indicate coronavirus-19. Ebola Screen: Patient negative for fever greater than or equal to 101.5 degrees Fahrenheit, and additional compatible Ebola Virus Disease symptoms. Initial Sepsis Screen: Does the patient meet any 2 criteria? No. Patient's initial sepsis screen is negative. Does the patient have a suspected source of infection? No. Patient's initial sepsis screen is negative. Risk Assessment: Do you want to hurt yourself or someone else? Patient reports no desire to harm self or others. Onset of symptoms was November 21, 2023. 01:00 Method Of Arrival: Ambulatory pf1 01:00 Acuity: SUNG 4 pf1 Triage Assessment: 01:12 General: Appears in no apparent distress. comfortable, well groomed, well developed, pf1 Behavior is calm, cooperative, appropriate for age, quiet. Pain: Complains of pain in throat Pain currently is 8 out of 10 on a pain scale. EENT: Reports nasal congestion pain in throat. Respiratory:. Historical: - Allergies: 01:10 iv dye iodine; pf1 - PMHx: 01:10 Chronic pain; Depression; Diabetes - NIDDM; Hypertension; repiratory problems; pf1 01:11 Asthma; pf1 - PSHx: 01:10 Total abdominal hysterectomy; tumors removed; pf1 01:11 right knee; pf1 - Immunization history:: Adult Immunizations not up to date, Client reports having NOT received the Covid vaccine. Last tetanus immunization: < 5 years ago Flu vaccine is not up to date. - Infectious Disease History:: Denies. - Social history:: Smoking status: Patient denies any tobacco usage or history of. Patient/guardian denies using alcohol, street drugs. - Family history:: not pertinent. Screenin:11 [facility] ED Fall Risk Assessment (Adult) History of falling in the last 3 months, lg3 including since admission No falls in past 3 months (0 pts) Confusion or Disorientation No (0 pts) Intoxicated or Sedated No (0 pts) Impaired Gait No (0 pts) Mobility Assist Device Used No (0 pt) Altered Elimination No (0 pt) Score/Fall Risk Level 0 - 2 = Low Risk Oriented to surroundings, Maintained a safe environment, Educated pt \T\ family on fall prevention, incl call for assistance when getting out of bed, Assessed \T\ reinforced patient's understanding of fall precautions. Abuse screen: Denies threats or abuse. Denies injuries from another. Nutritional screening: No deficits noted. Tuberculosis screening: No symptoms or risk factors identified. Assessment: 01:11 General: Appears in no apparent distress. uncomfortable, Behavior is calm, cooperative. lg3 Pain: Complains of pain in throat Pain does not radiate. Neuro: No deficits noted. Montesinos Agitation-Sedation Scale (RASS): 0 - Alert and Calm Level of Consciousness is awake, alert, obeys commands, Oriented to person, place, time, situation. Cardiovascular: No deficits noted. Denies chest pain, shortness of breath, Capillary refill < 3 seconds Clubbing of nail beds is absent JVD is absent Patient's skin is warm and dry. Respiratory: No deficits noted. Reports Airway is patent Respiratory effort is even, unlabored, Respiratory pattern is regular, symmetrical, Breath sounds are clear bilaterally. GI: No deficits noted. No signs and/or symptoms were reported involving the gastrointestinal system. Abdomen is round non-distended. : No deficits noted. No signs and/or symptoms were reported regarding the genitourinary system. EENT: Throat is reddened Reports difficulty swallowing. Derm: No deficits noted. No signs and/or symptoms reported regarding the dermatologic system. Skin is intact, is healthy with good turgor, Skin is dry, Skin is normal, Skin temperature is warm. Musculoskeletal: No deficits noted. No signs and/or symptoms reported regarding the musculoskeletal system. Circulation, motion, and sensation intact. Range of motion: intact in all extremities. 02:06 Reassessment: Patient appears in no apparent distress at this time. No changes from lg3 previously documented assessment. Patient and/or family updated on plan of care and expected duration. Pain level reassessed. Patient is alert, oriented x 3, equal unlabored respirations, skin warm/dry/pink. Vital Signs: 01:00 BP 148 / 87; Pulse 90; Resp 16; Temp 97.2; Pulse Ox 97% on R/A; Weight 90.72 kg; Height pf1 4 ft. 10 in. ; Pain 8/10; 02:06 BP 141 / 88; Pulse 84; Resp 17 S; Temp 97.4; Pulse Ox 98% on R/A; lg3 01:00 Body Mass Index 41.80 (90.72 kg, 147.32 cm) pf1 01:00 Pain Scale: Adult pf1 ED Course: 00:59 Patient arrived in ED. [email or web address] 01:00 Hector Houston MD is Attending Physician. marta 01:04 Marilou Kimbrough RN is Primary Nurse. lg3 01:10 Triage completed. pf1 01:11 Patient has correct armband on for positive identification. Bed in low position. Call lg3 light in reach. Side rails up X 1. Client placed on continuous cardiac and pulse oximetry monitoring. NIBP monitoring applied. Door closed. Noise minimized. Warm blanket given. 01:13 SARS RAPID Sent. rv1 01:13 Flu Sent. rv1 01:13 Strep Sent. rv1 02:06 No provider procedures requiring assistance completed. Patient did not have IV access lg3 during this emergency room visit. Administered Medications: 01:24 Drug: AZITHromycin PO 500 mg PO once Route: PO; lg3 02:02 Follow up: Response: No adverse reaction lg3 02:02 Drug: GI Cocktail without - (Maalox PO 30 ml, Lidocaine Mucous Membrane 2 % 15 lg3 ml) PO once Route: PO; 02:07 Follow up: Response: No adverse reaction; Marked relief of symptoms lg3 Medication: 02:06 VIS not applicable for this client. lg3 Outcome: 01:49 Discharge ordered by . marta 02:06 Discharged to home ambulatory, lg3 02:06 Condition: stable 02:06 Discharge instructions given to patient, Instructed on discharge instructions, follow up and referral plans. medication usage, Demonstrated understanding of instructions, follow-up care, medications, Prescriptions given X 2, 02:07 Patient left the ED. lg3 Signatures: Hector Houston MD MD cha Able, Lacie RN RN lg3 Rosi Ye Pamala, RN RN pf1 Francisco, Destiney layton1
[2023-11-23] MEDS ORDERED: MAGNES/ALUMIN/SIMET 30ML UCUP ONE (01:58)
[2023-11-23] MEDS ORDERED: LIDOCAINE VISCOUS 2% 10ML ORAL SOLN ONE (01:58)
[2023-11-23 02:41] VITALS: BP 141/88; TEMP 97.4; O2SAT 98
== END 2023-11-23 02:07 | disposition home or self-care (01) ==
LOC: ER 00:58
DX: J06.9 Acute upper respiratory infection, unspecified (principal); Z11.52 Encounter for screening for COVID-19; Z28.310 Unvaccinated for COVID-19; Z91.048 Other nonmedicinal substance allergy status
CPT/HCPCS: 36415; 87070; 87081; 87804; 87811

== ENCOUNTER 2024-03-20 04:21 | Emergency (ER) | payer OTHER ==
[2024-03-20] MEDS ORDERED: HYDROCODONE/APAP 7.5/325 MG TAB ONE (05:06)
--- NOTE | 2024-03-20 05:28 | ER ---
Nurse's Notes [facility] Name: Silvia Kiran Age: 53 yrs Sex: Female : 1970 Arrival Date: 03/20/2024 Time: 04:21 Bed 14 Private MD: Diagnosis: Sprain of ankle;Unspecified injury of head, initial encounter;Strain of muscle, fascia and tendon at neck level, initial encounter Presentation: 03/20 04:40 Chief complaint: Patient states: Fell on Sunday and hurt right foot and right side of vc1 my head. Coronavirus screen: Client denies travel out of the [place] in the last 14 days. At this time, the client does not indicate any symptoms associated with coronavirus-19. Ebola Screen: Patient negative for fever greater than or equal to 101.5 degrees Fahrenheit, and additional compatible Ebola Virus Disease symptoms Patient denies exposure to infectious person. Patient denies travel to an Ebola-affected area in the 21 days before illness onset. No symptoms or risks identified at this time. Initial Sepsis Screen: Does the patient meet any 2 criteria? No. Patient's initial sepsis screen is negative. Does the patient have a suspected source of infection? No. Patient's initial sepsis screen is negative. Risk Assessment: Do you want to hurt yourself or someone else? Patient reports no desire to harm self or others. 04:40 Method Of Arrival: Wheelchair vc1 04:40 Acuity: SUNG 4 vc1 04:40 Onset of symptoms was March 17, 2024. Care prior to arrival: None. Activity prior to vc1 arrival: None. Triage Assessment: 05:28 General: Appears in no apparent distress. comfortable, Behavior is calm, cooperative, vc1 appropriate for age. Pain: Complains of pain in right eye and right foot Pain does not radiate. Pain currently is 10 out of 10 on a pain scale. EENT: No deficits noted. No signs and/or symptoms were reported regarding the EENT system. Neuro: Level of Consciousness is awake, alert, obeys commands, Oriented to person, place, time, situation, Appropriate for age. Respiratory: Airway is patent Respiratory effort is even, unlabored, Respiratory pattern is regular, symmetrical. Derm: Skin is intact, is healthy with good turgor. 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 - Infectious Disease History:: Denies. - Family history:: not pertinent. - Social history:: Smoking status: Patient/guardian denies using tobacco, the patient reports quitting approximately 7 years ago. Screenin:16 [facility] ED Fall Risk Assessment (Adult) History of falling in the last 3 months, rg5 including since admission Yes- single mechanical fall (1 pt) Confusion or Disorientation No (0 pts) Intoxicated or Sedated No (0 pts) Impaired Gait Yes (1 pt) Mobility Assist Device Used Yes (1 pt) Altered Elimination No (0 pt) Score/Fall Risk Level 3 or more points = High Risk Oriented to surroundings, Maintained a safe environment, Educated pt \T\ family on fall prevention, incl call for assistance when getting out of bed, Hourly rounding (assess needs \T\ fall precautionary measures) done. Abuse screen: Denies threats or abuse. Nutritional screening: No deficits noted. Tuberculosis screening: No symptoms or risk factors identified. Assessment: 05:20 General: Appears in no apparent distress. comfortable. Pain: Complains of pain in right rg5 foot. Neuro: Level of Consciousness is awake, alert, obeys commands, Oriented to person, place, time, situation. Cardiovascular: Denies chest pain, Capillary refill < 3 seconds Patient's skin is warm and dry. Respiratory: Airway is patent Trachea midline Respiratory effort is even, Respiratory pattern is regular, symmetrical. GI: Abdomen is round non-distended, Abd is soft and non tender. : No signs and/or symptoms were reported regarding the genitourinary system. EENT: Reports pain in right supraorbital ridge. Derm: Skin is intact, Skin is dry, Skin is normal, Skin temperature is warm. Musculoskeletal: Swelling present in right foot. Vital Signs: 05:16 BP 142 / 62; Pulse 78; Resp 16; Temp 98; Pulse Ox 99% on R/A; Pain 7/10; rg5 05:16 Pain Scale: Adult rg5 Trauma Score (Adult): 05:16 Eye Response: spontaneous(1); Verbal Response: oriented(1); Motor Response: obeys rg5 commands(2); Systolic BP: > 89 mm Hg(4); Respiratory Rate: 10 to 29 per min(4); Nadya Score: 15; Trauma Score: 12 ED Course: 04:30 Patient arrived in ED. gm2 04:36 Hector Houston MD is Attending Physician. [facility] 04:59 Singh Mims, TERRY is Primary Nurse. rg5 05:[address] via stretcher. rg5 05:16 Allergy band placed. Call light in reach. Side rails up X 1. Adult w/ patient. Provided rg5 Education on: fall \T\ safety precaution. Door closed. Noise minimized. Warm blanket given. 05:16 No provider procedures requiring assistance completed. Patient did not have IV access rg5 during this emergency room visit. 05:24 XRAY Foot RIGHT 3 View In Process Unspecified. EDMS 05:24 XRAY Ankle RIGHT 3 view In Process Unspecified. EDMS 05:26 Triage completed. vc1 05:27 Head C Spine Mpr Wo Con In Process Unspecified. EDMS 05:27 Baljeet Sanon MD is Referral Physician. marta 05:27 Arm band placed on right wrist. vc1 05:55 Resting quietly. Appears to be sleeping. awaiting ct scan result. rg5 Administered Medications: 05:09 Drug: Hydrocodone-Acetaminophen PO (7.5 mg-325 mg) 1 tabs PO once Route: PO; rg5 05:57 Follow up: Response: No adverse reaction; Pain is decreased rg5 Medication: 05:16 VIS not applicable for this client. rg5 Outcome: 05:27 Discharge ordered by . marta 05:55 Discharged to home via wheelchair, rg5 05:55 Condition: stable 05:55 Discharge instructions given to patient, Instructed on discharge instructions, follow up and referral plans. Demonstrated understanding of instructions, follow-up care, medications, Prescriptions given X 2, 06:24 Patient left the ED. rg5 Signatures: Dispatcher [employer] EDMS Hector Houston MD MD cha Calcote, Vanessa RN RN vc1 Nika Gilmore gm2 Singh Mims, TERRY RN rg5
--- NOTE | 2024-03-20 05:28 | EDPHYS ---
Physician Documentation [facility] Name: Silvia Kiran Age: 53 yrs Sex: Female : 1970 Arrival Date: 03/20/2024 Time: 04:21 Bed 14 Private MD: ED Physician Hector Houston HPI: 03/20 04:59 This 53 yrs old Female presents to ER via Unassigned with complaints of Fall marta Injury. 04:59 Details of fall: The patient fell from an upright position, while walking. Onset: The marta symptoms/episode began/occurred yesterday. Associated injuries: The patient sustained injury to the head, neck injury, right ankle and anterior aspect of right ankle, painful injury, swelling. Severity of symptoms: At their worst the symptoms were mild, moderate, in the emergency department the symptoms are unchanged. 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 - Infectious Disease History:: Denies. - Family history:: not pertinent. - Social history:: Smoking status: Patient/guardian denies using tobacco, the patient reports quitting approximately 7 years ago. ROS: 04:59 Constitutional: Negative for fever, chills, and weight loss, Eyes: Negative for injury, marta pain, redness, and discharge, ENT: Negative for injury, pain, and discharge, Neck: Negative for injury, pain, and swelling, Cardiovascular: Negative for chest pain, palpitations, and edema, Respiratory: Negative for shortness of breath, cough, wheezing, and pleuritic chest pain, Abdomen/GI: Negative for abdominal pain, nausea, vomiting, diarrhea, and constipation, Back: Negative for injury and pain, : Negative for injury, bleeding, discharge, and swelling, Skin: Negative for injury, rash, and discoloration, Neuro: Negative for headache, weakness, numbness, tingling, and seizure, Psych: Negative for depression, anxiety, suicide ideation, homicidal ideation, and hallucinations, Allergy/Immunology: Negative for hives, rash, and allergies, Endocrine: Negative for neck swelling, polydipsia, polyuria, polyphagia, and marked weight changes, 04:59 MS/extremity: Positive for decreased range of motion, pain, swelling, of the right leg, Exam: 04:59 Constitutional: This is a well developed, well nourished patient who is awake, alert, marta and in no acute distress. Head/Face: Normocephalic, atraumatic. Eyes: Pupils equal round and reactive to light, extra-ocular motions intact. Lids and lashes normal. Conjunctiva and sclera are non-icteric and not injected. Cornea within normal limits. Periorbital areas with no swelling, redness, or edema. ENT: Nares patent. No nasal discharge, no septal abnormalities noted. Tympanic membranes are normal and external auditory canals are clear. Oropharynx with no redness, swelling, or masses, exudates, or evidence of obstruction, uvula midline. Mucous membranes moist. Neck: Trachea midline, no thyromegaly or masses palpated, and no cervical lymphadenopathy. Supple, full range of motion without nuchal rigidity, or vertebral point tenderness. No Meningismus. Chest/axilla: Normal chest wall appearance and motion. Nontender with no deformity. No lesions are appreciated. Cardiovascular: Regular rate and rhythm with a normal S1 and S2. No gallops, murmurs, or rubs. Normal PMI, no JVD. No pulse deficits. Respiratory: Lungs have equal breath sounds bilaterally, clear to auscultation and percussion. No rales, rhonchi or wheezes noted. No increased work of breathing, no retractions or nasal flaring. Abdomen/GI: Soft, non-tender, with normal bowel sounds. No distension or tympany. No guarding or rebound. No evidence of tenderness throughout. Back: No spinal tenderness. No costovertebral tenderness. Full range of motion. Skin: Warm, dry with normal turgor. Normal color with no rashes, no lesions, and no evidence of cellulitis. Neuro: Awake and alert, GCS 15, oriented to person, place, time, and situation. Cranial nerves II-XII grossly intact. Motor strength 5/5 in all extremities. Sensory grossly intact. Cerebellar exam normal. Normal gait. Psych: Awake, alert, with orientation to person, place and time. Behavior, mood, and affect are within normal limits. 04:59 Musculoskeletal/extremity: Extremities: grossly normal except: noted in the right ankle and anterior aspect of right ankle: decreased ROM, pain, swelling, tenderness, ROM: intact in all extremities, full active range of motion, full passive range of motion, Pulses: are normal with no appreciated deficits, Sensation intact. Compartment Syndrome exam of affected extremity: is normal. DVT Exam: negative Homans' sign noted on exam, no appreciated bluish discoloration, no erythema, no increased warmth, pain, swelling, tenderness, Vital Signs: 05:16 BP 142 / 62; Pulse 78; Resp 16; Temp 98; Pulse Ox 99% on R/A; Pain 7/10; rg5 05:16 Pain Scale: Adult rg5 Trauma Score (Adult): 05:16 Eye Response: spontaneous(1); Verbal Response: oriented(1); Motor Response: obeys rg5 commands(2); Systolic BP: > 89 mm Hg(4); Respiratory Rate: 10 to 29 per min(4); Nadya Score: 15; Trauma Score: 12 MDM: 04:36 Patient medically screened. [facility] 05:02 Differential diagnosis: closed head injury, contusion, fracture, multiple trauma, marta sprain, strain. Data reviewed: vital signs, nurses notes, radiologic studies, CT scan, plain films. Consideration of Admission/Observation Escalation of care including admission/observation considered. I considered the following discharge prescriptions or medication management in the emergency department Medications were administered in the Emergency Department. See MAR. Independent interpretation of the following test(s) in the Emergency Department X-Ray: My interpretation is RIGHGT FOOT/ANKLE. CT Scan: My interpretation is CT HEAD / C SPINE. Test considered but Not performed: Labs: NO LABS. Historians other than the Patient: PT WELL INFORMED. Care significantly affected by the following chronic conditions: Obesity. 03/20 04:49 Order name: XRAY Foot RIGHT 3 View vc1 03/20 04:49 Order name: XRAY Ankle RIGHT 3 view vc1 03/20 05:05 Order name: Head C Spine Mpr Wo Con EDMS 03/20 04:59 Order name: Walking boot; Complete Time: 05:09 marta 03/20 06:11 Order name: Crutches; Complete Time: 06:11 marta Administered Medications: 05:09 Drug: Hydrocodone-Acetaminophen PO (7.5 mg-325 mg) 1 tabs PO once Route: PO; rg5 05:57 Follow up: Response: No adverse reaction; Pain is decreased rg5 Disposition Summary: 03/20/24 05:27 Discharge Ordered Notes: Location: Home marta Problem: new marta Symptoms: have improved marta Condition: Stable marta Diagnosis - Sprain of ankle marta - Unspecified injury of head, initial encounter marta - Strain of muscle, fascia and tendon at neck level, initial encounter marta Followup: marta - With: Private Physician - When: 2 - 3 days - Reason: Recheck today's complaints, Continuance of care, Re-evaluation by your physician Followup: marta - With: Baljeet Sanon MD - When: 2 - 3 days - Reason: Recheck today's complaints, Re-evaluation by your physician Discharge Instructions: - Discharge Summary Sheet marta - Ankle Sprain marta - Head Injury, Adult marta - Head Injury, Adult, [id number] marta - Ankle Pain [facility] Forms: - Medication Reconciliation Form marta - Antibiotic Education marta - Prescription Opioid Use marta - Patient Portal Instructions [facility] - Leadership Thank You Letter [facility] Prescriptions: - acetaminophen-codeine 300-30 mg Oral tablet - take 2 tablet ORAL route every 6 hours as needed for pain; 20 tablet; Refills: marta 0, Product Selection Permitted - Ibuprofen 600 mg Oral tablet - take 1 tablet ORAL route every 6 hours As needed take with food; 20 tablet; marta Refills: 0, Product Selection Permitted Signatures: Dispatcher [employer] EDHector Joiner MD MD cha Gallardo, Rommel, RN RN rg5 Corrections: (The following items were deleted from the chart) 04:49 04:49 Foot Right 3 View+RAD.RAD.BRZ ordered. EDMS EDMS 04:49 04:49 Ankle Right 3 View+RAD.RAD.BRZ ordered. EDMS EDMS 04:49 04:49 Head Brain Wo Cont+CT.RAD.BRZ ordered. EDMS EDMS 05:19 04:59 C Spine Wo Con+CT.RAD.BRZ ordered. EDMS EDMS
[2024-03-20 06:35] VITALS: BP 142/62; TEMP 98; O2SAT 99
--- NOTE | 2024-03-20 09:46 | RAD REPORT ---
EXAM DESCRIPTION: CT - Head C Spine Mpr Wo Con - 03/20/2024 6:48 am CLINICAL HISTORY: The patient is 53 years old and is Female; Trauma. TECHNIQUE: Axial computed tomography images of the head/brain and cervical spine without intravenous contrast. Sagittal and coronal reformatted images were created and reviewed. This CT exam was pe rformed using one or more of the following dose reduction techniques: automated exposure control, a djustment of the mA and/or kV according to patient size, and/or use of iterative reconstruction techn ique. COMPARISON: No relevant prior studies available. FINDINGS: Brain: Unremarkable. No hemorrhage. No significant white matter disease. No edema. Ventricles: Unremarkable. No ventriculomegaly. Skull: No acute skull fracture. Sinuses: Unremarkable as visualized. No acute sinusitis. Mastoid air cells: No significant mastoid fluid. Vertebrae: No acute cervical spine fracture. No traumatic malalignment. Discs/spinal canal/neural foramina: Small disc osteophyte complexes at C4-5 and C5-6 with mild ce ntral canal stenosis. Soft tissues: Unremarkable. Pleural space: No apical pneumothorax. IMPRESSION: 1. No intracranial hemorrhage. No acute skull fracture. 2. No acute cervical spine fracture. 3. Small disc osteophyte complexes at C4-5 and C5-6 with mild central canal stenosis. Electronically signed by: Elli Mendez MD 03/20/2024 06:04 AM CDT RP ND Due to temporary technical issues with the PACS/Fluency reporting system, reports are being signed by the in house radiologist without review as a courtesy to ensure prompt reporting. The interpreting r adiologist is fully responsible for the content of the report.
--- NOTE | 2024-03-20 09:52 | RAD REPORT ---
EXAM DESCRIPTION: RAD - Ankle Right 3 View - 03/20/2024 5:22 am CLINICAL HISTORY: Pain COMPARISON: Right foot 3 views 06/10/2023 TECHNIQUE: Right Ankle 3 Views FINDINGS: No fracture or dislocation. No significant sclerotic/lytic bone lesion. Moderate right calcaneal enthesophyte (bone spur) arising from plantar fascia attachment site. Small, smooth-shaped, chronic-appearing ossification located in soft tissues at right calcaneus poste rior-most aspect. Joint spaces unremarkable. Few small ovoid calcifications at distal anterior right lower leg (suarez) soft tissues. Mild, diffuse, right ankle soft tissue swelling. IMPRESSION: 1. Mild, diffuse, right ankle soft tissue swelling. 2. Moderate right calcaneal enthesophyte (bone spur) arising from plantar fascia attachment site. Electronically signed by: Aries Guerrero MD 03/20/2024 05:38 AM CDT RP Due to temporary technical issues with the PACS/Fluency reporting system, reports are being signed by the in house radiologist without review as a courtesy to ensure prompt reporting. The interpreting r adiologist is fully responsible for the content of the report.
--- NOTE | 2024-03-20 10:04 | RAD REPORT ---
EXAM DESCRIPTION: RAD - Foot Right 3 View - 03/20/2024 5:22 am CLINICAL HISTORY: Pain COMPARISON: Right Foot 3 Views 06/10/2023 TECHNIQUE: Right Foot 3 Views FINDINGS: No fracture or dislocation. No significant sclerotic/lytic bone lesion. Moderate right calcaneal enthesophyte (bone spur) arising from plantar fascia attachment site. Small, smooth-shaped, chronic-appearing ossification located in soft tissues at right calcaneus poste rior-most aspect. Joint spaces unremarkable. Few small ovoid calcifications at distal anterior right lower leg (suarez) soft tissues. Mild, diffuse, right ankle soft tissue swelling. IMPRESSION: 1. Mild, diffuse, right ankle soft tissue swelling. 2. Moderate right calcaneal enthesophyte (bone spur) arising from plantar fascia attachment site. Electronically signed by: Aries Guerrero MD 03/20/2024 05:43 AM CDT RP Due to temporary technical issues with the PACS/Fluency reporting system, reports are being signed by the in house radiologist without review as a courtesy to ensure prompt reporting. The interpreting r adiologist is fully responsible for the content of the report.
== END 2024-03-20 06:24 | disposition home or self-care (01) ==
LOC: ER 04:21
DX: S93.401A Sprain of unspecified ligament of right ankle, initial encounter (principal); S09.90XA Unspecified injury of head, initial encounter; S16.1XXA Strain of muscle, fascia and tendon at neck level, initial encounter; W18.30XA Fall on same level, unspecified, initial encounter
CPT/HCPCS: 70450; 72125; 99284

== ENCOUNTER 2024-05-05 09:59 | Emergency (ER) | payer OTHER ==
[2024-05-05] MEDS ORDERED: NA CHLORIDE 0.9% 1,000 ML ONE ×2 (10:27→12:57)
[2024-05-05] MEDS ORDERED: ONDANSETRON 4 MG/2 ML VIAL ONE (10:27)
[2024-05-05] MEDS ORDERED: MORPHINE 4 MG/ML SYR ONE (10:27)
--- NOTE | 2024-05-05 10:44 | RAD REPORT ---
EXAMINATION: CT ABDOMEN AND PELVIS WITHOUT CONTRAST CLINICAL INDICATION: Female, 53 years old.FLANK PAIN TECHNIQUE: CT abdomen and pelvis was performed, without IV contrast, as per department protocol. Axia l, sagittal and coronal reconstructions were obtained. One or more of the following dose reduction techniques were used: Automated exposure control, adjustment of the mA and/or kV according to the pat ient size, and/or iterative reconstruction. Unless otherwise specified, incidental findings do not require dedicated imaging follow-up. [id number]. IV CONTRAST: Not administered. COMPARISON: 09/17/2021 FINDINGS: The lack of intravenous contrast limits the sensitivity of this exam for evaluation of solid visceral organs, vascular structures, and retroperitoneum. LOWER CHEST: The visualized lung bases are clear. LIVER: Hepatomegaly with steatosis GALLBLADDER/BILE DUCTS: No biliary ductal dilatation.? PANCREAS: No mass, ductal dilation, or etienne-pancreatic fluid. SPLEEN: Normal size. No focal lesion. ADRENALS: Normal; no mass. KIDNEYS AND URETERS: Normal size and contour. No hydronephrosis. URINARY BLADDER: Normal contour. GASTROINTESTINAL TRACT: Stomach is non-dilated. Small bowel has normal course and caliber. No colonic wall thickening or pericolonic inflammatory changes. Diverticulosis without evidence of acute diverticulitis. No appendicitis. PERITONEUM: No free fluid. ABDOMINAL AORTA AND OTHER VESSELS: Normal caliber aorta and IVC. REPRODUCTIVE ORGANS: No pathologic process. Hysterectomy. MUSCULOSKELETAL: No acute or suspicious osseous abnormality. ADDITIONAL FINDINGS: None. IMPRESSION: No acute or significant abnormalities in the abdomen or pelvis, with evaluation limited by lack of IV contrast. No urinary tract calculi. Normal appendix.
[2024-05-05 10:57] LABS: Absolute Basophils 0.1 K/uL (0-0.5); Absolute Eosinophils 0.2 K/uL (0-0.5); Absolute Lymphocytes (CBC) 2.1 K/uL (0.7-4.9); Absolute Monocytes 0.6 K/uL (0.1-1.3); Absolute Neutrophil 4.8 K/uL (1.8-8.0); Basophils % 0.9 % (0-1.3); Hematocrit 37.2 % (36.0-45.0); Hemoglobin 12.5 g/dL (12.0-15.0); MCH 31.1 pg (27.0-35.0); MCHC 33.5 g/dL (32.0-36.0); MCV 92.9 fL (80-100); MPV 9.5 fL (7.6-11.3); Monocytes % 7.7 % (3.3-12.3); Neutrophils % 62.4 % (41.7-73.7); Platelets 221 thou/uL (152-406); RBC Red Blood Cell Count 4.01 M/uL (3.86-4.86); Red Cell Distribution Width 14.4 % (12.1-15.2)
[2024-05-05 11:14] LABS: Albumin 3.2 g/dL (3.4-5.0); Albumin/Globulin Ratio 0.9 (1.1-1.8); Anion Gap 8.4 mEq/L (5.0-15.0); Bilirubin Total 0.6 mg/dL (0.2-1.0); Globulin 3.5 g/dL (2.3-3.5); Potassium 3.4 mEq/L (3.5-5.1); Protein, Total 6.7 g/dL (6.4-8.2)
--- NOTE | 2024-05-05 11:48 | RAD REPORT ---
EXAM: Knee Right 3 View INDICATION: PAIN COMPARISON: None FINDINGS: No acute fracture. No significant knee effusion. Medial compartment spurring with mild joint space loss.. Other: n/a IMPRESSION: No evidence of acute osseous abnormality involving the imaged knee.
[2024-05-05 13:21] LABS: Specific Gravity 1.028 (1.005-1.030); Urine Bilirubin NEGATIVE (Negative); Urine Blood Negative (Negative); Urine Clarity Clear (Clear); Urine Color Light-Yellow (Yellow); Urine Glucose 3+ (Negative); Urine Ketones NEGATIVE (Negative); Urine Microscopic Reflex YN NO UMIC; Urine Nitrite NEGATIVE (Negative); Urine Protein NEGATIVE (Negative); Urine Urobilinogen Normal (Normal)
[2024-05-05 13:24] LABS: Specific Gravity 1.028 (1.005-1.030)
--- NOTE | 2024-05-05 13:37 | EDPHYS ---
Physician Documentation [facility] Name: Silvia Kiran Age: 53 yrs Sex: Female : 1970 Arrival Date: 05/05/2024 Time: 09:59 Bed 8 Private MD: ED Physician Hector Houston HPI: 05/05 10:18 This 53 yrs old Female presents to ER via Wheelchair with complaints of Knee Pain, Back sb4 Pain - Swelling. 10:19 Patient reports pain in her left low back and right knee. She states that she had a sb4 cardiac cath done 2 weeks ago and hasn't been eating or drinking much since. She denies any pain or burning with urination. She does endorse some nausea, no vomiting. Denies any known fever. Denies any specific injury to her back or knee recently. States she did injure both of them 2-1/2 years ago. Historical: - Allergies: 10:10 iv dye iodine; ss - PMHx: 10:10 Asthma; Chronic pain; Depression; Diabetes - NIDDM; Hypertension; repiratory problems; ss - PSHx: 10:10 right knee; Total abdominal hysterectomy; tumors removed; ss - Immunization history:: Client reports having NOT received the Covid vaccine. - Infectious Disease History:: Denies. - Social history:: Smoking status: Patient denies any tobacco usage or history of. ROS: 10:19 Constitutional: Negative for fever, chills, and weight loss, sb4 10:19 Abdomen/GI: Positive for nausea, 10:19 Back: Positive for flank pain, on the left, 10:19 MS/extremity: Positive for pain, of the right knee, 10:19 All other systems are negative, Exam: 10:22 Constitutional: This is a well developed, well nourished patient who is awake, alert, sb4 and in no acute distress. Head/Face: Normocephalic, atraumatic. Eyes: Extra-ocular motions intact. Periorbital areas with no swelling, redness, or edema. ENT: Mucous membranes moist. Cardiovascular: Regular rate and rhythm with a normal S1 and S2. Respiratory: Lungs have equal breath sounds bilaterally, clear to auscultation and percussion. No rales, rhonchi or wheezes noted. No increased work of breathing, no retractions or nasal flaring. Abdomen/GI: Soft, non-tender, no distension. Back: No spinal tenderness. No costovertebral tenderness. Full range of motion. Skin: Warm, dry with normal turgor. Normal color with no rashes, no lesions, and no evidence of cellulitis. MS/ Extremity: Pulses equal, no cyanosis. Neurovascular intact. Full, normal range of motion. Vital Signs: 10:09 Weight 95.71 kg; Height 4 ft. 10 in. ; Pain 10/10; ss 10:17 BP 138 / 64; Pulse 91; Resp 17; Temp 97.8(O); Pulse Ox 96% on R/A; ss 13:34 BP 147 / 57; Pulse 86; Resp 16; Pulse Ox 97% on R/A; hb 10:09 Body Mass Index 44.10 (95.71 kg, 147.32 cm) ss 10:09 Pain Scale: Adult ss MDM: 10:03 Patient medically screened. sb4 13:35 Data reviewed: vital signs, nurses notes, lab test result(s), radiologic studies, and sb4 as a result, I will discharge patient. Counseling: I had a detailed discussion with the patient and/or guardian regarding the historical points, exam findings, and any diagnostic results supporting the discharge/admit diagnosis, the presence of at least one elevated blood pressure reading (>120/80) during this emergency department visit, lab results, radiology results, the need for outpatient follow up, for definitive care, to return to the emergency department if symptoms worsen or persist or if there are any questions or concerns that arise at home. 05/05 10:16 Order name: CBC with Diff; Complete Time: 11:01 sb4 05/05 10:16 Order name: CMP; Complete Time: 11:14 sb4 05/05 10:16 Order name: Lipase; Complete Time: 11:14 sb4 05/05 10:16 Order name: Test, Urine; Complete Time: 13:28 sb4 05/05 10:16 Order name: Urinalysis w/ reflexes; Complete Time: 13:21 sb4 05/05 10:16 Order name: CK; Complete Time: 11:15 sb4 05/05 10:16 Order name: CT Abd/Pelvis - Without Contrast; Complete Time: 10:46 sb4 05/05 10:18 Order name: Knee Right 3 View XRAY; Complete Time: 11:49 sb4 05/05 10:16 Order name: IV Saline Lock; Complete Time: 10:52 sb4 05/05 10:16 Order name: Labs collected and sent; Complete Time: 10:52 sb4 Administered Medications: 13:58 Discontinued: ns 0.9% 1000 ml IV at 1 bolus Per protocol; 1000 mL bolus jl7 10:50 Drug: Ondansetron IVP 4 mg IVP once; over 2 minutes Route: IVP; Site: right antecubital;rs5 13:57 Follow up: Response: No adverse reaction jl7 10:51 Drug: morphine IVP or IV 4 mg IVP once over 4 mins Route: IVP; Infused Over: 4 mins; rs5 Site: right antecubital; 13:57 Follow up: Response: No adverse reaction; Pain is decreased jl7 10:52 Drug: NS 0.9% IV 1000 ml IV at 1 bolus Per protocol; 1000 mL bolus Route: IV; Rate: 1 rs5 bolus; Site: right antecubital; 11:51 Follow up: Response: No adverse reaction; IV Status: Completed infusion; IV Intake: hb 1000ml 12:57 Drug: NS 0.9% IV 1000 ml IV at 1 bolus Per protocol; 1000 mL bolus Route: IV; Rate: 1 hb bolus; Site: left antecubital; 13:57 Follow up: Response: No adverse reaction; IV Status: Order to discontinue infusion; IV jl7 Intake: 200ml 13:58 Follow up: IV Status: Completed infusion; Order to discontinue infusion jl7 Disposition Summary: 05/05/24 13:36 Discharge Ordered Notes: Location: Home sb4 Problem: new sb4 Symptoms: have improved sb4 Condition: Stable sb4 Diagnosis - Dehydration sb4 - Low back pain sb4 - Pain in right knee sb4 Followup: sb4 - With: Private Physician - When: As needed - Reason: Recheck today's complaints, Re-evaluation by your physician Discharge Instructions: - Discharge Summary Sheet sb4 - Musculoskeletal Pain sb4 - Dehydration, Adult, [id number] sb4 Forms: - Patient Portal Instructions sb4 - Leadership Thank You Letter sb4 Signatures: Dispatcher [employer] Nohelia Handy RN RN Ami Ware RN RN hb Brown, Sophia, PA-C PA-C sb4 Ulices Mcnair, RN RN rs5 Cherie Soriano RN jl7
--- NOTE | 2024-05-05 13:37 | ER ---
Nurse's Notes [facility] Name: Silvia Kiran Age: 53 yrs Sex: Female : 1970 Arrival Date: 05/05/2024 Time: 09:59 Bed 8 Private MD: Diagnosis: Dehydration;Low back pain;Pain in right knee Presentation: 05/05 10:09 Chief complaint: Patient states: low back pain that began this morning and R knee pain ss that has been ongoing for 1.5 years. Coronavirus screen: Client denies travel out of the [place] in the last 14 days. Ebola Screen: Patient denies exposure to infectious person. Patient denies travel to an Ebola-affected area in the 21 days before illness onset. Initial Sepsis Screen: Does the patient meet any 2 criteria? No. Patient's initial sepsis screen is negative. Does the patient have a suspected source of infection? No. Patient's initial sepsis screen is negative. Risk Assessment: Do you want to hurt yourself or someone else? Patient reports no desire to harm self or others. Onset of symptoms was May 05, 2024. 10:09 Method Of Arrival: Wheelchair ss 10:09 Acuity: SUNG 3 ss Triage Assessment: 10:05 General: Appears in no apparent distress. uncomfortable, Behavior is calm, cooperative. rs5 Pain: Complains of pain in right knee Pain currently is 8 out of 10 on a pain scale. Quality of pain is described as aching, Is continuous. Musculoskeletal: Range of motion: limited in right leg. Historical: - Allergies: 10:10 iv dye iodine; ss - PMHx: 10:10 Asthma; Chronic pain; Depression; Diabetes - NIDDM; Hypertension; repiratory problems; ss - PSHx: 10:10 right knee; Total abdominal hysterectomy; tumors removed; ss - Immunization history:: Client reports having NOT received the Covid vaccine. - Infectious Disease History:: Denies. - Social history:: Smoking status: Patient denies any tobacco usage or history of. Screenin:34 [facility] ED Fall Risk Assessment (Adult) History of falling in the last 3 months, hb including since admission No falls in past 3 months (0 pts) Confusion or Disorientation No (0 pts) Intoxicated or Sedated No (0 pts) Impaired Gait No (0 pts) Mobility Assist Device Used No (0 pt) Altered Elimination No (0 pt) Score/Fall Risk Level 0 - 2 = Low Risk Oriented to surroundings, Maintained a safe environment, Educated pt \T\ family on fall prevention, incl call for assistance when getting out of bed. Abuse screen: Denies threats or abuse. Denies injuries from another. Nutritional screening: No deficits noted. Tuberculosis screening: No symptoms or risk factors identified. Assessment: 10:05 General: Appears in no apparent distress. uncomfortable, Behavior is calm, cooperative. rs5 Pain: Complains of pain in right knee Pain currently is 8 out of 10 on a pain scale. Quality of pain is described as aching, Is continuous. Neuro: Level of Consciousness is awake, alert, obeys commands, Oriented to person, place, time, situation. Cardiovascular: Patient's skin is warm and dry. Respiratory: Airway is patent Respiratory effort is even, unlabored, Respiratory pattern is regular, symmetrical. GI: Abdomen is round non-distended, Abd is soft and non tender X 4 quads. : No signs and/or symptoms were reported regarding the genitourinary system. EENT: No signs and/or symptoms were reported regarding the EENT system. Derm: Skin is intact, Skin is pink, warm \T\ dry. Musculoskeletal: Range of motion: limited in right knee. 11:10 Reassessment: Patient and/or family updated on plan of care and expected duration. Pain rs5 level reassessed. Patient is alert, oriented x 3, equal unlabored respirations, skin warm/dry/pink. Patient states feeling better. Patient states symptoms have improved. 12:09 Reassessment: No changes from previously documented assessment. rs5 13:34 Reassessment: Patient appears in no apparent distress at this time. Patient and/or hb family updated on plan of care and expected duration. Pain level reassessed. Patient is alert, oriented x 3, equal unlabored respirations, skin warm/dry/pink. 13:56 Reassessment: Patient states feeling better. Patient states symptoms have improved. jl7 Vital Signs: 10:09 Weight 95.71 kg; Height 4 ft. 10 in. ; Pain 10/10; ss 10:17 BP 138 / 64; Pulse 91; Resp 17; Temp 97.8(O); Pulse Ox 96% on R/A; ss 13:34 BP 147 / 57; Pulse 86; Resp 16; Pulse Ox 97% on R/A; hb 10:09 Body Mass Index 44.10 (95.71 kg, 147.32 cm) ss 10:09 Pain Scale: Adult ss ED Course: 10:02 Patient arrived in ED. mg5 10:03 Arianna Parekh PA-C is PHCP. sb4 10:03 Hector Houston MD is Attending Physician. sb4 10:08 Ulices Mcnair RN is Primary Nurse. rs5 10:10 Triage completed. ss 10:10 Arm band placed on right wrist. ss 10:40 CT Abd/Pelvis - Without Contrast In Process Unspecified. EDMS 11:44 Knee Right 3 View XRAY In Process Unspecified. EDMS 12:30 Inserted saline lock: 20 gauge in left antecubital area, using aseptic technique. Blood hb collected. 13:35 Patient has correct armband on for positive identification. Call light in reach. Side hb rails up X 1. Provided Education on: use of call light . 13:58 No provider procedures requiring assistance completed. IV discontinued, intact, jl7 bleeding controlled, No redness/swelling at site. Pressure dressing applied. Administered Medications: 13:58 Discontinued: ns 0.9% 1000 ml IV at 1 bolus Per protocol; 1000 mL bolus jl7 10:50 Drug: Ondansetron IVP 4 mg IVP once; over 2 minutes Route: IVP; Site: right antecubital;rs5 13:57 Follow up: Response: No adverse reaction jl7 10:51 Drug: morphine IVP or IV 4 mg IVP once over 4 mins Route: IVP; Infused Over: 4 mins; rs5 Site: right antecubital; 13:57 Follow up: Response: No adverse reaction; Pain is decreased jl7 10:52 Drug: NS 0.9% IV 1000 ml IV at 1 bolus Per protocol; 1000 mL bolus Route: IV; Rate: 1 rs5 bolus; Site: right antecubital; 11:51 Follow up: Response: No adverse reaction; IV Status: Completed infusion; IV Intake: hb 1000ml 12:57 Drug: NS 0.9% IV 1000 ml IV at 1 bolus Per protocol; 1000 mL bolus Route: IV; Rate: 1 hb bolus; Site: left antecubital; 13:57 Follow up: Response: No adverse reaction; IV Status: Order to discontinue infusion; IV jl7 Intake: 200ml 13:58 Follow up: IV Status: Completed infusion; Order to discontinue infusion jl7 Medication: 13:35 VIS not applicable for this client. hb Intake: 11:51 IV: 1000ml; Total: 1000ml. hb 13:57 IV: 200ml; Total: 1200ml. jl7 Outcome: 13:36 Discharge ordered by . sb4 13:58 Discharged to home ambulatory, jl7 13:58 Condition: stable 13:58 Discharge instructions given to patient, Instructed on discharge instructions, follow up and referral plans. Demonstrated understanding of instructions, follow-up care, 13:59 Patient left the ED. jl7 Signatures: Dispatcher [employer] EDMS Nohelia Russo RN RN Ami Osborne RN RN Cherie Rodriguez RN RN jl7 Arianna Parekh, PAMk PAUlices Nicholson RN RN rs5 Sri Renee mg5 Corrections: (The following items were deleted from the chart) 17:18 10:05 Pain: Complains of pain in right knee Pain currently is 8 out of 10 on a pain rs5 scale. Quality of pain is described as aching, Is continuous, rs5
[2024-05-05 14:39] VITALS: TEMP 97.8
[2024-05-05 14:41] VITALS: BP 147/57; O2SAT 97
== END 2024-05-05 13:59 | disposition home or self-care (01) ==
LOC: ER 09:59
DX: E86.0 Dehydration (principal); M54.50 Low back pain, unspecified; M25.561 Pain in right knee; I10 Essential (primary) hypertension; E11.9 Type 2 diabetes mellitus without complications; Z28.310 Unvaccinated for COVID-19
CPT/HCPCS: 96361; 85025; 36415; 82550; 81025; 81003; 83690; 80053; 74176; 73562; 96375; 96374; 99284; J2405; J7030 ×2

== ENCOUNTER 2024-06-03 16:51 | Emergency (ER) | payer OTHER ==
[2024-06-03] MEDS ORDERED: KETOROLAC 30 MG/ML INJ ONE (17:40)
[2024-06-03] MEDS ORDERED: DIAZEPAM 5 MG TABLET ONE (17:40)
--- NOTE | 2024-06-03 17:42 | RAD REPORT ---
EXAMINATION: XR RIGHT TIBIA AND FIBULA CLINICAL INDICATION: PAIN TECHNIQUE:Two view radiograph of the right tibia and fibula were obtained. COMPARISON: No prior exam. FINDINGS: No fracture or dislocation seen. Small plantar calcaneal spur.
--- NOTE | 2024-06-03 17:42 | RAD REPORT ---
EXAMINATION: XR LEFT TIBIA AND FIBULA CLINICAL INDICATION: . PAIN TECHNIQUE:Two view radiograph of the left tibia and fibula were obtained. COMPARISON: No prior exam. FINDINGS: No bone or joint abnormality detected. Small calcaneal spur.
--- NOTE | 2024-06-03 17:43 | RAD REPORT ---
EXAM:Sacrum And Coccyx HISTORY: PAIN COMPARISON: None FINDINGS/IMPRESSION: Mild lower lumbar degenerative changes. No acute fracture seen.
--- NOTE | 2024-06-03 17:52 | RAD REPORT ---
EXAM: CT brain without contrast HISTORY: PAIN COMPARISON: None TECHNIQUE: Multiple contiguous axial images were obtained and a CT of the brain without contrast. Sag ittal and coronal reformats were performed. One or more of the following dose reduction techniques were used: Automated exposure control, adjust ment of the mA and/or kV according to patient size, and/or iterative reconstruction. FINDINGS: No evidence of hydrocephalus, intracranial hemorrhage, or extra-axial fluid collection. The brain is normal in morphology. No evidence of midline shift or areas of brain edema. The calvarium is intact. The visualized paranasal sinuses and mastoid air cells are essentially clear . IMPRESSION: No evidence of acute intracranial abnormality. EXAM: CT of the cervical spine without contrast HISTORY: Neck pain, injury PAIN TECHNIQUE: Multiple contiguous axial images were obtained in a CT of the cervical spine without contr ast. Sagittal and coronal reformats were performed. FINDINGS: The vertebral bodies demonstrate normal height and alignment. No evidence of acute fracture or subluxation.. Mild lower cervical degenerative changes are present. No prevertebral soft tissue swelling is seen. The posterior facets are well aligned. Normal alignment of the skull base with the cervical spine is seen. The lung apices are unremarkable. IMPRESSION: No evidence of acute osseous abnormality of the cervical spine. Mild lower cervical degenerative changes.
--- NOTE | 2024-06-03 19:07 | ER ---
Nurse's Notes [facility] Name: Silvia Kiran Age: 53 yrs Sex: Female : 1970 Arrival Date: 06/03/2024 Time: 16:51 Bed 7 Private MD: Diagnosis: Unspecified injury of head, initial encounter;Pain in left lower leg;Pain in right lower leg;Low back pain Presentation: 06/03 17:01 Chief complaint: Patient states: I was walking my dog, the leash wrapped around my tm6 legs. My legs, ankle, head, tailbone, left shoulder are in pain. This happened yesterday. Coronavirus screen: Client denies travel out of the [place] in the last 14 days. Ebola Screen: Patient negative for fever greater than or equal to 101.5 degrees Fahrenheit, and additional compatible Ebola Virus Disease symptoms Patient denies exposure to infectious person. Patient denies travel to an Ebola-affected area in the 21 days before illness onset. No symptoms or risks identified at this time. Risk Assessment: Do you want to hurt yourself or someone else? Patient reports no desire to harm self or others. Onset of symptoms was June 02, 2024. 17:01 Method Of Arrival: Wheelchair tm6 17:01 Acuity: SUNG 4 tm6 17:05 Initial Sepsis Screen: Does the patient meet any 2 criteria? No. Patient's initial tm6 sepsis screen is negative. Does the patient have a suspected source of infection? No. Patient's initial sepsis screen is negative. Triage Assessment: 17:01 General: Appears in no apparent distress. uncomfortable, Behavior is calm, cooperative. tm6 Pain: Complains of pain in anterior aspect of left shoulder, posterior aspect of left shoulder, right leg and left leg, head, tailbone. EENT: No signs and/or symptoms were reported regarding the EENT system. Neuro: Level of Consciousness is awake, alert, obeys commands, Oriented to person, place, time, situation. Cardiovascular: Patient's skin is warm and dry. Respiratory: Airway is patent Respiratory effort is even, unlabored, Respiratory pattern is regular, symmetrical. GI: No signs and/or symptoms were reported involving the gastrointestinal system. Abdomen is round. : No signs and/or symptoms were reported regarding the genitourinary system. Derm: No signs and/or symptoms reported regarding the dermatologic system. Musculoskeletal: Reports pain in anterior aspect of left shoulder, posterior aspect of left shoulder, right leg and left leg, head, tailbone. 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 - Infectious Disease History:: Denies. - Social history:: Smoking status: Patient denies any tobacco usage or history of. Patient/guardian denies using alcohol. Screenin:28 [facility] ED Fall Risk Assessment (Adult) History of falling in the last 3 months, ph including since admission Yes- single mechanical fall (1 pt) Confusion or Disorientation No (0 pts) Intoxicated or Sedated No (0 pts) Impaired Gait No (0 pts) Mobility Assist Device Used No (0 pt) Altered Elimination No (0 pt) Score/Fall Risk Level 0 - 2 = Low Risk Oriented to surroundings, Maintained a safe environment, Hourly rounding (assess needs \\T\\ fall precautionary measures) done. Abuse screen: Denies threats or abuse. Denies injuries from another. Nutritional screening: No deficits noted. Tuberculosis screening: No symptoms or risk factors identified. Assessment: 18:27 General: Appears in no apparent distress. Behavior is calm, cooperative. Pain: Complains of pain in "all over". Neuro: Level of Consciousness is awake, alert, obeys commands, Oriented to person, place, time, situation. Cardiovascular: Capillary refill < 3 seconds in bilateral fingers Patient's skin is warm and dry. Respiratory: Airway is patent Respiratory effort is even, unlabored. Derm: Skin is pink, warm \\T\\ dry. Vital Signs: 17:05 BP 147 / 75; Pulse 87; Resp 19; Temp 98.3(O); Pulse Ox 95% on R/A; MAP 97 mmHg; Weight tm6 95.25 kg; Height 4 ft. 10 in. ; Pain 10/10; 18:29 BP 136 / 51; Pulse 87; Resp 18; Pulse Ox 96% on R/A; ph 17:05 Body Mass Index 43.89 (95.25 kg, 147.32 cm) tm6 17:05 Pain Scale: Adult tm6 ED Course: 16:54 Patient arrived in ED. im 16:56 Aisha Lomax, YUNIEL is [facility]. kb 16:56 Denis Brown MD is Attending Physician. kb 17:01 Arm band placed on right wrist. tm6 17:02 Triage completed. tm6 17:28 Sacrum And Coccyx XRAY In Process Unspecified. EDMS 17:28 Tib Fib Right XRAY In Process Unspecified. EDMS 17:28 Tib Fib Left XRAY In Process Unspecified. EDMS 17:32 CT Head C Spine In Process Unspecified. EDMS 17:33 Wanda Bolden, RN is Primary Nurse. ko1 18:29 Patient has correct armband on for positive identification. Bed in low position. Call ph light in reach. Side rails up X 1. Pulse ox on. NIBP on. Door closed. Noise minimized. Warm blanket given. Pillow given. 18:29 No provider procedures requiring assistance completed. ph 19:20 Patient did not have IV access during this emergency room visit. dd2 19:21 Provided Education on: D/C INSTRUTIONS. dd2 Administered Medications: 17:46 Drug: Diazepam PO 5 mg PO once Route: PO; ko1 17:46 Drug: Ketorolac IM 30 mg IM once Route: IM; Site: right deltoid; ko1 Medication: 18:29 VIS not applicable for this client. ph Outcome: 19:06 Discharge ordered by . kb 19:20 Discharged to home via wheelchair, dd2 19:20 Condition: stable 19:20 Discharge instructions given to patient, Instructed on discharge instructions, follow up and referral plans. medication usage, Demonstrated understanding of instructions, follow-up care, medications, Prescriptions given X 2, 19:21 Patient left the ED. dd2 Signatures: Dispatcher [employer] EDMS Aisha Lomax, Shara Buchanan RN RN Wanda Bolden, TERRY RN ko1 Mague Silveira Tawney, RN RN tm6 JESSICA HWANG RN RN dd2
--- NOTE | 2024-06-03 19:07 | EDPHYS ---
Physician Documentation [facility] Name: Silvia Kiran Age: 53 yrs Sex: Female : 1970 Arrival Date: 06/03/2024 Time: 16:51 Bed 7 Private MD: ED Physician Denis Brown HPI: 06/03 20:01 This 53 yrs old Female presents to ER via Wheelchair with complaints of Fall Injury. kb 20:01 Pt is a 53 year old female who presents for "pain all over" after falling yesterday. kb States the dogs leash got caught around her legs causing her to fall. Pain aggravated by movement. States she did hit her head, but denies loc. Reports headache, neck pain, bilateral lower leg pain and pain to tailbone. States everything hurts, but those areas are the worst. . 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 - Infectious Disease History:: Denies. - Social history:: Smoking status: Patient denies any tobacco usage or history of. Patient/guardian denies using alcohol. ROS: 20:00 Constitutional: As per HPI kb Exam: 20:00 Constitutional: This is a well developed, well nourished patient who is awake, alert, kb and in no acute distress. Head/Face: Normocephalic, atraumatic. Eyes: Pupils equal round and reactive to light, extra-ocular motions intact. Lids and lashes normal. Conjunctiva and sclera are non-icteric and not injected. Cornea within normal limits. Periorbital areas with no swelling, redness, or edema. ENT: Moist Mucous membranes Chest/axilla: Normal chest wall appearance and motion. Cardiovascular: Regular rate Respiratory: Respirations even and unlabored. No increased work of breathing. Talking in full sentences Abdomen/GI: Soft, non-tender. No distention Skin: Warm, dry with normal turgor. Normal color. Neuro: Awake and alert, GCS 15, oriented to person, place, time, and situation. 20:00 Neck: External neck: tenderness, that is moderate, of the left mid cervical area, right mid cervical area, left trapezius and right trapezius, 20:00 Back: pain, that is moderate, of the sacrum, ROM is painful, normal spinal alignment noted, 20:00 Musculoskeletal/extremity: Extremities: grossly normal except: noted in the right leg and left leg: ecchymosis, pain, tenderness, ROM: intact in all extremities, Circulation is intact in all extremities. Sensation intact. Weight bearing: able to fully bear weight, Vital Signs: 17:05 BP 147 / 75; Pulse 87; Resp 19; Temp 98.3(O); Pulse Ox 95% on R/A; MAP 97 mmHg; Weight tm6 95.25 kg; Height 4 ft. 10 in. ; Pain 10/10; 18:29 BP 136 / 51; Pulse 87; Resp 18; Pulse Ox 96% on R/A; ph 17:05 Body Mass Index 43.89 (95.25 kg, 147.32 cm) tm6 17:05 Pain Scale: Adult tm6 MDM: 16:56 Medical Screening Exam initiated kb 20:01 Differential diagnosis: contusion, fracture, strain. Data reviewed: vital signs, nurses kb notes. Counseling: I had a detailed discussion with the patient and/or guardian regarding the historical points, exam findings, and any diagnostic results supporting the discharge/admit diagnosis, radiology results, the need for outpatient follow up, a family practitioner, to return to the emergency department if symptoms worsen or persist or if there are any questions or concerns that arise at home. 06/03 17:05 Order name: CT Head C Spine; Complete Time: 17:59 kb 06/03 17:05 Order name: Sacrum And Coccyx XRAY; Complete Time: 17:47 kb 06/03 17:05 Order name: Tib Fib Right XRAY; Complete Time: 17:47 kb 06/03 17:05 Order name: Tib Fib Left XRAY; Complete Time: 17:47 kb Administered Medications: 17:46 Drug: Diazepam PO 5 mg PO once Route: PO; ko1 17:46 Drug: Ketorolac IM 30 mg IM once Route: IM; Site: right deltoid; ko1 Disposition Summary: 06/03/24 19:06 Discharge Ordered Notes: Location: Home kb Condition: Stable kb Diagnosis - Unspecified injury of head, initial encounter kb - Pain in left lower leg kb - Pain in right lower leg kb - Low back pain kb Followup: kb - With: Private Physician - When: 2 - 3 days - Reason: Recheck today's complaints, Continuance of care, Re-evaluation by your physician Followup: kb - With: Emergency Department - When: As needed - Reason: Worsening of condition Discharge Instructions: - Discharge Summary Sheet kb - Musculoskeletal Pain kb Forms: - Medication Reconciliation Form kb - Antibiotic Education kb - Prescription Opioid Use kb - Patient Portal Instructions kb - Leadership Thank You Letter kb Prescriptions: - Diclofenac Sodium 75 mg Oral tablet, delayed release (enteric coated) - take 1 tablet ORAL route 2 times per day As needed; 30 tablet; Refills: 0, kb Product Selection Permitted - orphenadrine citrate 100 mg Oral Tablet Sustained Release - take 1 tablet ORAL route 2 times per day As needed; 20 tablet; Refills: 0, kb Product Selection Permitted Signatures: Dispatcher [employer] EDMS Aisha Lomax, WILD OYSTER HARVESTER-C WILD OYSTER HARVESTER-Ckb Wanda Bolden, RN RN ko1 Ovidio Aguero RN RN tm6 Corrections: (The following items were deleted from the chart) 17:06 17:06 Sacrum And Coccyx+RAD.RAD.BRZ ordered. EDMS EDMS 17:06 17:06 Tib Fib Right+RAD.RAD.BRZ ordered. EDMS EDMS 17:06 17:06 Tib Fib Left+RAD.RAD.BRZ ordered. EDMS EDMS
[2024-06-03 19:31] VITALS: TEMP 98.3
[2024-06-03 19:36] VITALS: BP 136/51; O2SAT 96
== END 2024-06-03 19:21 | disposition home or self-care (01) ==
LOC: ER 16:51
DX: S09.90XA Unspecified injury of head, initial encounter (principal); M79.662 Pain in left lower leg; M79.661 Pain in right lower leg; M54.50 Low back pain, unspecified; E11.9 Type 2 diabetes mellitus without complications; I10 Essential (primary) hypertension
CPT/HCPCS: 70450; 72125; 72220; 96372; 99284

== ENCOUNTER 2024-06-09 23:03 | Emergency (ER) | payer OTHER ==
[2024-06-10] MEDS ORDERED: NA CHLORIDE 0.9% 1,000 ML ONE (01:08)
[2024-06-10] MEDS ORDERED: HYDROCODONE/APAP 7.5/325 MG TAB ONE (01:08)
[2024-06-10 01:29] LABS: Absolute Basophils 0.1 K/uL (0-0.5); Absolute Eosinophils 0.3 K/uL (0-0.5); Absolute Lymphocytes (CBC) 2.7 K/uL (0.7-4.9); Absolute Monocytes 0.7 K/uL (0.1-1.3); Absolute Neutrophil 5.4 K/uL (1.8-8.0); Basophils % 0.8 % (0-1.3); Eosinophils % 2.8 % (0-4.4); Hematocrit 40.3 % (36.0-45.0); Hemoglobin 13.6 g/dL (12.0-15.0); Lymphocytes % 29.8 % (15.3-44.8); MCH 31.4 pg (27.0-35.0); MCHC 33.7 g/dL (32.0-36.0); MCV 93.2 fL (80-100); MPV 9.1 fL (7.6-11.3); Monocytes % 7.3 % (3.3-12.3); Neutrophils % 59.3 % (41.7-73.7); Nucleated Red Blood Cells % 0.1 % (0-0); Platelets 271 thou/uL (152-406); RBC Red Blood Cell Count 4.32 M/uL (3.86-4.86); Red Cell Distribution Width 14.4 % (12.1-15.2)
[2024-06-10 02:04] LABS: Albumin 3.1 g/dL (3.4-5.0); Albumin/Globulin Ratio 0.9 (1.1-1.8); Anion Gap 8.5 mEq/L (5.0-15.0); Bilirubin Total 0.2 mg/dL (0.2-1.0); Globulin 3.6 g/dL (2.3-3.5); Potassium 3.5 mEq/L (3.5-5.1); Protein, Total 6.7 g/dL (6.4-8.2)
--- NOTE | 2024-06-10 02:07 | EDPHYS ---
Physician Documentation [facility] Name: Silvia Kiran Age: 53 yrs Sex: Female : 1970 Arrival Date: 06/09/2024 Time: 23:03 Bed 5 Private MD: ED Physician West Scott HPI: 06/10 01:22 This 53 yrs old Female presents to ER via Wheelchair with complaints of Fall Injury. rt 01:22 Patient was seen in the ED 1 week ago for a fall. Had negative x-rays, however, she rt states that she has pain to her right foot which was not x-rayed. Patient states that she feels somewhat weak and dehydrated stating that she has been in bed most of the time. Denies other acute complaints at this time, symptoms are moderate in severity, no other aggravating or alleviating factors.. 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 Flu vaccine is not up to date. - Infectious Disease History:: Denies. - Immunization history: Last tetanus immunization: - up to date. - Social history:: Smoking status: Patient/guardian denies using tobacco, but has a distant history of tobacco abuse. - Family history:: not pertinent. ROS: 06/10 01:22 Cardiovascular: Negative for chest pain, palpitations, and edema, Respiratory: Negative rt for shortness of breath, cough, wheezing, and pleuritic chest pain, Abdomen/GI: Negative for abdominal pain, nausea, vomiting, diarrhea, and constipation, Skin: Negative for injury, rash, and discoloration, Constitutional: Positive for fatigue, malaise, MS/extremity: Positive for pain, Negative for deformity, Exam: :22 Constitutional: This is a well developed, well nourished patient who is awake, alert, rt and in no acute distress. Head/Face: Normocephalic, atraumatic. Chest/axilla: Normal chest wall appearance and motion. Nontender with no deformity. No lesions are appreciated. Cardiovascular: Regular rate and rhythm with a normal S1 and S2. No gallops, murmurs, or rubs. Normal PMI, no JVD. No pulse deficits. Respiratory: Lungs have equal breath sounds bilaterally, clear to auscultation and percussion. No rales, rhonchi or wheezes noted. No increased work of breathing, no retractions or nasal flaring. Abdomen/GI: Soft, non-tender, with normal bowel sounds. No distension or tympany. No guarding or rebound. No evidence of tenderness throughout. Skin: Warm, dry with normal turgor. Normal color with no rashes, no lesions, and no evidence of cellulitis. 01:22 Musculoskeletal/extremity: Tenderness noted to the midfoot, no bruising, deformities.. Vital Signs: 06/09 23:44 BP 156 / 69; Pulse 84; Resp 16; Temp 97; Pulse Ox 100% ; Weight 95.25 kg; Height 4 ft. vc1 11 in. ; Pain 05/08; 06/10 00:21 BP 132 / 61; Pulse 72; Resp 16; Pulse Ox 96% on R/A; al5 00:30 BP 129 / 50; Pulse 90; Resp 15; Pulse Ox 96% on R/A; al5 00:45 BP 139 / 61; Pulse 72; Resp 15; Pulse Ox 94% on R/A; al5 01:00 BP 149 / 57; Pulse 75; Resp 16; Pulse Ox 97% on R/A; al5 01:15 BP 105 / 38; Pulse 79; Resp 18; Pulse Ox 97% on R/A; al5 01:30 BP 119 / 99; Pulse 77; Resp 16; Pulse Ox 96% on R/A; al5 01:45 BP 145 / 66; Pulse 75; Resp 17; Pulse Ox 96% on R/A; al5 02:00 BP 148 / 60; Pulse 77; Resp 17; Pulse Ox 96% on R/A; al5 06/09 23:44 Body Mass Index 42.41 (95.25 kg, 149.86 cm) vc1 06/09 23:44 Pain Scale: Adult vc1 Nadya Coma Score: 01:17 Eye Response: spontaneous(4). Motor Response: obeys commands(6). Verbal Response: al5 oriented(5). Total: 15. Trauma Score (Adult): 01:17 Eye Response: spontaneous(1); Verbal Response: oriented(1); Motor Response: obeys al5 commands(2); Systolic BP: > 89 mm Hg(4); Respiratory Rate: 10 to 29 per min(4); Cable Score: 15; Trauma Score: 12 MDM: 06/09 23:53 Medical Screening Exam initiated rt 06/10 02:10 Differential diagnosis: Contusion, fracture. Data reviewed: vital signs, nurses notes, rt lab test result(s), radiologic studies. I considered the following discharge prescriptions or medication management in the emergency department Medications were administered in the Emergency Department. See MAR. Independent interpretation of the following test(s) in the Emergency Department X-Ray: My interpretation is No fracture seen on my interpretation of x-ray images. Care significantly affected by the following chronic conditions: Diabetes. Counseling: I had a detailed discussion with the patient and/or guardian regarding the historical points, exam findings, and any diagnostic results supporting the discharge/admit diagnosis, lab results, radiology results, the need for outpatient follow up, to return to the emergency department if symptoms worsen or persist or if there are any questions or concerns that arise at home. Response to treatment: the patient's symptoms have markedly improved after treatment. 06/09 23:43 Order name: CBC with Diff; Complete Time: 01:56 rt 06/09 23:43 Order name: CMP; Complete Time: 02:05 rt 06/09 23:43 Order name: Foot Right 3 View XRAY rt Administered Medications: 01:15 Drug: NS 0.9% IV 1000 ml IV at 1000 ml once; to be given as a bolus over 60 minutes al5 Route: IV; Rate: 1000 ml; Site: left antecubital; 02:27 Follow up: Response: No adverse reaction; IV Status: Completed infusion; IV Intake: al5 1000ml 01:15 Drug: Hydrocodone-Acetaminophen PO (7.5 mg-325 mg) 1 tabs PO once Route: PO; al5 01:56 Follow up: Response: No adverse reaction; Pain is decreased al5 02:27 Follow up: Response: No adverse reaction; Pain is decreased al5 Disposition Summary: 06/10/24 02:07 Discharge Ordered Notes: Location: Home rt Problem: new rt Symptoms: have improved rt Condition: Stable rt Diagnosis - Pain in right foot rt Followup: rt - With: Private Physician - When: 2 - 3 days - Reason: Discharge Instructions: - Discharge Summary Sheet rt - Foot Pain rt Forms: - Medication Reconciliation Form rt - Antibiotic Education rt - Prescription Opioid Use rt - Patient Portal Instructions rt - Leadership Thank You Letter rt Signatures: Dispatcher [employer] EDMS Gladys De Anda RN RN vc1 West Scott MD MD rt Ignacia Jaramillo RN RN al5 Corrections: (The following items were deleted from the chart) 06/09 23:44 23:44 CBC+H.LAB.BRZ ordered. EDMS EDMS 23:44 23:44 COMPREHENSIVE METABOLIC PANEL+C.LAB.BRZ ordered. EDMS EDMS
--- NOTE | 2024-06-10 02:07 | ER ---
Nurse's Notes [facility] Name: Silvia Kiran Age: 53 yrs Sex: Female : 1970 Arrival Date: 06/09/2024 Time: 23:03 Bed 5 Private MD: Diagnosis: Pain in right foot Presentation: 06/09 23:44 Chief complaint: Patient states: fell last week and still having pain in right ankle vc1 and right knee, also concerned about dehydration. Coronavirus screen: Client denies travel out of the [place] in the last 14 days. At this time, the client does not indicate any symptoms associated with coronavirus-19. Ebola Screen: Patient negative for fever greater than or equal to 101.5 degrees Fahrenheit, and additional compatible Ebola Virus Disease symptoms Patient denies exposure to infectious person. Patient denies travel to an Ebola-affected area in the 21 days before illness onset. No symptoms or risks identified at this time. Initial Sepsis Screen: Does the patient meet any 2 criteria? No. Patient's initial sepsis screen is negative. Does the patient have a suspected source of infection? No. Patient's initial sepsis screen is negative. Risk Assessment: Do you want to hurt yourself or someone else? Patient reports no desire to harm self or others. Onset of symptoms is unknown. 23:44 Method Of Arrival: Wheelchair vc1 23:44 Acuity: SUNG 4 vc1 06/10 01:18 Care prior to arrival: None. Mechanism of Injury: Fall. Trauma event details: Injury al5 occurred in the [facility], Injury occurred: at home. Injury occurred: June 02, 2024. Triage Assessment: 06/09 23:47 General: Appears in no apparent distress. uncomfortable, obese, well groomed, Behavior vc1 is calm, cooperative, appropriate for age. Pain: Complains of pain in right foot and right knee Pain does not radiate. Pain currently is 10 out of 10 on a pain scale. Neuro: Level of Consciousness is awake, alert, obeys commands, Oriented to person, place, time, situation, Appropriate for age. Cardiovascular: Capillary refill < 3 seconds Patient's skin is warm and dry. Respiratory: Airway is patent Respiratory effort is even, unlabored, Respiratory pattern is regular, symmetrical. Derm: Bruising that is dark purple, brown, on right foot and right leg. Musculoskeletal: Reports pain in right foot and right knee. 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 N/A - Hysterectomy, Not vc1 Trauma Activation: Physician: ED Physician; Name: ; Notified At: ; Arrived At: Physician: General Surgeon; Name: ; Notified At: ; Arrived At: Physician: Radiology; Name: ; Notified At: ; Arrived At: Physician: Respiratory; Name: ; Notified At: ; Arrived At: Physician: Lab; Name: ; Notified At: ; Arrived At: 06/10 01:18 n/a al5 Historical: - Allergies: 06/09 23:45 iv dye iodine; vc1 - PMHx: 23:45 5 slipped discs (tumors removed); Asthma; Chronic pain; Depression; Diabetes - NIDDM; vc1 Hypertension; repiratory problems; - PSHx: 23:45 right knee; Total abdominal hysterectomy; tumors removed; vc1 - Immunization history:: Client reports having NOT received the Covid vaccine. Flu vaccine is not up to date. - Infectious Disease History:: Denies. - Immunization history: Last tetanus immunization: - up to date. - Social history:: Smoking status: Patient/guardian denies using tobacco, but has a distant history of tobacco abuse. - Family history:: not pertinent. Screenin:46 [facility] ED Fall Risk Assessment (Adult) History of falling in the last 3 months, vc1 including since admission Yes- single mechanical fall (1 pt) Confusion or Disorientation No (0 pts) Intoxicated or Sedated No (0 pts) Impaired Gait Yes (1 pt) Mobility Assist Device Used No (0 pt) Altered Elimination No (0 pt) Score/Fall Risk Level 0 - 2 = Low Risk Oriented to surroundings, Maintained a safe environment, Educated pt \T\ family on fall prevention, incl call for assistance when getting out of bed. Abuse screen: Denies threats or abuse. Nutritional screening: No deficits noted. Tuberculosis screening: No symptoms or risk factors identified. Primary Survey: 06/10 01:17 NO uncontrolled hemorrhage observed. A: The client is awake and alert. The airway is al5 patent. The client is alert. Airway: patent. Breathing/Chest: Spontaneous respiratory effort, equal unlabored respirations, breath sounds clear bilaterally, regular pattern, symmetrical chest rise and fall. Respiratory effort: spontaneous, unlabored. Circulation: No external hemorrhage present. Regular and strong central pulse, skin warm/dry/normal color. Skin color: pink, Skin temperature: warm, dry. Disability Pupils are equal, round, reactive to light and accommodation. Client is alert. Exposure/Environment: There is no evidence of uncontrolled external bleeding. No obvious injuries are noted at this time. A warming method has been applied: A warm blanket has been provided to the patient. 02:31 Reassessment Alertness and Airway: Awake and alert. The airway is patent. Airway Patent al5 Breathing: Spontaneous respiratory effort, equal unlabored respirations, breath sounds clear bilaterally, regular pattern with symmetrical chest rise and fall. Respiratory effort Spontaneous Unlabored Circulation: No external hemorrhage noted. Regular and strong central pulse, skin warm/dry/normal color. Color Barlow Temperature Warm Dry Disability: Pupils Pupils are equal, round, reactive to light and accomodation. Alert. Secondary Survey: 01:17 HEENT: No deficits noted. Gastrointestinal: No deficits noted. : No signs and/or al5 symptoms were reported regarding the genitourinary system. : No deficits noted. Musculoskeletal: No deficits noted. Assessment: 01:15 General: Appears in no apparent distress. uncomfortable, Behavior is calm, cooperative. al5 Pain: Complains of pain in coccyx and right foot and right knee Pain currently is 9 out of 10 on a pain scale. Neuro: Level of Consciousness is awake, alert, obeys commands, Oriented to person, place, time, situation. Cardiovascular: Capillary refill < 3 seconds Patient's skin is warm and dry. Respiratory: Airway is patent Respiratory effort is even, unlabored, Respiratory pattern is regular, symmetrical. GI: No signs and/or symptoms were reported involving the gastrointestinal system. : No signs and/or symptoms were reported regarding the genitourinary system. EENT: No signs and/or symptoms were reported regarding the EENT system. Derm: Skin is intact, is healthy with good turgor, Skin is pink, warm \T\ dry. normal. Musculoskeletal: Reports pain in coccyx and right foot and right knee. 02:29 Reassessment: Patient appears in no apparent distress at this time. Patient and/or al5 family updated on plan of care and expected duration. Pain level reassessed. Patient is alert, oriented x 3, equal unlabored respirations, skin warm/dry/pink. Patient states feeling better. Patient states symptoms have improved. Vital Signs: 06/09 23:44 BP 156 / 69; Pulse 84; Resp 16; Temp 97; Pulse Ox 100% ; Weight 95.25 kg; Height 4 ft. vc1 11 in. ; Pain 05/08; 06/10 00:21 BP 132 / 61; Pulse 72; Resp 16; Pulse Ox 96% on R/A; al5 00:30 BP 129 / 50; Pulse 90; Resp 15; Pulse Ox 96% on R/A; al5 00:45 BP 139 / 61; Pulse 72; Resp 15; Pulse Ox 94% on R/A; al5 01:00 BP 149 / 57; Pulse 75; Resp 16; Pulse Ox 97% on R/A; al5 01:15 BP 105 / 38; Pulse 79; Resp 18; Pulse Ox 97% on R/A; al5 01:30 BP 119 / 99; Pulse 77; Resp 16; Pulse Ox 96% on R/A; al5 01:45 BP 145 / 66; Pulse 75; Resp 17; Pulse Ox 96% on R/A; al5 02:00 BP 148 / 60; Pulse 77; Resp 17; Pulse Ox 96% on R/A; al5 06/09 23:44 Body Mass Index 42.41 (95.25 kg, 149.86 cm) vc1 06/09 23:44 Pain Scale: Adult vc1 Raymond Coma Score: 01:17 Eye Response: spontaneous(4). Motor Response: obeys commands(6). Verbal Response: al5 oriented(5). Total: 15. Trauma Score (Adult): 01:17 Eye Response: spontaneous(1); Verbal Response: oriented(1); Motor Response: obeys al5 commands(2); Systolic BP: > 89 mm Hg(4); Respiratory Rate: 10 to 29 per min(4); Raymond Score: 15; Trauma Score: 12 ED Course: 06/09 23:05 Patient arrived in ED. mr 23:06 West Scott MD is Attending Physician. rt 23:45 Triage completed. vc1 23:46 Arm band placed on right wrist. vc1 06/10 00:21 Foot Right 3 View XRAY In Process Unspecified. EDMS 00:51 Langhorst, Ignacia, RN is Primary Nurse. al5 01:16 Patient has correct armband on for positive identification. Bed in low position. Call al5 light in reach. Side rails up X2. Provided Education on: plan of care. 01:17 No provider procedures requiring assistance completed. Inserted saline lock: 20 gauge al5 in left antecubital area, using aseptic technique. Blood collected. Flushed with 10 mL NS. 01:18 Patient maintains SpO2 saturation greater than 95% on room air. al5 01:18 Thermoregulation: warm blanket given to patient. al5 02:30 IV discontinued, intact, bleeding controlled, No redness/swelling at site. Pressure al5 dressing applied. Administered Medications: 01:15 Drug: NS 0.9% IV 1000 ml IV at 1000 ml once; to be given as a bolus over 60 minutes al5 Route: IV; Rate: 1000 ml; Site: left antecubital; 02:27 Follow up: Response: No adverse reaction; IV Status: Completed infusion; IV Intake: al5 1000ml 01:15 Drug: Hydrocodone-Acetaminophen PO (7.5 mg-325 mg) 1 tabs PO once Route: PO; al5 01:56 Follow up: Response: No adverse reaction; Pain is decreased al5 02:27 Follow up: Response: No adverse reaction; Pain is decreased al5 Medication: 06/09 23:47 VIS not applicable for this client. vc1 Intake: 06/10 02:27 IV: 1000ml; Total: 1000ml. al5 01:17 n/a al5 Outcome: 02:07 Discharge ordered by MD. rt 02:30 Discharged to home via wheelchair, with friend, al5 02:30 Condition: good 02:30 Discharge instructions given to patient, Instructed on discharge instructions, follow up and referral plans. Demonstrated understanding of instructions, follow-up care, 02:30 Patient's length of stay was not longer than 2 hours. 02:31 Patient left the ED. al5 Signatures: Dispatcher [employer] EDNing Robert, Gladys Morel RN RN vc1 West Scott MD MD rt Ignacia Jaramillo RN RN al5 Corrections: (The following items were deleted from the chart) 02:28 00:30 HEENT: No deficits noted. al5 al5 02:28 00:30 Gastrointestinal: No deficits noted. al5 al5 02:28 00:30 : No deficits noted. al5 al5 00:30 : No signs and/or symptoms were reported regarding the genitourinary system. al5al5 :30 Musculoskeletal: No deficits noted. al5 al5
[2024-06-10 02:55] VITALS: TEMP 97
[2024-06-10 03:02] VITALS: O2SAT 96
[2024-06-10 03:05] VITALS: BP 148/60
--- NOTE | 2024-06-10 04:12 | RAD REPORT ---
EXAM: XR Right Foot Complete, 3 or More Views CLINICAL HISTORY: The patient is 53 years old and is Female; PAIN TECHNIQUE: Frontal, lateral and oblique views of the right foot. COMPARISON: XR Foot dated June 10 2023 FINDINGS: BONES/JOINTS: Inferior calcaneal spurring is present. No acute fracture. No dislocation. SOFT TISSUES: Unremarkable. No radiopaque foreign body. IMPRESSION: No acute findings in the right foot. Electronically signed by: Felicia Emery MD 06/10/2024 01:30 AM [facility] Due to temporary technical issues with the PACS/QuotaDeck reporting system, reports are being main d by the in-house radiologist without review as a courtesy to ensure prompt reporting the interpreting radiologist is fully responsible for the content of the report. Transcribed Date/Time: 06/10/2024 4:12 AM
== END 2024-06-10 02:31 | disposition home or self-care (01) ==
LOC: ER 23:03
DX: M79.671 Pain in right foot (principal); R53.83 Other fatigue; R53.81 Other malaise; E11.9 Type 2 diabetes mellitus without complications; I10 Essential (primary) hypertension
CPT/HCPCS: 85025; 36415; 80053; 73630; 96360; 99284; J7030

== ENCOUNTER 2024-11-12 02:52 | Emergency (ER) | payer OTHER ==
[2024-11-12] MEDS ORDERED: KETOROLAC 30 MG/ML INJ ONE (05:05)
[2024-11-12] MEDS ORDERED: ONDANSETRON 4 MG (ODT) TAB ONE (05:06)
[2024-11-12] MEDS ORDERED: HYDROCODONE/APAP 7.5/325 MG TAB ONE (05:06)
--- NOTE | 2024-11-12 05:37 | ER ---
Nurse's Notes [facility] Name: Silvia Kiran Age: 54 yrs Sex: Female : 1970 Arrival Date: 11/12/2024 Time: 02:52 Bed DX3 Private MD: Diagnosis: Pain in right knee Presentation: 11/12 03:35 Coronavirus screen: Client denies travel out of the [place] in the last 14 days. At this vc1 time, the client does not indicate any symptoms associated with coronavirus-19. Ebola Screen: Patient negative for fever greater than or equal to 101.5 degrees Fahrenheit, and additional compatible Ebola Virus Disease symptoms Patient denies exposure to infectious person. Patient denies travel to an Ebola-affected area in the 21 days before illness onset. No symptoms or risks identified at this time. Initial Sepsis Screen: Does the patient meet any 2 criteria? No. Patient's initial sepsis screen is negative. Does the patient have a suspected source of infection? No. Patient's initial sepsis screen is negative. Risk Assessment: Do you want to hurt yourself or someone else? Patient reports no desire to harm self or others. Onset of symptoms is unknown. 03:35 Method Of Arrival: Ambulatory vc1 03:35 Acuity: SUNG 3 vc1 03:35 Care prior to arrival: None. Activity prior to arrival: None. vc1 Historical: - Allergies: 03:35 iv dye iodine; vc1 - PMHx: 03:35 5 slipped discs (tumors removed); Asthma; Chronic pain; Depression; Diabetes - NIDDM; vc1 Hypertension; repiratory problems; - PSHx: 03:35 right knee; Total abdominal hysterectomy; tumors removed; vc1 - Immunization history:: Adult Immunizations unknown. - Infectious Disease History:: Denies. - Social history:: Smoking status: unknown. Screenin:31 [facility] ED Fall Risk Assessment (Adult) History of falling in the last 3 months, vc1 including since admission No falls in past 3 months (0 pts) Confusion or Disorientation No (0 pts) Intoxicated or Sedated No (0 pts) Impaired Gait No (0 pts) Mobility Assist Device Used No (0 pt) Altered Elimination No (0 pt) Score/Fall Risk Level 0 - 2 = Low Risk Oriented to surroundings, Maintained a safe environment, Educated pt \T\ family on fall prevention, incl call for assistance when getting out of bed. Abuse screen: Denies threats or abuse. Nutritional screening: No deficits noted. Tuberculosis screening: No symptoms or risk factors identified. Vital Signs: 04:06 BP 140 / 66; Pulse 77; Resp 18; Temp 97.7; Pulse Ox 100% ; kmf ED Course: 02:59 Patient arrived in ED. gm2 03:04 Hector Smith PA is PHCP. cp 03:04 Hector Houston MD is Attending Physician. cp 03:51 XRAY Knee RIGHT 3 view In Process Unspecified. EDMS 04:27 Triage completed. vc1 04:56 US Extremity Venous Unilateral Ltd In Process Unspecified. EDMS 05:36 Kuldeep Means MD is Referral Physician. cp 05:52 Arm band placed on right wrist. vc1 05:52 Patient has correct armband on for positive identification. Bed in low position. Call vc1 light in reach. 05:52 No provider procedures requiring assistance completed. Patient did not have IV access vc1 during this emergency room visit. Administered Medications: 05:10 Drug: Ketorolac IM 30 mg IM once Route: IM; Site: left deltoid; vc1 05:10 Drug: Ondansetron PO 4 mg PO once Route: PO; vc1 05:11 Drug: Hydrocodone-Acetaminophen PO (7.5 mg-325 mg) 1 tabs PO once; RASS on ADMIN: vc1 Combtv4, Very Agttd3, Agttd2, Rstlss1, AlertClm0, Drwsy-1, Lt Sdtn-2, Mod Sdtn-3, Dp Sdtn-4, UnArsble-5 Route: PO; Medication: 04:28 VIS not applicable for this client. vc1 Outcome: 05:37 Discharge ordered by . cp 05:52 Discharged to home via wheelchair, vc1 05:52 Condition: good 05:52 Condition: good 05:52 Discharge instructions given to patient, Instructed on discharge instructions, follow up and referral plans. the need for admit, medication usage, Demonstrated understanding of instructions, follow-up care, medications, Prescriptions given X 1, 05:53 Patient left the ED. vc1 Signatures: Dispatcher [employer] EDAZ Hector Smith PA PA cp Calcote, Vanessa, RN RN 1 Nika Gilmore gm2 Joanie Toro km
--- NOTE | 2024-11-12 05:37 | EDPHYS ---
Physician Documentation [facility] Name: Silvia Kiran Age: 54 yrs Sex: Female : 1970 Arrival Date: 11/12/2024 Time: 02:52 Bed DX3 Private MD: Hector Gilbert HPI: 11/12 03:25 This 54 yrs old Female presents to ER via Ambulatory with complaints of Leg Swelling, cp Leg Pain. 03:25 The patient presents with pain, that is acute. The complaints affect the right knee and cp right leg. Context: the patient can fully bear weight, the patient is able to ambulate, with moderate difficulty, Problem is a result from a previous injury: Yes. Injury was sustained 2022. Onset: The symptoms/episode began/occurred today. Treatment prior to arrival includes: no previous treatment. Historical: - Allergies: 03:35 iv dye iodine; vc1 - PMHx: 03:35 5 slipped discs (tumors removed); Asthma; Chronic pain; Depression; Diabetes - NIDDM; vc1 Hypertension; repiratory problems; - PSHx: 03:35 right knee; Total abdominal hysterectomy; tumors removed; vc1 - Immunization history:: Adult Immunizations unknown. - Infectious Disease History:: Denies. - Social history:: Smoking status: unknown. ROS: 03:30 MS/extremity: Positive for pain, of the right knee and right leg, Negative for injury cp or acute deformity, decreased range of motion, 03:30 Eyes: Negative for injury, pain, redness, and discharge, cp 03:30 Constitutional: Negative for body aches, chills, fever, 03:30 Cardiovascular: Negative for chest pain, 03:30 Respiratory: Negative for cough, shortness of breath, wheezing, 03:30 Abdomen/GI: Negative for abdominal pain, nausea, vomiting, and diarrhea, 03:30 All other systems are negative, Exam: 03:35 Constitutional: The patient appears in no acute distress, alert, awake, non-toxic, well cp developed, well nourished, overweight 03:35 Head/Face: Normocephalic, atraumatic. cp 03:35 Chest/axilla: Inspection: normal, 03:35 Cardiovascular: Rate: normal, 03:35 Respiratory: the patient does not display signs of respiratory distress, Respirations: normal, no use of accessory muscles, no retractions, labored breathing, is not present, 03:35 Abdomen/GI: Exam negative for discomfort, distension, guarding, Inspection: abdomen appears normal, 03:35 Back: pain, is absent, ROM is normal, 03:35 Musculoskeletal/extremity: Extremities: noted in the right leg: pain, tenderness, Perfusion: the extremity is normally perfused throughout, the right leg Sensation intact. Joints: the right knee displays painful range of motion, tenderness, 03:35 Skin: cellulitis, is not appreciated, no rash present. Vital Signs: 04:06 BP 140 / 66; Pulse 77; Resp 18; Temp 97.7; Pulse Ox 100% ; kmf MDM: 03:31 Medical Screening Exam initiated cp 04:00 Differential diagnosis: tendonitis, dvt, cellulitis, septic joint. cp 05:30 Data reviewed: vital signs, nurses notes, radiologic studies, plain films, ultrasound. ED course: received verbal report of negative US for DVT. 05:30 Response to treatment: the patient's symptoms have markedly improved after treatment, and as a result, I will discharge patient. 05:36 I considered the following discharge prescriptions or medication management in the emergency department Medications were administered in the Emergency Department. See MAR. 05:36 Care significantly affected by the following chronic conditions: Diabetes, cp Hypertension, chronic pain. Counseling: I had a detailed discussion with the patient and/or guardian regarding the historical points, exam findings, and any diagnostic results supporting the discharge/admit diagnosis, radiology results, to return to the emergency department if symptoms worsen or persist or if there are any questions or concerns that arise at home. 11/12 03:19 Order name: US Extremity Venous Unilateral Ltd cp 11/12 03:19 Order name: XRAY Knee RIGHT 3 view cp Administered Medications: 05:10 Drug: Ketorolac IM 30 mg IM once Route: IM; Site: left deltoid; vc1 05:10 Drug: Ondansetron PO 4 mg PO once Route: PO; vc1 05:11 Drug: Hydrocodone-Acetaminophen PO (7.5 mg-325 mg) 1 tabs PO once; RASS on ADMIN: vc1 Combtv4, Very Agttd3, Agttd2, Rstlss1, AlertClm0, Drwsy-1, Lt Sdtn-2, Mod Sdtn-3, Dp Sdtn-4, UnArsble-5 Route: PO; Disposition Summary: 11/12/24 05:37 Discharge Ordered Notes: Location: Home cp Problem: new cp Symptoms: have improved cp Condition: Stable cp Diagnosis - Pain in right knee cp Followup: cp - With: Kuldeep Means MD - When: 5 - 6 days - Reason: pain continues Discharge Instructions: - Discharge Summary Sheet cp - Joint Pain cp - Acute Knee Pain, Adult cp Forms: - Medication Reconciliation Form cp - Antibiotic Education cp - Prescription Opioid Use cp - Patient Portal Instructions cp - Leadership Thank You Letter cp Prescriptions: - Anaprox DS 550 mg Oral Tablet - take 1 tablet ORAL route every 12 hours As needed; 20 tablet; Refills: 0, cp Product Selection Permitted Signatures: Dispatcher [employer] EDMS Hector Smith PA PA cp Calcote, Vanessa RN RN vc1 Corrections: (The following items were deleted from the chart) 03:19 03:19 Knee Right 3 View+[email or web address] ordered. EDMS EDMS
[2024-11-12 06:09] VITALS: BP 140/66; TEMP 97.7; O2SAT 100
--- NOTE | 2024-11-12 06:42 | RAD REPORT ---
EXAM: XR KNEE 3 VIEWS RIGHT INDICATION: PAIN COMPARISON: None FINDINGS: No acute fracture. No significant knee effusion. Moderate medial and mild lateral compartment narrowing. Trace patellofemoral compartment spurring. IMPRESSION: No acute fracture involving the imaged knee. Electronically signed by: Zac Hendricks MD 11/12/2024 06:24 AM CDT Due to temporary technical issues with the PACS/[employer] reporting system, reports are being main d by the in-house radiologist without review as a courtesy to ensure prompt reporting the interpreting radiologist is fully responsible for the content of the report. Transcribed Date/Time: 11/12/2024 6:41 AM
--- NOTE | 2024-11-12 08:17 | RAD REPORT ---
EXAMINATION: US RIGHT LOWER EXTREMITY VENOUS DOPPLER CLINICAL INDICATION: [facility] MAIN right leg PAIN Bed: Y TECHNIQUE: Complete bilateral duplex sonography of the LEFT lower extremity veins was performed. The examination included compression for vein patency, color Doppler imaging and flow augmentation in response to distal compression of the distal external iliac, common femoral, femoral, popliteal, tibi al, and great and small saphenous veins. COMPARISON: No prior exam. FINDINGS: Duplex sonography testing of the veins of the RIGHT lower extremity was performed. Color flow imaging shows all veins to be compressible with [id number] color filling. Pulsatile and phasic flow is present within all lower extremity deep and superficial veins examined. IMPRESSION: No evidence of deep venous thrombosis.
== END 2024-11-12 05:53 | disposition home or self-care (01) ==
LOC: ER 02:52
DX: M25.561 Pain in right knee (principal)
CPT/HCPCS: 73562; 93971; Q0162